=== PATIENT | male | born 1935 | race Caucasian/White ===

== ENCOUNTER → 2016-12-31 | Outpatient (CLI) | payer OTHER, MEDICARE ==
[~2016-12-31] MED LIST: CHERATUSSIN; CHERATUSSIN PO; CHOLTAB3 PO; CODEINE PO; GLCPUNK PO; GUAIFENESIN PO; TEMAZAPAM PO; [UNRECOGNIZED DRUG - OTHER] PO; [UNRECOGNIZED DRUG - OTHER] PO; [UNRECOGNIZED DRUG - OTHER] PO; aleve PO; elavil PO; enablex PO; hctz PO; ibuprofen PO; levothyroxine sodium PO; proair inhaler INH; simvastin PO
--- NOTE | 2016-12-31 10:53 | DIAGNOSTIC IMAGING REPORT ---
MRI LUMBAR SPINE W/O CONTRAST CLINICAL HISTORY: M25.552,M54.16 LOW BACK PAIN WITH LEFT LEG RADICULOPATHY. DIFFICULTY IN AMBULATION. TECHNIQUE: Sagittal and axial T1, T2 and STIR images were obtained. COMPARISON STUDY: Conventional radiographic study dated 08/17/2016 OBSERVATIONS: There is a 5.5 cm T2 bright mass arising from the lower pole the right kidney, most consistent with a cyst. There are multiple focal fatty rests/hemangiomas. There are no areas of marrow replacement viewed as suspicious for metastatic disease. L1-2: There is a mild circumferential disc bulge present. There is slight flattening of the anterior thecal sac. There is no significant foraminal narrowing L2-3: There is a mild circumferential disc bulge. There is mild triangular spinal canal narrowing. There is no significant foraminal stenosis L3-4: There is a circumferential disc bulge present. There is mild to moderate spinal stenosis. There is mild to moderate left-sided foraminal narrowing. There is facet joint arthropathy. L4-5: There is a circumferential disc bulge present. There is facet joint arthropathy. There is minimal spinal canal narrowing. There is mild to moderate bilateral foraminal narrowing. L5-S1: There is a left paracentral disc osteophyte complex. This appears to abut the left S1 nerve root. There is mild spinal canal narrowing. There is moderate to severe right-sided foraminal narrowing and moderate left-sided foraminal narrowing. The conus medullaris and cauda equina appear normal. IMPRESSION: 1. Multilevel spondylitic changes 2. Multilevel spinal canal narrowing which is mild to moderate the L3-4 level. 3. Small left paracentral disc osteophyte complex the L5-S1 level. This appears to abut the left S1 nerve root 4. Multilevel foraminal narrowing, most severe at the L5-S1 level. Electronically signed by: Roque Gamboa M.D. 12/31/2016 10:52 AM Dictated Date/Time: 12/31/2016 10:46 AM
== END | disposition home or self-care (01) ==
LOC: C.MRI 09:47
PROVIDERS: ATTEND Family Medicine
DX: M25.552 Pain in left hip (principal); M54.16 Radiculopathy, lumbar region

== ENCOUNTER → 2017-06-17 | Outpatient (CLI) | payer OTHER, MEDICARE | END | disposition home or self-care (01) | LOC: C.RDSM 13:05 | PROVIDERS: ATTEND Physical Medicine & Rehabilitation Sports Medicine | DX: M25.552 Pain in left hip (principal) ==

== ENCOUNTER → 2017-11-04 | Outpatient (CLI) | payer OTHER, MEDICARE | END | disposition home or self-care (01) | LOC: C.RDSM 10:45 | PROVIDERS: ATTEND Physical Medicine & Rehabilitation Sports Medicine | DX: R52 Pain, unspecified (principal) ==

== ENCOUNTER 2020-06-22 11:33 | Inpatient (IN) ==
[2020-06-22] MEDS ORDERED: traMADol HCL 50 MG TABLET PO STA (12:43)
[2020-06-22] MEDS ORDERED: ACETAMINOPHEN 325 MG TAB PO STA (12:43)
[2020-06-22] MEDS ORDERED: LIDOCAINE 5% 1 PATCH TD STA (12:43)
[2020-06-22 12:59] LABS: Basophils # (auto) 0.05 K/uL (0-0.2); Basophils % (auto) 0.6 %; Eosinophils # (auto) 0.49 K/uL (0-0.5); Eosinophils % (auto) 5.5 %; Hematocrit (blood only) 45.1 % (42-52); Hemoglobin 14.8 g/dL (14.0-18.0); Immature Granulocytes # (auto) 0.03 K/uL (0.00-0.02); Immature Granulocytes % (auto) 0.3 %; Mean Corpuscular Hemoglobin 30.8 pg (25-34); Mean Corpuscular Hgb Conc 32.8 g/dL (32-36); Mean Corpuscular Volume 93.8 fL (80-100); Mean Platelet Volume 10.8 fL (7.4-10.4); Monocytes # (auto) 0.67 K/uL (0.11-0.59); Monocytes % (auto) 7.5 %; Neutrophils # (auto) 5.19 K/uL (1.4-6.5); Neutrophils % (auto) 58.1 %; Platelet Count 181 K/uL (130-400); RDW Coefficient of Variation 13.8 % (11.5-14.5); RDW Standard Deviation 47.3 fL (36.4-46.3); Red Blood Count 4.81 M/uL (4.7-6.1); White Blood Count 8.93 K/uL (4.8-10.8)
--- NOTE | 2020-06-22 13:12 | CT Scan Report ---
CT head/brain wo con CLINICAL HISTORY: 85 years-old Male with s/p fall. Acute head injury status post fall TECHNIQUE: Multiple axial CT images of the head were obtained without contrast. A dose lowering tech nique was utilized adhering to the principles of ALARA. CT DOSE: 685.05 mGycm COMPARISON: Head CT 10/17/2019. FINDINGS: No acute intracranial hemorrhage, midline shift, intracranial mass, hydrocephalus, territorial ischem ia or abnormal extra-axial collection. Age-related involutional changes with ex vacuo ventriculomegal y. Patchy white matter hypodensities suggestive of chronic microvascular ischemic disease. Cerebral v ascular calcifications. The calvarium is intact. Mastoid air cells are clear. Moderate polypoid mucosal thickening of the le ft maxillary sinus. Soft tissues and orbits are unremarkable. Prior bilateral lens replacement. IMPRESSION: No acute intracranial abnormality or calvarial fracture. ACT 112: Negative or not required by law. The above report was generated using voice recognition software. It may contain grammatical, syntax o r spelling errors. Electronically signed by: Simon Calhoun M.D. 06/22/2020 1:10 PM
[2020-06-22 13:16] LABS: Albumin Level 3.3 gm/dl (3.4-5.0); BUN Creatinine Ratio 17.3 (10-20); Calcium 8.8 mg/dl (8.5-10.1); Creatinine Clr Calc Pharmacy 41.8 ml/min; Potassium 4.1 mmol/L (3.5-5.1)
--- NOTE | 2020-06-22 13:23 | Emergency Department Note ---
Impression & Plan Fracture, ribs, Fall, Hypoxia ED Provider Note NAME: EBENEZER OSUNA AGE: 85 SEX: M : 1935 ARRIVES VIA: Ambulance INFORMANT: Patient, ED PROVIDER(S): Josemanuel Rosa MD Chief Complaint: Falls HPI: Patient does present with concern for balance issues and falls. Patient does present from [facility]. The patient's had 3 falls today but states that this is been ongoing for multiple weeks. Patient does complain of some mild left-sided rib pain. The patient does not take any blood thinning medicati ons with the exception of a baby aspirin. The patient denies any headache or neck pain. The patient is unsure as to whether or not he struck his head. The patient denies fevers, chills, chest pains, shortness of breath, nausea, vomiting. The patient denies any bilateral upper or lower extremity pain. ROS: See HPI for pertinent positives and negatives. A total of 10 systems were reviewed and otherwise negative. Past medical history: See below Surgical history: See below Social history: See below Physical Exam: GENERAL: Wearing a mask. NAD, non-toxic. EYE EXAM: Normal conjunctiva. PERRL, no anisocoria and EOM's grossly intact w/o pain. Head: Normocephalic atraumatic. NECK: Supple, no nuchal rigidity, no adenopathy, non-tender. No signs of meningismus. No midline C-spine TTP LUNGS: Clear to auscultation. Normal chest wall mechanics. Chest: Left lower anterior costal margin pain without crepitus, flail chest, or overlying skin changes. HEART: NSR, no MRG. ABDOMEN: Abdomen soft, non-tender, normo-active bowel sounds, no masses, no rebound or guarding. BACK: No CVA TTP. SKIN: No rashes and no bruising. UPPER EXTREMITIES: Upper extremities are grossly normal. No obvious deformity or TTP. LOWER EXTREMITIES: Grossly normal, no edema. No obvious deformity or TTP. NEURO EXAM: A&O x3, cranial nerves II-XII grossly intact, normal speech, moves all 4 extremities on command w/o issue. Differential diagnoses: Fracture, dislocation, contusion, intra-abdominal, pneumothorax, intrathoracic, intracranial, neurologic, compartment syndrome, rhabdomyolysis, as well as other pathologies. Course: Patient was seen and evaluated the bedside. Full history physical exam was performed. EKG: Indication: Frequent falls Normal sinus rhythm, rate 83, normal intervals, normal axis, T wave inversion in 3, no ST changes. Imaging Studies: Radiology results as stated below per my review in the radiologist's interpretation: XR ribs LT min 2V w CXR1V CLINICAL HISTORY: Left rib pain following fall. COMPARISON: Chest radiograph and left rib series October 15, 2019. FINDINGS: Left renal calculi measure up to 1 cm. There is no pneumothorax or pleural effusion. Lung volumes are diminished. Interstitial thickening is noted. There is left basilar opacity. Cardiomegaly is unchanged. Mediastinal contours are stable. Note is made of an acute nondisplaced fracture of the anterolateral left seventh rib. There are acute mildly displaced fractures of the left eighth and ninth ribs. IMPRESSION: 1. Acute left seventh through ninth rib fractures. No pneumothorax. 2. Low lung volumes. Pulmonary vascular congestion. 3. Left basilar opacity which favors atelectasis. ACT 112: Negative or not required by law. Electronically signed by: Gabe Oshea M.D. 06/22/2020 2:56 PM Dictated: 06/22/20 1452 Transcribed: 06/22/201451 CT head/brain wo con CLINICAL HISTORY: 85 years-old Male with s/p fall. Acute head injury status post fall TECHNIQUE: Multiple axial CT images of the head were obtained without contrast. A dose lowering technique was utilized adhering to the principles of ALARA. CT DOSE: 685.05 mGycm COMPARISON: Head CT 10/17/2019. FINDINGS: No acute intracranial hemorrhage, midline shift, intracranial mass, hydrocephalus, territorial ischemia or abnormal extra-axial collection. Age- related involutional changes with ex vacuo ventriculomegaly. Patchy white matter hypodensities suggestive of chronic microvascular ischemic disease. Cerebral vas cular calcifications. The calvarium is intact. Mastoid air cells are clear. Moderate polypoid mucosal thickening of the left maxillary sinus. Soft tissues and orbits are unremarkable. Prior bilateral lens replacement. IMPRESSION: No acute intracranial abnormality or calvarial fracture. ACT 112: Negative or not required by law. The above report was generated using voice recognition software. It may contain grammatical, syntax or spelling errors. Electronically signed by: Simon Calhoun M.D. 06/22/2020 1:10 PM Dictated: 06/22/20 1308 Transcribed: 06/22/20 1308 Cardiac monitoring: An order was placed for continuous cardiac monitoring. The monitor shows a rate of 80 with sinus rhythm. MDM: Patient does present with concern for frequent falls. Letter was obtained along with a CT of the head and rib series. Patient does have rib fractures. CT of the head is negative. The patient's EKG is unremarkable. Patient does have a normal white count H&H platelet count. The kidney function is some chronic CKD with elevated glucose. Urinalysis is negative. Patient did have a Covid test noted to be admitted as he is from a intermediate. The patient was recommended for admission under observation due to concern for pain control associated frequent falls rib fractures and intermittent hypoxia with pain medication as he was in the mid to high 80s. Patient was admitted to the medicine service under Dr. Singletary. Past Med/Surg History Medical History (Updated 06/22/20 @ 19:08 by Josemanuel Rosa MD) Alzheimer disease Depression HTN (hypertension) Hx of kidney disease Hyperlipidemia Hypothyroidism Migraines Skin problem Type 2 diabetes mellitus Surgical History Previous back surgery S/P appendectomy Family History Other Cancer Diabetes Gallbladder disease Hypertension Kidney disease Social History Smoking Status: Unknown if ever smoked Preferred Language: Portuguese marital status: Current Living Situation: Personal Care Facility current occupational status: retired Feels Safe at Home: Yes Allergies Allergies Allergy/AdvReac Type Severity Reaction Status Date / Time adhesive tape Allergy Unknown Unknown Verified 06/22/20 14:57 cephalexin [From Keflex] Allergy Unknown Unknown Verified 06/22/20 14:57 rofecoxib Allergy Unknown SWOLLEN Verified 06/22/20 14:57 FEET Home Meds Home Medications Medication Instructions Recorded Confirmed aspirin [Aspirin Low Dose] 81 mg PO QAM 05/08/18 06/22/20 glimepiride 3 mg PO BIDM 05/08/18 06/22/20 losartan 50 mg PO QAM 05/08/18 06/22/20 naproxen 500 mg PO BIDM 05/08/18 06/22/20 oxybutynin chloride 10 mg PO QAM 05/08/18 06/22/20 sertraline 150 mg PO QAM 05/08/18 06/22/20 simvastatin 40 mg PO HS 05/08/18 06/22/20 acetaminophen 500 mg PO Q6H PRN MDD 3 GM APAP/07/28/18 06/22/20 HOURS buspirone 2.5 mg PO BIDM 03/31/19 06/22/20 lorazepam 1 mg PO Q6H PRN 03/31/19 06/22/20 peg 400-propylene glycol (PF) 1 drp OPB BID 07/01/19 06/22/20 [Systane (PF)] levothyroxine 25 mcg PO DAILY@0700 06/22/20 06/22/20 magnesium hydroxide [Milk of 30 ml PO DAILY PRN 06/22/20 06/22/20 Magnesia] olanzapine 5 mg PO HS 06/22/20 06/22/20 Results & Data (ED) Vital Signs Vital Signs - 24 hr 06/22/20 11:47 06/22/20 12:00 06/22/20 12:30 Temperature 36.9 C Temperature Source Oral Pulse Rate 83 81 80 Pulse Rate from SpO2 Sensor 82 80 Respiratory Rate 20 14 14 Respiratory Effort / Characteristics Non-Labored Spontaneous Respiratory Depth Normal Respiratory Pattern Regular Blood Pressure 132/84 154/88 H 139/82 Blood Pressure Mean 100 117 102 Pulse Oximetry 91 92 92 Oxygen Delivery Method Room Air Oxygen Flow Rate Sepsis Recent Fever Within 48 Hours No Sepsis New/Unexplained Change in Mental Status N/A Sepsis Action Taken by Nursing No Action Required 06/22/20 12:44 06/22/20 13:15 06/22/20 13:30 Temperature Temperature Source Pulse Rate 82 80 Pulse Rate from SpO2 Sensor 82 80 Respiratory Rate 17 16 Respiratory Effort / Characteristics Respiratory Depth Respiratory Pattern Blood Pressure 166/84 H 134/78 Blood Pressure Mean 110 91 Pulse Oximetry 92 95 93 Oxygen Delivery Method Room Air Oxygen Flow Rate Sepsis Recent Fever Within 48 Hours Sepsis New/Unexplained Change in Mental Status Sepsis Action Taken by Nursing 06/22/20 14:00 06/22/20 14:46 06/22/20 15:00 Temperature Temperature Source Pulse Rate 82 78 81 Pulse Rate from SpO2 Sensor 81 78 80 Respiratory Rate 16 12 14 Respiratory Effort / Characteristics Respiratory Depth Respiratory Pattern Blood Pressure 118/80 124/72 136/68 Blood Pressure Mean 101 97 77 Pulse Oximetry 94 93 90 Oxygen Delivery Method Room Air Oxygen Flow Rate Sepsis Recent Fever Within 48 Hours Sepsis New/Unexplained Change in Mental Status Sepsis Action Taken by Nursing 06/22/20 15:30 06/22/20 15:31 06/22/20 15:32 Temperature Temperature Source Pulse Rate 83 Pulse Rate from SpO2 Sensor 82 Respiratory Rate 17 Respiratory Effort / Characteristics Respiratory Depth Respiratory Pattern Blood Pressure 92/60 L Blood Pressure Mean 78 Pulse Oximetry 93 88 L 93 Oxygen Delivery Method Nasal Cannula Room Air Nasal Cannula Oxygen Flow Rate 2 2 Sepsis Recent Fever Within 48 Hours Sepsis New/Unexplained Change in Mental Status Sepsis Action Taken by Nursing 06/22/20 16:00 06/22/20 16:30 06/22/20 17:00 Temperature Temperature Source Pulse Rate 79 76 78 Pulse Rate from SpO2 Sensor 78 72 78 Respiratory Rate 14 21 12 Respiratory Effort / Characteristics Respiratory Depth Respiratory Pattern Blood Pressure 105/60 95/65 L 110/70 Blood Pressure Mean 65 81 83 Pulse Oximetry 94 95 95 Oxygen Delivery Method Nasal Cannula Nasal Cannula Nasal Cannula Oxygen Flow Rate 2 2 2 Sepsis Recent Fever Within 48 Hours Sepsis New/Unexplained Change in Mental Status Sepsis Action Taken by Nursing 06/22/20 17:30 06/22/20 18:00 Temperature Temperature Source Pulse Rate 72 72 Pulse Rate from SpO2 Sensor 73 72 Respiratory Rate 17 25 H Respiratory Effort / Characteristics Respiratory Depth Respiratory Pattern Blood Pressure 96/60 L 96/53 L Blood Pressure Mean 70 73 Pulse Oximetry 94 93 Oxygen Delivery Method Nasal Cannula Nasal Cannula Oxygen Flow Rate 2 2 Sepsis Recent Fever Within 48 Hours Sepsis New/Unexplained Change in Mental Status Sepsis Action Taken by [facility] Medications Current Medication List: was personally reviewed by me Laboratory Data Attestation: I reviewed the patient's lab results. Result diagrams: 06/22/20 11:55 06/22/20 11:55 Lab Results 06/22/20 06/22/20 06/22/20 Range/Units 11:55 11:55 14:15 WBC 8.93 (4.8-10.8) K/uL RBC 4.81 (4.7-6.1) M/uL Hgb 14.8 (14.0-18.0) g/dL Hct 45.1 (42-52) % MCV 93.8 (80-100) fL MCH 30.8 (25-34) pg MCHC 32.8 (32-36) g/dL RDW Std Deviation 47.3 H (36.4-46.3) fL RDW Coeff of Johnnie 13.8 (11.5-14.5) % Plt Count 181 (130-400) K/uL MPV 10.8 H (7.4-10.4) fL Immature Gran % (Auto) 0.3 % Neut % (Auto) 58.1 % Lymph % (Auto) 28.0 % [place] % (Auto) 7.5 % Eos % (Auto) 5.5 % Baso % (Auto) 0.6 % Neut # (Auto) 5.19 (1.4-6.5) K/uL Lymph # (Auto) 2.50 (1.2-3.4) K/uL [place] # (Auto) 0.67 H (0.11-0.59) K/uL Eos # (Auto) 0.49 (0-0.5) K/uL Baso # (Auto) 0.05 (0-0.2) K/uL Immature Gran # (Auto) 0.03 H (0.00-0.02) K/uL Sodium 138 (136-145) mmol/L Potassium 4.1 (3.5-5.1) mmol/L Chloride 106 (98-107) mmol/L Carbon Dioxide 26 (21-32) mmol/L Anion Gap 6.0 (3-11) BUN 25 H (7-18) mg/dl Creatinine 1.43 H (0.6-1.4) mg/dl Est Cr Clr Drug Dosing 41.8 ml/min Est GFR ( Amer) 51.0 Est GFR (Non-Af Amer) 44.0 BUN/Creatinine Ratio 17.3 (10-20) Glucose 278 H (70-99) mg/dl Calcium 8.8 (8.5-10.1) mg/dl Total Bilirubin 0.6 (0.2-1) mg/dl AST 23 (15-37) U/L ALT 23 (12-78) U/L Alkaline Phosphatase 87 (45-117) U/L Total Protein 7.5 (6.4-8.2) gm/dl Albumin 3.3 L (3.4-5.0) gm/dl Globulin 4.2 H (2.5-4.0) gm/dl Albumin/Globulin Ratio 0.8 L (0.9-2) TSH 3.890 (0.300-4.500) uIu/ml Urine Color Yellow Urine Appearance Clear (Clear) Urine pH 5.5 (4.5-7.5) Ur Specific G[place] 1.018 (1.000-1.030) Urine Protein Negative (Negative) Urine Glucose (UA) 1+ H (Negative) Urine Ketones Negative (Negative) Urine Blood Negative (Negative) Urine Nitrite Negative (Negative) Urine Bilirubin Negative (Negative) Urine Urobilinogen Negative (Negative) Ur Leukocyte Esterase Negative (Negative) Administered Medications Discontinued Medications Acetaminophen (Acetaminophen 325 Mg Tab) 650 mg PO NOW STA Stop: 06/22/20 12:44 Last Admin: 06/22/20 13:10 Dose: 650 mg Documented by: [id number] Lidocaine (Lidocaine 5% 1 Patch) 1 patch TD NOW STA Stop: 06/22/20 12:44 Last Admin: 06/22/20 13:12 Dose: 1 patch Documented by: [id number] Morphine Sulfate (Morphine Sulfate 4 Mg/Ml 1 Ml Carp\Vial) 4 mg IV NOW STA Stop: 06/22/20 14:19 Last Admin: 06/22/20 14:44 Dose: 4 mg Documented by: [id number] Tramadol HCl (Tramadol Hcl 50 Mg Tablet) 25 mg PO NOW STA Stop: 06/22/20 12:44 Last Admin: 06/22/20 13:10 Dose: 25 mg Documented by: [id number] Discharge Plan Visit Data Chief Complaint: Fall ED Provider: Josemanuel Rosa Discharge Problem: Fracture, ribs, Fall, Hypoxia Forms Stand Alone Forms: [facility] Prescriptions Prescriptions: No Action acetaminophen 500 mg Tablet 500 mg PO Q6H MDD 3 GM APAP/24 HOURS PRN (Reason: Fever Or Pain) RF: 0 buspirone 5 mg tablet 2.5 mg PO BIDM RF: 0 lorazepam 1 mg tablet 1 mg PO Q6H PRN (Reason: Anxiety) RF: 0 losartan 50 mg Tablet 50 mg PO QAM RF: 0 oxybutynin chloride 10 mg Tablet Extended Release 24hr 10 mg PO QAM RF: 0 sertraline 100 mg Tablet 150 mg PO QAM RF: 0 aspirin [Aspirin Low Dose] 81 mg Tablet,Delayed Release (Dr/Ec) 81 mg PO QAM RF: 0 simvastatin 40 mg Tablet 40 mg PO HS RF: 0 glimepiride 2 mg Tablet 3 mg PO BIDM RF: 0 naproxen 500 mg Tablet 500 mg PO BIDM RF: 0 Systane (PF) 0.4-0.3 % Dropperette 1 drp OPB BID RF: 0 olanzapine 5 mg Tablet 5 mg PO HS RF: 0 levothyroxine 25 mcg Tablet 25 mcg PO DAILY@0700 RF: 0 magnesium hydroxide [Milk of Magnesia] 400 mg/5 mL Suspension 30 ml PO DAILY PRN (Reason: Constipation) RF: 0 Discharge Problem: Fracture, ribs Qualifiers: Encounter type: initial encounter Rib fracture type: multiple ribs Fracture type: closed Laterality: left Qualified Code(s): S22.42XA - Multiple fractures of ribs, left side, initial encounter for closed fracture Fall Qualifiers: Encounter type: initial encounter Qualified Code(s): W19.XXXA - Unspecified fal l, initial encounter
[2020-06-22 13:27] LABS: Albumin Globulin Ratio 0.8 (0.9-2); Bilirubin,Total 0.6 mg/dl (0.2-1); Globulin 4.2 gm/dl (2.5-4.0); Thyroid Stimulating Hormone 3.89 uIu/ml (0.300-4.500); Total Protein 7.5 gm/dl (6.4-8.2)
[2020-06-22] MEDS ORDERED: MoRPHine SULFATE 4 MG/ML 1 ML CARP\\VIAL IV STA (14:18)
[2020-06-22 14:31] LABS: Appearance Urine Clear (Clear); Bilirubin Urine Negative (Negative); Blood Urine Negative (Negative); Color Urine Yellow; Glucose Urine UA 1+ (Negative); Ketones Urine Negative (Negative); Leukocyte Esterase Urine Negative (Negative); Nitrite Urine Negative (Negative); Protein Urine Negative (Negative); Specific Gravity Urine 1.018 (1.000-1.030); Urobilinogen Urine Negative (Negative); pH Urine 5.5 (4.5-7.5)
--- NOTE | 2020-06-22 14:57 | XRay Report ---
XR ribs LT min 2V w CXR1V CLINICAL HISTORY: Left rib pain following fall. COMPARISON: Chest radiograph and left rib series October 15, 2019. FINDINGS: Left renal calculi measure up to 1 cm. There is no pneumothorax or pleural effusion. Lung volumes are diminished. Interstitial thickening is noted. There is left basilar opacity. Cardiomegaly is unchanged. Mediastinal contours are stable. Note is made of an acute nondisplaced fracture of the anterolateral left seventh rib. There are acute mildly displaced fractures of the left eighth and ni nth ribs. IMPRESSION: 1. Acute left seventh through ninth rib fractures. No pneumothorax. 2. Low lung volumes. Pulmonary vascular congestion. 3. Left basilar opacity which favors atelectasis. ACT 112: Negative or not required by law. Electronically signed by: Gabe Oshea M.D. 06/22/2020 2:56 PM
[2020-06-22] MEDS ORDERED: MoRPHine SULFATE 4 MG/ML 1 ML CARP\\VIAL IV PRN (15:24)
--- NOTE | 2020-06-22 17:42 | History & Physical Report ---
Date of Service June 22, 2020 Assessment & Plan (1) Falls: Multiple falls today, and it sounds like increasing frequency. Per patient's report, no loss of consciousness. No prodromal signs/symptoms. They sound mechanical, but of note, BP is as low as 95/53 in the ED. - Monitor on tele - Monitor BP - PT/OT -> Likely placement (2) Broken ribs: X-ray on 06/22 reveals left seventh through ninth rib fractures. - Lidocaine patch - Tylenol PRN - Morphine as last resort (3) HTN (hypertension): BP actually low-normal in the ED, though patient denies any present symptoms. - Given his falls (despite denying lightheadedness or dizziness prior to his falls), will hold losartan for now in case it is contributing. (4) Type 2 diabetes mellitus: Last A1c was 9.7% in 2019. - Sliding scale insulin - Check A1c (5) Hx of kidney disease: Baseline Cr ~1.15 - 1.45, eGFR 45 - 60, CKD Stage III. - Presently Cr is 1.45. - Monitor (6) Alzheimer disease: On admission, patient knew name, place ("[facility]"), and month/year. He could not name the president or what holiday is coming up (een) despite hints for both. Appears to be at baseline. - Continue olanzapine & lorazepam PRN (7) Hypothyroidism: TSH was 3.89 this admission. No signs/symptoms of hypo-/hyperthyroidism. - Continue home Synthroid 25 mcg (8) Depression: No depressive affect today. - Continue buspirone & sertraline (9) DVT prophylaxis: SCDs - Low DVT risk per admission calculator History of Present Illness Primary Care Provider: [employer] 85yo M w/ hx of DM and HTN who presents after several falls at his residency at [facility]. He reports that he remembers the falls and denies striking his head. He reports he's just "falling backwards all the time." He denies any prodrome symptoms and denies any dizziness, lightheadedness, presyncopal sensations, chest pain, or shortness of breath before he falls. Per report, he fell three times today and was sent in to the hospital for this reason. At present, he reports some pain in the left chest, but otherwise has no major complaints. Denies shortness of breath, nausea, vomiting, diarrhea or constipation, or fevers/chills/sweats. Allergies Allergy/AdvReac Type Severity Reaction Status Date / Time adhesive tape Allergy Unknown Unknown Verified 06/22/20 14:57 cephalexin [From Keflex] Allergy Unknown Unknown Verified 06/22/20 14:57 rofecoxib Allergy Unknown SWOLLEN Verified 06/22/20 14:57 FEET Home Medications Home Medications Medication Instructions Recorded Confirmed Type aspirin [Aspirin Low Dose] 81 mg PO QAM 05/08/18 06/22/20 History glimepiride 3 mg PO BIDM 05/08/18 06/22/20 History losartan 50 mg PO QAM 05/08/18 06/22/20 History naproxen 500 mg PO BIDM 05/08/18 06/22/20 History oxybutynin chloride 10 mg PO QAM 05/08/18 06/22/20 History sertraline 150 mg PO QAM 05/08/18 06/22/20 History simvastatin 40 mg PO HS 05/08/18 06/22/20 History acetaminophen 500 mg PO Q6H PRN MDD 3 GM APAP/07/28/18 06/22/20 History HOURS buspirone 2.5 mg PO BIDM 03/31/19 06/22/20 History lorazepam 1 mg PO Q6H PRN 03/31/19 06/22/20 History peg 400-propylene glycol (PF) 1 drp OPB BID 07/01/19 06/22/20 History [Systane (PF)] levothyroxine 25 mcg PO DAILY@0700 06/22/20 06/22/20 History magnesium hydroxide [Milk of 30 ml PO DAILY PRN 06/22/20 06/22/20 History Magnesia] olanzapine 5 mg PO HS 06/22/20 06/22/20 History Past Med/Surg History Medical History (Updated 06/22/20 @ 18:17 by Kermit Singletary MD) Alzheimer disease Depression HTN (hypertension) Hx of kidney disease Hyperlipidemia Hypothyroidism Migraines Skin problem Type 2 diabetes mellitus Surgical History Previous back surgery S/P appendectomy Family History Other Cancer Diabetes Gallbladder disease Hypertension Kidney disease Social History Smoking Status: Unknown if ever smoked Preferred Language: Korean marital status: Current Living Situation: Personal Care Facility current occupational status: retired Feels Safe at Home: Yes Review of Systems Review of Systems: All systems reviewed & are unremarkable except as noted in HPI & below Physical Exam Constitutional: WD/WN, vitals as above Eyes: EOM intact bilaterally; no conjunctival abnormality ENMT: external ear and nose normal, oropharynx normal Neck: trachea midline, no thyromegaly normal visual inspection Respiratory: normal respiratory effort, lungs clear to auscultation no respiratory distress Cardiovascular: RRR, no murmur, no edema Chest (Breasts): Chest: normal inspection of chest Additional Comments: But tender to palpations Gastrointestinal (Abdomen): Inspection/Auscultation: abdomen normal to inspection; abdomen not distended Musculoskeletal: no cyanosis or clubbing, extremities motor strength 5/5 Skin: no rashes, warm and dry Neurologic: moves all extremities and awake Psychiatric: Orientation: alert, oriented to person, oriented to place, oriented to time and cooperative Results & Data Results & Data ([facility]) Vital Signs (Past 12 Hours) Vital Signs Temp Pulse Resp BP Pulse Ox 06/22/20 16:30 76 21 95/65 L 95 06/22/20 16:00 79 14 105/60 94 06/22/20 15:32 93 06/22/20 15:31 88 L 06/22/20 15:30 83 17 92/60 L 93 06/22/20 15:00 81 14 136/68 90 06/22/20 14:46 78 12 124/72 93 06/22/20 14:00 82 16 118/80 94 06/22/20 13:30 80 16 134/78 93 06/22/20 13:15 82 17 166/84 H 95 06/22/20 12:44 92 06/22/20 12:30 80 14 139/82 92 06/22/20 12:00 81 14 154/88 H 92 06/22/20 11:47 36.9 C 83 20 132/84 91 PG Care Time/CCT Total # of Minutes Spent Total Time Spent with Patient: Total time spent is greater than 50% in coordination of care (as documented) at patient's floor/unit and/or counseling patient: Coding Level of Care Code 00283 Initial Inpt Care Lvl 3 Diagnoses Falls W19.XXXA Broken ribs S22.39XA HTN (hypertension) I10 Type 2 diabetes mellitus E11.9 Hx of kidney disease Z87.448 Alzheimer disease G30.9; F02.80 Hypothyroidism E03.9 Depression F32.9 DVT prophylaxis Z29.9
[2020-06-22] MEDS ORDERED: DEXTROSE 50% 50 ML SYRINGE IV PRN (20:15)
[2020-06-22] MEDS ORDERED: GLUCOSE 40% GEL 15 GM TUBE PO PRN (20:15)
[2020-06-22] MEDS ORDERED: GLUCOSE 10 TABS/TUBE PO PRN (20:15)
[2020-06-22] MEDS ORDERED: CARBOHYDRATES FOR HYPOGLYCEMIA PO PRN (20:15)
[2020-06-22] MEDS ORDERED: ONDANSETRON INJ 2 MG/ML 2 ML VIAL IV PRN (20:15)
[2020-06-22] MEDS ORDERED: GLUCAGON FOR INJ 1 MG VIAL SQ PRN (20:15)
[2020-06-22] MEDS ORDERED: LORazepam 1 MG TAB PO PRN (20:24)
[2020-06-22] MEDS: INSULIN ASPART 100 UNITS/ML 3 ML PEN SC SCH (21:31)
[2020-06-22] MEDS: SIMVASTATIN 40 MG TAB PO SCH (21:32)
[2020-06-22] MEDS: OLANZapine 5 MG TABLET PO SCH (21:33)
[2020-06-22] MEDS: MoRPHine SULFATE 2 MG/ML CARP IV PRN (21:39)
[2020-06-22] MEDS: ARTIFICIAL TEARS OP SCH (21:41)
[2020-06-22] MEDS ORDERED: PNEUMOCOCCAL Polysaccharide Vaccine 25mcg/0.5mL vial/Syr IM ONE (23:45)
--- NOTE | 2020-06-23 06:24 | Electrocardiogram Report ---
Test Reason : Blood Pressure : / mmHG Vent. Rate : 083 BPM Atrial Rate : 083 BPM P-R Int : 160 ms QRS Dur : 088 ms QT Int : 382 ms P-R-T Axes : 053 -21 010 degrees QTc Int : 448 ms Normal sinus rhythm Low voltage QRS Inferior infarct , age undetermined Abnormal ECG When compared with ECG of 01-JUL-2019 21:19, Inferior infarct is now Present Confirmed by Dayo Chong ([id number]) on 06/23/2020 6:24:37 AM Referred By: REFERRED SELF Confirmed By:Dayo Chong
[2020-06-23] MEDS: LEVOTHYROXINE SODIUM 25 MCG TABLET PO SCH (06:42)
[2020-06-23 07:01] LABS: Hematocrit (blood only) 42.9 % (42-52); Mean Corpuscular Hemoglobin 30.7 pg (25-34); Mean Corpuscular Hgb Conc 32.6 g/dL (32-36); Mean Corpuscular Volume 94.1 fL (80-100); Mean Platelet Volume 10.1 fL (7.4-10.4); Platelet Count 152 K/uL (130-400); RDW Standard Deviation 47.9 fL (36.4-46.3); Red Blood Count 4.56 M/uL (4.7-6.1); White Blood Count 8.61 K/uL (4.8-10.8)
[2020-06-23 07:30] LABS: BUN Creatinine Ratio 19.3 (10-20); Calcium 8.5 mg/dl (8.5-10.1); Creatinine Clr Calc Pharmacy 37.4 ml/min; Est GFR (African American) 46.7; Est GFR (Non-African American) 40.3; Potassium 4.3 mmol/L (3.5-5.1)
[2020-06-23 08:28] LABS: Estimated Average Glucose 174 mg/dl; Hemoglobin A1C 7.7 % (4.5-5.6)
[2020-06-23] MEDS: MoRPHine SULFATE 2 MG/ML CARP IV PRN ×4 (08:43→22:45)
[2020-06-23] MEDS: OXYBUTYNIN CHLORIDE XL 5 MG TABCR PO SCH (08:44)
[2020-06-23] MEDS: SERTRALINE HCL 50 MG TABLET PO SCH (08:44)
[2020-06-23] MEDS: ASPIRIN 81 MG ECTAB PO SCH (08:44)
[2020-06-23] MEDS: busPIRone 5 MG TAB PO SCH ×2 (08:45→17:13)
[2020-06-23] MEDS: ARTIFICIAL TEARS OP SCH ×2 (08:46→22:38)
[2020-06-23] MEDS: INSULIN ASPART 100 UNITS/ML 3 ML PEN SC SCH ×4 (08:49→22:39)
[2020-06-23] MEDS ORDERED: MoRPHine SULFATE 2 MG/ML CARP IV STA (14:10)
[2020-06-23] MEDS: ACETAMINOPHEN 325 MG TAB PO PRN (17:13)
--- NOTE | 2020-06-23 21:39 | Hospitalist Progress Note ---
Date of Service June 23, 2020 Assessment & Plan (1) Falls: Multiple falls today, and it sounds like increasing frequency. Per patient's report, no loss of consciousness. No prodromal signs/symptoms. They sound mechanical, but of note, BP is as low as 95/53 in the ED. - Monitor on tele - Monitor BP - PT/OT -> awaiting placement (2) Broken ribs: X-ray on 06/22 reveals left seventh through ninth rib fractures. - Lidocaine patch - Tylenol PRN - Morphine as last resort -Pain is still not controlled yet. will continue to treat. (3) HTN (hypertension): BP actually low-normal in the ED, though patient denies any present symptoms. - Given his falls (despite denying lightheadedness or dizziness prior to his falls), will hold losartan for now in case it is contributing. (4) Type 2 diabetes mellitus: Last A1c was 9.7% in 2019. - Sliding scale insulin - Check A1c (5) Hx of kidney disease: Baseline Cr ~1.15 - 1.45, eGFR 45 - 60, CKD Stage III. - Presently Cr is 1.59 - Monitor (6) Alzheimer disease: On admission, patient knew name, place ("[facility]"), and month/year. He could not name the president or what holiday is coming up (een) despite hints for both. Appears to be at baseline. - Continue olanzapine & lorazepam PRN (7) Hypothyroidism: TSH was 3.89 this admission. No signs/symptoms of hypo-/hyperthyroidism. - Continue home Synthroid 25 mcg (8) Depression: No depressive affect today. - Continue buspirone & sertraline (9) DVT prophylaxis: SCDs - Low DVT risk per admission calculator Admission and Anticipated Discharge Date Admission Date: June 22, 2020 Subjective Patient reports no new symptoms today. Review of Systems Review of Systems: All systems reviewed & are unremarkable except as noted in HPI & below Physical Exam Physical Exam: Constitutional: WD/WN, vitals as above Eyes: EOM intact bilaterally; no conjunctival abnormality ENMT: external ear and nose normal, oropharynx normal Neck: trachea midline, no thyromegaly normal visual inspection Respiratory: normal respiratory effort, lungs clear to auscultation no r espiratory distress Cardiovascular: RRR, no murmur, no edema Chest (Breasts): Chest: normal inspection of chest Additional Comments: But tender to palpations Gastrointestinal (Abdomen): Inspection/Auscultation: abdomen normal to inspection; abdomen not distended Musculoskeletal: no cyanosis or clubbing, extremities motor strength 5/5 Skin: no rashes, warm and dry Neurologic: moves all extremities and awake Psychiatric: Orientation: alert, oriented to person, oriented to place, oriented to time and cooperative Results & Data Results & Data ([facility]) Vital Signs (Past 12 Hours) Vital Signs Temp Pulse Pulse Resp BP Pulse Ox 06/23/20 18:52 37.2 C 87 18 118/65 90 06/23/20 16:00 83 06/23/20 15:29 37.1 C 80 18 118/72 92 PG Care Time/CCT Total # of Minutes Spent Total Time Spent with Patient: Total time spent is greater than 50% in coordination of care (as documented) at patient's floor/unit and/or counseling patient: Coding Level of Care Code 62754 Subseq Hosp Care Lvl 2 Diagnoses Falls W19.XXXA Broken ribs S22.39XA HTN (hypertension) I10 Type 2 diabetes mellitus E11.9 Hx of kidney disease Z87.448 Alzheimer disease G30.9; F02.80 Hypothyroidism E03.9 Depression F32.9 DVT prophylaxis Z29.9 Time Spent (min) 25
[2020-06-23] MEDS: SIMVASTATIN 40 MG TAB PO SCH (22:42)
[2020-06-23] MEDS: OLANZapine 5 MG TABLET PO SCH (22:42)
[2020-06-24] MEDS: LEVOTHYROXINE SODIUM 25 MCG TABLET PO SCH (06:13)
[2020-06-24] MEDS: MoRPHine SULFATE 2 MG/ML CARP IV PRN ×4 (06:16→20:58)
[2020-06-24] MEDS: ACETAMINOPHEN 325 MG TAB PO PRN (08:57)
[2020-06-24] MEDS: OXYBUTYNIN CHLORIDE XL 5 MG TABCR PO SCH (08:58)
[2020-06-24] MEDS: busPIRone 5 MG TAB PO SCH ×2 (08:58→16:56)
[2020-06-24] MEDS: SERTRALINE HCL 50 MG TABLET PO SCH (08:58)
[2020-06-24] MEDS: ARTIFICIAL TEARS OP SCH ×2 (08:59→20:58)
[2020-06-24] MEDS: ASPIRIN 81 MG ECTAB PO SCH (08:59)
[2020-06-24] MEDS: INSULIN ASPART 100 UNITS/ML 3 ML PEN SC SCH ×4 (09:00→21:34)
[2020-06-24] MEDS: LIDOCAINE 5% 1 PATCH TD SCH (09:55)
[2020-06-24] MEDS ORDERED: SODIUM CHLORIDE 0.9% 500 ML IV SCH (16:45)
[2020-06-24] MEDS: ACETAMINOPHEN 325 MG TAB PO SCH ×2 (16:56→22:48)
[2020-06-24 17:26] LABS: BUN Creatinine Ratio 18.3 (10-20); Calcium 8.9 mg/dl (8.5-10.1); Creatinine Clr Calc Pharmacy 35.5 ml/min; Est GFR (African American) 43.2; Est GFR (Non-African American) 37.3; Potassium 4.5 mmol/L (3.5-5.1)
[2020-06-24] MEDS: SIMVASTATIN 40 MG TAB PO SCH (20:53)
[2020-06-24] MEDS: CELECOXIB 100 MG CAP PO SCH (20:53)
[2020-06-24] MEDS: PANTOprazole 40 MG TAB PO SCH (20:53)
[2020-06-24] MEDS: OLANZapine 5 MG TABLET PO SCH (20:54)
--- NOTE | 2020-06-24 22:58 | Hospitalist Progress Note ---
Date of Service June 24, 2020 Assessment & Plan (1) Falls: Multiple falls today, and it sounds like increasing frequency. Per patient's report, no loss of consciousness. No prodromal signs/symptoms. They sound mechanical, but of note, BP is as low as 95/53 in the ED. - Monitor on tele - Monitor BP - PT/OT -> awaiting placement -Patient had a fall during the day: no focal findings or lacerations. -will keep patient until pain is better controlled. (2) Broken ribs: X-ray on 06/22 reveals left seventh through ninth rib fractures. - Lidocaine patch - Tylenol PRN - Morphine as last resort -Pain is still not controlled yet. will continue to treat: ordere celebrex and tylenol around the clock instead of PRN. will try to limit morphine dose. (3) HTN (hypertension): BP actually low-normal in the ED, though patient denies any present symptoms. - Given his falls (despite denying lightheadedness or dizziness prior to his falls), will hold losartan for now in case it is contributing. (4) Type 2 diabetes mellitus: Last A1c was 9.7% in 2019. - Sliding scale insulin (5) Hx of kidney disease: Baseline Cr ~1.15 - 1.45, eGFR 45 - 60, CKD Stage III. - Presently Cr is 1.59 - Monitor (6) Alzheimer disease: On admission, patient knew name, place ("[facility]"), and month/year. He could not name the president or what holiday is coming up (Halloween) despite hints for both. Appears to be at baseline. - Continue olanzapine & lorazepam PRN (7) Hypothyroidism: TSH was 3.89 this admission. No signs/symptoms of hypo-/hyperthyroidism. - Continue home Synthroid 25 mcg (8) Depression: No depressive affect today. - Continue buspirone & sertraline (9) DVT prophylaxis: SCDs - Low DVT risk per admission calculator Admission and Anticipated Discharge Date Admission Date: June 22, 2020 Subjective 85 yo male reports having pain in his chest. He states it is still strong. He had a fall earlier in the day. Updated daughter. Review of Systems Review of Systems: All systems reviewed & are unremarkable except as noted in HPI & below Physical Exam Physical Exam: Constitutional: WD/WN, vitals as above Eyes: EOM intact bilaterally; no conjunctival abnormality ENMT: external ear and nose normal, oropharynx normal Neck: trachea midline, no thyromegaly normal visual inspection Respiratory: normal respiratory effort, lungs clear to auscultation no respiratory distress Cardiovascular: RRR, no murmur, no edema Chest (Breasts): Chest: normal inspection of chest Additional Comments: But tender to palpations Gastrointestinal (Abdomen): Inspection/Auscultation: abdomen normal to inspection; abdomen not distended Musculoskeletal: no cyanosis or clubbing, extremities motor strength 5/5 Skin: no rashes, warm and dry Neurologic: moves all extremities and awake, no focal findings Psychiatric: Orientation: alert, oriented to person, oriented to place, oriented to time and cooperative Results & Data Results & Data ([facility]) Vital Signs (Past 12 Hours) Vital Signs Temp Pulse Pulse Resp BP BP Pulse Ox 06/24/20 20:27 37.6 C H 83 18 127/76 95 06/24/20 16:45 36.8 C 95 H 16 127/73 94 06/24/20 15:00 88 06/24/20 11:33 36.9 C 87 16 129/77 92 06/24/20 10:59 37 C 98 H 22 201/84 H 92 PG Care Time/CCT Total # of Minutes Spent Total Time Spent with Patient: Total time spent is greater than 50% in coordination of care (as documented) at patient's floor/unit and/or counseling patient: Coding Level of Care Code 82628 Subseq Hosp Care Lvl 3 Diagnoses Falls W19.XXXA Broken ribs S22.39XA HTN (hypertension) I10 Type 2 diabetes mellitus E11.9 Hx of kidney disease Z87.448 Alzheimer disease G30.9; F02.80 Hypothyroidism E03.9 Depression F32.9 DVT prophylaxis Z29.9 Time Spent (min) 35
[2020-06-25] MEDS: MoRPHine SULFATE 2 MG/ML CARP IV PRN (01:07)
[2020-06-25] MEDS: ACETAMINOPHEN 325 MG TAB PO SCH ×4 (05:03→23:03)
[2020-06-25] MEDS: LEVOTHYROXINE SODIUM 25 MCG TABLET PO SCH (05:04)
[2020-06-25] MEDS: OXYBUTYNIN CHLORIDE XL 5 MG TABCR PO SCH (09:04)
[2020-06-25] MEDS: SERTRALINE HCL 50 MG TABLET PO SCH (09:04)
[2020-06-25] MEDS: busPIRone 5 MG TAB PO SCH ×2 (09:04→17:20)
[2020-06-25] MEDS: ASPIRIN 81 MG ECTAB PO SCH (09:04)
[2020-06-25] MEDS: CELECOXIB 100 MG CAP PO SCH ×2 (09:04→20:53)
[2020-06-25] MEDS: PANTOprazole 40 MG TAB PO SCH ×2 (09:04→20:53)
[2020-06-25] MEDS: LIDOCAINE 5% 1 PATCH TD SCH (09:05)
[2020-06-25] MEDS: ARTIFICIAL TEARS OP SCH ×2 (09:05→20:54)
[2020-06-25] MEDS: INSULIN ASPART 100 UNITS/ML 3 ML PEN SC SCH ×4 (09:08→21:50)
--- NOTE | 2020-06-25 14:24 | Hospitalist Progress Note ---
Date of Service June 25, 2020 Assessment & Plan (1) Falls: Multiple falls today, and it sounds like increasing frequency. Per patient's report, no loss of consciousness. No prodromal signs/symptoms. They sound mechanical, but of note, BP is as low as 95/53 in the ED. - Monitor on tele - Monitor BP - PT/OT -> awaiting placement -Patient had a fall during the day: no focal findings or lacerations. -will keep patient until pain is better controlled. It is better controlled with NSAID and tylenol. (2) Broken ribs: X-ray on 06/22 reveals left seventh through ninth rib fractures. - Lidocaine patch - Tylenol PRN - Morphine as last resort -Pain is still not controlled yet. will continue to treat: ordere celebrex and tylenol around the clock instead of PRN. will try to limit morphine dose. (3) HTN (hypertension): BP actually low-normal in the ED, though patient denies any present symptoms. - Given his falls (despite denying lightheadedness or dizziness prior to his falls), will hold losartan for now in case it is contributing. (4) Type 2 diabetes mellitus: Last A1c was 9.7% in 2019. - Sliding scale insulin (5) Hx of kidney disease: Baseline Cr ~1.15 - 1.45, eGFR 45 - 60, CKD Stage III. - - Monitor (6) Alzheimer disease: On admission, patient knew name, place ("[facility]"), and month/year. He could not name the president or what holiday is coming up (Halloween) despite hints for both. Appears to be at baseline. - Continue olanzapine & lorazepam PRN (7) Hypothyroidism: TSH was 3.89 this admission. No signs/symptoms of hypo-/hyperthyroidism. - Continue home Synthroid 25 mcg (8) Depression: No depressive affect today. - Continue buspirone & sertraline (9) DVT prophylaxis: SCDs - Low DVT risk per admission calculator Admission and Anticipated Discharge Date Admission Date: June 22, 2020 Subjective Pain is better controlled today. He was lethargic in the morning as per nursing however he woke up in the afternoon. He received morphine overnight. will hold dose. Review of Systems Review of Systems: All systems reviewed & are unremarkable except as noted in HPI & below Physical Exam Physical Exam: Constitutional: WD/WN, vitals as above Eyes: EOM intact bilaterally; no conjunctival abnormality ENMT: external ear and nose normal, oropharynx normal Neck: trachea midline, no thyromegaly normal visual inspection Respiratory: normal respiratory effort, lungs clear to auscultation no respiratory distress Cardiovascular: RRR, no murmur, no edema Chest (Breasts): Chest: normal inspection of chest Additional Comments: But tender to palpations Gastrointestinal (Abdomen): Inspection/Auscultation: abdomen normal to inspecti on; abdomen not distended Musculoskeletal: no cyanosis or clubbing, extremities motor strength 5/5 Skin: no rashes, warm and dry Neurologic: moves all extremities and awake, no focal findings Psychiatric: Orientation: alert, oriented to person, oriented to place, oriented to time and cooperative Results & Data Results & Data ([facility]) Vital Signs (Past 12 Hours) Vital Signs Temp Pulse Pulse Resp BP BP Pulse Ox 06/25/20 12:50 63 144/83 H 94 06/25/20 11:56 36.4 C L 75 18 167/80 H 93 06/25/20 08:10 36.4 C L 73 20 124/61 91 06/25/20 07:01 72 06/25/20 05:04 36.5 C 79 16 136/73 93 PG Care Time/CCT Total # of Minutes Spent Total Time Spent with Patient: Total time spent is greater than 50% in coordination of care (as documented) at patient's floor/unit and/or counseling patient: Coding Level of Care Code 22359 Subseq Hosp Care Lvl 3 Diagnoses Falls W19.XXXA Broken ribs S22.39XA HTN (hypertension) I10 Type 2 diabetes mellitus E11.9 Hx of kidney disease Z87.448 Alzheimer disease G30.9; F02.80 Hypothyroidism E03.9 Depression F32.9 DVT prophylaxis Z29.9 Time Spent (min) 35
[2020-06-25] MEDS: SIMVASTATIN 40 MG TAB PO SCH (20:52)
[2020-06-25] MEDS: OLANZapine 5 MG TABLET PO SCH (20:52)
[2020-06-26] MEDS: ACETAMINOPHEN 325 MG TAB PO SCH ×4 (05:10→22:54)
[2020-06-26] MEDS: LEVOTHYROXINE SODIUM 25 MCG TABLET PO SCH (05:11)
[2020-06-26] MEDS: ASPIRIN 81 MG ECTAB PO SCH (07:51)
[2020-06-26] MEDS: SERTRALINE HCL 50 MG TABLET PO SCH (07:51)
[2020-06-26] MEDS: OXYBUTYNIN CHLORIDE XL 5 MG TABCR PO SCH (07:51)
[2020-06-26] MEDS: busPIRone 5 MG TAB PO SCH ×2 (07:52→17:03)
[2020-06-26] MEDS: CELECOXIB 100 MG CAP PO SCH ×2 (07:52→20:18)
[2020-06-26] MEDS: ARTIFICIAL TEARS OP SCH ×2 (07:52→20:19)
[2020-06-26] MEDS: PANTOprazole 40 MG TAB PO SCH ×2 (07:53→20:16)
[2020-06-26] MEDS: LIDOCAINE 5% 1 PATCH TD SCH (07:53)
[2020-06-26] MEDS: INSULIN ASPART 100 UNITS/ML 3 ML PEN SC SCH ×4 (07:58→20:37)
[2020-06-26 10:48] LABS: Hematocrit (blood only) 42.3 % (42-52); Mean Corpuscular Hemoglobin 30.9 pg (25-34); Mean Corpuscular Hgb Conc 33.1 g/dL (32-36); Mean Corpuscular Volume 93.4 fL (80-100); Mean Platelet Volume 10.1 fL (7.4-10.4); Platelet Count 159 K/uL (130-400); RDW Coefficient of Variation 13.7 % (11.5-14.5); Red Blood Count 4.53 M/uL (4.7-6.1); White Blood Count 9.49 K/uL (4.8-10.8)
[2020-06-26 11:12] LABS: BUN Creatinine Ratio 25.1 (10-20); Calcium 8.7 mg/dl (8.5-10.1); Creatinine Clr Calc Pharmacy 42.6 ml/min; Est GFR (African American) 52.8; Est GFR (Non-African American) 45.6; Potassium 4.7 mmol/L (3.5-5.1)
[2020-06-26] MEDS: SIMVASTATIN 40 MG TAB PO SCH (20:17)
[2020-06-26] MEDS: OLANZapine 5 MG TABLET PO SCH (20:20)
--- NOTE | 2020-06-26 22:33 | Hospitalist Progress Note ---
Date of Service June 26, 2020 Assessment & Plan (1) Falls: Multiple falls today, and it sounds like increasing frequency. Per patient's report, no loss of consciousness. No prodromal signs/symptoms. They sound mechanical, but of note, BP is as low as 95/53 in the ED. - Monitor on tele - Monitor BP - PT/OT -> awaiting placement -Patient had a fall during the day: no focal findings or lacerations. -will keep patient until pain is better controlled. Plan is to discharge Saturday to dementia unit. It is better controlled with NSAID and tylenol. (2) Broken ribs: X-ray on 06/22 reveals left seventh through ninth rib fractures. - Lidocaine patch - Tylenol PRN - Patient gets confused with morphine. - will continue to treat: ordered celebrex and tylenol around the clock instead of PRN. will try to limit morphine dose. (3) HTN (hypertension): BP actually low-normal in the ED, though patient denies any present symptoms. - Given his falls (despite denying lightheadedness or dizziness prior to his falls), will hold losartan for now in case it is contributing. (4) Type 2 diabetes mellitus: Last A1c was 9.7% in 2019. - Sliding scale insulin (5) Hx of kidney disease: Baseline Cr ~1.15 - 1.45, eGFR 45 - 60, CKD Stage III. - - Monitor (6) Alzheimer disease: On admission, patient knew name, place ("[facility]"), and month/year. He could not name the president or what holiday is coming up (een) despite hints for both. Appears to be at baseline. - Continue olanzapine & lorazepam PRN (7) Hypothyroidism: TSH was 3.89 this admission. No signs/symptoms of hypo-/hyperthyroidism. - Continue home Synthroid 25 mcg (8) Depression: No depressive affect today. - Continue buspirone & sertraline (9) DVT prophylaxis: SCDs - Low DVT risk per admission calculator Admission and Anticipated Discharge Date Admission Date: June 22, 2020 Subjective 85 yo male reports feeling better. His pain appears to be better controlled with his current medicine, However, he reports at times, he has severe pain. Review of Systems Review of Systems: All systems reviewed & are unremarkable except as noted in HPI & below Physical Exam Physical Exam: Constitutional: WD/WN, vitals as above Eyes: EOM intact bilaterally; no conjunctival abnormality ENMT: external ear and nose normal, oropharynx normal Neck: trachea midline, no thyromegaly normal visual inspection Respiratory: normal respiratory effort, lungs clear to auscultation no respiratory distress Cardiovascular: RRR, no murmur, no edema Chest (Breasts): Chest: normal inspection of chest Additional Comments: But tender to palpations Gastrointestinal (Abdomen): Inspection/Auscultation: abdomen normal to inspection; abdomen not distended Musculoskeletal: no cyanosis or clubbing, extremities motor strength 5/5 Skin: no rashes, warm and dry Neurologic: moves all extremities and awake, no focal findings Psychiatric: Orientation: alert, oriented to person, oriented to place, oriented to time and cooperative Results & Data Results & Data ([facility]) Vital Signs (Past 12 Hours) Vital Signs Temp Pulse Pulse Resp BP BP Pulse Ox 06/26/20 19:25 36.7 C 85 20 132/74 91 06/26/20 15:26 36.5 C 74 18 117/70 91 06/26/20 14:51 73 06/26/20 13:00 92 06/26/20 12:02 36.3 C L 73 18 111/81 90 PG Care Time/CCT Total # of Minutes Spent Total Time Spent with Patient: Total time spent is greater than 50% in coordination of care (as documented) at patient's floor/unit and/or counseling patient: Coding Level of Care Code 10116 Subseq Hosp Care Lvl 2 Diagnoses Falls W19.XXXA Broken ribs S22.39XA HTN (hypertension) I10 Type 2 diabetes mellitus E11.9 Hx of kidney disease Z87.448 Alzheimer disease G30.9; F02.80 Hypothyroidism E03.9 Depression F32.9 DVT prophylaxis Z29.9 Time Spent (min) 25
[2020-06-27] MEDS: ACETAMINOPHEN 325 MG TAB PO SCH ×4 (05:45→23:11)
[2020-06-27] MEDS: LEVOTHYROXINE SODIUM 25 MCG TABLET PO SCH (06:14)
[2020-06-27] MEDS: MoRPHine SULFATE 2 MG/ML CARP IV PRN (06:32)
[2020-06-27] MEDS: LIDOCAINE 5% 1 PATCH TD SCH (08:08)
[2020-06-27] MEDS: ARTIFICIAL TEARS OP SCH ×2 (08:09→23:03)
[2020-06-27] MEDS: CELECOXIB 100 MG CAP PO SCH ×2 (08:09→21:43)
[2020-06-27] MEDS: OXYBUTYNIN CHLORIDE XL 5 MG TABCR PO SCH (08:09)
[2020-06-27] MEDS: ASPIRIN 81 MG ECTAB PO SCH (08:09)
[2020-06-27] MEDS: SERTRALINE HCL 50 MG TABLET PO SCH (08:09)
[2020-06-27] MEDS: INSULIN ASPART 100 UNITS/ML 3 ML PEN SC SCH ×4 (08:10→20:43)
[2020-06-27] MEDS: PANTOprazole 40 MG TAB PO SCH ×2 (08:10→21:43)
[2020-06-27] MEDS: busPIRone 5 MG TAB PO SCH ×2 (08:11→17:16)
--- NOTE | 2020-06-27 09:58 | XRay Report ---
TWO VIEW CHEST CLINICAL HISTORY: Fever. Hypoxia. FINDINGS: AP and lateral chest radiographs are compared to study dated 06/22/2020. The AP views are d egraded by patient rotation. The heart is enlarged noting atherosclerotic calcification of the thorac ic ureter. There is prominence of the pulmonary vasculature. Chronic interstitial thickening is simil ar to previous. No large pleural effusion is identified. There are low lung volumes with bibasilar ai rspace opacities. There is no pneumothorax. The skeletal structures are osteopenic. Left-sided rib fr actures are again noted. IMPRESSION: 1. There are bibasilar airspace opacities comment typical appearance for atelectasis. Correlate clini mouna for evidence of a superimposed infectious/inflammatory pneumonitis. 2. Left-sided rib fractures are again noted. 3. Cardiac enlargement with prominence of the pulmonary vasculature. Correlate clinically for evidenc e of mild congestive failure. ACT 112: Negative or not required by law. Electronically signed by: Terry Forrest M.D. 06/27/2020 9:56 AM
[2020-06-27] MEDS: SENNA 8.6 MG TAB PO SCH (17:21)
[2020-06-27] MEDS: ADVANCED PROBIOTIC 1250 MG CAPSULE PO SCH (17:21)
[2020-06-27] MEDS: POLYETHYLENE (MIRALAX) 17 GM PACK PO SCH (17:21)
[2020-06-27] MEDS: AMPICILLIN/SULBACTAM SOD 3,000 MG in 0.9 % SODIUM CHLORIDE 100 ML IV SCH (18:22)
--- NOTE | 2020-06-27 20:25 | Hospitalist Progress Note ---
Date of Service June 27, 2020 Assessment & Plan (1) Acute respiratory failure with hypoxia: 2nd to suspected b/l lower lobe pneumonia in setting of rib fractures on left. aspiration? community-acquired? start unasyn. of note - COVID-19 testing today negative. pulmonary toilet as tolerated. (2) Pneumonia of both lower lobes: suspected. had low-grade fever overnight. cxr today with bilateral basilar infiltrates. will assume he has pneumonia. start unasyn. any worsening add gram neg coverage. (3) Fracture, ribs: left - 7, 8, 9 lidoderm patches scheduled tylenol pulmonary toilet (4) Fall: history of same in the past fall risk likely due to dementia (5) Hypothyroidism: TSH wnl cont synthroid (6) Depression: cont home meds (7) Alzheimer disease: suspect likely advanced (8) HTN (hypertension): controlled despite holding ARB (9) Type 2 diabetes mellitus: hold oral agents novolog correction a1c 7.7% (10) Chronic kidney disease, stage 3a: baseline CrCl 30s/40s bmp in am for stability (11) DVT prophylaxis: heparin 5000 TID left message for daughter on voicemail this evening Admission and Anticipated Discharge Date Admission Date: June 22, 2020 Subjective tele stable overnight. during my bedside rounds patient was sleeping but easily awoke to name being called. upon awakening patient was tachypneic with mild increased work of breathing. he did not realize he was in the hospital, that he had recently fallen, and that he had broken ribs. he had no specific complaints but was very poor historian due to co nfusion/memory loss. nursing flowsheets show that he is eating about 50-75% of meals. Review of Systems Review of Systems: Unobtainable due to cognitive status Physical Exam Constitutional: + ill appearing and + altered mental status ENMT: external ear and nose normal, oropharynx normal Respiratory: + retractions (Mild subcostal ) and + tachypneic Auscultation: + crackles (Both bases) Cardiovascular: Rate/Rhythm: regular rate and regular rhythm Heart Sounds: normal S1 and normal S2 Vessels: posterior tibial pulses present; no JVD Extremities: no edema Gastrointestinal (Abdomen): normal bowel sounds, soft, nontender, no hepatosplenomegaly Psychiatric: Orientation: alert and oriented to person; + not oriented to place and + not oriented to time Results & Data Results & Data ([facility]) Vital Signs (Past 12 Hours) Vital Signs Temp Pulse Pulse Resp BP BP Pulse Ox 06/27/20 18:59 36.5 C 91 H 18 112/71 93 06/27/20 16:59 92 H 06/27/20 15:54 37.2 C 94 H 18 135/84 91 06/27/20 11:51 36.6 C 89 16 116/73 90 Laboratory Results Laboratory Results - last 24 hr 06/26/20 06/27/20 06/27/20 20:27 07:45 11:38 POC Glucose 120 H 147 H 208 H COVID-19 Eval Order COVID-19 PCR 06/27/20 06/27/20 06/27/20 16:40 19:58 Unknown POC Glucose 171 H 165 H COVID-19 Eval Order Covid19 Done at [facility] COVID-19 PCR 06/27/20 Unknown POC Glucose COVID-19 Eval Order COVID-19 PCR NEGATIVE PG Care Time/CCT Total # of Minutes Spent Total Time Spent with Patient: Total time spent is greater than 50% in coordination of care (as documented) at patient's floor/unit and/or counseling patient: Coding Level of Care Code 86394 Subseq Hosp Care Lvl 2 Diagnoses Acute respiratory failure with hypoxia J96.01 Pneumonia of both lower lobes J18.9 Fracture, ribs S22.42XA Encounter type: initial encounter Fracture type: closed Laterality: left Rib fracture type: multiple ribs Fall W19.XXXA Encounter type: initial encounter Hypothyroidism E03.9 Depression F32.9 Alzheimer disease G30.9; F02.80 HTN (hypertension) I10 Type 2 diabetes mellitus E11.9 Chronic kidney disease, stage 3a N18.31 DVT prophylaxis Z29.9 (1) Fracture, ribs Encounter type: initial encounter Fracture type: closed Laterality: left Rib fracture type: multiple ribs Qualified Code(s): S22.42XA - Multiple fra ctures of ribs, left side, initial encounter for closed fracture (2) Fall Encounter type: initial encounter Qualified Code(s): W19.XXXA - Unspecified fall, initial encounter
[2020-06-27] MEDS: SIMVASTATIN 40 MG TAB PO SCH (21:43)
[2020-06-27] MEDS: OLANZapine 5 MG TABLET PO SCH (21:43)
[2020-06-27] MEDS: HEPARIN SOD 5,000 UNIT/0.5 ML VIAL SQ SCH (23:07)
[2020-06-28] MEDS: AMPICILLIN/SULBACTAM SOD 3,000 MG in 0.9 % SODIUM CHLORIDE 100 ML IV SCH ×5 (00:15→23:44)
[2020-06-28] MEDS: MoRPHine SULFATE 2 MG/ML CARP IV PRN (05:46)
[2020-06-28] MEDS: ACETAMINOPHEN 325 MG TAB PO SCH ×4 (06:06→23:44)
[2020-06-28] MEDS: HEPARIN SOD 5,000 UNIT/0.5 ML VIAL SQ SCH ×3 (06:09→21:28)
[2020-06-28] MEDS: LEVOTHYROXINE SODIUM 25 MCG TABLET PO SCH (07:11)
[2020-06-28] MEDS: busPIRone 5 MG TAB PO SCH ×2 (07:56→17:31)
[2020-06-28] MEDS: SERTRALINE HCL 50 MG TABLET PO SCH (07:56)
[2020-06-28] MEDS: ADVANCED PROBIOTIC 1250 MG CAPSULE PO SCH (07:57)
[2020-06-28] MEDS: POLYETHYLENE (MIRALAX) 17 GM PACK PO SCH (07:57)
[2020-06-28] MEDS: OXYBUTYNIN CHLORIDE XL 5 MG TABCR PO SCH (07:57)
[2020-06-28] MEDS: LIDOCAINE 5% 1 PATCH TD SCH (07:57)
[2020-06-28] MEDS: SENNA 8.6 MG TAB PO SCH (07:58)
[2020-06-28] MEDS: ARTIFICIAL TEARS OP SCH ×2 (07:58→21:27)
[2020-06-28] MEDS: ASPIRIN 81 MG ECTAB PO SCH (07:58)
[2020-06-28] MEDS: CELECOXIB 100 MG CAP PO SCH ×2 (07:58→21:29)
[2020-06-28] MEDS: PANTOprazole 40 MG TAB PO SCH (07:59)
[2020-06-28] MEDS: INSULIN ASPART 100 UNITS/ML 3 ML PEN SC SCH ×4 (08:07→21:26)
[2020-06-28 09:56] LABS: BUN Creatinine Ratio 25.3 (10-20); Calcium 9.1 mg/dl (8.5-10.1); Creatinine Clr Calc Pharmacy 45.7 ml/min; Est GFR (African American) 57.8; Est GFR (Non-African American) 49.9; Potassium 4.2 mmol/L (3.5-5.1)
--- NOTE | 2020-06-28 13:20 | Hospitalist Progress Note ---
Date of Service June 28, 2020 Assessment & Plan (1) Acute respiratory failure with hypoxia: improved/resolved. off [place] O2. 2nd to suspected b/l lower lobe pneumonia in setting of rib fractures on left. (2) Pneumonia of both lower lobes: suspected. improving. aspiration vs community-acquired. cont unasyn. (3) Fracture, ribs: left - 7, 8, 9 lidoderm patches scheduled tylenol pulmonary toilet (4) Fall: history of same in the past fall risk likely due to dementia (5) Hypothyroidism: TSH wnl cont synthroid (6) Depression: cont home meds (7) Alzheimer disease: advanced daughter reports has been in advanced state for several years (8) HTN (hypertension): controlled despite holding ARB (9) Type 2 diabetes mellitus: cont to hold oral agents controlled BSGs novolog correction a1c 7.7% (10) Chronic kidney disease, stage 3a: baseline CrCl 30s/40s bmp remains stable (11) Acute kidney injury: resolved Cr back to baseline likely prerenal hold ARB (12) DVT prophylaxis: heparin 5000 TID updated daughter by phone today questions answered d/c next 48 hours? could finish abx course with PO antibiotics Admission and Anticipated Discharge Date Admission Date: June 22, 2020 Subjective patient comfortable / stable during my bedside rounds. could not provide any significant meaningful history. he could not tell me what he had eaten for breakfast (ate 100% of breakfast per flowsheets). only complaint was that of left rib pain. had large bowel movement today per nursing flowsheets. Review of Systems Review of Systems: Unobtainable due to cognitive status Physical Exam Constitutional: + ill appearing (but does look better today ) and + altered mental status ENMT: external ear and nose normal, oropharynx normal Respiratory: Auscultation: + diminished lung sounds (both bases ) and + crackles (Both bases) Cardiovascular: Rate/Rhythm: regular rate and regular rhythm Heart Sounds: normal S1 and normal S2 Vessels: posterior tibial pulses present; no JVD Extremities: no edema Gastrointestinal (Abdomen): normal bowel sounds, soft, nontender, no hepatosplenomegaly Inspection/Auscultation: + abdomen distended (minimally distended ) Psychiatric: Orientation: alert and oriented to person; + not oriented to place and + not oriented to time Results & Data Results & Data ([facility]) Vital Signs (Past 12 Hours) Vital Signs Temp Pulse Pulse Resp BP BP Pulse Ox 06/28/20 12:01 36.8 C 81 18 116/73 93 06/28/20 07:53 36.8 C 83 22 123/73 92 06/28/20 07:26 77 06/28/20 04:00 36.9 C 84 18 116/67 94 BMP wnl with stable Cr PG Care Time/CCT Total # of Minutes Spent Total Time Spent with Patient: Total time spent is greater than 50% in coordination of care (as documented) at patient's floor/unit and/or counseling patient: Coding Level of Care Code 38420 Subseq Hosp Care Lvl 2 Diagnoses Acute respiratory failure with hypoxia J96.01 Pneumonia of both lower lobes J18.9 Fracture, ribs S22.42XA Encounter type: initial encounter Fracture type: closed Laterality: left Rib fracture type: multiple ribs Fall W19.XXXA Encounter type: initial encounter Hypothyroidism E03.9 Depression F32.9 Alzheimer disease G30.9; F02.80 HTN (hypertension) I10 Type 2 diabetes mellitus E11.9 Chronic kidney disease, stage 3a N18.31 Acute kidney injury N17.9 DVT prophylaxis Z29.9 (1) Fracture, ribs Encounter type: initial encounter Fracture type: closed Laterality: left Rib fracture type: multiple ribs Qualified Code(s): S22.42XA - Multiple fractures of ribs, left side, initial encounter for closed fracture (2) Fall Encounter type: initial encounter Qualified Code(s): W19.XXXA - Unspecified fall, initial encounter
[2020-06-28] MEDS: oxyCODONE HCL IR 5 MG TAB (IMMEDIATE RELEASE) PO PRN (18:51)
[2020-06-28] MEDS: SIMVASTATIN 40 MG TAB PO SCH (21:29)
[2020-06-28] MEDS: OLANZapine 5 MG TABLET PO SCH (21:38)
[2020-06-29] MEDS: AMPICILLIN/SULBACTAM SOD 3,000 MG in 0.9 % SODIUM CHLORIDE 100 ML IV SCH ×3 (05:42→17:47)
[2020-06-29] MEDS: oxyCODONE HCL IR 5 MG TAB (IMMEDIATE RELEASE) PO PRN (05:43)
[2020-06-29] MEDS: ACETAMINOPHEN 325 MG TAB PO SCH ×4 (05:43→22:06)
[2020-06-29] MEDS: HEPARIN SOD 5,000 UNIT/0.5 ML VIAL SQ SCH ×3 (05:44→22:06)
[2020-06-29] MEDS: LEVOTHYROXINE SODIUM 25 MCG TABLET PO SCH (05:50)
[2020-06-29] MEDS: SERTRALINE HCL 50 MG TABLET PO SCH (08:04)
[2020-06-29] MEDS: ADVANCED PROBIOTIC 1250 MG CAPSULE PO SCH (08:04)
[2020-06-29] MEDS: ASPIRIN 81 MG ECTAB PO SCH (08:04)
[2020-06-29] MEDS: CELECOXIB 100 MG CAP PO SCH ×2 (08:04→19:47)
[2020-06-29] MEDS: OXYBUTYNIN CHLORIDE XL 5 MG TABCR PO SCH (08:04)
[2020-06-29] MEDS: LIDOCAINE 5% 1 PATCH TD SCH (08:04)
[2020-06-29] MEDS: SENNA 8.6 MG TAB PO SCH (08:04)
[2020-06-29] MEDS: POLYETHYLENE (MIRALAX) 17 GM PACK PO SCH (08:05)
[2020-06-29] MEDS: busPIRone 5 MG TAB PO SCH ×2 (08:05→17:02)
[2020-06-29] MEDS: ARTIFICIAL TEARS OP SCH ×2 (08:05→19:46)
[2020-06-29] MEDS: INSULIN ASPART 100 UNITS/ML 3 ML PEN SC SCH ×4 (08:06→21:55)
[2020-06-29] MEDS: SIMVASTATIN 40 MG TAB PO SCH (19:47)
[2020-06-29] MEDS: OLANZapine 5 MG TABLET PO SCH (19:48)
--- NOTE | 2020-06-29 20:45 | Hospitalist Progress Note ---
Date of Service June 29, 2020 Assessment & Plan (1) Acute respiratory failure with hypoxia: resolved. NC O2 weaned off. 2nd to suspected b/l lower lobe pneumonia in setting of rib fractures on left. (2) Pneumonia of both lower lobes: resolving. aspiration vs community-acquired. stop unasyn. change to PO augmentin in am. (3) Fracture, ribs: left - 7, 8, 9 lidoderm patches scheduled tylenol pulmonary toilet (4) Fall: history of same in the past fall risk likely due to dementia (5) Hypothyroidism: TSH wnl cont synthroid (6) Depression: cont home meds (7) Alzheimer disease: advanced daughter reports has been in advanced state for several years (8) HTN (hypertension): controlled despite holding ARB likely will not need ARB at d/c (9) Type 2 diabetes mellitus: cont to hold oral agents controlled BSGs novolog correction a1c 7.7% (10) Chronic kidney disease, stage 3a: baseline CrCl 30s/40s bmp remains stable (11) Acute kidney injury: resolved Cr back to baseline (12) DVT prophylaxis: heparin 5000 TID updated daughter by yesterday extensively anticipate being able to d/c patient in am tomorrow Admission and Anticipated Discharge Date Admission Date: June 22, 2020 Anticipated date of discharge: 06/30/20 Subjective patient sitting at side of bed eating dinner. best he has looked all week. a couple of times he held his left chest (due to rib fractures) but otherwise looked well. he knew it was Saturday and that he was in the hospital. could not tell me the date or year . denies any complaints. Review of Systems Respiratory: no dyspnea Cardiovascular: as per Subjective / HPI and + chest pain Gastrointestinal: no abdominal pain Physical Exam Constitutional: + altered mental status; no acute distress and not ill appearing ENMT: external ear and nose normal, oropharynx normal Respiratory: Auscultation: + diminished lung sounds (both bases ) and + crackles (Both bases) Cardiovascular: Rate/Rhythm: regular rate and regular rhythm Heart Sounds: normal S1 and normal S2 Vessels: posterior tibial pulses present; no JVD Extremities: no edema Gastrointestinal (Abdomen): normal bowel sounds, soft, nontender, no hepatosplenomegaly Psychiatric: Orientation: alert, oriented to person and oriented to place; + not oriented to time Results & Data Results & Data ([facility]) Vital Signs (Past 12 Hours) Vital Signs Temp Pulse Resp BP Pulse Ox 06/29/20 16:25 36.7 C 75 18 124/70 95 Laboratory Results Laboratory Results - last 24 hr 06/29/20 06/29/20 06/29/20 07:29 11:20 17:13 POC Glucose 128 H 132 H 147 H 06/29/20 20:14 POC Glucose 110 H PG Care Time/CCT Total # of Minutes Spent Total Time Spent with Patient: Total time spent is greater than 50% in transmission and coordination engineer rdination of care (as documented) at patient's floor/unit and/or counseling patient: Coding Level of Care Code 56272 Subseq Hosp Care Lvl 2 Diagnoses Acute respiratory failure with hypoxia J96.01 Pneumonia of both lower lobes J18.9 Fracture, ribs S22.42XA Encounter type: initial encounter Fracture type: closed Laterality: left Rib fracture type: multiple ribs Fall W19.XXXA Encounter type: initial encounter Hypothyroidism E03.9 Depression F32.9 Alzheimer disease G30.9; F02.80 HTN (hypertension) I10 Type 2 diabetes mellitus E11.9 Chronic kidney disease, stage 3a N18.31 Acute kidney injury N17.9 DVT prophylaxis Z29.9 (1) Fracture, ribs Encounter type: initial encounter Fracture type: closed Laterality: left Rib fracture type: multiple ribs Qualified Code(s): S22.42XA - Multiple fractures of ribs, left side, initial encounter for closed fracture (2) Fall Encounter type: initial encounter Qualified Code(s): W19.XXXA - Unspecified fall, initial encounter
[2020-06-30] MEDS: HEPARIN SOD 5,000 UNIT/0.5 ML VIAL SQ SCH ×3 (05:58→21:11)
[2020-06-30] MEDS: LEVOTHYROXINE SODIUM 25 MCG TABLET PO SCH (05:59)
[2020-06-30] MEDS: ACETAMINOPHEN 325 MG TAB PO SCH ×4 (05:59→22:12)
[2020-06-30] MEDS: oxyCODONE HCL IR 5 MG TAB (IMMEDIATE RELEASE) PO PRN ×2 (07:32→21:03)
[2020-06-30] MEDS: LIDOCAINE 5% 1 PATCH TD SCH (07:34)
[2020-06-30 07:35] LABS: Hematocrit (blood only) 41.9 % (42-52); Hemoglobin 13.8 g/dL (14.0-18.0); Mean Corpuscular Hemoglobin 30.7 pg (25-34); Mean Corpuscular Hgb Conc 32.9 g/dL (32-36); Mean Corpuscular Volume 93.3 fL (80-100); Platelet Count 181 K/uL (130-400); RDW Coefficient of Variation 13.7 % (11.5-14.5); RDW Standard Deviation 46.6 fL (36.4-46.3); Red Blood Count 4.49 M/uL (4.7-6.1); White Blood Count 7.85 K/uL (4.8-10.8)
[2020-06-30] MEDS: busPIRone 5 MG TAB PO SCH ×2 (07:37→17:50)
[2020-06-30] MEDS: CELECOXIB 100 MG CAP PO SCH ×2 (07:38→20:56)
[2020-06-30] MEDS: OXYBUTYNIN CHLORIDE XL 5 MG TABCR PO SCH (07:38)
[2020-06-30] MEDS: ASPIRIN 81 MG ECTAB PO SCH (07:38)
[2020-06-30] MEDS: SERTRALINE HCL 50 MG TABLET PO SCH (07:39)
[2020-06-30] MEDS: SENNA 8.6 MG TAB PO SCH (07:41)
[2020-06-30] MEDS: POLYETHYLENE (MIRALAX) 17 GM PACK PO SCH ×2 (07:42→20:55)
[2020-06-30] MEDS: ARTIFICIAL TEARS OP SCH ×2 (07:43→21:09)
[2020-06-30 08:07] LABS: BUN Creatinine Ratio 23.9 (10-20); Calcium 9.1 mg/dl (8.5-10.1); Creatinine Clr Calc Pharmacy 42.5 ml/min; Est GFR (African American) 53.3; Potassium 4.3 mmol/L (3.5-5.1)
[2020-06-30] MEDS: AMOXICILLIN/CLAVULANATE 875 MG TAB PO SCH ×2 (08:36→17:47)
[2020-06-30] MEDS: INSULIN ASPART 100 UNITS/ML 3 ML PEN SC SCH ×4 (08:37→21:13)
[2020-06-30] MEDS: ADVANCED PROBIOTIC 1250 MG CAPSULE PO SCH (08:56)
[2020-06-30] MEDS ORDERED: oxyCODONE HCL IR 5 MG TAB (IMMEDIATE RELEASE) PO STA (10:50)
--- NOTE | 2020-06-30 12:09 | XRay Report ---
XR chest 2V PA/lateral HISTORY: recent pneumonia; L rib fractures COMPARISON: Chest 06/27/2020. FINDINGS: Bandlike area of consolidation within the base of the left lower lobe. Otherwise, the lungs are clear. The heart is normal in size. No pleural effusions. No pneumothorax. Left lower rib fractu res or not well visualized on this study. IMPRESSION: 1. Bandlike area of consolidation within the base of the left lower lobe persists. This could represe nt atelectasis or residual pneumonia. 2. The patient's known left-sided rib fractures are not well visualized. 3. No pneumothorax. ACT 112: Negative or not required by law. Electronically signed by: Elmo Redmond M.D. 06/30/2020 12:07 PM
--- NOTE | 2020-06-30 12:22 | XRay Report ---
KUB CLINICAL HISTORY: Abdominal distention. COMPARISON STUDY: CT of the abdomen and pelvis August 16, 2020. FINDINGS: Bilateral renal calculi are noted. No ureteral calculi are identified. The bowel gas patter n is normal. There is a moderate amount stool within the colon and rectum. 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 IMPRESSION: 1. No evidence for a bowel obstruction. 2. Moderate amount of stool within the colon and rectum. 3. Bilateral nephrolithiasis. ACT 112: Negative or not required by law. Electronically signed by: Gabe Oshea M.D. 06/30/2020 12:20 PM
[2020-06-30] MEDS ORDERED: bisacodyL 10 MG SUPP PR STA (12:34)
[2020-06-30] MEDS: CYANOCOBALAMIN 1000 MCG/ML VIAL IM SCH (12:42)
--- NOTE | 2020-06-30 19:50 | Hospitalist Progress Note ---
Date of Service June 30, 2020 Assessment & Plan (1) Acute respiratory failure with hypoxia: resolved. 2nd to suspected b/l lower lobe pneumonia in setting of rib fractures on left. (2) Pneumonia of both lower lobes: resolving. aspiration vs community-acquired. cont PO augmentin. total course of abx - IV/PO - 7 days; day #4 today. (3) Fracture, ribs: left - 7, 8, 9 lidoderm patches scheduled tylenol pulmonary toilet increase oxycodone to 5mg each dose (4) Fall: history of same in the past fall risk likely due to dementia b12 def can contribute to fall risk/ambulatory dysfunction (5) Hypothyroidism: TSH wnl cont synthroid (6) Depression: cont home meds (7) Alzheimer disease: advanced daughter reports has been in advanced state for several years (8) HTN (hypertension): BPs rising; resume ARB (9) Type 2 diabetes mellitus: cont to hold oral agents controlled BSGs novolog correction a1c 7.7% (10) Chronic kidney disease, stage 3a: baseline CrCl 30s/40s bmps remain stable (11) Acute kidney injury: resolved Cr back to baseline ok to resume ARB (12) B12 deficiency: level is 250 this is considered deficient especially for a senior start injections 1000mcg daily while hospitalized, then PO supplementation at d/c would keep it on indefinitely (13) DVT prophylaxis: heparin 5000 TID updated daughter by phone today anticipate being able to d/c patient in am tomorrow if pain relatively controlled give additional bowel agents for constipation Admission and Anticipated Discharge Date Admission Date: June 22, 2020 Subjective pt c/o left sided rib pain. several times during rounds he clutched his left lower chest and winced in pain. moving in bed causes the pain. denies dyspnea. occasional cough. no issues per staff. Review of Systems Cardiovascular: as per Subjective / HPI and + chest pain Gastrointestinal: no abdominal pain, no nausea and no vomiting Physical Exam Constitutional: + acute distress (2nd pain ) and + altered mental status (baseline - 2nd dementia ); not ill appearing ENMT: external ear and nose normal, oropharynx normal Respiratory: no respiratory distress Auscultation: + crackles (left base ); no wheezes Cardiovascular: Rate/Rhythm: regular rate and regular rhythm Heart Sounds: normal S1 and normal S2 Vessels: posterior tibial pulses present; no JVD Extremities: no edema Chest (Breasts): Additional Comments: tender to palpation left lower chest Gastrointestinal (Abdomen): normal bowel sounds, soft, nontender, no hepatosplenomegaly Inspection/Auscultation: + abdomen distended (mild) Psychiatric: Orientation: alert, oriented to person and oriented to place; + not oriented to time Results & Data Results & Data ([facility]) Vital Signs (Past 12 Hours) Vital Signs Temp Pulse Pulse Resp BP BP Pulse Ox 06/30/20 15:53 36.5 C 79 18 148/75 H 95 06/30/20 07:59 36.3 C L 70 18 138/76 94 Laboratory Results Laboratory Results - last 24 hr 06/29/20 06/30/20 06/30/20 20:14 07:15 07:15 WBC 7.85 RBC 4.49 L Hgb 13.8 L Hct 41.9 L MCV 93.3 MCH 30.7 MCHC 32.9 RDW Std Deviation 46.6 H RDW Coeff of Johnnie 13.7 Plt Count 181 MPV 10.0 Sodium 143 Potassium 4.3 Chloride 111 H Carbon Dioxide 26 Anion Gap 6.0 BUN 33 H Creatinine 1.38 Est Cr Clr Drug Dosing 42.5 Est GFR ( Amer) 53.3 Est GFR (Non-Af Amer) 46.0 BUN/Creatinine Ratio 23.9 H Glucose 113 H POC Glucose 110 H Calcium 9.1 Vitamin B12 06/30/20 06/30/20 06/30/20 07:15 08:09 12:13 WBC RBC Hgb Hct MCV MCH MCHC RDW Std Deviation RDW Coeff of Johnnie Plt Count MPV Sodium Potassium Chloride Carbon Dioxide Anion Gap BUN Creatinine Est Cr Clr Drug Dosing Est GFR ( Amer) Est GFR (Non-Af Amer) BUN/Creatinine Ratio Glucose POC Glucose 114 H 142 H Calcium Vitamin B12 250 06/30/20 17:13 WBC RBC Hgb Hct MCV MCH MCHC RDW Std Deviation RDW Coeff of Johnnie Plt Count MPV Sodium Potassium Chloride Carbon Dioxide Anion Gap BUN Creatinine Est Cr Clr Drug Dosing Est GFR ( Amer) Est GFR (Non-Af Amer) BUN/Creatinine Ratio Glucose POC Glucose 122 H Calcium Vitamin B12 PG Care Time/CCT Total # of Minutes Spent Total Time Spent with Patient: Total time spent is greater than 50% in coordination of care (as documented) at patient's floor/unit and/or counseling patient: Coding Level of Care Code 09973 Subseq Hosp Care Lvl 2 Diagnoses Acute respiratory failure with hypoxia J96.01 Pneumonia of both lower lobes J18.9 Fracture, ribs S22.42XA Encounter type: initial encounter Fracture type: closed Laterality: left Rib fracture type: multiple ribs Fall W19.XXXA Encounter type: initial encounter Hypothyroidism E03.9 Depression F32.9 Alzheimer disease G30.9; F02.80 HTN (hypertension) I10 Type 2 diabetes mellitus E11.9 Chronic kidney disease, stage 3a N18.31 Acute kidney injury N17.9 B12 deficiency E53.8 DVT prophylaxis Z29.9 (1) Fracture, ribs Encounter type: initial encounter Fracture type: closed Laterality: left Rib fracture type: multiple ribs Qualified Code(s): S22.42XA - Multiple fractures of ribs, left side, initial encounter for closed fracture (2) Fall Encounter type: initial encounter Qualified Code(s): W19.XXXA - Unspecified fall, initial encounter
[2020-06-30] MEDS: OLANZapine 5 MG TABLET PO SCH (20:56)
[2020-06-30] MEDS: SIMVASTATIN 40 MG TAB PO SCH (21:11)
[2020-07-01] MEDS: ACETAMINOPHEN 325 MG TAB PO SCH ×2 (06:00→12:38)
[2020-07-01] MEDS: LEVOTHYROXINE SODIUM 25 MCG TABLET PO SCH (06:07)
[2020-07-01] MEDS: HEPARIN SOD 5,000 UNIT/0.5 ML VIAL SQ SCH (06:11)
[2020-07-01] MEDS: LIDOCAINE 5% 1 PATCH TD SCH (09:00)
[2020-07-01] MEDS: SERTRALINE HCL 50 MG TABLET PO SCH (09:00)
[2020-07-01] MEDS: CELECOXIB 100 MG CAP PO SCH (09:00)
[2020-07-01] MEDS: ASPIRIN 81 MG ECTAB PO SCH (09:00)
[2020-07-01] MEDS: OXYBUTYNIN CHLORIDE XL 5 MG TABCR PO SCH (09:01)
[2020-07-01] MEDS: ARTIFICIAL TEARS OP SCH (09:01)
[2020-07-01] MEDS: ADVANCED PROBIOTIC 1250 MG CAPSULE PO SCH (09:01)
[2020-07-01] MEDS: busPIRone 5 MG TAB PO SCH (09:01)
[2020-07-01] MEDS: SENNA 8.6 MG TAB PO SCH (09:02)
[2020-07-01] MEDS: AMOXICILLIN/CLAVULANATE 875 MG TAB PO SCH (09:02)
[2020-07-01] MEDS: INSULIN ASPART 100 UNITS/ML 3 ML PEN SC SCH ×2 (09:03→12:39)
[2020-07-01] MEDS: POLYETHYLENE (MIRALAX) 17 GM PACK PO SCH (09:03)
[2020-07-01] MEDS: CYANOCOBALAMIN 1000 MCG/ML VIAL IM SCH (09:03)
[2020-07-01] MEDS ORDERED: LOSARTAN POTASSIUM 25 MG TAB PO SCH (10:30)
--- NOTE | 2020-07-01 11:59 | Discharge Summary ---
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 He reports that he remembers the falls and denies striking his h ead. He reports he's just "falling backwards all the time." He denies any prodrome symptoms and denies any dizziness, lightheadedness, presyncopal sensations, chest pain, or shortness of breath before he falls. Per report, he fell three times today and was sent in to the hospital for this reason. At present, he reports some pain in the left chest, but otherwise has no major complaints. Denies shortness of breath, nausea, vomiting, diarrhea or constipation, or fevers/chills/sweats. Principal Diagnosis falls with resulting rib fractures x 3 on left along with b/l lower lobe pneumonia Discharge Exam Constitutional + altered mental status (baseline - 2nd dementia ); no acute distress and not ill appearing ENMT external ear and nose normal, oropharynx normal Respiratory no respiratory distress Auscultation: + crackles (left base ); no wheezes Cardiovascular Rate/Rhythm: regular rate and regular rhythm Heart Sounds: normal S1 and normal S2 Vessels: posterior tibial pulses present; no JVD Extremities: no edema Chest (Breasts) Additional Comments: tenderness of left chest with palpation Gastrointestinal (Abdomen) normal bowel sounds, soft, nontender, no hepatosplenomegaly Inspection/Auscultation: + abdomen distended (mild) Psychiatric Orientation: alert, oriented to person and oriented to place; + not oriented to time Discharge Data Allergies Allergy/AdvReac Type Severity Reaction Status Date / Time adhesive tape Allergy Unknown Unknown Verified 06/22/20 14:57 cephalexin [From Keflex] Allergy Unknown Unknown Verified 06/22/20 14:57 rofecoxib Allergy Unknown SWOLLEN Verified 06/22/20 14:57 FEET Ordered Studies 06/22/20 12:43 CT head/brain wo con- no ICH, no stroke. Ribs with chest x-ray IMPRESSION: 1. Acute left seventh through ninth rib fractures. No pneumothorax. 2. Low lung volumes. Pulmonary vascular congestion. 3. Left basilar opacity which favors atelectasis. Hospital Course (1) Acute respiratory failure with hypoxia: resolved. O2 weaned off before discharge. 2nd to suspected b/l lower lobe pneumonia in setting of rib fractures on left along with splinting. (2) Pneumonia of both lower lobes: resolving. aspiration vs community-acquired. received IV unasyn, changing to oral augmentin at discharge. total course of antibiotics - IV/PO - 7 days. (3) Fracture, ribs: left - 7, 8, 9 2nd to falls lidoderm patches scheduled tylenol x 10 days post-discharge celebrex 100mg BID x 7 days post-discharge oxycodone 5mg q8h prn pain (4) Fall: fall risk likely due to dementia B12 deficiency can contribute to fall risk/ambulatory dysfunction as well; replace low vitamin B12 (5) Hypothyroidism: TSH wnl cont synthroid (6) Depression: cont home meds (7) Alzheimer disease: advanced daughter reports has been in advanced state for several years (8) HTN (hypertension): continue ARB at discharge (9) Type 2 diabetes mellitus: HbA1c 7.7% continue glimepiride but reduce dose to 2mg qam follow BSGs as outpatient (10) Chronic kidney disease, stage 3a: baseline CrCl 30s/40s (11) Acute kidney injury: Peak Cr 1.64. Improved to 1.3 at discharge. (12) B12 deficiency: level was 250 this is considered deficient especially for a senior gave injections 1000mcg daily while hospitalized at discharge recommend 1000mcg PO daily would keep it on indefinitely Total Time Total Time Spent Total Time Spent (In Minutes): 35 Total Time Includes: Examination of the Patient, Discharge Planning and Medication Reconciliation Discharge Plan Discharge Items Patient Disposition: Personal [facility] Reason For Visit: FALL Discharge Diagnosis: 1. Fall with resulting left-sided rib fractures x 3 2. Vitamin B12 deficiency 3. Advanced dementia 4. b/l lower lobe pneumonia, L>R - improved Activity: As commented below Activity Comment: gradually increase activity; avoid activities that aggravate rib fractures Lifting: Gradually increase as tolerated Non-emergency contact: Primary Care Provider Call non-emergency contact if: you have any medication questions, your symptoms worsen, your pain is not controlled, your pain is worsening and you have a fever Follow-up/Referrals: [facility] [Primary Care Provider] - Diet: Carb Consistent or DM2 Diet Texture: Easy to Chew Addtl Attending Provider Instructions: Mr Real was treated for the above conditions listed in "discharge diagnoses." COVID-19 testing was negative on 06/27/2020. Recommendations: 1. heating pad to left chest wall as needed/as desired for pain 2. repeat chest x-ray in 1 week to ensure stable rib fractures, no pleural effusion, etc. - results to medical imaging specialist 3. THREE more days of augmentin antibiotic then discontinue 4. blood sugar checks before meals & at bedtime 5. CBC, BMP in 1 week - results to medical imaging specialist Pending Studies at Discharge: No Stand-Alone Forms: My [employer], Smoking Cessation Skilled Items Patient informed of condition?: Yes DNR: No Discharge Level of Care: Other Communicable Disease: No Discharge Prognosis: Stable Lines: None Urinary Catheter: No Medications and DC Order Prescriptions: New celecoxib [Celebrex] 100 mg Capsule 100 mg PO BID 7 Days Qty: 14 RF: 0 oxycodone 5 mg Tablet 5 mg PO Q8H PRN (Reason: pain) Qty: 20 RF: 0 polyethylene glycol 3350 [Miralax] 17 gram Powder In Packet 17 g PO BID Qty: 60 RF: 1 sennosides [Senokot] 8.6 mg Tablet 17.2 mg PO QAM Qty: 60 RF: 1 lidocaine 5 % Adhesive Patch,Medicated 3 patch transdermal QAM Qty: 30 RF: 1 acetaminophen 500 mg tablet 1,000 mg PO TID 10 Days Qty: 60 RF: 0 lorazepam 1 mg tablet 1 mg PO Q8H PRN (Reason: Anxiety) Qty: 10 RF: 0 cyanocobalamin (vitamin B-12) 1,000 mcg tablet 1,000 mcg PO DAILY Qty: 90 RF: 3 Continued buspirone 5 mg tablet 2.5 mg PO BIDM RF: 0 oxybutynin chloride 10 mg Tablet Extended Release 24hr 10 mg PO QAM RF: 0 sertraline 100 mg Tablet 150 mg PO QAM RF: 0 simvastatin 40 mg Tablet 40 mg PO HS RF: 0 Systane (PF) 0.4-0.3 % Dropperette 1 drp OPB BID RF: 0 olanzapine 5 mg Tablet 5 mg PO HS RF: 0 levothyroxine 25 mcg Tablet 25 mcg PO DAILY@0700 RF: 0 magnesium hydroxide [Milk of Magnesia] 400 mg/5 mL Suspension 30 ml PO DAILY PRN (Reason: Constipation) RF: 0 Changed losartan 50 mg Tablet 25 mg PO QAM Qty: 30 RF: 0 glimepiride 2 mg Tablet 2 mg PO QAM Qty: 30 RF: 2 Discontinued acetaminophen 500 mg Tablet 500 mg PO Q6H MDD 3 GM APAP/24 HOURS PRN (Reason: Fever Or Pain) RF: 0 aspirin [Aspirin Low Dose] 81 mg Tablet,Delayed Release (Dr/Ec) 81 mg PO QAM RF: 0 naproxen 500 mg Tablet 500 mg PO BIDM RF: 0 Discharge Orders: Discharge Order (Routine); Ordered 07/01/20 Ordered By: Clinton Sommers Admission Data Admit Date/Time: 06/22/20 17:46 Attending Provider: Clinton Sommers Admit Provider: Kermit Singletary Primary Care Provider: [facility] ARAY[facility] Other Providers: Clinton Young ; Kermit Singletary Other Interventions: Discharge Summary Assessment (RN) Last Done: 07/01/20 12:49 Coding Level of Care Code D/C Day Management >30 mins Diagnoses Acute respiratory failure with hypoxia J96.01 Pneumonia of both lower lobes J18.9 Fracture, ribs S22.42XA Encounter type: initial encounter Fracture type: closed Laterality: left Rib fracture type: multiple ribs Fall W19.XXXA Encounter type: initial encounter Hypothyroidism E03.9 Depression F32.9 Alzheimer disease G30.9; F02.80 HTN (hypertension) I10 Type 2 diabetes mellitus E11.9 Chronic kidney disease, stage 3a N18.31 Acute kidney injury N17.9 B12 deficiency E53.8
[2020-07-01] MEDS: oxyCODONE HCL IR 5 MG TAB (IMMEDIATE RELEASE) PO PRN (12:38)
== END 2020-07-01 16:02 | disposition home or self-care (01) | DRG 183 ==
LOC: ED 11:33 → SUATTDRO 17:46 → 2N 17:46 → 3W 06-28 13:17

== ENCOUNTER 2021-07-02 13:26 | Inpatient (IN) ==
[2021-07-02] MEDS ORDERED: SODIUM CHLORIDE 0.9% 1000ML 500 ML IV ONE (13:41)
--- NOTE | 2021-07-02 13:45 | Emergency Department Note ---
Impression & Plan Generalized weakness, Closed head injury, Contusion of right elbow ED Provider Note Name: EBENEZER OSUNA Age: 86 Sex: M Arrives Via: Ambulance Informant: Patient, Daughter, [facility] staff ED Provider: Mg Moses MD Chief Complaint: weakness Impression: As Per Impressions above Medical Decision Makin yr old male with extensive PMH from local senior living arrives for evaluation of generalized weakness and malaise. He is apparently usually quite active and vocal. He had a head injury yesterday during a fall and since then noted to not be acting himself. Unable to get up to bathroom, tired, and falling asleep quickly. Exam shows dehydrated tired elderly male with small contusion posterior scalp and elbow. Vitals OK and given IV fluids with some improvement in mental status though still quite weak. Unable to even get up to bathroom and lost bowel control on himself. Too weak to hold bottle for UA and thus only small amount urine initial obtained. UA dip negative however. BSG mildly elevated though this has happened previously with patient. No clear evidence infection. CT head/cervical without ich nor fracture. I discussed case with Nurse at [facility] who feels he is too weak at this point to be discharged back to their care given this is acute change for patient. Reviewed with hospitalist who will evaluate further. Prior Medical Record and Triage/Nursing Notes reviewed by Me Additional history obtained from chart, daughter, senior living staff Differentials:Infection, dehydration, metabolic abnormality, hypo/hyperglycemia, electrolyte disturbance, anemia, hypoxia, cardiac sources, intracerebral event, toxicologic, neurologic, as well as other pathologies. Vital Signs: reviewed and remarkable for no significant abnormalities Interventions: saline lock, nss bolus 500ml x 2 iv Labs:Reviewed and remarkable for no significant abnormalities Imaging:See Below EKG:Per My Interpretation: Indication weakness: NSR 95 bpm, qtc 472 with PVC. No Ischemia. Compared to EKG 05/23/21, no significant changes. Cardiac/Tele Monitoring: Cardiac Monitoring: An Order was placed for continuous cardiac monitoring. The monitor shows a rate of 80 with a normal sinus rhythm. Consults:Hospitalist Dr Sommers Plan: Disposition:Hospitalization. Condition: Fair History of Present Illness:86 yr old male arrives for evaluation of weakness. Increasing weakness over the last few days. Apparently tripped and fell yest erday striking the back of his head. Too weak to get around today which is worse than usual. Did recently have covid vaccination. No fevers, vomiting, abdominal pain, chest pain, leg swelling, rashes nor other symptoms. Weakness has been ongoing since he hit his head, though it is unclear if he was weaker than usual prior to hitting head. No mediations prior to arrival. Exertion makes worse, laying in bed stable. EMS noted elevated blood sugar in 300s for patient. Patient lives in senior living and staff note he is not acting himself and is much more sedate than usual. ROS: See above HPI for pertinent positives & negatives. A total of 10 systems reviewed and were otherwise negative. Past Medical History:See Below Past Surgical History:See Below Family History:See Below Social History:See Below Home Medications:See Below Allergies:See Below Vitals:Blood Pressure: 135/85, Pulse 73, RR 16, T 36.5C, O2 99% on RA Physical Exam: GENERAL: Patient is tired/elderly appearing and in no acute distress. Dehydrated appearing EYES: No scleral icterus, unremarkable pupils. ENT: Mucous membranes dry, no nasal congestion. NECK: No masses appreciated, nomeningismus, trachea is midline. RESPIRATORY: No dyspnea. Clear to auscultation and equal bilaterally. No wheeze, no rhonchi. CARDIOVASCULAR: Regular rate and rhythm.No murmurs, rubs, gallops appreciated. GASTROINTESTINAL: Abdomen soft, non-tender, no peritonitis.Bowel sounds positive.No masses appreciated. BACK: No midline tenderness, no CVA tenderness EXTREMITIES: Normal motion all extremities, no cyanosis, no edema. NEUROLOGIC: Tired, mild dementia, too weak to sit up. No focal weakness appreciated SKIN: No rash, no jaundice, no diaphoresis. GCS: 15 ED Course: Times/Reassessments: does appear a bit more awake/interactive after fluids. Still too weak to sit up and even defecated on himself which is per daughter not his usual Mg Moses MD Past Med/Surg History Medical History Depression Fall Fracture, ribs HTN (hypertension) Hyperlipidemia Migraines Skin problem Type 2 diabetes mellitus Surgical History Previous back surgery S/P appendectomy Family History Other Cancer Diabetes Gallbladder disease Hypertension Kidney disease Social History Smoking Status: Never smoker Second Hand Exposure: No; Hx Alcohol Use: No Hx Substance Use: No Preferred Language: Ukrainian Communication Ability: Effective Optomechanical Technician Required: No Beliefs That Will Affect Care: None marital status: Current Living Situation: Personal Care Facility Current Living Situation Comment: [facility] 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 Feels Safe at Home: Yes Assistive Devices: Walker Allergies Allergies Allergy/AdvReac Type Severity Reaction Status Date / Time adhesive tape Allergy Unknown Unknown Verified 07/02/21 16:05 cephalexin [From Keflex] Allergy Unknown Unknown Verified 07/02/21 16:05 rofecoxib Allergy Unknown SWOLLEN Verified 07/02/21 16:05 FEET Home Meds Home Medications Medication Instructions Recorded Confirmed sertraline 100 mg tablet 100 mg PO QAM 05/08/18 07/02/21 simvastatin 40 mg tablet 40 mg PO QPM 05/08/18 07/02/21 buspirone 5 mg tablet 2.5 mg PO BIDM 03/31/19 07/02/21 peg 400-propylene glycol (PF) 0.4 1 drp OPB BID 07/01/19 07/02/21 %-0.3 % eye drops in a dropperette (Systane (PF)) olanzapine 5 mg tablet 5 mg PO HS 06/22/20 07/02/21 oxybutynin chloride 5 mg tablet 10 mg PO QAM 07/31/20 07/02/21 acetaminophen 500 mg tablet 1,000 mg PO TID PRN MDD 3g 08/18/20 07/02/21 (Tylenol Extra Strength) cyanocobalamin (vitamin B-12) 1,000 mcg PO QAM 08/18/20 07/02/21 1,000 mcg tablet glimepiride 2 mg tablet 2 mg PO BID 08/18/20 07/02/21 losartan 25 mg tablet 25 mg PO QAM 08/18/20 07/02/21 polyethylene glycol 3350 17 gram 17 g PO BID PRN 03/05/21 07/02/21 oral powder packet (Miralax) levothyroxine 50 mcg tablet 50 mcg PO DAILYBB 07/02/21 07/02/21 Results & Data (ED) Vital Signs Vital Signs - 24 hr 07/02/21 13:30 07/02/21 14:17 07/02/21 14:20 Temperature 36.5 C Temperature Source Oral Pulse Rate 82 98 H 91 H Pulse Rate [Finger] Pulse Rate from SpO2 Sensor Pulse Rhythm Regular Pulse Rhythm [Finger] Pulse Strength Normal Respiratory Rate 18 20 18 Respiratory Effort / Characteristics Non-Labored Spontaneous Respiratory Depth Normal Respiratory Pattern Regular Blood Pressure 163/91 H Blood Pressure [Right Arm] Blood Pressure Mean 115 Blood Pressure Mean [Right Arm] Blood Pressure Position Sitting Pulse Oximetry 97 Oxygen Delivery Method Room Air Sepsis Recent Fever Within 48 Hours No Sepsis New/Unexplained Change in Mental Status No Sepsis Action Taken by Nursing No Action Required 07/02/21 14:30 07/02/21 14:40 07/02/21 15:14 Temperature Temperature Source Pulse Rate 86 87 Pulse Rate [Finger] 73 Pulse Rate from SpO2 Sensor Pulse Rhythm Pulse Rhythm [Finger] Regular Pulse Strength Respiratory Rate 16 18 16 Respiratory Effort / Characteristics Non-Labored Respiratory Depth Normal Respiratory Pattern Blood Pressure Blood Pressure [Right Arm] 135/85 Blood Pressure Mean Blood Pressure Mean [Right Arm] 101 Blood Pressure Position Pulse Oximetry 99 Oxygen Delivery Method Room Air Sepsis Recent Fever Within 48 Hours Sepsis New/Unexplained Change in Mental Status Sepsis Action Taken by Nursing 07/02/21 15:39 07/02/21 15:40 07/02/21 15:50 Temperature Temperature Source Pulse Rate Pulse Rate [Finger] Pulse Rate from SpO2 Sensor 85 83 83 Pulse Rhythm Pulse Rhythm [Finger] Pulse Strength Respiratory Rate Respiratory Effort / Characteristics Respiratory Depth Respiratory Pattern Blood Pressure 135/85 Blood Pressure [Right Arm] Blood Pressure Mean 101 Blood Pressure Mean [Right Arm] Blood Pressure Position Pulse Oximetry 92 94 92 Oxygen Delivery Method Sepsis Recent Fever Within 48 Hours Sepsis New/Unexplained Change in Mental Status Sepsis Action Taken by Nursing 07/02/21 16:00 07/02/21 16:10 07/02/21 16:20 Temperature Temperature Source Pulse Rate Pulse Rate [Finger] Pulse Rate from SpO2 Sensor 89 76 79 Pulse Rhythm Pulse Rhythm [Finger] Pulse Strength Respiratory Rate Respiratory Effort / Characteristics Respiratory Depth Respiratory Pattern Blood Pressure Blood Pressure [Right Arm] Blood Pressure Mean Blood Pressure Mean [Right Arm] Blood Pressure Position Pulse Oximetry 92 94 92 Oxygen Delivery Method Sepsis Recent Fever Within 48 Hours Sepsis New/Unexplained Change in Mental Status Sepsis Action Taken by Nursing 07/02/21 16:30 07/02/21 16:40 07/02/21 16:50 Temperature Temperature Source Pulse Rate Pulse Rate [Finger] Pulse Rate from SpO2 Sensor 81 71 72 Pulse Rhythm Pulse Rhythm [Finger] Pulse Strength Respiratory Rate Respiratory Effort / Characteristics Respiratory Depth Respiratory Pattern Blood Pressure Blood Pressure [Right Arm] Blood Pressure Mean Blood Pressure Mean [Right Arm] Blood Pressure Position Pulse Oximetry 92 92 92 Oxygen Delivery Method Sepsis Recent Fever Within 48 Hours Sepsis New/Unexplained Change in Mental Status Sepsis Action Taken by Nursing 07/02/21 17:00 07/02/21 17:10 07/02/21 17:20 Temperature Temperature Source Pulse Rate Pulse Rate [Finger] 74 Pulse Rate from SpO2 Sensor 88 82 81 Pulse Rhythm Pulse Rhythm [Finger] Regular Pulse Strength Respiratory Rate 16 Respiratory Effort / Characteristics Non-Labored Respiratory Depth Normal Respiratory Pattern Blood Pressure Blood Pressure [Right Arm] 132/82 Blood Pressure Mean Blood Pressure Mean [Right Arm] 98 Blood Pressure Position Pulse Oximetry 87 L 91 92 Oxygen Delivery Method Room Air Sepsis Recent Fever Within 48 Hours Sepsis New/Unexplained Change in Mental Status Sepsis Action Taken by Nursing 07/02/21 17:31 07/02/21 17:40 07/02/21 17:50 Temperature Temperature Source Pulse Rate Pulse Rate [Finger] Pulse Rate from SpO2 Sensor 73 83 84 Pulse Rhythm Pulse Rhythm [Finger] Pulse Strength Respiratory Rate Respiratory Effort / Characteristics Respiratory Depth Respiratory Pattern Blood Pressure Blood Pressure [Right Arm] Blood Pressure Mean Blood Pressure Mean [Right Arm] Blood Pressure Position Pulse Oximetry 92 95 94 Oxygen Delivery Method Sepsis Recent Fever Within 48 Hours Sepsis New/Unexplained Change in Mental Status Sepsis Action Taken by Nursing 07/02/21 18:00 Temperature Temperature Source Pulse Rate Pulse Rate [Finger] 76 Pulse Rate from SpO2 Sensor Pulse Rhythm Pulse Rhythm [Finger] Regular Pulse Strength Respiratory Rate 16 Respiratory Effort / Characteristics Non-Labored Respiratory Depth Normal Respiratory Pattern Blood Pressure 137/74 Blood Pressure [Right Arm] 131/82 Blood Pressure Mean 95 Blood Pressure Mean [Right Arm] 98 Blood Pressure Position Pulse Oximetry 94 Oxygen Delivery Method Room Air Sepsis Recent Fever Within 48 Hours Sepsis New/Unexplained Change in Mental Status Sepsis Action Taken by Nursing Laboratory Data Result diagrams: 07/02/21 14:04 07/03/21 06:55 Lab Results 07/02/21 07/02/21 07/02/21 Range/Units 14:04 14:04 14:04 WBC 8.04 (4.8-10.8) K/uL RBC 4.58 L (4.7-6.1) M/uL Hgb 14.1 (14.0-18.0) g/dL Hct 42.7 (42-52) % MCV 93.2 (80-100) fL MCH 30.8 (25-34) pg MCHC 33.0 (32-36) g/dL RDW Std Deviation 47.8 H (36.4-46.3) fL RDW Coeff of Johnnie 14.1 (11.5-14.5) % Plt Count 205 (130-400) K/uL MPV 10.2 (7.4-10.4) fL Immature Gran % (Auto) 0.4 % Neut % (Auto) 52.0 % Lymph % (Auto) 35.2 % [place] % (Auto) 7.2 % Eos % (Auto) 4.6 % Baso % (Auto) 0.6 % Neut # (Auto) 4.18 (1.4-6.5) K/uL Lymph # (Auto) 2.83 (1.2-3.4) K/uL [place] # (Auto) 0.58 (0.11-0.59) K/uL Eos # (Auto) 0.37 (0-0.5) K/uL Baso # (Auto) 0.05 (0-0.2) K/uL Immature Gran # (Auto) 0.03 H (0.00-0.02) K/uL Sodium 140 (136-145) mmol/L Potassium 4.0 (3.5-5.1) mmol/L Chloride 107 (98-107) mmol/L Carbon Dioxide 21 (21-32) mmol/L Anion Gap 12.0 H (3-11) BUN 17 (7-18) mg/dl Creatinine 1.34 (0.6-1.4) mg/dl Est Cr Clr Drug Dosing 46.0 ml/min Est GFR ( Amer) 54.8 ml/min Est GFR (Non-Af Amer) 47.3 ml/min BUN/Creatinine Ratio 12.5 (10-20) Glucose 277 H (70-99) mg/dl Calcium 9.0 (8.5-10.1) mg/dl Magnesium 2.1 (1.8-2.4) mg/dl Total Bilirubin 0.6 (0.2-1) mg/dl Direct Bilirubin < 0.1 (0-0.2) mg/dl AST 25 (15-37) U/L ALT 27 (12-78) U/L Alkaline Phosphatase 79 (45-117) U/L Total Creatine Kinase 191 (39-308) U/L Troponin I < 0.015 (0-0.045) ng/ml Total Protein 7.3 (6.4-8.2) gm/dl Albumin 2.8 L (3.4-5.0) gm/dl Procalcitonin (0-0.5) ng/ml Urine Color Urine Appearance Urine pH Ur Specific [place] Urine Protein Urine Glucose (UA) Urine Ketones Urine Blood Urine Nitrite Urine Bilirubin Urine Urobilinogen Ur Leukocyte Esterase Urine WBC (Auto) Urine RBC (Auto) U Hyaline Cast (Auto) U Epithel Cells (Auto) Urine Bacteria (Auto) Ur Renal Epithelial Cell Urine Crystals Calcium Oxalate Crystal Uric Acid Crystals Triple Phos Crystals Other Crystals Amorphous Sediment Granular Casts Waxy Casts RBC Casts WBC Casts Other Casts Urine Mucus Urine Other Urine Trichomonas Urine Yeast Urine Sperm Ur Oval Fat Bodies COVID-19 Eval Order Covid[facility] [address] [facility] SARS-CoV-2 (PCR) (Negative) 07/02/21 07/02/21 07/02/21 Range/Units 14:04 14:37 15:42 WBC (4.8-10.8) K/uL RBC (4.7-6.1) M/uL Hgb (14.0-18.0) g/dL Hct (42-52) % MCV (80-100) fL MCH (25-34) pg MCHC (32-36) g/dL RDW Std Deviation (36.4-46.3) fL RDW Coeff of Johnnie (11.5-14.5) % Plt Count (130-400) K/uL MPV (7.4-10.4) fL Immature Gran % (Auto) % Neut % (Auto) % Lymph % (Auto) % [place] % (Auto) % Eos % (Auto) % Baso % (Auto) % Neut # (Auto) (1.4-6.5) K/uL Lymph # (Auto) (1.2-3.4) K/uL [place] # (Auto) (0.11-0.59) K/uL Eos # (Auto) (0-0.5) K/uL Baso # (Auto) (0-0.2) K/uL Immature Gran # (Auto) (0.00-0.02) K/uL Sodium (136-145) mmol/L Potassium (3.5-5.1) mmol/L Chloride (98-107) mmol/L Carbon Dioxide (21-32) mmol/L Anion Gap (3-11) BUN (7-18) mg/dl Creatinine (0.6-1.4) mg/dl Est Cr Clr Drug Dosing ml/min Est GFR ( Amer) ml/min Est GFR (Non-Af Amer) ml/min BUN/Creatinine Ratio (10-20) Glucose (70-99) mg/dl Calcium (8.5-10.1) mg/dl Magnesium (1.8-2.4) mg/dl Total Bilirubin (0.2-1) mg/dl Direct Bilirubin (0-0.2) mg/dl AST (15-37) U/L ALT (12-78) U/L Alkaline Phosphatase (45-117) U/L Total Creatine Kinase (39-308) U/L Troponin I (0-0.045) ng/ml Total Protein (6.4-8.2) gm/dl Albumin (3.4-5.0) gm/dl Procalcitonin < 0.05 (0-0.5) ng/ml Urine Color Cancelled Urine Appearance Cancelled Urine pH Cancelled Ur Specific [place] Cancelled Urine Protein Cancelled Urine Glucose (UA) Cancelled Urine Ketones Cancelled Urine Blood Cancelled Urine Nitrite Cancelled Urine Bilirubin Cancelled Urine Urobilinogen Cancelled Ur Leukocyte Esterase Cancelled Urine WBC (Auto) Cancelled Urine RBC (Auto) Cancelled U Hyaline Cast (Auto) Cancelled U Epithel Cells (Auto) Cancelled Urine Bacteria (Auto) Cancelled Ur Renal Epithelial Cell Cancelled Urine Crystals Cancelled Calcium Oxalate Crystal Cancelled Uric Acid Crystals Cancelled Triple Phos Crystals Cancelled Other Crystals Cancelled Amorphous Sediment Cancelled Granular Casts Cancelled Waxy Casts Cancelled RBC Casts Cancelled WBC Casts Cancelled Other Casts Cancelled Urine Mucus Cancelled Urine Other Cancelled Urine Trichomonas Cancelled Urine Yeast Cancelled Urine Sperm Cancelled Ur Oval Fat Bodies Cancelled COVID-19 Eval Order SARS-CoV-2 (PCR) NEGATIVE (Negative) Administered Medications Acetaminophen (Acetaminophen 500 Mg Tab) 500 mg PO TID REPLACED BY [facility] Stop: 08/01/21 21:46 Last Admin: 07/03/21 08:04 Dose: 500 mg Documented by: [id number] Admin: 07/03/21 00:51 Dose: 500 mg Documented by: [id number] Artificial Tears (Artificial Tears) 1 drops OP BID REPLACED BY [facility] Stop: 08/01/21 21:46 Last Admin: 07/03/21 00:51 Dose: 1 drops Documented by: [id number] Buspirone HCl (Buspirone 5 Mg Tab) 2.5 mg PO BIDM REPLACED BY [facility] Stop: 08/02/21 07:59 Last Admin: 07/03/21 08:03 Dose: 2.5 mg Documented by: [id number] Cyanocobalamin (Cyanocobalamin 500 Mcg Tablet (Vitamin B-12)) 1,000 mcg PO QAM REPLACED BY [facility] Stop: 08/02/21 08:59 Last Admin: 07/03/21 08:03 Dose: 1,000 mcg Documented by: [id number] Heparin Sodium (Porcine) (Heparin Sod 5,000 Unit/0.5 Ml Vial) 5,000 units SQ Q8 REPLACED BY [facility] Stop: 08/02/21 07:59 Last Admin: 07/03/21 08:06 Dose: 5,000 units Documented by: [id number] Sodium Chloride (Nss 1000ml) 1,000 mls @ 75 mls/hr IV .[id number] REPLACED BY [facility] Stop: 07/03/21 11:06 Last Admin: 07/02/21 22:30 Dose: 75 mls/hr Documented by: [id number] Insulin Aspart (Insulin Aspart 100 Units/Ml 3 Ml Pen) 0 units SC ACHS REPLACED BY [facility] Stop: 08/01/21 21:46 Last Admin: 07/03/21 08:07 Dose: 3 units Documented by: [id number] Cosigned by: [id number] Admin: 07/03/21 00:58 Dose: 1 units Documented by: [id number] Cosigned by: [id number] Levothyroxine Sodium (Levothyroxine Sodium 50 Mcg Tablet) 50 mcg PO DAILYBB REPLACED BY [facility] Stop: 08/02/21 06:29 Last Admin: 07/03/21 06:05 Dose: 50 mcg Documented by: [id number] Losartan Potassium (Losartan Potassium 25 Mg Tab) 25 mg PO QAM REPLACED BY [facility] Stop: 08/02/21 08:59 Last Admin: 07/03/21 08:05 Dose: 25 mg Documented by: [id number] Olanzapine (Olanzapine 5 Mg Tablet) 5 mg PO HS REPLACED BY [facility] Stop: 08/01/21 21:46 Last Admin: 07/03/21 00:50 Dose: 5 mg Documented by: [id number] Sertraline HCl (Sertraline Hcl 100 Mg Tablet) 100 mg PO QAM REPLACED BY [facility] Stop: 08/02/21 08:59 Last Admin: 07/03/21 08:04 Dose: 100 mg Documented by: [id number] Simvastatin (Simvastatin 40 Mg Tab) 40 mg PO QPM JULIETA Stop: 08/01/21 21:46 Last Admin: 07/03/21 00:51 Dose: 40 mg Documented by: [id number] Discontinued Medications Sodium Chloride (Nss 1000ml) 500 mls @ 999 mls/hr IV .Q31M ONE Stop: 07/02/21 14:11 Last Infusion: 07/02/21 14:33 Dose: 0 mls/hr Documented by: [id number] Admin: 07/02/21 14:02 Dose: 999 mls/hr Documented by: [id number] Influenza Virus Vaccine (Influenza Vaccine High Dose Pf 65+ 0.7 Ml Syr) 0.7 ml IM .ONCE ONE Stop: 07/03/21 08:01 Last Admin: 07/03/21 08:05 Dose: Not Given Documented by: [id number] Ioversol (Optiray 320 100ml) 91 ml IV ONCE ONE Stop: 07/02/21 19:03 Last Admin: 07/02/21 19:05 Dose: 91 ml Documented by: [id number] Imaging Data Radiologist's Impression: Cervical Spine CT 07/02/21 13:41 CT OF THE CERVICAL SPINE WITHOUT CONTRAST CLINICAL HISTORY: posterior head injury/fall COMPARISON STUDY: Cervical spine CT August 18, 2020. TECHNIQUE: Helical axial images of the cervical spine were obtained without IV contrast. Sagittal and coronal reconstructions were viewed. Automated exposure control was utilized for the study. A dose lowering technique was utilized adhe ring to the principles of ALARA. FINDINGS: Vertebral body heights are maintained. No acute cervical spine fracture or subluxation is present. There is no prevertebral edema. Facet joints are intact. Marked disc space narrowing with endplate irregularity at C5-C6 is unchanged and CT of August 18, 2020. There is severe multilevel facet arthrosis. Mild anterolisthesis of C6 on C7 is unchanged. IMPRESSION: No acute cervical spine fracture or subluxation. No change in appearance of the cervical spine. ACT 112: Negative or not required by law. Electronically signed by: Gabe Oshea M.D. 07/02/2021 2:59 PM Chest X-Ray 07/02/21 13:41 XR chest 1V portable CLINICAL HISTORY: fall, injury COMPARISON STUDY: Chest radiograph May 23, 2021. FINDINGS: Lung volumes are diminished. This is unchanged. Bibasilar opacities favor atelectasis. Cardiomediastinal silhouette is stable. No pneumothorax or pleural effusion is noted. There is pulmonary vascular congestion. IMPRESSION: 1. No pneumothorax. 2. Stable cardiomegaly. Pulmonary vascular congestion. 3. Linear left basilar opacity suggestive of atelectasis. ACT 112: Negative or not required by law. Electronically signed by: Gabe Oshea M.D. 07/02/2021 2:[address] 07/02/21 13:41 CT OF THE HEAD WITHOUT CONTRAST CLINICAL HISTORY: posterior head injury COMPARISON STUDY: Head CT May 23, 2021. TECHNIQUE: Helical axial images of the head were obtained without IV contrast. Automated exposure control was utilized for the study. A dose lowering technique was utilized adhering to the principles of ALARA. FINDINGS: No acute intracranial hemorrhage, midline shift or mass effect is present. Ventricular dilatation is unchanged and likely due to central atrophy. White matter hypodensity suggests small vessel disease. There are no findings to suggest acute dural sinus thrombosis or acute territorial infarct. Small right posterior scalp contusion is present. There is no calvarial fracture. Small air- fluid level within left maxillary sinus is noted. IMPRESSION: 1. No acute intracranial findings. No change in appearance of the brain. 2. Small right posterior scalp contusion. No calvarial fracture. ACT 112: Negative or not required by law. Electronically signed by: Gabe Oshea M.D. 07/02/2021 2:57 PM Pelvis X-Ray 07/02/21 13:41 XR pelvis 1-2V routine CLINICAL HISTORY: fall COMPARISON: Pelvis and left hip radiographs May 23, 2021. FINDINGS: Sacroiliac joints and symphysis pubis are intact. No acute fracture within the pelvis or hips is identified. Complete loss of the left hip joint space is again noted. There is subchondral cystic change. There may be femoral head collapse. This was present on prior exam. IMPRESSION: 1. No acute fracture within the pelvis or hips. 2. Severe left hip osteoarthritis with possible left femoral subchondral collapse which was present on prior exam. ACT 112: Negative or not required by law. Electronically signed by: Gabe Oshea M.D. 07/02/2021 2:39 PM Elbow X-Ray 07/02/21 14:19 XR elbow RT min 3V routine CLINICAL HISTORY: fall, right elbow injury COMPARISON: None FINDINGS: Soft tissue swelling overlying the olecranon on lateral projection. No acute fracture is noted within the right elbow. No evidence for joint effusion. Irregularity of the condyles is chronic. IMPRESSION: 1. No acute fracture or joint effusion of the right elbow. 2. Soft tissue swelling reflecting contusion overlying the olecranon. ACT 112: Negative or not required by law. Electronically signed by: Gabe Oshea M.D. 07/02/2021 2:36 PM Discharge Plan Visit Data Chief Complaint: Fall ED Provider: Mg Moses Discharge Problem: Generalized weakness, Closed head injury, Contusion of right elbow Patient Disposition: Admitted As Inpatient Discharge Instructions Interventions: ED Discharge Assessment Last Done: 07/02/21 21:17 Discharge Problem: Closed head injury Qualifiers: Encounter type: initial encounter Qualified Code(s): S09.90XA - Unspecified injury of head, initial encounter Contusion of right elbow Qualifiers: Encounter type: initial encounter Qualified Code(s): S50.01XA - Contusion of right elbow, initial encounter
[2021-07-02 14:22] LABS: Basophils # (auto) 0.05 K/uL (0-0.2); Basophils % (auto) 0.6 %; Eosinophils # (auto) 0.37 K/uL (0-0.5); Eosinophils % (auto) 4.6 %; Hematocrit (blood only) 42.7 % (42-52); Hemoglobin 14.1 g/dL (14.0-18.0); Immature Granulocytes # (auto) 0.03 K/uL (0.00-0.02); Immature Granulocytes % (auto) 0.4 %; Lymphocytes # (auto) 2.83 K/uL (1.2-3.4); Lymphocytes % (auto) 35.2 %; Mean Corpuscular Hemoglobin 30.8 pg (25-34); Mean Corpuscular Volume 93.2 fL (80-100); Mean Platelet Volume 10.2 fL (7.4-10.4); Monocytes # (auto) 0.58 K/uL (0.11-0.59); Monocytes % (auto) 7.2 %; Neutrophils # (auto) 4.18 K/uL (1.4-6.5); Platelet Count 205 K/uL (130-400); RDW Coefficient of Variation 14.1 % (11.5-14.5); RDW Standard Deviation 47.8 fL (36.4-46.3); Red Blood Count 4.58 M/uL (4.7-6.1); White Blood Count 8.04 K/uL (4.8-10.8)
--- NOTE | 2021-07-02 14:37 | XRay Report ---
XR elbow RT min 3V routine CLINICAL HISTORY: fall, right elbow injury COMPARISON: None FINDINGS: Soft tissue swelling overlying the olecranon on lateral projection. No acute fracture is n oted within the right elbow. No evidence for joint effusion. Irregularity of the condyles is chronic. IMPRESSION: 1. No acute fracture or joint effusion of the right elbow. 2. Soft tissue swelling reflecting contusion overlying the olecranon. ACT 112: Negative or not required by law. Electronically signed by: Gabe Oshea M.D. 07/02/2021 2:36 PM
[2021-07-02 14:38] LABS: Alanine Aminotransferase 27 U/L (12-78); Albumin Level 2.8 gm/dl (3.4-5.0); Aspartate Aminotransferase 25 U/L (15-37); BUN Creatinine Ratio 12.5 (10-20); Bilirubin Direct < 0.1 mg/dl (0-0.2); Blood Urea Nitrogen 17 mg/dl (7-18); Carbon Dioxide 21 mmol/L (21-32); Chloride 107 mmol/L (98-107); Est GFR (African American) 54.8 ml/min; Est GFR (Non-African American) 47.3 ml/min; Glucose 277 mg/dl (70-99); Magnesium 2.1 mg/dl (1.8-2.4); Sodium 140 mmol/L (136-145)
--- NOTE | 2021-07-02 14:39 | XRay Report ---
XR chest 1V portable CLINICAL HISTORY: fall, injury COMPARISON STUDY: Chest radiograph May 23, 2021. FINDINGS: Lung volumes are diminished. This is unchanged. Bibasilar opacities favor atelectasis. Card iomediastinal silhouette is stable. No pneumothorax or pleural effusion is noted. There is pulmonary vascular congestion. IMPRESSION: 1. No pneumothorax. 2. Stable cardiomegaly. Pulmonary vascular congestion. 3. Linear left basilar opacity suggestive of atelectasis. ACT 112: Negative or not required by law. Electronically signed by: Gabe Oshea M.D. 07/02/2021 2:37 PM
--- NOTE | 2021-07-02 14:41 | XRay Report ---
XR pelvis 1-2V routine CLINICAL HISTORY: fall COMPARISON: Pelvis and left hip radiographs May 23, 2021. FINDINGS: Sacroiliac joints and symphysis pubis are intact. No acute fracture within the pelvis or h ips is identified. Complete loss of the left hip joint space is again noted. There is subchondral cys tic change. There may be femoral head collapse. This was present on prior exam. IMPRESSION: 1. No acute fracture within the pelvis or hips. 2. Severe left hip osteoarthritis with possible left femoral subchondral collapse which was present o n prior exam. ACT 112: Negative or not required by law. Electronically signed by: Gabe Oshea M.D. 07/02/2021 2:39 PM
[2021-07-02 14:42] LABS: Alkaline Phosphatase 79 U/L (45-117); Bilirubin,Total 0.6 mg/dl (0.2-1); Total Protein 7.3 gm/dl (6.4-8.2); Troponin I < 0.015 ng/ml (0-0.045)
--- NOTE | 2021-07-02 14:58 | CT Scan Report ---
CT OF THE HEAD WITHOUT CONTRAST CLINICAL HISTORY: posterior head injury COMPARISON STUDY: Head CT May 23, 2021. TECHNIQUE: Helical axial images of the head were obtained without IV contrast. Automated exposure con trol was utilized for the study. A dose lowering technique was utilized adhering to the principles o f ALARA. FINDINGS: No acute intracranial hemorrhage, midline shift or mass effect is present. Ventricular dila tation is unchanged and likely due to central atrophy. White matter hypodensity suggests small vessel disease. There are no findings to suggest acute dural sinus thrombosis or acute territorial infarct. Small right posterior scalp contusion is present. There is no calvarial fracture. Small air-fluid le bryce within left maxillary sinus is noted. IMPRESSION: 1. No acute intracranial findings. No change in appearance of the brain. 2. Small right posterior scalp contusion. No calvarial fracture. ACT 112: Negative or not required by law. Electronically signed by: Gabe Oshea M.D. 07/02/2021 2:57 PM
--- NOTE | 2021-07-02 15:00 | CT Scan Report ---
CT OF THE CERVICAL SPINE WITHOUT CONTRAST CLINICAL HISTORY: posterior head injury/fall COMPARISON STUDY: Cervical spine CT August 18, 2020. TECHNIQUE: Helical axial images of the cervical spine were obtained without IV contrast. Sagittal a nd coronal reconstructions were viewed. Automated exposure control was utilized for the study. A do se lowering technique was utilized adhering to the principles of ALARA. FINDINGS: Vertebral body heights are maintained. No acute cervical spine fracture or subluxation is p resent. There is no prevertebral edema. Facet joints are intact. Marked disc space narrowing with en dplate irregularity at C5-C6 is unchanged and CT of August 18, 2020. There is severe multilevel fac et arthrosis. Mild anterolisthesis of C6 on C7 is unchanged. IMPRESSION: No acute cervical spine fracture or subluxation. No change in appearance of the cervical spine. ACT 112: Negative or not required by law. Electronically signed by: Gabe Oshea M.D. 07/02/2021 2:59 PM
--- NOTE | 2021-07-02 17:00 | History & Physical Report ---
Date of Service July 02, 2021 Assessment & Plan (1) Fall: Plan: Occurred over 24 hours ago at the [facility]. CT head and cervical spine CT w/o fractures. No ICH on CT head. No obvious acute stroke. Fortunately all imaging does not show acute fractures although there is evidence of left hip subchondral collapse seen today as well as in April. CT a/p confirms the left hip findings. H/o b12 def - will repeat level in am. No obvious infectious etiology at this time but u/a and urine cx pending (and HAYDEE with ? of prostatitis). Given his left hip pain and left hip findings on x-rays / CT pelvis will have [facility] Ortho eval the left hip subchondral collapse. Keep nonweightbearing LLE until ortho sees. Could L hip issues be contributing to gait issues/fall risk? (2) Generalized weakness: Plan: Check u/a and urine cx - r/o UTI. HAYDEE w/ question of prostatitis - check PSA in am. Oxybutinin can increase fall risk in seniors - hold for now. See #1 re: left hip findings. (3) Closed head injury: Plan: Fortunately no fracture or ICH. Small contusion on occiput. (4) Type 2 diabetes mellitus: Plan: Hold glimepiride. Novolog SSI. T2DM diet. (5) Hyperlipidemia: Plan: CPK wnl. LFTs wnl. Cont statin. (6) HTN (hypertension): Plan: BPs controlled. Cont losartan. (7) Depression: Plan: Cont sertraline. Also on olanzapine. recheck b12 in am. (8) Abdominal distension: Plan: no acute pathology on CT. no fecal impaction on HAYDEE. no vomiting by history. follow. (9) DVT prophylaxis: Plan: heparin TID (10) Hypothyroidism: Plan: TSH 03/2021 wnl Cont synthroid (11) Alzheimer disease: Plan: mod-severe based on history (12) BPH (benign prostatic hyperplasia): Plan: not on meds for such prostate quite enlarged on exam today, with ? prostatitis (boggy, tender) PSA level am send u/a and urine cx (13) Chronic kidney disease, stage 3a: Plan: BMP in am gentle hydration overnight History of Present Illness Chief Complaint: fall on 07/01, weakness Primary Care Provider: [facility] 86yo male with T2DM and Alzheimer's dementia - resident of [facility] - presents after having had a fall yesterday. Struck the back of his bed - has small contusion there. Was brought into the [facility] ER today because of worsening weakness and altered mental status. During the visit he was alone and could offer very little in the way of history or ROS. He did say he had pain in his right hip and on the back of the head. He appeared very bloated and I asked him if he felt distended. He replied yes. A minute later, however, he told me he was hungry. Nurses report he had a very large brown liquid stool earlier in his ER course. Allergies Allergy/AdvReac Type Severity Reaction Status Date / Time adhesive tape Allergy Unknown Unknown Verified 07/02/21 16:05 cephalexin [From Keflex] Allergy Unknown Unknown Verified 07/02/21 16:05 rofecoxib Allergy Unknown SWOLLEN Verified 07/02/21 16:05 FEET Home Medications Medication Instructions Recorded Confirmed Type sertraline 100 mg tablet 100 mg PO QAM 05/08/18 07/02/21 History simvastatin 40 mg tablet 40 mg PO QPM 05/08/18 07/02/21 History buspirone 5 mg tablet 2.5 mg PO BIDM 03/31/19 07/02/21 History peg 400-propylene glycol (PF) 0.4 1 drp OPB BID 07/01/19 07/02/21 History %-0.3 % eye drops in a dropperette (Systane (PF)) olanzapine 5 mg tablet 5 mg PO HS 06/22/20 07/02/21 History oxybutynin chloride 5 mg tablet 10 mg PO QAM 07/31/20 07/02/21 History acetaminophen 500 mg tablet 1,000 mg PO TID PRN MDD 3g 08/18/20 07/02/21 History (Tylenol Extra Strength) cyanocobalamin (vitamin B-12) 1,000 mcg PO QAM 08/18/20 07/02/21 History 1,000 mcg tablet glimepiride 2 mg tablet 2 mg PO BID 08/18/20 07/02/21 History losartan 25 mg tablet 25 mg PO QAM 08/18/20 07/02/21 History polyethylene glycol 3350 17 gram 17 g PO BID PRN 03/05/21 07/02/21 History oral powder packet (Miralax) levothyroxine 50 mcg tablet 50 mcg PO DAILYBB 07/02/21 07/02/21 History Past Med/Surg History Medical History (Updated 07/02/21 @ 23:09 by Clinton Sommers) Depression Fall Fracture, ribs HTN (hypertension) Hyperlipidemia Migraines Skin problem Type 2 diabetes mellitus Surgical History Previous back surgery S/P appendectomy Family History Other Cancer Diabetes Gallbladder disease Hypertension Kidney disease Social History (Updated 07/02/21 @ 23:00 by Clinton Sommers) Smoking Status: Never smoker Second Hand Exposure: No; Hx Alcohol Use: No Hx Substance Use: No Preferred Language: Bengali Communication Ability: Effective Trailer Chief Required: No Beliefs That Will Affect Care: None marital status: Current Living Situation: Personal Care Facility Current Living Situation Comment: [facility] 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 Feels Safe at Home: Yes Assistive Devices: Walker Review of Systems Review of Systems: Unobtainable due to cognitive status Physical Exam Physical Exam: Gen - NAD, confused (could not name the place, year, month) Eyes - irregular pupil on left ENMT - TMs clear b/l, nose clear, MM mildly dry Neck - no JVD, no lymph nodes Pulm - CTA b/l, no increased work of breathing CV - RRR, s1 s2, no murmur GI - distended, BS+, NT, no HSM HAYDEE - no fecal impaction; prostate enlarged, boggy, tender Musculo - restricted passive ROM b/l hips, worse on left; tender over trochanteric bursal region on right; tender b/l groin with flexion of hips Skin - abrasion left anterior thigh; contusion posterior occiput of head Neuro - strength 5/5 x 4 exts; DTRs 2+ b/l; no facial droop; speech clearn Psych - a/o x 1 only Lymph - no cervical lymph nodes b/l Results & Data Results & Data ([facility]) Vital Signs (Past 12 Hours) Vital Signs Temp Pulse Pulse Resp BP BP Pulse Ox 07/02/21 15:14 73 16 135/85 99 07/02/21 13:30 36.5 C 82 18 163/91 H 97 Laboratory Results Laboratory Results - last 24 hr 07/02/21 07/02/21 07/02/21 14:04 14:04 14:04 WBC 8.04 RBC 4.58 L Hgb 14.1 Hct 42.7 MCV 93.2 MCH 30.8 MCHC 33.0 RDW Std Deviation 47.8 H RDW Coeff of Johnnie 14.1 Plt Count 205 MPV 10.2 Immature Gran % (Auto) 0.4 Neut % (Auto) 52.0 Lymph % (Auto) 35.2 [place] % (Auto) 7.2 Eos % (Auto) 4.6 Baso % (Auto) 0.6 Neut # (Auto) 4.18 Lymph # (Auto) 2.83 [place] # (Auto) 0.58 Eos # (Auto) 0.37 Baso # (Auto) 0.05 Immature Gran # (Auto) 0.03 H Sodium 140 Potassium 4.0 Chloride 107 Carbon Dioxide 21 Anion Gap 12.0 H BUN 17 Creatinine 1.34 Est Cr Clr Drug Dosing 46.0 Est GFR ( Amer) 54.8 Est GFR (Non-Af Amer) 47.3 BUN/Creatinine Ratio 12.5 Glucose 277 H Calcium 9.0 Magnesium 2.1 Total Bilirubin 0.6 Direct Bilirubin < 0.1 AST 25 ALT 27 Alkaline Phosphatase 79 Total Creatine Kinase Pending Troponin I < 0.015 Total Protein 7.3 Albumin 2.8 L Procalcitonin Urine Color Urine Appearance Urine pH Ur Specific [place] Urine Protein Urine Glucose (UA) Urine Ketones Urine Blood Urine Nitrite Urine Bilirubin Urine Urobilinogen Ur Leukocyte Esterase Urine WBC (Auto) Urine RBC (Auto) U Hyaline Cast (Auto) U Epithel Cells (Auto) Urine Bacteria (Auto) Ur Renal Epithelial Cell Urine Crystals Calcium Oxalate Crystal Uric Acid Crystals Triple Phos Crystals Other Crystals Amorphous Sediment Granular Casts Waxy Casts RBC Casts WBC Casts Other Casts Urine Mucus Urine Other Urine Trichomonas Urine Yeast Urine Sperm Ur Oval Fat Bodies COVID-19 Eval Order Covid19 at [facility] SARS-CoV-2 (PCR) 07/02/21 07/02/21 07/02/21 14:04 14:37 15:42 WBC RBC Hgb Hct MCV MCH MCHC RDW Std Deviation RDW Coeff of Johnnie Plt Count MPV Immature Gran % (Auto) Neut % (Auto) Lymph % (Auto) [place] % (Auto) Eos % (Auto) Baso % (Auto) Neut # (Auto) Lymph # (Auto) [place] # (Auto) Eos # (Auto) Baso # (Auto) Immature Gran # (Auto) Sodium Potassium Chloride Carbon Dioxide Anion Gap BUN Creatinine Est Cr Clr Drug Dosing Est GFR ( Amer) Est GFR (Non-Af Amer) BUN/Creatinine Ratio Glucose Calcium Magnesium Total Bilirubin Direct Bilirubin AST ALT Alkaline Phosphatase Total Creatine Kinase Troponin I Total Protein Albumin Procalcitonin < 0.05 Urine Color Cancelled Urine Appearance Cancelled Urine pH Cancelled Ur Specific [place] Cancelled Urine Protein Cancelled Urine Glucose (UA) Cancelled Urine Ketones Cancelled Urine Blood Cancelled Urine Nitrite Cancelled Urine Bilirubin Cancelled Urine Urobilinogen Cancelled Ur Leukocyte Esterase Cancelled Urine WBC (Auto) Cancelled Urine RBC (Auto) Cancelled U Hyaline Cast (Auto) Cancelled U Epithel Cells (Auto) Cancelled Urine Bacteria (Auto) Cancelled Ur Renal Epithelial Cell Cancelled Urine Crystals Cancelled Calcium Oxalate Crystal Cancelled Uric Acid Crystals Cancelled Triple Phos Crystals Cancelled Other Crystals Cancelled Amorphous Sediment Cancelled Granular Casts Cancelled Waxy Casts Cancelled RBC Casts Cancelled WBC Casts Cancelled Other Casts Cancelled Urine Mucus Cancelled Urine Other Cancelled Urine Trichomonas Cancelled Urine Yeast Cancelled Urine Sperm Cancelled Ur Oval Fat Bodies Cancelled COVID-19 Eval Order SARS-CoV-2 (PCR) NEGATIVE Diagnostic Findings Cervical Spine CT 07/02/21 13:41 CT OF THE CERVICAL SPINE WITHOUT CONTRAST CLINICAL HISTORY: posterior head injury/fall COMPARISON STUDY: Cervical spine CT August 18, 2020. TECHNIQUE: Helical axial images of the cervical spine were obtained without IV contrast. Sagittal and coronal reconstructions were viewed. Automated exposure control was utilized for the study. A dose lowering technique was utilized adhering to the principles of ALARA. FINDINGS: Vertebral body heights are maintained. No acute cervical spine fracture or subluxation is present. There is no prevertebral edema. Facet joints are intact. Marked disc space narrowing with endplate irregularity at C5-C6 is unchanged and CT of August 18, 2020. There is severe multilevel facet arthrosis. Mild anterolisthesis of C6 on C7 is unchanged. IMPRESSION: No acute cervical spine fracture or subluxation. No change in appearance of the cervical spine. ACT 112: Negative or not required by law. Electronically signed by: Gabe Oshea M.D. 07/02/2021 2:59 PM Chest X-Ray 07/02/21 13:41 XR chest 1V portable CLINICAL HISTORY: fall, injury COMPARISON STUDY: Chest radiograph May 23, 2021. FINDINGS: Lung volumes are diminished. This is unchanged. Bibasilar opacities favor atelectasis. Cardiomediastinal silhouette is stable. No pneumothorax or pleural effusion is noted. There is pulmonary vascular congestion. IMPRESSION: 1. No pneumothorax. 2. Stable cardiomegaly. Pulmonary vascular congestion. 3. Linear left basilar opacity suggestive of atelectasis. ACT 112: Negative or not required by law. Electronically signed by: Gabe Oshea M.D. 07/02/2021 2:[address] 07/02/21 13:41 CT OF THE HEAD WITHOUT CONTRAST CLINICAL HISTORY: posterior head injury COMPARISON STUDY: Head CT May 23, 2021. TECHNIQUE: Helical axial images of the head were obtained without IV contrast. Automated exposure control was utilized for the study. A dose lowering technique was utilized adhering to the principles of ALARA. FINDINGS: No acute intracranial hemorrhage, midline shift or mass effect is present. Ventricular dilatation is unchanged and likely due to central atrophy. White matter hypodensity suggests small vessel disease. There are no findings to suggest acute dural sinus thrombosis or acute territorial infarct. Small right posterior scalp contusion is present. There is no calvarial fracture. Small air- fluid level within left maxillary sinus is noted. IMPRESSION: 1. No acute intracranial findings. No change in appearance of the brain. 2. Small right posterior scalp contusion. No calvarial fracture. ACT 112: Negative or not required by law. Electronically signed by: Gabe Oshea M.D. 07/02/2021 2:57 PM Pelvis X-Ray 07/02/21 13:41 XR pelvis 1-2V routine CLINICAL HISTORY: fall COMPARISON: Pelvis and left hip radiographs May 23, 2021. FINDINGS: Sacroiliac joints and symphysis pubis are intact. No acute fracture within the pelvis or hips is identified. Complete loss of the left hip joint space is again noted. There is subchondral cystic change. There may be femoral head collapse. This was present on prior exam. IMPRESSION: 1. No acute fracture within the pelvis or hips. 2. Severe left hip osteoarthritis with possible left femoral subchondral collapse which was present on prior exam. ACT 112: Negative or not required by law. Electronically signed by: Gabe Oshea M.D. 07/02/2021 2:39 PM Elbow X-Ray 07/02/21 14:19 XR elbow RT min 3V routine CLINICAL HISTORY: fall, right elbow injury COMPARISON: None FINDINGS: Soft tissue swelling overlying the olecranon on lateral projection. No acute fracture is noted within the right elbow. No evidence for joint effusion. Irregularity of the condyles is chronic. IMPRESSION: 1. No acute fracture or joint effusion of the right elbow. 2. Soft tissue swelling reflecting contusion overlying the olecranon. ACT 112: Negative or not required by law. Electronically signed by: Gabe Oshea M.D. 07/02/2021 2:36 PM Code Status & VTE Plan Code Status full for now; will need to see if patient has advanced directives from [facility] and discuss wishes with next of kin/POA PG Care Time/CCT Total # of Minutes Spent Total Time Spent with Patient: Total time spent is greater than 50% in coordination of care (as documented) at patient's floor/unit and/or counseling patient: Coding Level of Care Code 98966 Initial Inpt Care Lvl 3 Diagnoses Fall W19.XXXA Generalized weakness R53.1 Closed head injury S09.90XA Encounter type: initial encounter Type 2 diabetes mellitus E11.9 Hyperlipidemia E78.5 HTN (hypertension) I10 Depression F32.9 Abdominal distension R14.0 DVT prophylaxis Z29.9 Hypothyroidism E03.9 Alzheimer disease G30.9; F02.80 BPH (benign prostatic hyperplasia) N40.0 Chronic kidney disease, stage 3a N18.31 (1) Closed head injury Encounter type: initial encounter Qualified Code(s): S09.90XA - Unspecified injury of head, initial encounter
[2021-07-02 18:20] LABS: Creatine Kinase 191 U/L (39-308)
[2021-07-02] MEDS ORDERED: OPTIRAY 320 100ml IV ONE (19:02)
--- NOTE | 2021-07-02 19:18 | CT Scan Report ---
CT OF THE ABDOMEN AND PELVIS WITH CONTRAST CLINICAL HISTORY: severe abdominal pain and bloating. Falls. Bilateral hip pain. COMPARISON STUDY: CT of the abdomen and pelvis August 18, 2020. CT of the pelvis March 05, 2021. Pe lvis radiograph performed earlier today. TECHNIQUE: Following IV administration of 91 mL of Optiray, axial images of the abdomen and pelvis we re obtained from the lung bases to the proximal femurs. Images were reviewed in the axial, sagittal, and coronal planes. IV contrast was administered without complication. Automated exposure control wa s utilized for the study. A dose lowering technique was utilized adhering to the principles of ALARA . CT DOSE: 1301.96 mGy.cm FINDINGS: No hemoperitoneum or pneumoperitoneum is present. There is no evidence for traumatic injury to the liver. A 1.5 cm hepatic cyst is noted. This exam is mildly compromised by motion artifact. Th e spleen, adrenal glands and pancreas are unremarkable. There is no biliary or pancreatic ductal dila tation. Multiple bilateral renal calculi measure up to 9 mm. There are no ureteral calculi. There is no hydronephrosis. The prostate is enlarged. 5.9 cm cyst arising from the lower pole of the right kid mulu is noted. Several subcentimeter renal lesions are too small to characterize. There is moderate bi lateral renal cortical thinning. The caliber and wall thickness of small and large bowel are normal. There is extensive colonic diverticulosis without evidence for acute diverticulitis. There is no lymp hadenopathy. There is no ascites. Severe bilateral hip osteoarthritis is noted, greater on the left. There is mild subchondral collapse of the left femoral head. Multiple old left rib fractures are note d. No acute fracture within the pelvis or hips is identified. IMPRESSION: 1. No acute process within the abdomen or pelvis. 2. No acute fracture within the pelvis or hips. Severe bilateral hip osteoarthritis, greater on the l eft. 3. Extensive colonic diverticulosis without evidence for acute diverticulitis. 4. Bilateral nephrolithiasis. No ureteral calculi. No hydronephrosis. ACT 112: Negative or not required by law. Electronically signed by: Gabe Oshea M.D. 07/02/2021 7:17 PM
[2021-07-02] MEDS ORDERED: SODIUM CHLORIDE 0.9% 1000ML 1,000 ML IV SCH (21:47)
[2021-07-02] MEDS ORDERED: ONDANSETRON INJ 2 MG/ML 2 ML VIAL IV PRN (21:47)
[2021-07-02 23:51] LABS: Appearance Urine Clear (Clear); Bilirubin Urine Negative (Negative); Blood Urine Negative (Negative); Color Urine Yellow; Glucose Urine UA Negative (Negative); Ketones Urine Negative (Negative); Leukocyte Esterase Urine Negative (Negative); Nitrite Urine Negative (Negative); Protein Urine Negative (Negative); Specific Gravity Urine > 1.045 (1.000-1.030); Urobilinogen Urine Negative (Negative)
[2021-07-03] MEDS: OLANZapine 5 MG TABLET PO SCH ×2 (00:50→20:54)
[2021-07-03] MEDS: ACETAMINOPHEN 500 MG TAB PO SCH ×4 (00:51→20:53)
[2021-07-03] MEDS: SIMVASTATIN 40 MG TAB PO SCH ×2 (00:51→20:55)
[2021-07-03] MEDS: ARTIFICIAL TEARS OP SCH ×3 (00:51→20:53)
[2021-07-03] MEDS: INSULIN ASPART 100 UNITS/ML 3 ML PEN SC SCH ×5 (00:58→20:54)
[2021-07-03] MEDS: LEVOTHYROXINE SODIUM 50 MCG TABLET PO SCH (06:05)
[2021-07-03] MEDS ORDERED: INFLUENZA VACCINE HIGH DOSE PF 65+ 0.7 ML SYR IM ONE (08:00)
[2021-07-03] MEDS: CYANOCOBALAMIN 500 MCG TABLET (VITAMIN B-12) PO SCH (08:03)
[2021-07-03] MEDS: busPIRone 5 MG TAB PO SCH ×2 (08:03→17:33)
[2021-07-03] MEDS: SERTRALINE HCL 100 MG TABLET PO SCH (08:04)
[2021-07-03] MEDS: LOSARTAN POTASSIUM 25 MG TAB PO SCH (08:05)
[2021-07-03] MEDS: HEPARIN SOD 5,000 UNIT/0.5 ML VIAL SQ SCH ×3 (08:06→21:00)
[2021-07-03 08:21] LABS: BUN Creatinine Ratio 17.1 (10-20); Calcium 8.2 mg/dl (8.5-10.1); Est GFR (African American) 75.3 ml/min; Potassium 3.9 mmol/L (3.5-5.1)
[2021-07-03 08:27] LABS: Prostate Specific Antigen 4.6 ng/ml (0-4)
--- NOTE | 2021-07-03 10:22 | Orthopedic Consultation ---
Date of Consultation July 03, 2021 Assessment & Plan (1) Osteoarthritis of left hip: Subchondral collapse of the patient's proximal femur is not a new finding. It was seen on previous radiographs. Pain control with p.o. medication ordered per medicine service Nonweightbearing on left lower extremity DVT prophylaxis per medicine discretion We will discuss patient findings with Dr. Pichardo History of Present Illness Reason for Consultation: Left hip osteoarthritis Requesting Physician: Dr. Yo Pichardo Attending Physician: Marshall Correa DO History of Present Illness This 86-year-old male seen this morning in consultation for severe left hip osteoarthritis with subchondral collapse. Patient is very somnolent during his examination. He has severe Alzheimer's dementia. I was not able to obtain a good review of systems on this patient, however he did say that he has had left hip pain for over a year. Allergies Allergy/AdvReac Type Severity Reaction Status Date / Time adhesive tape Allergy Unknown Unknown Verified 07/02/21 16:05 cephalexin [From Keflex] Allergy Unknown Unknown Verified 07/02/21 16:05 rofecoxib Allergy Unknown SWOLLEN Verified 07/02/21 16:05 FEET Home Medications Medication Instructions Recorded Confirmed Type sertraline 100 mg tablet 100 mg PO QAM 05/08/18 07/02/21 History simvastatin 40 mg tablet 40 mg PO QPM 05/08/18 07/02/21 History buspirone 5 mg tablet 2.5 mg PO BIDM 03/31/19 07/02/21 History peg 400-propylene glycol (PF) 0.4 1 drp OPB BID 07/01/19 07/02/21 History %-0.3 % eye drops in a dropperette (Systane (PF)) olanzapine 5 mg tablet 5 mg PO HS 06/22/20 07/02/21 History oxybutynin chloride 5 mg tablet 10 mg PO QAM 07/31/20 07/02/21 History acetaminophen 500 mg tablet 1,000 mg PO TID PRN MDD 3g 08/18/20 07/02/21 History (Tylenol Extra Strength) cyanocobalamin (vitamin B-12) 1,000 mcg PO QAM 08/18/20 07/02/21 History 1,000 mcg tablet glimepiride 2 mg tablet 2 mg PO BID 08/18/20 07/02/21 History losartan 25 mg tablet 25 mg PO QAM 08/18/20 07/02/21 History polyethylene glycol 3350 17 gram 17 g PO BID PRN 03/05/21 07/02/21 History oral powder packet (Miralax) levothyroxine 50 mcg tablet 50 mcg PO DAILYBB 07/02/21 07/02/21 History Patient History Medical History Depression Fall Fracture, ribs HTN (hypertension) Hyperlipidemia Migraines Skin problem Type 2 diabetes mellitus Surgical History Previous back surgery S/P appendectomy Family History Other Cancer Diabetes Gallbladder disease Hypertension Kidney disease Social History Smoking Status: Never smoker Second Hand Exposure: No; Hx Alcohol Use: No Hx Substance Use: No Preferred Language: [place] Communication Ability: Effective Wheelchair Van Driver Required: No Beliefs That Will Affect Care: None marital status: Current Living Situation: Personal Care Facility Current Living Situation Comment: [facility] 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 Patient experiences referred pain to the groin with a passive straight leg raise test. He is unable to perform this test actively. He does have active dorsi and plantarflexion of his foot without issue. Flexion of his hip to 80 degrees causes referred pain to the groin. Internal rotation is limited to 5 degrees external rotation to 20 degrees with exacerbation of pain. Patient is neurovascularly intact in the left lower extremity. I was unable to perform a FITO test due to his limited range of motion. Results & Data ([facility]) Vital Signs (Past 12 Hours) Vital Signs Temp Pulse Pulse Resp BP Pulse Ox 07/03/21 08:17 36.5 C 53 L 16 133/77 92 07/03/21 07:13 75 07/03/21 02:44 36.9 C 71 17 126/72 93 07/02/21 23:11 84 Diagnostic Findings Laboratory Results WBC 8.04 K/uL (4.8-10.8) 07/02/21 14:04 RBC 4.58 M/uL (4.7-6.1) L 07/02/21 14:04 Hgb 14.1 g/dL (14.0-18.0) 07/02/21 14:04 Hct 42.7 % (42-52) 07/02/21 14:04 MCV 93.2 fL (80-100) 07/02/21 14:04 MCH 30.8 pg (25-34) 07/02/21 14:04 MCHC 33.0 g/dL (32-36) 07/02/21 14:04 RDW Std Deviation 47.8 fL (36.4-46.3) H 07/02/21 14:04 RDW Coeff of Johnnie 14.1 % (11.5-14.5) 07/02/21 14:04 Plt Count 205 K/uL (130-400) 07/02/21 14:04 MPV 10.2 fL (7.4-10.4) 07/02/21 14:04 Immature Gran % (Auto) 0.4 % 07/02/21 14:04 Neut % (Auto) 52.0 % 07/02/21 14:04 Lymph % (Auto) 35.2 % 07/02/21 14:04 [place] % (Auto) 7.2 % 07/02/21 14:04 Eos % (Auto) 4.6 % 07/02/21 14:04 Baso % (Auto) 0.6 % 07/02/21 14:04 Neut # (Auto) 4.18 K/uL (1.4-6.5) 07/02/21 14:04 Lymph # (Auto) 2.83 K/uL (1.2-3.4) 07/02/21 14:04 [place] # (Auto) 0.58 K/uL (0.11-0.59) 07/02/21 14:04 Eos # (Auto) 0.37 K/uL (0-0.5) 07/02/21 14:04 Baso # (Auto) 0.05 K/uL (0-0.2) 07/02/21 14:04 Immature Gran # (Auto) 0.03 K/uL (0.00-0.02) H 07/02/21 14:04 Sodium 142 mmol/L (136-145) 07/03/21 06:55 Potassium 3.9 mmol/L (3.5-5.1) 07/03/21 06:55 Chloride 110 mmol/L (98-107) H 07/03/21 06:55 Carbon Dioxide 24 mmol/L (21-32) 07/03/21 06:55 Anion Gap 8.0 (3-11) 07/03/21 06:55 BUN 18 mg/dl (7-18) 07/03/21 06:55 Creatinine 1.03 mg/dl (0.6-1.4) 07/03/21 06:55 Est Cr Clr Drug Dosing 61.0 ml/min 07/03/21 06:55 Est GFR ( Amer) 75.3 ml/min 07/03/21 06:55 Est GFR (Non-Af Amer) 65.0 ml/min 07/03/21 06:55 BUN/Creatinine Ratio 17.1 (10-20) 07/03/21 06:55 Glucose 171 mg/dl (70-99) H 07/03/21 06:55 POC Glucose 167 mg/dl (70-99) H 07/03/21 07:33 Calcium 8.2 mg/dl (8.5-10.1) L 07/03/21 06:55 Magnesium 2.1 mg/dl (1.8-2.4) 07/02/21 14:04 Total Bilirubin 0.6 mg/dl (0.2-1) 07/02/21 14:04 Direct Bilirubin < 0.1 mg/dl (0-0.2) 07/02/21 14:04 AST 25 U/L (15-37) 07/02/21 14:04 ALT 27 U/L (12-78) 07/02/21 14:04 Alkaline Phosphatase 79 U/L (45-117) 07/02/21 14:04 Total Creatine Kinase 191 U/L (39-308) 07/02/21 14:04 Troponin I < 0.015 ng/ml (0-0.045) 07/02/21 14:04 Total Protein 7.3 gm/dl (6.4-8.2) 07/02/21 14:04 Albumin 2.8 gm/dl (3.4-5.0) L 07/02/21 14:04 Prostate Specific Ag 4.600 ng/ml (0-4) H 07/03/21 06:55 Vitamin B12 1202 pg/ml (193-986) H 07/03/21 06:55 Procalcitonin < 0.05 ng/ml (0-0.5) 07/02/21 14:37 Urine Color Yellow 07/02/21 Unknown Urine Appearance Clear (Clear) 07/02/21 Unknown Urine pH 6.0 (4.5-7.5) 07/02/21 Unknown Ur Specific [place] > 1.045 (1.000-1.030) H 07/02/21 Unknown Urine Protein Negative (Negative) 07/02/21 Unknown Urine Glucose (UA) Negative (Negative) 07/02/21 Unknown Urine Ketones Negative (Negative) 07/02/21 Unknown Urine Blood Negative (Negative) 07/02/21 Unknown Urine Nitrite Negative (Negative) 07/02/21 Unknown Urine Bilirubin Negative (Negative) 07/02/21 Unknown Urine Urobilinogen Negative (Negative) 07/02/21 Unknown Ur Leukocyte Esterase Negative (Negative) 07/02/21 Unknown Urine WBC (Auto) Cancelled 07/02/21 15:42 Urine RBC (Auto) Cancelled 07/02/21 15:42 U Hyaline Cast (Auto) Cancelled 07/02/21 15:42 U Epithel Cells (Auto) Cancelled 07/02/21 15:42 Urine Bacteria (Auto) Cancelled 07/02/21 15:42 Ur Renal Epithelial Cell Cancelled 07/02/21 15:42 Urine Crystals Cancelled 07/02/21 15:42 Calcium Oxalate Crystal Cancelled 07/02/21 15:42 Uric Acid Crystals Cancelled 07/02/21 15:42 Triple Phos Crystals Cancelled 07/02/21 15:42 Other Crystals Cancelled 07/02/21 15:42 Amorphous Sediment Cancelled 07/02/21 15:42 Granular Casts Cancelled 07/02/21 15:42 Waxy Casts Cancelled 07/02/21 15:42 RBC Casts Cancelled 07/02/21 15:42 WBC Casts Cancelled 07/02/21 15:42 Other Casts Cancelled 07/02/21 15:42 Urine Mucus Cancelled 07/02/21 15:42 Urine Other Cancelled 07/02/21 15:42 Urine Trichomonas Cancelled 07/02/21 15:42 Urine Yeast Cancelled 07/02/21 15:42 Urine Sperm Cancelled 07/02/21 15:42 Ur Oval Fat Bodies Cancelled 07/02/21 15:42 COVID-19 Eval Order Covid19 at [facility] 07/02/21 14:04 SARS-CoV-2 (PCR) NEGATIVE (Negative) 07/02/21 14:[address] 07/02/21 13:41 CT OF THE CERVICAL SPINE WITHOUT CONTRAST CLINICAL HISTORY: posterior head injury/fall COMPARISON STUDY: Cervical spine CT August 18, 2020. TECHNIQUE: Helical axial images of the cervical spine were obtained without IV contrast. Sagittal and coronal reconstructions were viewed. Automated exposure control was utilized for the study. A dose lowering technique was utilized adhering to the principles of ALARA. FINDINGS: Vertebral body heights are maintained. No acute cervical spine fracture or subluxation is present. There is no prevertebral edema. Facet joints are intact. Marked disc space narrowing with endplate irregularity at C5-C6 is unchanged and CT of August 18, 2020. There is severe multilevel facet arthrosis. Mild anterolisthesis of C6 on C7 is unchanged. IMPRESSION: No acute cervical spine fracture or subluxation. No change in appearance of the cervical spine. ACT 112: Negative or not required by law. Electronically signed by: Gabe Oshea M.D. 07/02/2021 2:59 PM Chest X-Ray 07/02/21 13:41 XR chest 1V portable CLINICAL HISTORY: fall, injury COMPARISON STUDY: Chest radiograph May 23, 2021. FINDINGS: Lung volumes are diminished. This is unchanged. Bibasilar opacities favor atelectasis. Cardiomediastinal silhouette is stable. No pneumothorax or pleural effusion is noted. There is pulmonary vascular congestion. IMPRESSION: 1. No pneumothorax. 2. Stable cardiomegaly. Pulmonary vascular congestion. 3. Linear left basilar opacity suggestive of atelectasis. ACT 112: Negative or not required by law. Electronically signed by: Gabe Oshea M.D. 07/02/2021 2:[address] 07/02/21 13:41 CT OF THE HEAD WITHOUT CONTRAST CLINICAL HISTORY: posterior head injury COMPARISON STUDY: Head CT May 23, 2021. TECHNIQUE: Helical axial images of the head were obtained without IV contrast. Automated exposure control was utilized for the study. A dose lowering technique was utilized adhering to the principles of ALARA. FINDINGS: No acute intracranial hemorrhage, midline shift or mass effect is present. Ventricular dilatation is unchanged and likely due to central atrophy. White matter hypodensity suggests small vessel disease. There are no findings to suggest acute dural sinus thrombosis or acute territorial infarct. Small right posterior scalp contusion is present. There is no calvarial fracture. Small air- fluid level within left maxillary sinus is noted. IMPRESSION: 1. No acute intracranial findings. No change in appearance of the brain. 2. Small right posterior scalp contusion. No calvarial fracture. ACT 112: Negative or not required by law. Electronically signed by: Gabe Oseha M.D. 07/02/2021 2:57 PM Pelvis X-Ray 07/02/21 13:41 XR pelvis 1-2V routine CLINICAL HISTORY: fall COMPARISON: Pelvis and left hip radiographs May 23, 2021. FINDINGS: Sacroiliac joints and symphysis pubis are intact. No acute fracture within the pelvis or hips is identified. Complete loss of the left hip joint space is again noted. There is subchondral cystic change. There may be femoral head collapse. This was present on prior exam. IMPRESSION: 1. No acute fracture within the pelvis or hips. 2. Severe left hip osteoarthritis with possible left femoral subchondral collapse which was present on prior exam. ACT 112: Negative or not required by law. Electronically signed by: Gabe Oshea M.D. 07/02/2021 2:39 PM Elbow X-Ray 07/02/21 14:19 XR elbow RT min 3V routine CLINICAL HISTORY: fall, right elbow injury COMPARISON: None FINDINGS: Soft tissue swelling overlying the olecranon on lateral projection. No acute fracture is noted within the right elbow. No evidence for joint effusion. Irregularity of the condyles is chronic. IMPRESSION: 1. No acute fracture or joint effusion of the right elbow. 2. Soft tissue swelling reflecting contusion overlying the olecranon. ACT 112: Negative or not required by law. Electronically signed by: Gabe Oshea M.D. 07/02/2021 2:36 PM Abdomen/Pelvis CT 07/02/21 17:53 CT OF THE ABDOMEN AND PELVIS WITH CONTRAST CLINICAL HISTORY: severe abdominal pain and bloating. Falls. Bilateral hip pain. COMPARISON STUDY: CT of the abdomen and pelvis August 18, 2020. CT of the pelvis March 05, 2021. Pelvis radiograph performed earlier today. TECHNIQUE: Following IV administration of 91 mL of Optiray, axial images of the abdomen and pelvis were obtained from the lung bases to the proximal femurs. Images were reviewed in the axial, sagittal, and coronal planes. IV contrast was administered without complication. Automated exposure control was utilized for the study. A dose lowering technique was utilized adhering to the principles of ALARA. CT DOSE: 1301.96 mGy.cm FINDINGS: No hemoperitoneum or pneumoperitoneum is present. There is no evidence for traumatic injury to the liver. A 1.5 cm hepatic cyst is noted. This exam is mildly compromised by motion artifact. The spleen, adrenal glands and pancreas are unremarkable. There is no biliary or pancreatic ductal dilatation. Multiple bilateral renal calculi measure up to 9 mm. There are no ureteral calculi. There is no hydronephrosis. The prostate is enlarged. 5.9 cm cyst arising from the lower pole of the right kidney is noted. Several subcentimeter renal lesions are too small to characterize. There is moderate bilateral renal cortical thinning. The caliber and wall thickness of small and large bowel are normal. There is extensive colonic diverticulosis without evidence for acute diverticulitis. There is no lymphadenopathy. There is no ascites. Severe bilateral hip osteoarthritis is noted, greater on the left. There is mild subchondral collapse of the left femoral head. Multiple old left rib fractures are noted. No acute fracture within the pelvis or hips is identified. IMPRESSION: 1. No acute process within the abdomen or pelvis. 2. No acute fracture within the pelvis or hips. Severe bilateral hip osteoarthritis, greater on the left. 3. Extensive colonic diverticulosis without evidence for acute diverticulitis. 4. Bilateral nephrolithiasis. No ureteral calculi. No hydronephrosis. ACT 112: Negative or not required by law. Electronically signed by: Gabe Oshea M.D. 07/02/2021 7:17 PM
--- NOTE | 2021-07-03 11:31 | Consultation Report ---
DATE OF SERVICE: 07/03/2021 Mr. Real is seen in conjunction with Arya Irene PA-C. For further details, refer to his dictat ion. He and I saw and evaluated the patient together and I am in agreement with the plan. HISTORY OF PRESENT ILLNESS: Mr. Real is an 86-year-old gentleman with a past history of left hip arthritis, Alzheimer disease and multiple other medical problems including type 2 diabetes. He resid es at a personal skilled nursing. He had a fall over the weekend and was admitted to the hospital. He is aware that he had a fall. He is somnolent, but arousable. He responds to most questions appro priately, although sometimes incompletely. He complains of pain in his right hip, although I believe that it is the left hip that we were consulted for. He knows that he fell. He does follow commands . PHYSICAL EXAMINATION: He is able to lift both arms up to head height and touch my hand. He is able to bend both knees. The right knee and hip have better mobility, flexing close to 90 degrees versus the left knee and hip, which he can bend to about 60 degrees. There is more pain on rotation of the left hip versus the right hip. There is a linear abrasion on the left hip with a small bruise. Ther e is tenderness to palpation of both legs essentially from the knee up to the hip area. His neurovas cular function is grossly intact. The feet are warm and he wiggles his toes. CT scan and x-rays of the hip are reviewed. X-rays of the elbow are reviewed. Elbow x-rays are nega tive. The hip CT and x-rays show arthritis in both hips pretty significant on the left with bony ero esha into the subchondral area secondary to severe osteoarthritis with some subchondral collapse and erosion. There is no acute fracture noted. IMPRESSION: 1. Status post fall. 2. Left hip arthritis. 3. Bilateral lower extremity pain. PLAN: We will get x-rays of both hips, femurs and knees for a thorough evaluation to ensure that he has adequate evaluation. There is no bruising or swelling of the thigh or knee and no significant kn ee effusions or crepitation noted. He did not really comply with a strength exam. Given his age and overall health as well as his function, he would not be a good candidate for surgic al intervention electively, that is for something like a total hip. Would recommend that he have fal l prevention precautions. He can transfer with assistance bed to chair and perhaps should have a whe elchair as his main form of mobility given the falls and the arthritis. He is likely going to need a higher level of care. I will follow up. Job ID: [id number]
--- NOTE | 2021-07-03 12:02 | Electrocardiogram Report ---
Test Reason : Blood Pressure : / mmHG Vent. Rate : 095 BPM Atrial Rate : 095 BPM P-R Int : 166 ms QRS Dur : 088 ms QT Int : 376 ms P-R-T Axes : 057 -28 020 degrees QTc Int : 472 ms Sinus rhythm with frequent Premature ventricular complexes Low voltage QRS Inferior infarct , age undetermined Abnormal ECG When compared with ECG of 23-MAY-2021 03:19, Inferior infarct is now Present Confirmed by Mikey Webber ([id number]) on 07/03/2021 12:02:40 PM Referred By: Confirmed By:Mikey Webber
--- NOTE | 2021-07-03 14:13 | XRay Report ---
XR knee LT 3V CLINICAL HISTORY: Left knee pain. COMPARISON: Left knee radiographs October 17, 2018. FINDINGS: Alignment of the left knee is anatomic. No acute fracture. No joint effusion. Moderate vas cular calcification is incidentally noted. There is mild left knee osteoarthritis. IMPRESSION: 1. No acute fracture or joint effusion of the left knee. 2. Mild left knee osteoarthritis. ACT 112: Negative or not required by law. Electronically signed by: Gabe Oshea M.D. 07/03/2021 2:12 PM
--- NOTE | 2021-07-03 14:14 | XRay Report ---
XR femur RT 2V routine CLINICAL HISTORY: pain TECHNIQUE: 2 radiographic views of the right femur were obtained. Comparison: None available at the time of this dictation. FINDINGS: There is no evidence for fracture, subluxation or dislocation. There is normal anatomic alignment of the bones. The visualized portion of the hip and knee joints are unremarkable. There is normal bone m ineralization. Vascular calcifications are noted. IMPRESSION: No evidence of acute bony injury. ACT 112: Negative or not required by law. Electronically signed by: Marshall Prado M.D. 07/03/2021 2:13 PM
--- NOTE | 2021-07-03 14:16 | XRay Report ---
XR femur LT 2V routine CLINICAL HISTORY: Left hip pain. COMPARISON: Left hip radiograph May 23, 2021. Pelvis radiograph July 02, 2021. CT of the abd omen and pelvis July 02, 2021. FINDINGS: Contrast within the bladder is from recent contrast-enhanced CT. No acute fracture within the left femur is noted. Note is made of complete loss of the left hip joint space with extensive ost eophytosis. There is subchondral lucency within the lateral aspect of the left femoral head suggestiv e of collapse. There is no left knee joint effusion. Subchondral cystic change within the left acetab ulum is present. IMPRESSION: 1. No acute fracture within the left femur. 2. Severe left hip osteoarthritis. Complete loss of left hip joint space with subchondral cystic gordon ge and evidence of collapse of the lateral aspect of the left femoral head. ACT 112: Negative or not required by law. Electronically signed by: Gabe Oshea M.D. 07/03/2021 2:14 PM
--- NOTE | 2021-07-03 14:47 | XRay Report ---
SINGLE VIEW PELVIS CLINICAL HISTORY: Pelvic pain. FINDINGS: An AP supine pelvic radiograph is compared to pelvic x-ray and CT dated 07/02/2021. The skel etal structures are osteopenic. There is no radiographic evidence of acute fracture involving the hip s or bony pelvis. Advanced arthritic change is seen in the left hip with near-complete loss the joint space and bony irregularity and sclerosis of the left femoral head. There is mild cortical collapse along the superior margin of the left femoral head. Moderate arthritic change is seen in the right hi p. Degenerative sclerosis is noted in the sacroiliac joints. Advanced lumbosacral spondylosis is part ially visualized. Enthesophytes arise from the anterior superior iliac spines. Excreted IV contrast i s noted in the bladder. The overlying soft tissues are normal as imaged. IMPRESSION: 1. No acute bony abnormality is identified. No change from yesterday's pelvic CT. 2. Arthritic change of the hips, left greater than right. Electronically signed by: Terry Forrest M.D. 07/03/2021 2:46 PM
--- NOTE | 2021-07-03 14:57 | XRay Report ---
XR knee RT 3V CLINICAL HISTORY: Right knee pain.. COMPARISON STUDY: No previous studies for comparison. TECHNIQUE: 3 right knee views FINDINGS: Bones: There is no evidence for an acute fracture or dislocation. There is no lytic or blastic lesion . Joints: There is mild to moderate narrowing lateral joint compartment with minimal subchondral sclero sis and marginal osteophyte formation of the lateral tibial plateau. The remaining joint spaces are m aintained. There is no evidence for an intra-articular effusion. The bones are in anatomic alignment. Soft tissues: There is no focal soft tissue abnormality. There is no radiopaque foreign body. IMPRESSION: No acute osseous pathology. Osteoarthritis of the lateral joint compartment. ACT 112: Negative or not required by law. Electronically signed by: Ezequiel Morocho M.D. 07/03/2021 2:56 PM
--- NOTE | 2021-07-03 16:50 | Hospitalist Progress Note ---
Date of Service July 03, 2021 Assessment & Plan (1) Fall: Plan: Occurred over 24 hours ago at the [facility]. CT head and cervical spine CT w/o fractures. No ICH on CT head. No obvious acute stroke. Imaging negative for acute fracture; although there is evidence of left hip subchondral collapse seen today as well as in April. CT a/p confirms the left hip findings. No obvious infectious etiology at this time L hip issues could contributing to gait issues/fall risk? Seen by orthopedics who recommend nonweightbearing to left lower extremity and report patient poor surgical candidate. Unfortunately, may need wheelchair for assistance at this point moving forward Patient comes from a personal care facility. Uncertain if he may require a higher level of care at this point. Consult PT/OT. Case management on board. (2) Generalized weakness: Plan: No obvious infectious process UA not grossly infected. Urine culture showing NGTD Covid negative CXRatelectasis without acute cardiopulmonary process No leukocytosis Procalcitonin negative B12 normal at 1202 Patient on Synthroid. Last TSH was in March. Will update this Overall it appears as if patient's ambulation status has just overall declined. I suspect this may be secondary to subchondral collapse of the left hip (3) Closed head injury: Plan: Fortunately no fracture or ICH. Small contusion on occiput. (4) Type 2 diabetes mellitus: Plan: Hold glimepiride. Novolog SSI. T2DM diet. (5) Hyperlipidemia: Plan: CPK wnl. LFTs wnl. Cont statin. (6) HTN (hypertension): Plan: BPs controlled. Cont losartan. (7) Depression: Plan: Cont sertraline. Also on olanzapine. these meds can contribute to sedation and increase risk of falls. Hold on stopping this. (8) DVT prophylaxis: Plan: heparin (9) Hypothyroidism: Plan: TSH 03/2021 wnl Cont synthroid update TSH as above (10) Alzheimer disease: Plan: mod-severe based on history likely progressive which can affect his ability to ambulate. I believe this will also affect his ability to be compliant with any weightbearing restrictions which may warrant need for SNF over (11) BPH (benign prostatic hyperplasia): Plan: not on meds for such Monitor (12) Chronic kidney disease, stage 3a: Plan: Creatinine 1.3 upon presentation. After very gentle IV hydration, down to 1.03 Renally adjust meds when appropriate Plan: Both daughters updated Admission and Anticipated Discharge Date Admission Date: July 02, 2021 Subjective Patient seen on daily rounds today. Vocalizes no significant complaints or concerns although he is a questionable historian. Seen by orthopedics for subchondral collapse noted in the left hip. They are recommending nonweightbearing. He is demented and comes from personal care facility. I am being told that he is mostly wheelchair-bound but is impulsive given his dementia. May require fci facility at this point Review of Systems Review of Systems: All systems reviewed and are unremarkable except as noted in HPI and below Denies fevers, chills, headache, nasal congestion, sore throat, cough, chest pain, shortness of breath, palpitations, orthopnea, PND, abdominal pain, nausea, vomiting, diarrhea, constipation, dysuria, hematuria, frequency, back pain, joint pain or swelling, easy bruising or bleeding, skin lesions or rashes. Physical Exam Physical Exam: General: Resting comfortably in his hospital bed. Somnolent but arousable. HEENT: Head is AT/NC buccal mucosa is moist and pink Neck: No JVD. Negative hepatojugular reflex Cardiac: RRR but distant heart sounds Lungs: CTA without W/R/R Abdomen: Normoactive X4. Soft and nontender in all quadrants. Extremities: No peripheral clubbing cyanosis or edema not exquisitely tender to palpation to the left hip Neuro: Somnolent but arousable. Oriented to self and somewhat to situation. N ot oriented to time or place. Cranial nerves II through XII are grossly intact no focal neuro deficits Skin: No obvious skin lesions or rashes Psych: Appropriate affect pleasant and cooperative Results & Data Results & Data ([facility]) Vital Signs (Past 12 Hours) Vital Signs Temp Pulse Pulse Resp BP Pulse Ox 07/03/21 15:54 36.7 C 69 16 128/82 94 07/03/21 15:04 76 07/03/21 11:27 35.8 C L 64 16 135/72 93 07/03/21 08:17 36.5 C 53 L 16 133/77 92 07/03/21 07:13 75 Laboratory Results No lab data today. Most recent lab data is from 07/02: 07/02/21 14:04 07/03/21 06:55 PG Care Time/CCT Total # of Minutes Spent Total Time Spent with Patient: Total time spent is greater than 50% in coordination of care (as documented) at patient's floor/unit and/or counseling patient: Coding Level of Care Code 43877 Subseq Hosp Care Lvl 3 Diagnoses Fall W19.XXXA Generalized weakness R53.1 Closed head injury S09.90XA Encounter type: initial encounter Type 2 diabetes mellitus E11.9 Hyperlipidemia E78.5 HTN (hypertension) I10 Depression F32.9 DVT prophylaxis Z29.9 Hypothyroidism E03.9 Alzheimer disease G30.9; F02.80 BPH (benign prostatic hyperplasia) N40.0 Chronic kidney disease, stage 3a N18.31 (1) Closed head injury Encounter type: initial encounter Qualified Code(s): S09.90XA - Unspecified injury of head, initial encounter
[2021-07-03] MEDS ORDERED: DICLOFENAC SOD 1% GEL 100 GM TUBE EXT PRN (17:07)
[2021-07-04] MEDS: HEPARIN SOD 5,000 UNIT/0.5 ML VIAL SQ SCH ×2 (05:33→13:14)
[2021-07-04] MEDS: LEVOTHYROXINE SODIUM 50 MCG TABLET PO SCH (05:34)
--- NOTE | 2021-07-04 08:33 | Progress Notes ---
DATE OF SERVICE: 07/04/2021 X-rays of both knees femurs and hips were reviewed yesterday. There is severe degenerative arthritis of the left hip with subchondral collapse. There is no evidence of fracture. The reports are noted . The patient may weightbear as tolerated on both lower extremities with an assistive device. I think he is at a higher risk for falls, and I would recommend that he have assistance for standing and lam sfers and that his main form of mobility may likely be more safe with a wheelchair. Given the overal l situation with his age, health and mental status, an elective total hip arthroplasty would not be r ecommended. He may follow up with us as an outpatient on a p.r.n. basis. Job ID: [id number]
[2021-07-04] MEDS: INSULIN ASPART 100 UNITS/ML 3 ML PEN SC SCH ×2 (10:12→13:14)
[2021-07-04] MEDS: ACETAMINOPHEN 500 MG TAB PO SCH ×2 (10:15→13:14)
[2021-07-04] MEDS: SERTRALINE HCL 100 MG TABLET PO SCH (10:17)
[2021-07-04] MEDS: LOSARTAN POTASSIUM 25 MG TAB PO SCH (10:17)
[2021-07-04] MEDS: CYANOCOBALAMIN 500 MCG TABLET (VITAMIN B-12) PO SCH (10:18)
[2021-07-04] MEDS: busPIRone 5 MG TAB PO SCH (10:18)
[2021-07-04] MEDS: ARTIFICIAL TEARS OP SCH (10:19)
--- NOTE | 2021-07-04 16:04 | Discharge Summary ---
Date of Service July 04, 2021 Admission HPI Per Admitting Provider 86yo male with T2DM and Alzheimer's dementia - resident of [facility] - presents after having had a fall yesterday. Struck the back of his bed - has small contusion there. Was brought into the [facility] ER today because of worsening weakness and altered mental status. During the visit he was alone and could offer very little in the way of history or ROS. He did say he had pain in his right hip and on the back of the head. He appeared very bloated and I asked him if he felt distended. He replied yes. A minute later, however, he told me he was hungry. Nurses report he had a very large brown liquid stool earlier in his ER course. Principal Diagnosis 1. 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 Debility 3. Frequent falls (likely secondary to #1) Discharge Exam General: Resting comfortably in his hospital bed. Somnolent but arousable. HEENT: Head is AT/NC buccal mucosa is moist and pink Neck: No JVD. Negative hepatojugular reflex Cardiac: RRR but distant heart sounds Lungs: CTA without W/R/R Abdomen: Normoactive X4. Soft and nontender in all quadrants. Extremities: No peripheral clubbing cyanosis or edema not exquisitely tender to palpation to the left hip Neuro: Sitting upright in his chair. Oriented to place and time. Cnerves II through XII are grossly intact no focal neuro deficits Skin: No obvious skin lesions or rashes Psych: Appropriate affect pleasant and cooperative Discharge Data Allergies Allergy/AdvReac Type Severity Reaction Status Date / Time adhesive tape Allergy Unknown Unknown Verified 07/02/21 16:05 cephalexin [From Keflex] Allergy Unknown Unknown Verified 07/02/21 16:05 rofecoxib Allergy Unknown SWOLLEN Verified 07/02/21 16:05 FEET Consultations 07/02/21 16:18 ED Decision to Admit Stat 07/02/21 23:17 Consult Orthopedic Surgery Routine Assessment & Plan (1) Osteoarthritis of left hip: Subchondral collapse of the patient's proximal femur is not a new finding. It was seen on previous radiographs. Pain control with p.o. medication ordered per medicine service Nonweightbearing on left lower extremity DVT prophylaxis per medicine discretion We will discuss patient findings with Dr. Pichardo IMPRESSION: 1. Status post fall. 2. Left hip arthritis. 3. Bilateral lower extremity pain. PLAN: We will get x-rays of both hips, femurs and knees for a thorough evaluation to ensure that he has adequate evaluation. There is no bruising or swelling of the thigh or knee and no significant knee effusions or crepitation noted. He did not really comply with a strength exam. Given his age and overall health as well as his function, he would not be a good candidate for surgical intervention electively, that is for something like a total hip. Would recommend that he have fall prevention precautions. He can transfer with assistance bed to chair and perhaps should have a wheelchair as his main form of mobility given the falls and the arthritis. He is likely going to need a higher level of care. I will follow up. DATE OF SERVICE: 07/04/2021 X-rays of both knees femurs and hips were reviewed yesterday. There is severe degenerative arthritis of the left hip with subchondral collapse. There is no evidence of fracture. The reports are noted. The patient may weightbear as tolerated on both lower extremities with an assistive device. I think he is at a higher risk for falls, and I would recommend that he have assistance for standing and transfers and that his main form of mobility may likely be more safe with a wheelchair. Given the overall situation with his age, health and mental status, an elective total hip arthroplasty would not be recommended. He may follow up with us as an o utpatient on a p.r.n. basis. Ordered Studies 07/02/21 13:41 CT cervical spine wo con Stat IMPRESSION: No acute cervical spine fracture or subluxation. No change in appearance of the cervical spin CT head/brain wo con Stat IMPRESSION: 1. No acute intracranial findings. No change in appearance of the brain. 2. Small right posterior scalp contusion. No calvarial fracture. 07/02/21 17:53 CT abd pelvis IV con only Urgent IMPRESSION: 1. No acute process within the abdomen or pelvis. 2. No acute fracture within the pelvis or hips. Severe bilateral hip osteoarthritis, greater on the left. 3. Extensive colonic diverticulosis without evidence for acute diverticulitis. 4. Bilateral nephrolithiasis. No ureteral calculi. No hydronephrosis. Hospital Course (1) Fall: Occurred over 24 hours [employer] [facility] at the [facility]. CT head and cervical spine CT w/o fractures. No ICH on CT head. No obvious acute stroke. Imaging negative for acute fracture; although there is evidence of left hip subchondral collapse seen today as well as in April. CT a/p confirms the left hip findings. No obvious infectious etiology at this time L hip issues could contributing to gait issues/fall risk? Seen by orthopedics who initially recommended nonweightbearing to left lower extremity. Further imaging done and and report patient deemed to be a very poor surgical candidate. Unfortunately, may need wheelchair for assistance at this point moving forward. Seen in FU by ortho who reports that patient can WBAT but use wheelchair for help as patient impulsive and demented and likely to sustain more falls. Patient comes from a personal care facility. They are agreeable to take him back. Case mgmt on board and will arrange home PT/OT continue voltaren gel for pain control (avoiding narcotic medication as this will increase risk of falls further) (2) Generalized weakness: No obvious infectious process UA not grossly infected. Urine culture showing NGTD Covid negative CXRatelectasis without acute cardiopulmonary process No leukocytosis Procalcitonin negative B12 normal at 1202 Patient on Synthroid. Last TSH was in March. Will update this Overall it appears as if patient's ambulation status has just overall declined. I suspect this may be secondary to subchondral collapse of the left hip (3) Closed head injury: Fortunately no fracture or ICH. Small contusion on occiput. (4) Type 2 diabetes mellitus: Hold glimepiride while in house Novolog SSI. T2DM diet. (5) Hyperlipidemia: CPK wnl. LFTs wnl. Cont statin. (6) HTN (hypertension): BPs controlled. Cont losartan. (7) Depression: Cont sertraline. Also on olanzapine. these meds can contribute to sedation and increase risk of falls. Hold on stopping this given increased risk of behavioral issues (8) DVT prophylaxis: heparin (9) Hypothyroidism: TSH 03/2021 wnl Cont synthroid update TSH as above (10) Alzheimer disease: mod-severe based on history likely progressive which can affect his ability to ambulate. can continue to utilize wheelchair given risk for repeat falls as he is demented and impulsive. (11) BPH (benign prostatic hyperplasia): not on meds for such Monitor (12) Chronic kidney disease, stage 3a: Creatinine 1.3 upon presentation. After very gentle IV hydration, down to 1.03 Renally adjust meds when appropriate Both daughters updated Total Time Total Time Spent Total Time Spent (In Minutes): 60 min including time spent with patient, D/W daughter (spoke with Marlys but tried calling both Marlys and Elina multiple times before finally getting in touch with Marlys), and D/W case mgmt. Discharge Plan Discharge Items Patient Disposition: [facility] Reason For Visit: FALL, ABDOMINAL BLOATING, ALTERED MS Discharge Diagnosis: 1. Severe OA of the Left hip resulting in Subchondral collapse Activity: As commented below Activity Comment: WBAT. increase risk of frequent falls Non-emergency contact: Primary Care Provider and Specialist Call non-emergency contact if: you have any medication questions Follow-up/Referrals: Mervat Garcia [Primary Care Provider] - Diet: Carb Consistent or DM2 Addtl Attending Provider Instructions: -Patient was hospitalized following a fall -Work-up showed no acute pathology/no acute fracture but did identify severe arthritis of the left hip resulting in subchondral collapse (which is unchanged when compared to prior film done in April) -I suspect given this and his dementia with impulsivity, this is likely the cause of his recurrent falls and ambulatory dysfunction -Was seen by orthopedic surgeon and deemed a very poor surgical candidate given his chronic comorbidities and age -Recommendations are for WBAT status to the left lower extremity but utilize wheelchair as patient inpulsive and a fall risk -Should use wheelchair for main mode of transportation Patient will need frequent cueing regarding this -Can utilize Voltaren gel topically to the left hip as needed for pain. Would avoid oral narcotics as these can be sedating and increase risk of falling. Pain currently controlled on Voltaren gel -Follow-up with orthopedics: 7 to 10 days -Follow-up with house physician within 24 to 48 hours -Return to ED for any new or worsening symptoms Pending Studies at Discharge: No Stand-Alone Forms: My [facility] Skilled Items Patient informed of condition?: Yes DNR: No Discharge Level of Care: Other Communicable Disease: No Discharge Prognosis: Stable Lines: None Urinary Catheter: No Medications and DC Order Prescriptions: New diclofenac sodium [Voltaren Arthritis Pain] 1 % Gel 4 g EXT Q12H PRN (Reason: left hip pain) Qty: 100 RF: 0 Continued buspirone 5 mg tablet 2.5 mg PO BIDM RF: 0 sertraline 100 mg Tablet 100 mg PO QAM RF: 0 simvastatin 40 mg Tablet 40 mg PO QPM RF: 0 Systane (PF) 0.4-0.3 % Dropperette 1 drp OPB BID RF: 0 olanzapine 5 mg Tablet 5 mg PO HS RF: 0 oxybutynin chloride 5 mg tablet 10 mg PO QAM RF: 0 acetaminophen [Tylenol Extra Strength] 500 mg Tablet 1,000 mg PO TID MDD 3g PRN (Reason: Pain) RF: 0 losartan 25 mg tablet 25 mg PO QAM RF: 0 cyanocobalamin (vitamin B-12) 1,000 mcg tablet 1,000 mcg PO QAM RF: 0 glimepiride 2 mg tablet 2 mg PO BID RF: 0 polyethylene glycol 3350 [Miralax] 17 gram powder in packet 17 g PO BID PRN (Reason: Constipation) RF: 0 levothyroxine 50 mcg tablet 50 mcg PO DAILYBB RF: 0 Discharge Orders: Discharge Order (Routine); Ordered 07/04/21 Ordered By: Marce Phan Admission Data Admit Date/Time: 07/02/21 18:02 Attending Provider: Marshall Correa Admit Provider: Clinton Sommers Primary Care Provider: Mervat Garcia Other Providers: Clinton Sommers ; Yo Pichardo Other Interventions: Discharge Summary Assessment (RN) Last Done: 07/04/21 14:26 Supervising Physician Co-Signing Physician Notes Patient seen and examined on the day of discharge. I agree with the discharge summary by Marce ARIAS. I have reviewed the chart including labs, imaging and plans for discharge. patient will return to personal care with therapy, will be in wheelchair due to severe left hip osteoarthritis, evaluated by ortho, not a surgical candidate give age, comorbidities, recommend NWB to left leg he is medically stable for discharge - Weakness, fall, left hip osteoarthritis: return to [facility], NWB on left leg, therapy, wheelchair for mobility issues Coding Level of Care Code D/C DAY MANAGEMENT >30 MINS Diagnoses Fall W19.XXXA Generalized weakness R53.1 Closed head injury S09.90XA Encounter type: initial encounter Type 2 diabetes mellitus E11.9 Hyperlipidemia E78.5 HTN (hypertension) I10 Depression F32.9 DVT prophylaxis Z29.9 Hypothyroidism E03.9 Alzheimer disease G30.9; F02.80 BPH (benign prostatic hyperplasia) N40.0 Chronic kidney disease, stage 3a N18.31
== END 2021-07-04 14:58 | disposition home or self-care (01) | DRG 554 ==
LOC: ED 13:26 → 2W 18:02 → SUATTDRO 18:02 → 2W 21:17
DX: F02.80 Dementia in other diseases classified elsewhere, unspecified severity, without behavioral disturbance, psychotic disturbance, mood disturbance, and anxiety; E03.9 Hypothyroidism, unspecified; Z83.3 Family history of diabetes mellitus; S50.01XA Contusion of right elbow, initial encounter; S00.83XA Contusion of other part of head, initial encounter; Z88.1 Allergy status to other antibiotic agents; E78.5 Hyperlipidemia, unspecified; M16.12 Unilateral primary osteoarthritis, left hip; R29.6 Repeated falls; N41.9 Inflammatory disease of prostate, unspecified; N18.31 Chronic kidney disease, stage 3a; Y92.89 Other specified places as the place of occurrence of the external cause; G30.9 Alzheimer's disease, unspecified; N40.0 Benign prostatic hyperplasia without lower urinary tract symptoms; W19.XXXA Unspecified fall, initial encounter; E86.0 Dehydration

== ENCOUNTER 2022-04-15 12:52 | Inpatient (IN) ==
--- NOTE | 2022-04-15 13:37 | Emergency Department Note ---
Impression & Plan Hip pain, Alzheimer disease, Cellulitis ED Provider Note Provider: Paul Mon MD DATE OF SERVICE: 04/15/2022 CHIEF COMPLAINT: Right hip pain HISTORY OF PRESENT ILLNESS: Patient is a 87-year-old gentleman history of type 2 diabetes, HTN, CKD, and Alzheimer's dementia coming from his residential home today. Patient evidently complaining today of some right hip pain. To me however he complains of pain in both hips. Found by staff on his toilet. They states he noted a bit of redness on the lateral posterior aspect of the right hip. Reports that he was not quite as responsive as normal. In discussion with the patient it difficult to get good baseline. He is not the best historian. He is a little bit sleepy. Describes some pain around the right hip however also complains of pain in the left hip. No trauma history is reported. No fever reported. Afebrile upon arrival here. Patient denies chest pain or shortness of breath or abdominal pain to me. REVIEW OF SYSTEMS: A total of 10 review of systems was obtained and negative except as stated above in the HPI. PAST MEDICAL HISTORY: As noted above MEDICATIONS: reviewed listing from [facility] SOCIAL HISTORY: Resides at [facility] PHYSICAL EXAM: GENERAL: alert and oriented to month. Not the best historian regarding current events. Fatigued. Head: normocephalic and atraumatic EYES: No injection, discharge or icterus. PERRL NECK: Trachea midline. Supple. ENT: Mucous membranes pink and moist. LUNGS: Airway patent. No retractions. Breath sounds clear with good air entry bilaterally. HEART: Regular rate and rhythm. No chest wall tenderness ABDOMEN: Soft and non-tender, without guarding or rebound. SKIN: Acyanotic, warm, dry EXTREMITIES: Pain with palpation of the right lateral hip with posterior to this a small area of erythema. Rash of the left calf and the right upper arm noted as well. Slightly vesicular skin negative without. This movement of the right or left hip as well as the right shoulder. NEUROLOGICAL: No focal deficits. No aphasia. No facial droop or slurred speech. Very fatigued but awakes for questions. EK bpm normal sinus rhythm. No PVC or PAC. No acute ST segment elevation or depression. qtc 454. Some artifact noted on the anterior leads. CONTINUOUS CARDIAC MONITORING: was ordered and showed a heart rate of 70s-80s bpm in normal sinus rhythm Patient's laboratory studies and imaging reviewed. Differential includes MSK, Infection, dehydration, metabolic abnormality, hypo/hyperglycemia, electrolyte disturbance, anemia, hypoxia, cardiac sources, intracerebral event, toxicologic, neurologic, as well as other pathologies. IMPRESSION/MEDICAL DECISION MAKING: No new reported fall. Reviewed medical record. Difficulty with history given his dementia. Patient evidently had a fall several weeks ago and seen here at this time. Does have a bit of rash in the legs and right arm. No bullae. Does not seem that confluent for a cellulitis. Given the limitations of the history a broad work-up was entertained and CT imaging of the abdomen pelvis, head, and x-rays of the pelvis were obtained. Blood work here is not significantly abnormal. Imaging questions arthritis which I believe is more of a chronic issue for him. Again he does have some patchy erythema and slight swelling to the bilateral hips. CT of the abdomen pelvis without acute intra-abdominal pathology but does note some findings concerning for left hip cellulitis. Some tenderness here again initially but a little bit better later in the encounter. Difficult to get a good baseline mental status on him given his underlying dementia. Does have some allergies but tolerated Unasyn in the past and given a dose of this here. Given his comorbidities with the Alzheimer's, diabetes, and concerned that this could worsen without close observation feel that monitoring overnight would be prudent. Hospitalist contacted. DIAGNOSIS: hip pain, cellulitis, dementia, confusion DISPOSITION: Hospitalist will evaluate Patient was agreeable with this plan. Past Med/Surg History Medical History Depression Fall Fracture, ribs HTN (hypertension) Hyperlipidemia Migraines Skin problem Type 2 diabetes mellitus Surgical History Previous back surgery S/P appendectomy Family History Other Cancer Diabetes Gallbladder disease Hypertension Kidney disease Social History Smoking Status: Never smoker Second Hand Exposure: No; Hx Alcohol Use: No Hx Substance Use: No Preferred Language: Yemeni Communication Ability: Effective [place] Tower [employer]er Required: No Beliefs That Will Affect Care: None marital status: Current Living Situation: Personal Care Facility Current Living Situation Comment: [facility] 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 Feels Safe at Home: Yes Assistive Devices: Walker Allergies Allergies Allergy/AdvReac Type Severity Reaction Status Date / Time adhesive tape Allergy Unknown Unknown Verified 07/02/21 16:05 cephalexin [From Keflex] Allergy Unknown Unknown Verified 07/02/21 16:05 rofecoxib Allergy Unknown SWOLLEN Verified 07/02/21 16:05 FEET Home Meds Home Medications Medication Instructions Recorded Confirmed sertraline 100 mg tablet 100 mg PO QPM 05/08/18 04/15/22 simvastatin 40 mg tablet 40 mg PO QPM 05/08/18 04/15/22 buspirone 5 mg tablet 2.5 mg PO BIDM 03/31/19 04/15/22 peg 400-propylene glycol (PF) 0.4 1 drp OPB BID 07/01/19 04/15/22 %-0.3 % eye drops in a dropperette (Systane (PF)) olanzapine 5 mg tablet 5 mg PO HS 06/22/20 04/15/22 oxybutynin chloride 5 mg tablet 10 mg PO QAM 07/31/20 04/15/22 acetaminophen 500 mg tablet 1,000 mg PO TID PRN Pain 08/18/20 07/02/21 (Tylenol Extra Strength) cyanocobalamin (vitamin B-12) 1,000 mcg PO QAM 08/18/20 04/15/22 1,000 mcg tablet losartan 25 mg tablet 25 mg PO QAM 08/18/20 04/15/22 polyethylene glycol 3350 17 gram 17 g PO BID PRN Constipation 03/05/21 07/02/21 oral powder packet (Miralax) levothyroxine 50 mcg tablet 50 mcg PO DAILYBB 07/02/21 04/15/22 acetaminophen 500 mg tablet 1,000 mg PO Q8H PRN Pain 04/15/22 04/15/22 docusate sodium 100 mg capsule 100 mg PO BID 04/15/22 04/15/22 glipizide 5 mg tablet 5 mg PO QPM 04/15/22 04/15/22 glipizide 5 mg tablet 7.2 mg PO QAM 04/15/22 04/15/22 Previous Rx's Medication Instructions Recorded diclofenac sodium 1 % topical gel 4 g EXT Q12H PRN left hip pain 07/04/21 (Voltaren Arthritis Pain) #100 grams Results & Data (ED) Vital Signs Vital Signs - 24 hr 04/15/22 12:52 04/15/22 14:42 04/15/22 13:19 Temperature 37.0 C Temperature Source Oral Pulse Rate 76 76 Pulse Rate [Right Finger] 76 Pulse Rhythm Regular Regular Pulse Rhythm [Right Finger] Pulse Strength Normal Pulse Strength [Right Finger] Respiratory Rate 18 16 16 Respiratory Effort / Characteristics Non-Labored Spontaneous Non-Labored Spontaneous Respiratory Depth Normal Normal Respiratory Pattern Regular Regular Blood Pressure 129/81 Blood Pressure [Left Arm] 127/74 Blood Pressure Mean 97 Blood Pressure Mean [Left Arm] 91 Blood Pressure Position Lying Blood Pressure Position [Left Arm] Lying Pulse Oximetry 95 95 95 Oxygen Delivery Method Room Air Room Air Room Air Sepsis Recent Fever Within 48 Hours No Sepsis New/Unexplained Change in Mental Status Yes Sepsis Action Taken by Nursing No Action Required 04/15/22 16:00 Temperature Temperature Source Pulse Rate Pulse Rate [Right Finger] 71 Pulse Rhythm Pulse Rhythm [Right Finger] Regular Pulse Strength Pulse Strength [Right Finger] Normal Respiratory Rate 16 Respiratory Effort / Characteristics Non-Labored Spontaneous Respiratory Depth Normal Respiratory Pattern Regular Blood Pressure Blood Pressure [Left Arm] 133/81 Blood Pressure Mean Blood Pressure Mean [Left Arm] 98 Blood Pressure Position Blood Pressure Position [Left Arm] Lying Pulse Oximetry 93 Oxygen Delivery Method Room Air Sepsis Recent Fever Within 48 Hours Sepsis New/Unexplained Change in Mental Status Sepsis Action Taken by Nursing Laboratory Data Result diagrams: 04/15/22 14:37 04/15/22 14:37 Lab Results 04/15/22 04/15/22 04/15/22 Range/Units 14:37 14:37 14:37 WBC 8.62 (4.8-10.8) K/ul RBC 4.84 (4.63-6.08) M/uL Hgb 14.7 (14.0-18.0) g/dl Hct 44.4 (40.1-51.0) % MCV 91.7 (80.0-100.0) fL MCH 30.4 (25.0-34.0) pg MCHC 33.1 (32.0-36.0) g/dL RDW Std Deviation 45.5 (36.4-46.3) fL RDW Coeff of Johnnie 13.5 (11.5-14.5) % Plt Count 205 (130-400) K/uL MPV 10.1 (9.4-12.4) fL Immature Gran % (Auto) 0.5 % Neut % (Auto) 55.1 % Lymph % (Auto) 32.8 % [place] % (Auto) 7.2 % Eos % (Auto) 3.7 % Baso % (Auto) 0.7 % Neut # (Auto) 4.75 (1.4-6.5) K/uL Lymph # (Auto) 2.83 (1.2-3.4) K/uL [place] # (Auto) 0.62 (0.24-0.82) K/uL Eos # (Auto) 0.32 (0-0.50) K/uL Baso # (Auto) 0.06 (0-0.2) K/uL Immature Gran # (Auto) 0.04 H (0.00-0.02) K/uL Sodium 137 (136-145) mmol/L Potassium 4.6 (3.5-5.1) mmol/L Chloride 102 (98-107) mmol/L Carbon Dioxide 28 (21-32) mmol/L Anion Gap 7 (3-11) BUN 21 (6-23) mg/dl Creatinine 1.30 (0.6-1.4) mg/dl Est Cr Clr Drug Dosing 46.1 ml/min Est GFR ( Amer) 56.5 ml/min Est GFR (Non-Af Amer) 48.7 ml/min BUN/Creatinine Ratio 16.2 (10-20) Glucose 227 H (70-99(Fasting)) mg/dl Lactate 1.6 (0.4-2.0) mmol/L Calcium 9.5 (8.5-10.1) mg/dl Total Bilirubin 0.6 (0.2-1.0) mg/dl AST 23 (13-39) U/L ALT 19 (7-52) U/L Alkaline Phosphatase 81 (34-104) U/L Total Creatine Kinase 448 H (30-223) U/L Troponin I High Sens 14.1 (0-20) pg/ml C-Reactive Protein 1.04 H (0-0.5) mg/dl Total Protein 7.2 (6.0-8.3) gm/dl Albumin 3.8 (3.4-5.0) gm/dl Globulin 3.4 (2.5-4.0) gm/dl Albumin/Globulin Ratio 1.1 (0.9-2) Procalcitonin (0-0.5) ng/ml TSH (0.300-4.500) uIu/ml Free T4 (0.61-1.60) ng/dl SARS-CoV-2, RNA, NAAT (NEGATIVE) 04/15/22 04/15/22 04/15/22 Range/Units 14:37 14:37 15:42 WBC (4.8-10.8) K/ul RBC (4.63-6.08) M/uL Hgb (14.0-18.0) g/dl Hct (40.1-51.0) % MCV (80.0-100.0) fL MCH (25.0-34.0) pg MCHC (32.0-36.0) g/dL RDW Std Deviation (36.4-46.3) fL RDW Coeff of Johnnie (11.5-14.5) % Plt Count (130-400) K/uL MPV (9.4-12.4) fL Immature Gran % (Auto) % Neut % (Auto) % Lymph % (Auto) % [place] % (Auto) % Eos % (Auto) % Baso % (Auto) % Neut # (Auto) (1.4-6.5) K/uL Lymph # (Auto) (1.2-3.4) K/uL [place] # (Auto) (0.24-0.82) K/uL Eos # (Auto) (0-0.50) K/uL Baso # (Auto) (0-0.2) K/uL Immature Gran # (Auto) (0.00-0.02) K/uL Sodium (136-145) mmol/L Potassium (3.5-5.1) mmol/L Chloride (98-107) mmol/L Carbon Dioxide (21-32) mmol/L Anion Gap (3-11) BUN (6-23) mg/dl Creatinine (0.6-1.4) mg/dl Est Cr Clr Drug Dosing ml/min Est GFR ( Amer) ml/min Est GFR (Non-Af Amer) ml/min BUN/Creatinine Ratio (10-20) Glucose (70-99(Fasting)) mg/dl Lactate (0.4-2.0) mmol/L Calcium (8.5-10.1) mg/dl Total Bilirubin (0.2-1.0) mg/dl AST (13-39) U/L ALT (7-52) U/L Alkaline Phosphatase (34-104) U/L Total Creatine Kinase (30-223) U/L Troponin I High Sens (0-20) pg/ml C-Reactive Protein (0-0.5) mg/dl Total Protein (6.0-8.3) gm/dl Albumin (3.4-5.0) gm/dl Globulin (2.5-4.0) gm/dl Albumin/Globulin Ratio (0.9-2) Procalcitonin < 0.05 (0-0.5) ng/ml TSH 7.356 H (0.300-4.500) uIu/ml Free T4 0.71 (0.61-1.60) ng/dl SARS-CoV-2, RNA, NAAT NEGATIVE (NEGATIVE) Administered Medications Discontinued Medications Ampicillin Sodium/Sulbactam Sodium 3,000 mg/ Sodium Chloride 108 mls @ 200 mls/hr IV NOW STA; Protocol Stop: 04/15/22 16:11 Last Admin: 04/15/22 15:59 Dose: 200 mls/hr Documented By: [facility] Imaging Data Radiologist's Impression: Abdomen/Pelvis CT 04/15/22 13:[address] WITHOUT CONTRAST CT DOSE: 2193.38 mGy.cm HISTORY: pelvis/low back pain TECHNIQUE: Multiaxial CT images of the abdomen and pelvis were performed without contrast. A dose lowering technique was utilized adhering to the principles of ALARA. COMPARISON STUDY: Abdomen and pelvis CT 07/02/2021. FINDINGS: Mild motion artifact. A few bibasilar linear densities consistent with subsegmental atelectasis. No pneumoperitoneum. No pneumatosis. Severe left and moderate right hip osteoarthritis again noted. No acute fractures within the visualized osseous structures. Degenerative changes within the lumbar spine. There is an old right L3 transverse process fracture. Old, healed left-sided rib fractures. There are coronary artery and mitral annulus calcifications. Tiny fat-containing umbilical hernia. Small fat-containing left inguinal hernia. Mild skin thickening and mild subcutaneous fat stranding within the left lateral hip. This may represent a mild cellulitis. No loculated fluid collections to suggest an abscess. No bony destruction to suggest an osteomyelitis. No significant left hip effusion. Extensive colonic diverticulosis. No evidence for acute diverticulitis. There are suboptimal evaluation for bowel pathology due to the lack of intravenous and oral contrast. However, there is no definite bowel wall thickening or obstruction. The appendix is not identified and may be surgically absent. The bladder is unremarkable. No pelvic free fluid. The prostate gland remains enlarged. No retroperitoneal lymphadenopathy. Calcified plaque within the normal caliber abdominal aorta. Stable hepatic and renal hypodense lesions likely representing cysts. There is bilateral nephrolithiasis. Dominant stone within the left kidney measures 1 cm. No ureteral stones. No hydronephrosis. The gallbladder, spleen, adrenal glands, and pancreas are within normal limits. IMPRESSION: 1. No bowel wall thickening or obstruction. 2. Colonic diverticulosis. No evidence for acute diverticulitis. 3. Bilateral nephrolithiasis. No ureteral stones. No hydronephrosis. 4. Severe left and moderate right hip osteoarthritis is again noted. No acute fractures identified. 5. Mild skin thickening and subcutaneous fat stranding within the left lateral hip likely representing a cellulitis. No underlying abscess or bony destruction to suggest an osteomyelitis. ACT 112: Negative or not required by law. Electronically signed by: Elmo Redmond M.D. 04/15/2022 2:[address] 04/15/22 13:[address] DOSE: HISTORY: Altered mental status. TECHNIQUE: Multiaxial CT images of the head were performed without the use of intravenous contrast. Automated exposure control was utilized for this study. A dose lowering technique was utilized adhering to the principles of ALARA. Comparison: Head CT 07/02/2021. Findings: Near complete opacification of the left maxillary sinus which has progressed in the interval. The mastoid air cells are clear. The calvarium and skull base are intact. There is no mass, hematoma, midline shift, acute infarct. White matter hypodensity is nonspecific but suggestive of microvascular ischemic change. The ventricles and sulci demonstrate mild age-related involutional changes. Impression: 1. No acute infarct or intracranial hemorrhage. 2. Near-complete opacification of the left maxillary sinus which has progressed in the interval ACT 112: Negative or not required by law. Electronically signed by: Elmo Redmond M.D. 04/15/2022 2:49 PM Hip/Pelvis X-Ray 04/15/22 13:18 XR hip LT 2V w pelvis CLINICAL HISTORY: Left hip pain. COMPARISON STUDY: Left hip 03/24/2022. FINDINGS: No acute fracture or dislocation within the pelvis or hips. There is moderate right and severe left hip osteoarthritis, unchanged. Mild subchondral collapse within the left femoral head is again noted is likely chronic. IMPRESSION: 1. No acute fracture or dislocation within the pelvis or hips. 2. Severe left hip osteoarthritis, unchanged. ACT 112: Negative or not required by law. Electronically signed by: Elmo Redmond M.D. 04/15/2022 2:58 PM Chest X-Ray 04/15/22 13:19 XR chest 1V portable HISTORY: weakness COMPARISON: Chest 07/02/2021. FINDINGS: No pneumothorax. No pleural effusions. The heart is normal in size. Calcifications within the aortic knob. There are low lung volumes with bibasilar linear densities consistent with subsegmental atelectasis. No evidence for pulmonary edema. No new focal lung consolidations to suggest pneumonia. IMPRESSION: No significant change compared to the prior study. No acute process. ACT 112: Negative or not required by law. Electronically signed by: Elmo Redmond M.D. 04/15/2022 3:03 PM Discharge Plan Visit Data Chief Complaint: Hip Pain ED Provider: Paul Mon Discharge Problem: Hip pain, Alzheimer disease, Cellulitis Patient Disposition: Being Evaluated by Hospitalist Forms Stand Alone Forms: My [facility] Prescriptions Prescriptions: No Action buspirone 5 mg tablet 2.5 mg PO BIDM sertraline 100 mg Tablet 100 mg PO QPM simvastatin 40 mg Tablet 40 mg PO QPM Systane (PF) 0.4-0.3 % Dropperette 1 drp OPB BID olanzapine 5 mg Tablet 5 mg PO HS oxybutynin chloride 5 mg tablet 10 mg PO QAM acetaminophen [Tylenol Extra Strength] 500 mg Tablet 1,000 mg PO TID MDD 3g PRN (Reason: Pain) losartan 25 mg tablet 25 mg PO QAM cyanocobalamin (vitamin B-12) 1,000 mcg tablet 1,000 mcg PO QAM polyethylene glycol 3350 [Miralax] 17 gram powder in packet 17 g PO BID PRN (Reason: Constipation) levothyroxine 50 mcg tablet 50 mcg PO DAILYBB diclofenac sodium [Voltaren Arthritis Pain] 1 % Gel 4 g EXT Q12H PRN (Reason: left hip pain) Qty: 100 0RF Rx Instructions: apply to left hip docusate sodium 100 mg Capsule 100 mg PO BID glipizide 5 mg tablet 7.2 mg PO QAM Rx Instructions: ONE AND ONE HALF TABLET DOSE DAILY glipizide 5 mg tablet 5 mg PO QPM acetaminophen 500 mg Tablet 1,000 mg PO Q8H MDD 3G PRN (Reason: Pain) Referrals Referrals: Mervat Garcia [Primary Care Provider] -
--- NOTE | 2022-04-15 14:47 | CT Scan Report ---
ABDOMEN AND PELVIS CT WITHOUT CONTRAST CT DOSE: 2193.38 mGy.cm HISTORY: pelvis/low back pain TECHNIQUE: Multiaxial CT images of the abdomen and pelvis were performed without contrast. A dose lo wering technique was utilized adhering to the principles of ALARA. COMPARISON STUDY: Abdomen and pelvis CT 07/02/2021. FINDINGS: Mild motion artifact. A few bibasilar linear densities consistent with subsegmental atelect asis. No pneumoperitoneum. No pneumatosis. Severe left and moderate right hip osteoarthritis again no henrik. No acute fractures within the visualized osseous structures. Degenerative changes within the lum bar spine. There is an old right L3 transverse process fracture. Old, healed left-sided rib fractures . There are coronary artery and mitral annulus calcifications. Tiny fat-containing umbilical hernia. Small fat-containing left inguinal hernia. Mild skin thickening and mild subcutaneous fat stranding w ithin the left lateral hip. This may represent a mild cellulitis. No loculated fluid collections to s uggest an abscess. No bony destruction to suggest an osteomyelitis. No significant left hip effusion. Extensive colonic diverticulosis. No evidence for acute diverticulitis. There are suboptimal evaluat ion for bowel pathology due to the lack of intravenous and oral contrast. However, there is no defini te bowel wall thickening or obstruction. The appendix is not identified and may be surgically absent. The bladder is unremarkable. No pelvic free fluid. The prostate gland remains enlarged. No retroperi toneal lymphadenopathy. Calcified plaque within the normal caliber abdominal aorta. Stable hepatic an d renal hypodense lesions likely representing cysts. There is bilateral nephrolithiasis. Dominant sto ne within the left kidney measures 1 cm. No ureteral stones. No hydronephrosis. The gallbladder, sple en, adrenal glands, and pancreas are within normal limits. IMPRESSION: 1. No bowel wall thickening or obstruction. 2. Colonic diverticulosis. No evidence for acute diverticulitis. 3. Bilateral nephrolithiasis. No ureteral stones. No hydronephrosis. 4. Severe left and moderate right hip osteoarthritis is again noted. No acute fractures identified. 5. Mild skin thickening and subcutaneous fat stranding within the left lateral hip likely representin g a cellulitis. No underlying abscess or bony destruction to suggest an osteomyelitis. ACT 112: Negative or not required by law. Electronically signed by: Elmo Redmond M.D. 04/15/2022 2:45 PM
[2022-04-15 14:49] LABS: Basophils # (auto) 0.06 K/uL (0-0.2); Basophils % (auto) 0.7 %; Eosinophils # (auto) 0.32 K/uL (0-0.50); Eosinophils % (auto) 3.7 %; Hematocrit (blood only) 44.4 % (40.1-51.0); Hemoglobin 14.7 g/dl (14.0-18.0); Immature Granulocytes # (auto) 0.04 K/uL (0.00-0.02); Immature Granulocytes % (auto) 0.5 %; Lymphocytes # (auto) 2.83 K/uL (1.2-3.4); Lymphocytes % (auto) 32.8 %; Mean Corpuscular Hemoglobin 30.4 pg (25.0-34.0); Mean Corpuscular Hgb Conc 33.1 g/dL (32.0-36.0); Mean Corpuscular Volume 91.7 fL (80.0-100.0); Mean Platelet Volume 10.1 fL (9.4-12.4); Monocytes # (auto) 0.62 K/uL (0.24-0.82); Monocytes % (auto) 7.2 %; Neutrophils # (auto) 4.75 K/uL (1.4-6.5); Neutrophils % (auto) 55.1 %; Platelet Count 205 K/uL (130-400); RDW Coefficient of Variation 13.5 % (11.5-14.5); RDW Standard Deviation 45.5 fL (36.4-46.3); Red Blood Count 4.84 M/uL (4.63-6.08); White Blood Count 8.62 K/ul (4.8-10.8)
--- NOTE | 2022-04-15 14:51 | CT Scan Report ---
HEAD CT NONCONTRAST CT DOSE: HISTORY: Altered mental status. TECHNIQUE: Multiaxial CT images of the head were performed without the use of intravenous contrast. A utomated exposure control was utilized for this study. A dose lowering technique was utilized adheri ng to the principles of ALARA. Comparison: Head CT 07/02/2021. Findings: Near complete opacification of the left maxillary sinus which has progressed in the interva l. The mastoid air cells are clear. The calvarium and skull base are intact. There is no mass, hemato ma, midline shift, acute infarct. White matter hypodensity is nonspecific but suggestive of microvasc ular ischemic change. The ventricles and sulci demonstrate mild age-related involutional changes. Impression: 1. No acute infarct or intracranial hemorrhage. 2. Near-complete opacification of the left maxillary sinus which has progressed in the interval ACT 112: Negative or not required by law. Electronically signed by: Elmo Redmond M.D. 04/15/2022 2:49 PM
--- NOTE | 2022-04-15 15:00 | XRay Report ---
XR hip LT 2V w pelvis CLINICAL HISTORY: Left hip pain. COMPARISON STUDY: Left hip 03/24/2022. FINDINGS: No acute fracture or dislocation within the pelvis or hips. There is moderate right and sev ere left hip osteoarthritis, unchanged. Mild subchondral collapse within the left femoral head is aga in noted is likely chronic. IMPRESSION: 1. No acute fracture or dislocation within the pelvis or hips. 2. Severe left hip osteoarthritis, unchanged. ACT 112: Negative or not required by law. Electronically signed by: Elmo Redmond M.D. 04/15/2022 2:58 PM
--- NOTE | 2022-04-15 15:05 | XRay Report ---
XR chest 1V portable HISTORY: weakness COMPARISON: Chest 07/02/2021. FINDINGS: No pneumothorax. No pleural effusions. The heart is normal in size. Calcifications within t he aortic knob. There are low lung volumes with bibasilar linear densities consistent with subsegment al atelectasis. No evidence for pulmonary edema. No new focal lung consolidations to suggest pneumoni a. IMPRESSION: No significant change compared to the prior study. No acute process. ACT 112: Negative or not required by law. Electronically signed by: Elmo Redmond M.D. 04/15/2022 3:03 PM
[2022-04-15 15:15] LABS: Albumin Globulin Ratio 1.1 (0.9-2); Albumin Level 3.8 gm/dl (3.4-5.0); BUN Creatinine Ratio 16.2 (10-20); Bilirubin,Total 0.6 mg/dl (0.2-1.0); C Reactive Protein 1.04 mg/dl (0-0.5); Calcium 9.5 mg/dl (8.5-10.1); Creatinine Clr Calc Pharmacy 46.1 ml/min; Est GFR (African American) 56.5 ml/min; Est GFR (Non-African American) 48.7 ml/min; Globulin 3.4 gm/dl (2.5-4.0); Potassium 4.6 mmol/L (3.5-5.1); Total Protein 7.2 gm/dl (6.0-8.3)
[2022-04-15 15:17] LABS: Troponin I High Sensitivity 14.1 pg/ml (0-20)
[2022-04-15 15:25] LABS: Thyroid Stimulating Hormone 7.356 uIu/ml (0.300-4.500)
[2022-04-15] MEDS ORDERED: AMPICILLIN/SULBACTAM SOD 3,000 MG in 0.9 % SODIUM CHLORIDE 100 ML IV STA (15:39)
--- NOTE | 2022-04-15 15:48 | History & Physical Report ---
Date of Service April 15, 2022 History of Present Illness Primary Care Provider: [facility] Mervat Paiz is an 79yo M from [facility] with a PMHx of dementia Found on toilet, didn't seem like himself Hips hurting more than baseline, although has bilat OA at baseline Poor historian 2/2 dementia Follows some commands Afebrile, no known trauma Excoriations/edema of bilat hips and calves On room air Im Cellulitis of L Hip: Allergies Allergy/AdvReac Type Severity Reaction Status Date / Time adhesive tape Allergy Unknown Unknown Verified 07/02/21 16:05 cephalexin [From Keflex] Allergy Unknown Unknown Verified 07/02/21 16:05 rofecoxib Allergy Unknown SWOLLEN Verified 07/02/21 16:05 FEET Home Medications Medication Instructions Recorded Confirmed Type sertraline 100 mg tablet 100 mg PO QAM 05/08/18 07/02/21 History simvastatin 40 mg tablet 40 mg PO QPM 05/08/18 07/02/21 History buspirone 5 mg tablet 2.5 mg PO BIDM 03/31/19 04/15/22 History peg 400-propylene glycol (PF) 0.4 1 drp OPB BID 07/01/19 07/02/21 History %-0.3 % eye drops in a dropperette (Systane (PF)) olanzapine 5 mg tablet 5 mg PO HS 06/22/20 07/02/21 History oxybutynin chloride 5 mg tablet 10 mg PO QAM 07/31/20 07/02/21 History acetaminophen 500 mg tablet 1,000 mg PO TID PRN Pain 08/18/20 07/02/21 History (Tylenol Extra Strength) cyanocobalamin (vitamin B-12) 1,000 mcg PO QAM 08/18/20 07/02/21 History 1,000 mcg tablet losartan 25 mg tablet 25 mg PO QAM 08/18/20 07/02/21 History polyethylene glycol 3350 17 gram 17 g PO BID PRN Constipation 03/05/21 07/02/21 History oral powder packet (Miralax) levothyroxine 50 mcg tablet 50 mcg PO DAILYBB 07/02/21 07/02/21 History diclofenac sodium 1 % topical gel 4 g EXT Q12H PRN left hip pain 07/04/21 Rx (Voltaren Arthritis Pain) #100 grams buspirone 5 mg tablet mg PO BID 03/24/22 History docusate sodium 100 mg capsule 100 mg PO BID 04/15/22 04/15/22 History glipizide 5 mg tablet 5 mg PO QPM 04/15/22 04/15/22 History glipizide 5 mg tablet 7.2 mg PO QAM 04/15/22 04/15/22 History Past Med/Surg History Medical History Depression Fall Fracture, ribs HTN (hypertension) Hyperlipidemia Migraines Skin problem Type 2 diabetes mellitus Surgical History Previous back surgery S/P appendectomy Family History Other Cancer Diabetes Gallbladder disease Hypertension Kidney disease Social History Smoking Status: Never smoker Second Hand Exposure: No; Hx Alcohol Use: No Hx Substance Use: No Preferred Language: Haitian Communication Ability: Effective High Frequency Mill Operator Required: No Beliefs That Will Affect Care: None marital status: Current Living Situation: Personal Care Facility Current Living Situation Comment: [facility] 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) Vital Signs (Past 12 Hours) Vital Signs Temp Pulse Pulse Resp BP BP Pulse Ox 04/15/22 13:19 76 16 95 04/15/22 14:42 76 16 127/74 95 04/15/22 12:52 37.0 C 76 18 129/81 95 O2 Del Method 04/15/22 13:19 Room Air 04/15/22 14:42 Room Air 04/15/22 12:52 Room Air PG Care Time/CCT Total # of Minutes Spent Total Time Spent with Patient: Total time spent is greater than 50% in coordination of care (as documented) at patient's floor/unit and/or counseling patient: Coding
[2022-04-15 15:59] LABS: T4 Free Thyroxine 0.71 ng/dl (0.61-1.60)
--- NOTE | 2022-04-15 15:59 | History & Physical Report ---
Date of Service April 15, 2022 Assessment & Plan (1) Cellulitis of hip, left: Plan: - Noted on CT A/P, without evidence of abscess, osteomyelitis, or fracture. - No evidence of sepsis, patient hemodynamically stable. WBC, lactate, procalcitonin all within normal limits. - Treat empirically with Unasyn as he has Keflex listed as an allergy without reaction, unable to obtain from patient. We will try Rocephin, giving 10% of dose and monitoring for allergic reaction, will proceed with the remainder of dose if patient does ntot develop a reaction. - Place on maintenance IVF x1 L given mildly elevated CK and dry mucuous membranes, CK not elevated enough to suspect rhabdo. (2) Osteoarthritis: Plan: - Severe bilateral hip osteoarthritis. - PT/OT to eval. - Continue Tylenol, topical Voltaren gel for pain relief. (3) Type 2 diabetes mellitus: Plan: - Take glipizide at home, will hold this. - Weight-based insulin with Lantus 9 mg twice daily + SSI. Accuchekcs ACHS/q6h if NPO. - A1c in AM. - Diabetic diet ordered. (4) Chronic kidney disease, stage 3a: Plan: - Cr 1.30, at patient's baseline. - Renally dose medications as able, avoid nephrotoxins. (5) HTN (hypertension): Plan: - Continue losartan 25 mg in the morning. (6) Hyperlipidemia: Plan: - Continue simvastatin 40 mg at night. (7) Hypothyroidism: Plan: - Continue levothyroxine 50 mcg daily. - TSH 7.356, free T4 0.71. (8) Depression: Plan: - Continue Zoloft 100 mg daily, BuSpar 2.5 mg daily twice daily. Plan - Observation on med/surg. - SCDs for VTE ppx. - Full Code. History of Present Illness Chief Complaint: b/l hip pain , L > R Primary Care Provider: [facility] Mervat Chencho Real is an 87-year-old male with a past medical history significant for Alzheimer's dementia, hypertension, hyperlipidemia, DM2, CKD, hypothyroidism, osteoarthritis, and depression who presents today from [facility] after being found on the commode this morning complaining of hip pain. Due to patient's underlying dementia, he is a poor historian and therefore history is obtained from ED provider and EMS report. When he was found this morning, he was complaining of hip pain and per staff, seemed to be less responsive than normal, however hard to determine his baseline given his severe dementia. For my evaluation, patient is only complaining of bilateral hip pain, no report of fever/chills, chest pain, shortness of breath, palpitation, abdominal pain, nausea, vomiting, diarrhea, or constipation. Denies blood in stool. Denies falls to his knowledge. Presentation to the ED, his vital signs within normal limits, he is hemodynamically stable. Labs largely unremarkable, his CK mildly elevated at 448, glucose is 227, CRP 1.04, TSH 7.356, with a free T4 pending. No leukocytosis, PCT <0.05, lactate 1.6. Creatinine 1.30, his renal function is baseline. No electrolyte abnormalities. No transaminitis. UA is pending. Imaging largely unremarkable, CT A/P shows mild skin thickening and subcutaneous fat stranding within the left lateral hip likely representing cellulitis, without any underlying abscess or bony destruction suggestive of osteomyelitis. Severe left and moderate right hip OA is noted on both CT of the abdomen/pelvis, as well as hip and pelvis x-ray. No evidence of fracture. Head CT without evidence for infarct or hemorrhage. No new complete opacification of left axill mike sinus. CXR unremarkable acute disease process. Allergies Allergy/AdvReac Type Severity Reaction Status Date / Time adhesive tape Allergy Unknown Unknown Verified 04/15/22 16:12 cephalexin [From Keflex] Allergy Unknown Unknown Verified 04/15/22 16:12 rofecoxib Allergy Unknown SWOLLEN Verified 04/15/22 16:12 FEET Home Medications Medication Instructions Recorded Confirmed Type sertraline 100 mg tablet 100 mg PO QPM 05/08/18 04/15/22 History simvastatin 40 mg tablet 40 mg PO QPM 05/08/18 04/15/22 History buspirone 5 mg tablet 2.5 mg PO BIDM 03/31/19 04/15/22 History peg 400-propylene glycol (PF) 0.4 1 drp OPB BID 07/01/19 04/15/22 History %-0.3 % eye drops in a dropperette (Systane (PF)) olanzapine 5 mg tablet 5 mg PO HS 06/22/20 04/15/22 History oxybutynin chloride 5 mg tablet 10 mg PO QAM 07/31/20 04/15/22 History cyanocobalamin (vitamin B-12) 1,000 mcg PO QAM 08/18/20 04/15/22 History 1,000 mcg tablet losartan 25 mg tablet 25 mg PO QAM 08/18/20 04/15/22 History levothyroxine 50 mcg tablet 50 mcg PO DAILYBB 07/02/21 04/15/22 History diclofenac sodium 1 % topical gel 4 g EXT Q12H PRN left hip pain 07/04/21 04/15/22 Rx (Voltaren Arthritis Pain) #100 grams acetaminophen 500 mg tablet 1,000 mg PO Q8H PRN Pain 04/15/22 04/15/22 History docusate sodium 100 mg capsule 100 mg PO BID 04/15/22 04/15/22 History glipizide 5 mg tablet 5 mg PO QPM 04/15/22 04/15/22 History glipizide 5 mg tablet 7.2 mg PO QAM 04/15/22 04/15/22 History Past Med/Surg History Medical History Depression Fall Fracture, ribs HTN (hypertension) Hyperlipidemia Migraines Skin problem Type 2 diabetes mellitus Surgical History Previous back surgery S/P appendectomy Family History Other Cancer Diabetes Gallbladder disease Hypertension Kidney disease Social History Smoking Status: Never smoker Second Hand Exposure: No; Hx Alcohol Use: No Hx Substance Use: No Preferred Language: Anguillan Communication Ability: Effective Drug Abuse Program Coordinator Required: No Beliefs That Will Affect Care: None marital status: Current Living Situation: Personal Care Facility Current Living Situation Comment: [facility] 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 Feels Safe at Home: Yes Assistive Devices: Walker Review of Systems Review of Systems: Unobtainable due to cognitive status Physical Exam Physical Exam: General: awake, alert, no apparent distress Head: Normocephalic, atraumatic ENT: PERRL, EOMI, no pharyngeal exudate, mucous membranes appear dry Chest: Clear to auscultation, on room air, no adventitious breath sounds Cardiac: Regular rate and rhythm, no murmur, no JVD, normal peripheral pulses, good capillary refill Abdominal: NABS x 4 quadrants, soft, nontender to palpation, no rebound, guarding or tenderness Extremities: erythema, excoriations, and tenderness of L hip; ROM intact but with some pain; otherwise normal inspection, no peripheral edema or erythema, calfs nontender to palpation Psych: Normal mood and affect Neuro: AAO x 3, strength intact bilaterally and rated 5/5, no motor deficits, speech is clear, no peripheral sensory deficits Skin: no rash or erythema Results & Data Results & Data ([facility]) Vital Signs (Past 12 Hours) Vital Signs Temp Pulse Pulse Resp BP BP Pulse Ox 04/15/22 13:19 76 16 95 04/15/22 14:42 76 16 127/74 95 04/15/22 12:52 37.0 C 76 18 129/81 95 O2 Del Method 04/15/22 13:19 Room Air 04/15/22 14:42 Room Air 04/15/22 12:52 Room Air Laboratory Results Abnormal lab results 04/15/22 04/15/22 04/15/22 Range/Units 14:37 14:37 14:37 Immature Gran # (Auto) 0.04 H (0.00-0.02) K/uL Glucose 227 H (70-99(Fasting)) mg/dl Total Creatine Kinase 448 H (30-223) U/L C-Reactive Protein 1.04 H (0-0.5) mg/dl TSH 7.356 H (0.300-4.500) uIu/ml Diagnostic Findings Abdomen/Pelvis CT 04/15/22 13:[address] WITHOUT CONTRAST CT DOSE: 2193.38 mGy.cm HISTORY: pelvis/low back pain TECHNIQUE: Multiaxial CT images of the abdomen and pelvis were performed without contrast. A dose lowering technique was utilized adhering to the principles of ALARA. COMPARISON STUDY: Abdomen and pelvis CT 07/02/2021. FINDINGS: Mild motion artifact. A few bibasilar linear densities consistent with subsegmental atelectasis. No pneumoperitoneum. No pneumatosis. Severe left and moderate right hip osteoarthritis again noted. No acute fractures within the visualized osseous structures. Degenerative changes within the lumbar spine. There is an old right L3 transverse process fracture. Old, healed left-sided rib fractures. There are coronary artery and mitral annulus calcifications. Tiny fat-containing umbilical hernia. Small fat-containing left inguinal hernia. Mild skin thickening and mild subcutaneous fat stranding within the left lateral hip. This may represent a mild cellulitis. No loculated fluid collections to suggest an abscess. No bony destruction to suggest an osteomyelitis. No significant left hip effusion. Extensive colonic diverticulosis. No evidence for acute diverticulitis. There are suboptimal evaluation for bowel pathology due to the lack of intravenous and oral contrast. However, there is no definite bowel wall thickening or obstruction. The appendix is not identified and may be surgically absent. The bladder is unremarkable. No pelvic free fluid. The prostate gland remains enlarged. No retroperitoneal lymphadenopathy. Calcified plaque within the normal caliber abdominal aorta. Stable hepatic and renal hypodense lesions likely representing cysts. There is bilateral nephrolithiasis. Dominant stone within the left kidney measures 1 cm. No ureteral stones. No hydronephrosis. The gallbladder, spleen, adrenal glands, and pancreas are within normal limits. IMPRESSION: 1. No bowel wall thickening or obstruction. 2. Colonic diverticulosis. No evidence for acute diverticulitis. 3. Bilateral nephrolithiasis. No ureteral stones. No hydronephrosis. 4. Severe left and moderate right hip osteoarthritis is again noted. No acute fractures identified. 5. Mild skin thickening and subcutaneous fat stranding within the left lateral hip likely representing a cellulitis. No underlying abscess or bony destruction to suggest an osteomyelitis. ACT 112: Negative or not required by law. Electronically signed by: Elmo Redmond M.D. 04/15/2022 2:[address] 04/15/22 13:[address] DOSE: HISTORY: Altered mental status. TECHNIQUE: Multiaxial CT images of the head were performed without the use of intravenous contrast. Automated exposure control was utilized for this study. A dose lowering technique was utilized adhering to the principles of ALARA. Comparison: Head CT 07/02/2021. Findings: Near complete opacification of the left maxillary sinus which has progressed in the interval. The mastoid air cells are clear. The calvarium and skull base are intact. There is no mass, hematoma, midline shift, acute infarct. White matter hypodensity is nonspecific but suggestive of microvascular ischemic change. The ventricles and sulci demonstrate mild age-related involutional changes. Impression: 1. No acute infarct or intracranial hemorrhage. 2. Near-complete opacification of the left maxillary sinus which has progressed in the interval ACT 112: Negative or not required by law. Electronically signed by: Elmo Redmond M.D. 04/15/2022 2:49 PM Hip/Pelvis X-Ray 04/15/22 13:18 XR hip LT 2V w pelvis CLINICAL HISTORY: Left hip pain. COMPARISON STUDY: Left hip 03/24/2022. FINDINGS: No acute fracture or dislocation within the pelvis or hips. There is moderate right and severe left hip osteoarthritis, unchanged. Mild subchondral collapse within the left femoral head is again noted is likely chronic. IMPRESSION: 1. No acute fracture or dislocation within the pelvis or hips. 2. Severe left hip osteoarthritis, unchanged. ACT 112: Negative or not required by law. Electronically signed by: Elmo Redmond M.D. 04/15/2022 2:58 PM Chest X-Ray 04/15/22 13:19 XR chest 1V portable HISTORY: weakness COMPARISON: Chest 07/02/2021. FINDINGS: No pneumothorax. No pleural effusions. The heart is normal in size. Calcifications within the aortic knob. There are low lung volumes with bibasilar linear densities consistent with subsegmental atelectasis. No evidence for pulmonary edema. No new focal lung consolidations to suggest pneumonia. IMPRESSION: No significant change compared to the prior study. No acute process. ACT 112: Negative or not required by law. Electronically signed by: Elmo Redmond M.D. 04/15/2022 3:03 PM ECG Additional Comments: Normal sinus rhythm Low voltage QRS Inferior infarct (cited on or before 02-JUL-2021) Cannot rule out Anterior infarct , age undetermined Abnormal ECG When compared with ECG of 24-MAR-2022 07:18, Minimal criteria for Anterior infarct are now Present. Code Status & VTE Plan Code Status Full Code Supervising Physician Co-Signing Physician Notes Patient seen and examined, chart reviewed, case discussed with Umu Branett PA-C and I agree with the assessment and plan as above except as otherwise noted Labs and images reviewed Chencho is an 87-year-old male with a past medical history of hyperlipidemia, diabetes, bilateral OA, severe dementia, hypertension who presents from [place] found on his commode complaining of worsened left hip pain compared to baseline and who seemed more fatigued/less responsive than normal although was following commands. On evaluation patient is afebrile, is not tachycardic, and is normotensive. There is no leukocytosis. CT of hip is consistent with left hip cellulitis without evidence of osteomyelitis or fracture. History is limited from patient, he reports his left hip has hurt him more in the past few weeks but is not sure if he has had fevers/chills/sweats, is generally poor historian, and is not oriented to year. Is not oriented to place. On exam lungs are clear, heart rate is regular. Left hip is with diffuse scratch bernabe and excoriations, erythema of the lateral hip tender to palpation is present. No streaking superiorly or down into the leg. 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 Cellulitis: Acute left hip cellulitis, nonpurulent. Patient is not septic and is nontoxic. Is allergic to Keflex, unknown allergy, but tolerating Unasyn in ER without rash/reaction. Scratch bernabe/excoriations preceded antibiotic treatment. Review of records from [place] shows Keflex allergy, but does not list what the reaction is and unable to clarify this further. Actually tolerating Unasyn at this time, which is more closely related any third-generati on cephalosporin. Will narrow to Rocephin, and give a tolerance test dose of 10%, observe, and then give remaining dose if doing well with no signs of allergy/hives. Other medical issues as above PG Care Time/CCT Total # of Minutes Spent Total Time Spent with Patient: Total time spent is greater than 50% in coordination of care (as documented) at patient's floor/unit and/or counseling patient: Coding Level of Care Code 04171 Initial Inpt Care Lvl 2 Diagnoses Cellulitis of hip, left L03.116 Osteoarthritis M19.90 Type 2 diabetes mellitus E11.9 Chronic kidney disease, stage 3a N18.31 HTN (hypertension) I10 Hyperlipidemia E78.5 Hypothyroidism E03.9 Depression F32.9
[2022-04-15] MEDS ORDERED: LACTATED RINGER'S 1,000 ML IV SCH (16:15)
[2022-04-15] MEDS ORDERED: cefTRIAXone SODIUM 1,000 MG/50 ML BAG IV STA (16:31)
[2022-04-15] MEDS ORDERED: DEXTROSE 50% 50 ML SYRINGE IV PRN (18:16)
[2022-04-15] MEDS ORDERED: POLYETHYLENE (MIRALAX) 17 GM PACK PO PRN (18:16)
[2022-04-15] MEDS ORDERED: CARBOHYDRATES FOR HYPOGLYCEMIA PO PRN (18:16)
[2022-04-15] MEDS ORDERED: GLUCOSE 10 TAB/TUBE PO PRN (18:16)
[2022-04-15] MEDS ORDERED: ACETAMINOPHEN 500 MG TAB PO PRN (18:16)
[2022-04-15] MEDS ORDERED: GLUCAGON FOR INJ 1 MG VIAL SQ PRN (18:16)
[2022-04-15] MEDS ORDERED: GLUCOSE 40% GEL 15 GM TUBE PO PRN (18:16)
[2022-04-15] MEDS ORDERED: ONDANSETRON INJ 2 MG/ML 2 ML VIAL IV PRN (18:16)
[2022-04-15] MEDS ORDERED: DICLOFENAC SOD 1% GEL 100 GM TUBE EXT PRN (18:16)
--- NOTE | 2022-04-15 21:45 | Electrocardiogram Report ---
Test Reason : Blood Pressure : / mmHG Vent. Rate : 085 BPM Atrial Rate : 085 BPM P-R Int : 166 ms QRS Dur : 072 ms QT Int : 382 ms P-R-T Axes : 046 -20 016 degrees QTc Int : 454 ms Poor data quality, interpretation may be adversely affected Normal sinus rhythm Low voltage QRS Inferior infarct (cited on or before 02-JUL-2021) Cannot rule out Anterior infarct , age undetermined Abnormal ECG When compared with ECG of 24-MAR-2022 07:18, Minimal criteria for Anterior infarct are now Present Confirmed by Dayo Chong ([id number]) on 04/15/2022 9:44:36 PM [facility] Confirmed By:Dayo Chong
[2022-04-15] MEDS: INSULIN ASPART PER UNIT SC SCH ×2 (22:07→22:28)
[2022-04-15] MEDS: OLANZapine 5 MG TABLET PO SCH (22:18)
[2022-04-15] MEDS: DOCUSATE SODIUM 100 MG CAP PO SCH (22:18)
[2022-04-15] MEDS: busPIRone 5 MG TAB PO SCH (22:18)
[2022-04-15] MEDS: SIMVASTATIN 40 MG TAB PO SCH (22:19)
[2022-04-15] MEDS: LANTUS PER UNIT CHARGE SQ SCH (22:30)
[2022-04-16] MEDS: ARTIFICIAL TEARS OPB SCH ×3 (02:46→20:39)
[2022-04-16] MEDS: LEVOTHYROXINE SODIUM 50 MCG TABLET PO SCH (06:01)
--- NOTE | 2022-04-16 08:17 | Hospitalist Progress Note ---
Date of Service April 16, 2022 Assessment & Plan (1) Cellulitis of hip, left: Plan: Found at [facility] in bathroom (history of dementia, Alzheimers), complaining of bilateral hip pain. Xray of hip with severe left hip osteoarthritis, no fracture or dislocation ?benefit from ortho outpatient once healed from cellulitis to consider steroid injection? Of note, last June, patient seen by orthopedics for subchondral collapse noted in the left hip. They recommended NWB at that time and patient mostly wheelchair bound CTAP with bilateral nephrolithiasis, no ureteral stones or obstruction. Severe left and moderate right hip OA. No acute fractures. Does note :Mild skin thickening and subcutaneous fat stranding within the left lateral hip likely representing a cellulitis. No underlying abscess or bony destruction to suggest an osteomyelitis. No evidence for sepsis on admission. WBC, procal, lactic wnl ESR/CRP checked -- ESR not significantly elevated to suggest PMR or need for CT hip to r/o infection Given dose of Unasyn in ER (allergy to keflex listed), placed on ceftriaxone daily (got 10% dose without reaction noted) and this was continued (day 2) --Did have some focal erythema to L elbow/back, ?from unasyn more closely related given last night vs from rocephin. Will monitor for now, but continue current course for now. Pepcid IVP daily added. Will add benadryl if needed prn in meantime but cautious use in elderly patient to avoid confusion (CT head negative on admit) Was 88% on RA on admission around 16:48 (unasyn given 15:59) Titrate to maintain sats, 94% on 1L currently. Incentive spirometer ordered and encouraged in patient with poor inspiratory effort. Risk for developing pneumonia Did get 1L IVF for mildly elevated CK/dry mm but not elevated enough to suspect rhabdo Did get his statin last evening, will place on hold temporarily and check CK w/ am labs Checked Lyme -- NEGATIVE PT/OT consulted -- from [facility]. CM to follow (2) Osteoarthritis: Plan: Severe bilateral hip osteoarthritis. Pain control, PT/OT evals Topical voltaren Outpt ortho once healed from current cellulitis recommended to see if any benefit from injection? (3) Type 2 diabetes mellitus: Plan: Prior A1c 7.7 in May 2020, on glipizide at home Repeat A1c elevated to 9.7 on am labs While inpatient, placed on lantus 9u BID, SSI DM educator consulted Will also check anemia labs to ensure accurate value BSgs acceptable, continue to monitor/adjustments to SSI as needed (4) Chronic kidney disease, stage 3a: Plan: Cr 1.3 on admission, at baseline Renal dose meds/avoid renal toxic as able Got 1L IVF overnight, Cr 1.17 on repeat Monitor BMP in AM (5) HTN (hypertension): Plan: BP stable, continued on losartan 25mg daily (6) Hyperlipidemia: Plan: Continue simvastatin 40 mg at night --> placed on hold for tonight given IVF for elevated CK and check labs in am (7) Hypothyroidism: Plan: Continue levothyroxine 50 mcg daily. - TSH 7.356, free T4 0.71. -- could consider increasing but rec repeat TFT in 6 weeks with PCP as likely reactive from current cellulitis/infection as above (8) Depression: Plan: Continue Zoloft 100 mg daily, BuSpar 2.5 mg daily twice daily. Plan SCDs for DVT prophylaxis, ambulation encouraged if continued inpatient stay past tomorrow, consider adding chemoproph Admission and Anticipated Discharge Date Admission Date: April 15, 2022 Supervising Physician Co-Signing Physician Notes Attending Attestation - Chart reviewed in detail, care plan d/w HUGO Brunner. I agree w/ the wisdom components of her documentation. Clinton Sommers MD Subjective Eval this morning, resting in bed Some redness to his left forearm, getting rocephin but will need to monitor/switch if worsens (did get Unasyn last evening, more closely related to keflex, ?reaction to that delayed vs from the Rocephin). After rocephin a slight increase in redness to his left forearm and back. Patient states not painful persay, however is itchy. Discussed with RN please to administer dose of pepcid IV and will switch abx for tomorrow. Patient denies any fever/chills, chest pain or shortness of breath but is on supplemental oxygen at 2 liters nasal cannula presently. From [facility], has not been evaluated by therapy yet. Erythema to LEFT hip improving reported. Review of Systems Review of Systems: All systems reviewed & are unremarkable except as noted in HPI & below Physical Exam Physical Exam: General: WD/WN male sitting up in chair eating breakfast, no acute distress HEENT: head normocephalic, atraumatic, trachea midline without deviation, mm appear slightly dry Resp: poor inspiratory effort, diminished in the bases with associated crackles, no wheezing, on 2L NC CV: RRR, no m/r/g, no calf tenderness, trace dependent edema GI: +BS, soft, nontender : no Alvarez MSK/Neuro: moves all extremities, strength intact bilaterally, no facial droop/slurred speech cellulitis to LEFT hip with prior excoriations, erythema, tender to palpation, ROM intact Psych: alert to person, place, not time/events, fatigued appearing Skin: erythema to left hip, possible drug reaction/redness to left forearm/elbow as well as back, nontender to palpation (reports itchy) Results & Data Results & Data ([facility] [place]) Vital Signs (Past 12 Hours) Vital Signs Temp Pulse Resp BP Pulse Ox O2 Del Method O2 Flow Rate 04/16/22 08:01 36.5 C 74 16 112/66 91 Nasal Cannula 04/16/22 02:20 36.8 C 70 16 145/80 H 93 Nasal Cannula 2 04/16/22 02:20 Nasal Cannula 2 04/15/22 23:05 78 16 114/68 94 Laboratory Results 04/16/22 04/16/22 04/16/22 Range/Units 12:47 12:15 10:29 WBC (4.8-10.8) K/ul RBC (4.63-6.08) M/uL Hgb (14.0-18.0) g/dl Hct (40.1-51.0) % MCV (80.0-100.0) fL MCH (25.0-34.0) pg MCHC (32.0-36.0) g/dL RDW Std Deviation (36.4-46.3) fL RDW Coeff of Johnnie (11.5-14.5) % Plt Count (130-400) K/uL MPV (9.4-12.4) fL Immature Gran % (Auto) % Neut % (Auto) % Lymph % (Auto) % [place] % (Auto) % Eos % (Auto) % Baso % (Auto) % Neut # (Auto) (1.4-6.5) K/uL Lymph # (Auto) (1.2-3.4) K/uL [place] # (Auto) (0.24-0.82) K/uL Eos # (Auto) (0-0.50) K/uL Baso # (Auto) (0-0.2) K/uL Immature Gran # (Auto) (0.00-0.02) K/uL ESR (0-20) mm/hr Sodium (136-145) mmol/L Potassium Chloride (98-107) mmol/L Carbon Dioxide (21-32) mmol/L Anion Gap (3-11) BUN (6-23) mg/dl Creatinine (0.6-1.4) mg/dl Est Cr Clr Drug Dosing ml/min Est GFR ( Amer) ml/min Est GFR (Non-Af Amer) ml/min BUN/Creatinine Ratio (10-20) Glucose (70-99(Fasting)) mg/dl POC Glucose 148 H (70-99) mg/dl Estimat Average Glucose mg/dl Hemoglobin A1c (4.5-5.6) % Calcium (8.5-10.1) mg/dl C-Reactive Protein (0-0.5) mg/dl Procalcitonin (0-0.5) ng/ml Free T4 (0.61-1.60) ng/dl Urine Color Yellow Urine Appearance Clear (Clear) Urine pH 6.5 (4.5-7.5) Ur Specific [place] 1.021 (1.000-1.030) Urine Protein Negative (Negative) Urine Glucose (UA) Negative (Negative) Urine Ketones Negative (Negative) Urine Blood Trace H (Negative) Urine Nitrite Negative (Negative) Urine Bilirubin Negative (Negative) Urine Urobilinogen Negative (Negative) Ur Leukocyte Esterase Negative (Negative) Urine WBC (Auto) 1-5 (0-5) /hpf Urine RBC (Auto) 5-10 H (0-4) /hpf U Hyaline Cast (Auto) 1-5 (0-5) /lpf U Epithel Cells (Auto) >30 H (0-5) /lpf Urine Bacteria (Auto) Negative (Negative) Ur Renal Epithelial Cell 5-10 H (0-5) /lpf Nasal Screen MRSA (PCR) (Negative) Lyme Disease IgG Ab Negative (Negative) Lyme Disease IgM Ab Negative (Negative) SARS-CoV-2, RNA, NAAT (NEGATIVE) 04/16/22 04/16/22 04/16/22 Range/Units 10:04 08:21 07:41 WBC (4.8-10.8) K/ul RBC (4.63-6.08) M/uL Hgb (14.0-18.0) g/dl Hct (40.1-51.0) % MCV (80.0-100.0) fL MCH (25.0-34.0) pg MCHC (32.0-36.0) g/dL RDW Std Deviation (36.4-46.3) fL RDW Coeff of Johnnie (11.5-14.5) % Plt Count (130-400) K/uL MPV (9.4-12.4) fL Immature Gran % (Auto) % Neut % (Auto) % Lymph % (Auto) % [place] % (Auto) % Eos % (Auto) % Baso % (Auto) % Neut # (Auto) (1.4-6.5) K/uL Lymph # (Auto) (1.2-3.4) K/uL [place] # (Auto) (0.24-0.82) K/uL Eos # (Auto) (0-0.50) K/uL Baso # (Auto) (0-0.2) K/uL Immature Gran # (Auto) (0.00-0.02) K/uL ESR 25 H (0-20) mm/hr Sodium (136-145) mmol/L Potassium 4.4 Chloride (98-107) mmol/L Carbon Dioxide (21-32) mmol/L Anion Gap (3-11) BUN (6-23) mg/dl Creatinine (0.6-1.4) mg/dl Est Cr Clr Drug Dosing ml/min Est GFR ( Amer) ml/min Est GFR (Non-Af Amer) ml/min BUN/Creatinine Ratio (10-20) Glucose (70-99(Fasting)) mg/dl POC Glucose 190 H (70-99) mg/dl Estimat Average Glucose mg/dl Hemoglobin A1c (4.5-5.6) % Calcium (8.5-10.1) mg/dl C-Reactive Protein (0-0.5) mg/dl Procalcitonin (0-0.5) ng/ml Free T4 (0.61-1.60) ng/dl Urine Color Urine Appearance (Clear) Urine pH (4.5-7.5) Ur Specific [place] (1.000-1.030) Urine Protein (Negative) Urine Glucose (UA) (Negative) Urine Ketones (Negative) Urine Blood (Negative) Urine Nitrite (Negative) Urine Bilirubin (Negative) Urine Urobilinogen (Negative) Ur Leukocyte Esterase (Negative) Urine WBC (Auto) (0-5) /hpf Urine RBC (Auto) (0-4) /hpf U Hyaline Cast (Auto) (0-5) /lpf U Epithel Cells (Auto) (0-5) /lpf Urine Bacteria (Auto) (Negative) Ur Renal Epithelial Cell (0-5) /lpf Nasal Screen MRSA (PCR) (Negative) Lyme Disease IgG Ab (Negative) Lyme Disease IgM Ab (Negative) SARS-CoV-2, RNA, NAAT (NEGATIVE) 04/16/22 04/16/22 04/16/22 Range/Units 07:41 07:41 07:41 WBC 8.36 (4.8-10.8) K/ul RBC 4.15 L (4.63-6.08) M/uL Hgb 12.6 L (14.0-18.0) g/dl Hct 38.0 L (40.1-51.0) % MCV 91.6 (80.0-100.0) fL MCH 30.4 (25.0-34.0) pg MCHC 33.2 (32.0-36.0) g/dL RDW Std Deviation 45.5 (36.4-46.3) fL RDW Coeff of Johnnie 13.3 (11.5-14.5) % Plt Count 183 (130-400) K/uL MPV 10.0 (9.4-12.4) fL Immature Gran % (Auto) 0.4 % Neut % (Auto) 50.0 % Lymph % (Auto) 34.6 % [place] % (Auto) 9.0 % Eos % (Auto) 5.4 % Baso % (Auto) 0.6 % Neut # (Auto) 4.19 (1.4-6.5) K/uL Lymph # (Auto) 2.89 (1.2-3.4) K/uL [place] # (Auto) 0.75 (0.24-0.82) K/uL Eos # (Auto) 0.45 (0-0.50) K/uL Baso # (Auto) 0.05 (0-0.2) K/uL Immature Gran # (Auto) 0.03 H (0.00-0.02) K/uL ESR (0-20) mm/hr Sodium 137 (136-145) mmol/L Potassium TNP Chloride 105 (98-107) mmol/L Carbon Dioxide 27 (21-32) mmol/L Anion Gap 5 (3-11) BUN 20 (6-23) mg/dl Creatinine 1.17 (0.6-1.4) mg/dl Est Cr Clr Drug Dosing 52.2 ml/min Est GFR ( Amer) 64.1 ml/min Est GFR (Non-Af Amer) 55.3 ml/min BUN/Creatinine Ratio 17.1 (10-20) Glucose 166 H (70-99(Fasting)) mg/dl POC Glucose (70-99) mg/dl Estimat Average Glucose 232 mg/dl Hemoglobin A1c 9.7 H (4.5-5.6) % Calcium 8.5 (8.5-10.1) mg/dl C-Reactive Protein 0.87 H (0-0.5) mg/dl Procalcitonin (0-0.5) ng/ml Free T4 (0.61-1.60) ng/dl Urine Color Urine Appearance (Clear) Urine pH (4.5-7.5) Ur Specific [place] (1.000-1.030) Urine Protein (Negative) Urine Glucose (UA) (Negative) Urine Ketones (Negative) Urine Blood (Negative) Urine Nitrite (Negative) Urine Bilirubin (Negative) Urine Urobilinogen (Negative) Ur Leukocyte Esterase (Negative) Urine WBC (Auto) (0-5) /hpf Urine RBC (Auto) (0-4) /hpf U Hyaline Cast (Auto) (0-5) /lpf U Epithel Cells (Auto) (0-5) /lpf Urine Bacteria (Auto) (Negative) Ur Renal Epithelial Cell (0-5) /lpf Nasal Screen MRSA (PCR) (Negative) Lyme Disease IgG Ab (Negative) Lyme Disease IgM Ab (Negative) SARS-CoV-2, RNA, NAAT (NEGATIVE) 04/16/22 04/15/22 04/15/22 Range/Units 02:50 20:45 18:45 WBC (4.8-10.8) K/ul RBC (4.63-6.08) M/uL Hgb (14.0-18.0) g/dl Hct (40.1-51.0) % MCV (80.0-100.0) fL MCH (25.0-34.0) pg MCHC (32.0-36.0) g/dL RDW Std Deviation (36.4-46.3) fL RDW Coeff of Johnnie (11.5-14.5) % Plt Count (130-400) K/uL MPV (9.4-12.4) fL Immature Gran % (Auto) % Neut % (Auto) % Lymph % (Auto) % [place] % (Auto) % Eos % (Auto) % Baso % (Auto) % Neut # (Auto) (1.4-6.5) K/uL Lymph # (Auto) (1.2-3.4) K/uL [place] # (Auto) (0.24-0.82) K/uL Eos # (Auto) (0-0.50) K/uL Baso # (Auto) (0-0.2) K/uL Immature Gran # (Auto) (0.00-0.02) K/uL ESR (0-20) mm/hr Sodium (136-145) mmol/L Potassium Chloride (98-107) mmol/L Carbon Dioxide (21-32) mmol/L Anion Gap (3-11) BUN (6-23) mg/dl Creatinine (0.6-1.4) mg/dl Est Cr Clr Drug Dosing ml/min Est GFR ( Amer) ml/min Est GFR (Non-Af Amer) ml/min BUN/Creatinine Ratio (10-20) Glucose (70-99(Fasting)) mg/dl POC Glucose 190 H 160 H (70-99) mg/dl Estimat Average Glucose mg/dl Hemoglobin A1c (4.5-5.6) % Calcium (8.5-10.1) mg/dl C-Reactive Protein (0-0.5) mg/dl Procalcitonin (0-0.5) ng/ml Free T4 (0.61-1.60) ng/dl Urine Color Urine Appearance (Clear) Urine pH (4.5-7.5) Ur Specific [place] (1.000-1.030) Urine Protein (Negative) Urine Glucose (UA) (Negative) Urine Ketones (Negative) Urine Blood (Negative) Urine Nitrite (Negative) Urine Bilirubin (Negative) Urine Urobilinogen (Negative) Ur Leukocyte Esterase (Negative) Urine WBC (Auto) (0-5) /hpf Urine RBC (Auto) (0-4) /hpf U Hyaline Cast (Auto) (0-5) /lpf U Epithel Cells (Auto) (0-5) /lpf Urine Bacteria (Auto) (Negative) Ur Renal Epithelial Cell (0-5) /lpf Nasal Screen MRSA (PCR) Negative (Negative) Lyme Disease IgG Ab (Negative) Lyme Disease IgM Ab (Negative) SARS-CoV-2, RNA, NAAT (NEGATIVE) 04/15/22 04/15/22 04/15/22 Range/Units 15:42 14:37 14:37 WBC (4.8-10.8) K/ul RBC (4.63-6.08) M/uL Hgb (14.0-18.0) g/dl Hct (40.1-51.0) % MCV (80.0-100.0) fL MCH (25.0-34.0) pg MCHC (32.0-36.0) g/dL RDW Std Deviation (36.4-46.3) fL RDW Coeff of Johnnie (11.5-14.5) % Plt Count (130-400) K/uL MPV (9.4-12.4) fL Immature Gran % (Auto) % Neut % (Auto) % Lymph % (Auto) % [place] % (Auto) % Eos % (Auto) % Baso % (Auto) % Neut # (Auto) (1.4-6.5) K/uL Lymph # (Auto) (1.2-3.4) K/uL [place] # (Auto) (0.24-0.82) K/uL Eos # (Auto) (0-0.50) K/uL Baso # (Auto) (0-0.2) K/uL Immature Gran # (Auto) (0.00-0.02) K/uL ESR (0-20) mm/hr Sodium (136-145) mmol/L Potassium Chloride (98-107) mmol/L Carbon Dioxide (21-32) mmol/L Anion Gap (3-11) BUN (6-23) mg/dl Creatinine (0.6-1.4) mg/dl Est Cr Clr Drug Dosing ml/min Est GFR ( Amer) ml/min Est GFR (Non-Af Amer) ml/min BUN/Creatinine Ratio (10-20) Glucose (70-99(Fasting)) mg/dl POC Glucose (70-99) mg/dl Estimat Average Glucose mg/dl Hemoglobin A1c (4.5-5.6) % Calcium (8.5-10.1) mg/dl C-Reactive Protein (0-0.5) mg/dl Procalcitonin < 0.05 (0-0.5) ng/ml Free T4 0.71 (0.61-1.60) ng/dl Urine Color Urine Appearance (Clear) Urine pH (4.5-7.5) Ur Specific [place] (1.000-1.030) Urine Protein (Negative) Urine Glucose (UA) (Negative) Urine Ketones (Negative) Urine Blood (Negative) Urine Nitrite (Negative) Urine Bilirubin (Negative) Urine Urobilinogen (Negative) Ur Leukocyte Esterase (Negative) Urine WBC (Auto) (0-5) /hpf Urine RBC (Auto) (0-4) /hpf U Hyaline Cast (Auto) (0-5) /lpf U Epithel Cells (Auto) (0-5) /lpf Urine Bacteria (Auto) (Negative) Ur Renal Epithelial Cell (0-5) /lpf Nasal Screen MRSA (PCR) (Negative) Lyme Disease IgG Ab (Negative) Lyme Disease IgM Ab (Negative) SARS-CoV-2, RNA, NAAT NEGATIVE (NEGATIVE) Diagnostic Findings Chest X-Ray 04/16/22 11:16 SINGLE VIEW CHEST CLINICAL HISTORY: Hypoxia. FINDINGS: An AP, portable, upright chest radiograph is compared to study dated 04/15/2022. The heart is mildly enlarged noting atherosclerotic calcification of the thoracic aorta. The pulmonary vasculature is noncongested. Chronic residual thickening is similar to previous. There are low lung volumes with bibasilar atelectasis and elevation of the left hemidiaphragm. The lungs and pleural spaces are otherwise clear. No pneumothorax is seen. The skeletal structures are osteopenic. The bony thorax is grossly intact. IMPRESSION: Low lung volumes with no active disease in the chest. ACT 112: Negative or not required by law. Electronically signed by: Terry Forrest M.D. 04/16/2022 1:54 PM PG Care Time/CCT Total # of Minutes Spent Total Time Spent with Patient: Total time spent is greater than 50% in coordination of care (as documented) at patient's floor/unit and/or counseling patient: Coding Level of Care Code 96073 Subseq Hosp Care Lvl 3 Diagnoses Cellulitis of hip, left L03.116 Osteoarthritis M19.90 Type 2 diabetes mellitus E11.9 Chronic kidney disease, stage 3a N18.31 HTN (hypertension) I10 Hyperlipidemia E78.5 Hypothyroidism E03.9 Depression F32.9
[2022-04-16 08:33] LABS: Basophils # (auto) 0.05 K/uL (0-0.2); Basophils % (auto) 0.6 %; Eosinophils # (auto) 0.45 K/uL (0-0.50); Eosinophils % (auto) 5.4 %; Hemoglobin 12.6 g/dl (14.0-18.0); Immature Granulocytes # (auto) 0.03 K/uL (0.00-0.02); Immature Granulocytes % (auto) 0.4 %; Lymphocytes # (auto) 2.89 K/uL (1.2-3.4); Lymphocytes % (auto) 34.6 %; Mean Corpuscular Hemoglobin 30.4 pg (25.0-34.0); Mean Corpuscular Hgb Conc 33.2 g/dL (32.0-36.0); Mean Corpuscular Volume 91.6 fL (80.0-100.0); Monocytes # (auto) 0.75 K/uL (0.24-0.82); Neutrophils # (auto) 4.19 K/uL (1.4-6.5); Platelet Count 183 K/uL (130-400); RDW Coefficient of Variation 13.3 % (11.5-14.5); RDW Standard Deviation 45.5 fL (36.4-46.3); Red Blood Count 4.15 M/uL (4.63-6.08); White Blood Count 8.36 K/ul (4.8-10.8)
[2022-04-16 09:06] LABS: Anion Gap 5 (3-11); BUN Creatinine Ratio 17.1 (10-20); Blood Urea Nitrogen 20 mg/dl (6-23); C Reactive Protein 0.87 mg/dl (0-0.5); Calcium 8.5 mg/dl (8.5-10.1); Carbon Dioxide 27 mmol/L (21-32); Chloride 105 mmol/L (98-107); Creatinine Clr Calc Pharmacy 52.2 ml/min; Est GFR (African American) 64.1 ml/min; Est GFR (Non-African American) 55.3 ml/min; Glucose 166 mg/dl (70-99(Fasting)); Sodium 137 mmol/L (136-145)
[2022-04-16] MEDS: LANTUS PER UNIT CHARGE SQ SCH ×2 (09:16→20:40)
[2022-04-16] MEDS: INSULIN ASPART PER UNIT SC SCH ×4 (09:16→20:40)
[2022-04-16 09:19] LABS: Estimated Average Glucose 232 mg/dl; Hemoglobin A1C 9.7 % (4.5-5.6)
[2022-04-16] MEDS: cefTRIAXone SODIUM 2,000 MG in DEXTROSE 5% 50 ML IV SCH (09:24)
[2022-04-16] MEDS: OXYBUTYNIN CHLORIDE 5 MG TAB PO SCH (09:29)
[2022-04-16] MEDS: SERTRALINE HCL 100 MG TABLET PO SCH (09:29)
[2022-04-16] MEDS: LOSARTAN POTASSIUM 25 MG TAB PO SCH (09:29)
[2022-04-16] MEDS: CYANOCOBALAMIN (B-12) 500 MCG TABLET PO SCH (09:30)
[2022-04-16] MEDS: DOCUSATE SODIUM 100 MG CAP PO SCH ×2 (09:41→20:39)
[2022-04-16] MEDS: busPIRone 5 MG TAB PO SCH ×2 (10:32→20:38)
[2022-04-16 10:51] LABS: Appearance Urine Clear (Clear); Bacteria Urine Automated Negative (Negative); Bilirubin Urine Negative (Negative); Blood Urine Trace (Negative); Color Urine Yellow; Epithelial Cell Urine Auto >30 /lpf (0-5); Glucose Urine UA Negative (Negative); Ketones Urine Negative (Negative); Leukocyte Esterase Urine Negative (Negative); Nitrite Urine Negative (Negative); Protein Urine Negative (Negative); Specific Gravity Urine 1.021 (1.000-1.030); Urobilinogen Urine Negative (Negative); pH Urine 6.5 (4.5-7.5)
[2022-04-16] MEDS: FAMOTIDINE 20 MG in SYRINGE 3 ML IV SCH (11:54)
--- NOTE | 2022-04-16 13:55 | XRay Report ---
SINGLE VIEW CHEST CLINICAL HISTORY: Hypoxia. FINDINGS: An AP, portable, upright chest radiograph is compared to study dated 04/15/2022. The heart i s mildly enlarged noting atherosclerotic calcification of the thoracic aorta. The pulmonary vasculatu re is noncongested. Chronic residual thickening is similar to previous. There are low lung volumes wi th bibasilar atelectasis and elevation of the left hemidiaphragm. The lungs and pleural spaces are ot herwise clear. No pneumothorax is seen. The skeletal structures are osteopenic. The bony thorax is gr ossly intact. IMPRESSION: Low lung volumes with no active disease in the chest. ACT 112: Negative or not required by law. Electronically signed by: Terry Forrest M.D. 04/16/2022 1:54 PM
[2022-04-16 14:26] LABS: Lyme Ab IgM w/WB Rflx Negative (Negative)
[2022-04-16 14:29] LABS: Lyme Ab IgG w/WB Rflx Negative (Negative)
[2022-04-16] MEDS ORDERED: diphenhydrAMINE 50 MG/ML VIAL IV PRN (15:41)
[2022-04-16] MEDS: OLANZapine 5 MG TABLET PO SCH (20:38)
[2022-04-17] MEDS: LEVOTHYROXINE SODIUM 50 MCG TABLET PO SCH (05:45)
[2022-04-17] MEDS: OXYBUTYNIN CHLORIDE 5 MG TAB PO SCH (07:52)
[2022-04-17] MEDS: LOSARTAN POTASSIUM 25 MG TAB PO SCH (07:52)
[2022-04-17] MEDS: SERTRALINE HCL 100 MG TABLET PO SCH (07:52)
[2022-04-17] MEDS: busPIRone 5 MG TAB PO SCH ×2 (07:53→21:15)
[2022-04-17] MEDS: CYANOCOBALAMIN (B-12) 500 MCG TABLET PO SCH (07:53)
[2022-04-17] MEDS: ARTIFICIAL TEARS OPB SCH ×2 (07:54→21:16)
[2022-04-17] MEDS: cefTRIAXone SODIUM 2,000 MG in DEXTROSE 5% 50 ML IV SCH (08:01)
[2022-04-17] MEDS: FAMOTIDINE 20 MG in SYRINGE 3 ML IV SCH (08:01)
[2022-04-17 08:18] LABS: Basophils # (auto) 0.07 K/uL (0-0.2); Basophils % (auto) 0.9 %; Eosinophils # (auto) 0.35 K/uL (0-0.50); Eosinophils % (auto) 4.3 %; Hematocrit (blood only) 40.9 % (40.1-51.0); Hemoglobin 13.4 g/dl (14.0-18.0); Immature Granulocytes # (auto) 0.05 K/uL (0.00-0.02); Immature Granulocytes % (auto) 0.6 %; Lymphocytes # (auto) 2.41 K/uL (1.2-3.4); Lymphocytes % (auto) 29.7 %; Mean Corpuscular Hemoglobin 30.2 pg (25.0-34.0); Mean Corpuscular Hgb Conc 32.8 g/dL (32.0-36.0); Mean Corpuscular Volume 92.1 fL (80.0-100.0); Mean Platelet Volume 9.8 fL (9.4-12.4); Monocytes # (auto) 0.71 K/uL (0.24-0.82); Monocytes % (auto) 8.8 %; Neutrophils # (auto) 4.52 K/uL (1.4-6.5); Neutrophils % (auto) 55.7 %; Platelet Count 188 K/uL (130-400); RDW Coefficient of Variation 13.3 % (11.5-14.5); RDW Standard Deviation 45.4 fL (36.4-46.3); Red Blood Count 4.44 M/uL (4.63-6.08); White Blood Count 8.11 K/ul (4.8-10.8)
--- NOTE | 2022-04-17 08:25 | Hospitalist Progress Note ---
Date of Service April 17, 2022 Assessment & Plan (1) Cellulitis of hip, left: Plan: Found at [facility] in bathroom (history of dementia, Alzheimers), complaining of bilateral hip pain. Xray of hip with severe left hip osteoarthritis, no fracture or dislocation Of note, last June, patient seen by orthopedics for subchondral collapse noted in the left hip. They recommended NWB at that time and patient mostly wheelchair bound CTAP with bilateral nephrolithiasis, no ureteral stones or obstruction. Severe left and moderate right hip OA. No acute fractures. Does note :Mild skin thickening and subcutaneous fat stranding within the left lateral hip likely representing a cellulitis. No underlying abscess or bony destruction to suggest an osteomyelitis. No evidence for sepsis on admission. WBC, procal, lactic wnl. AFEBRILE ESR/CRP checked -- ESR not significantly elevated to suggest PMR or need for CT hip to r/o infection Given Unasyn x1 in ER (allergy to keflex listed) Placed on ceftriaxone daily (got 10% dose without reaction noted) and this was continued (day 3) Did have some focal erythema to L elbow back (not worsened, back almost resolved), ?from Unasyn given in ER. Given dose of pepcid and continued IV daily. Benadryl available if needed but appears improved Titrate O2 to maintain saturations, currently 92% on 2L (?degree of underlying sleep apnea/OCTAVIO, will check overnight pulse ox) No wheezing on examination but poor inspiratory effort CXR with low lung volumes (Prior admit for rib fx, b/l pneumonia) Encouraged incentive spirometer Did get 1L IVF for mildly elevated CK but not signicant enough to suspect rhabdo Statin held last evening as was continued on admit, repeat CK wnl give 20mg po lasix x 1 for LE edema, no wheezing on exam, CXR without overt congestion (does report double meals at [facility], likely cause for elevated A1c compared to last year along w/ med change) Lyme negative --Did have some focal erythema to L elbow/back, ?from unasyn more closely related given last night vs from rocephin. Will monitor for now, but continue current course for now. Pepcid IVP daily added. Will add benadryl if needed prn in meantime but cautious use in elderly patient to avoid confusion (CT head negative on admit) Was 88% on RA on admission around 16:48 (unasyn given 15:59) Titrate to maintain sats, currently on 2L Poor inspiratory effort. Incentive spirometer ordered, encouraged with patient today. Risk for developing pneumonia (had b/l pneumonia last year) Did get 1L IVF for mildly elevated CK 448 on admit/dry mm Did get his statin last evening, will place on hold temporarily and check CK w/ am labs -- CK 181 wnl. Can resume statin for this evening ?viral ?if rhabdo causing weakness more the complaint on admission given poor historian causing pain to his left hip (chronic issue, collapse of subchondral space 2020) Checked Lyme -- NEGATIVE Pain control -- none reported today/need for medication and continue tylenol (got dose this morning) , voltaren topical (will schedule as not requested) PT/OT consulted -- from [facility] To return to [facility] if staff able to provide assistance vs higher level of care required. CM to follow (2) Osteoarthritis: Plan: Severe bilateral hip osteoarthritis, chronic. Eval'd last year Outpatient f/u PCP. Ortho stated last year not candidate for surgery and primarily wheelchair bound at that time Pain control, PT/OT evals Topical voltaren (3) Hypothyroidism: Plan: Continue levothyroxine 50 mcg daily. - TSH 7.356, free T4 0.71 -- could consider increasing but rec repeat TFT in 6 weeks with PCP as likely reactive from current cellulitis/infection as above (4) HTN (hypertension): Plan: BP stable, lower end of normal this morning but asymptomatic CT head on admit negative Losartan held this morning due to lower BP, lasix 20mg PO this afternoon for slight volume overload/LE edema (5) Hyperlipidemia: Plan: Continue simvastatin 40 mg at night --> placed on hold for tonight given IVF for elevated CK and check labs in am (6) Type 2 diabetes mellitus: Plan: Prior A1c 7.7 in May 2020, on glipizide at home Repeat A1c elevated to 9.7 on am labs (checked anemia labs to ensure accurate, wnl) Of note, patient had glimepiride discontinued in Sep, placed on glipizide DM educator consulted -- per discussion at [facility], requests double food portions Also with medication switch likely causing worsening While inpatient, lantus 9u BID, SSI BSGs acceptable Consider increased glipizide vs januvia vs once daily insulin at discharge with outpt f/u. Will discuss with supervising provider (7) Chronic kidney disease, stage 3a: Plan: Cr 1.3 on admission, at baseline Got 1L IVF overnight on admission, repeat Cr stable Renal dose meds/avoid renal toxic as able Monitor (8) Depression: Plan: Continue Zoloft 100 mg daily, BuSpar 2.5 mg daily twice daily. Plan SCDs for DVT prophylaxis, ambulation encouraged (bed bound at baseline), added Lovenox SQ while inpatient No evidence for DVT presently (has symmetric LE dependent edema, calves nontender), however could consider dopplers given fairly chronic immobilized state at baseline lasix x 1 for LE edema /continued hypoxia but suspect more related to poor inspiratory effort and increased risk for pneumonia Admission and Anticipated Discharge Date Admission Date: April 16, 2022 Supervising Physician Co-Signing Physician Notes PA Supervision Note: I did not personally see or examine the patient today, but I verified all wisdom points of HUGO Brunner's assessment and plan with the following exceptions/additions: None Subjective Patient evaluated this morning. Feeling better. Denies pain to his hip today. Erythema to his right elbow not worsened and planning to continue current course. Patient knows he is in the hospital but thought the year was 1987, history of underlying dementia and per prior reports is essentially bed bound at [facility]. Patient denies any fever/chills, chest pain or shortness of breath, but still requiring supplemental oxygen to maintain saturations. Poor inspiratory effort and encouraged RN to use incentive spirometer with patient to prevent pneumonia. Denies any cough/sputum production. Prior admits for pneumonia with bilateral rib fractures. Vitamin D level checked and significantly low at 9.4, PTH not significantly elevated and calcium normal at 9.0 with normal albumin. Review of Systems Review of Systems: All systems reviewed & are unremarkable except as noted in HPI & below Physical Exam Physical Exam: General: WD/WN male, chronically ill appearing, sitting up in chair eating breakfast, no acute distress, improvement in energy level reported HEENT: head normocephalic, atraumatic, trachea midline without deviation, mm appear slightly dry but improved from the day prior Resp: poor inspiratory effort, diminished in the bases with associated crackles, no wheezing, on 2L NC CV: RRR, no m/r/g, no calf tenderness, trace dependent edema GI: +BS, soft, nontender : no Alvarez MSK/Neuro: moves all extremities, strength intact bilaterally, no facial droop/slurred speech cellulitis to LEFT hip with prior excoriations, erythema much improved, almost resolved, nontender to palpation, ROM intact without increased pain reported Psych: alert to person, place (knows [facility]), not time/events (thought it was 1980s), fatigued appearing Skin: erythema to left hip almost resolved, erythema to L elbow without extension, nontender and denies itchiness, no wheels Results & Data Results & Data ([facility]) Vital Signs (Past 12 Hours) Vital Signs Temp Pulse Resp BP Pulse Ox O2 Del Method O2 Flow Rate 04/17/22 07:49 36.6 C 76 16 96/47 L 90 04/16/22 21:21 36.8 C 74 18 135/73 91 Nasal Cannula 2.0 Laboratory Results 04/17/22 04/17/22 04/17/22 Range/Units 11:48 08:09 07:28 WBC (4.8-10.8) K/ul RBC (4.63-6.08) M/uL Hgb (14.0-18.0) g/dl Hct (40.1-51.0) % MCV (80.0-100.0) fL MCH (25.0-34.0) pg MCHC (32.0-36.0) g/dL RDW Std Deviation (36.4-46.3) fL RDW Coeff of Johnnie (11.5-14.5) % Plt Count (130-400) K/uL MPV (9.4-12.4) fL Immature Gran % (Auto) % Neut % (Auto) % Lymph % (Auto) % [place] % (Auto) % Eos % (Auto) % Baso % (Auto) % Neut # (Auto) (1.4-6.5) K/uL Lymph # (Auto) (1.2-3.4) K/uL [place] # (Auto) (0.24-0.82) K/uL Eos # (Auto) (0-0.50) K/uL Baso # (Auto) (0-0.2) K/uL Immature Gran # (Auto) (0.00-0.02) K/uL Sodium (136-145) mmol/L Potassium (3.5-5.1) mmol/L Chloride (98-107) mmol/L Carbon Dioxide (21-32) mmol/L Anion Gap (3-11) BUN (6-23) mg/dl Creatinine (0.6-1.4) mg/dl Est Cr Clr Drug Dosing ml/min Est GFR ( Amer) ml/min Est GFR (Non-Af Amer) ml/min BUN/Creatinine Ratio (10-20) Glucose (70-99(Fasting)) mg/dl POC Glucose 170 H 126 H (70-99) mg/dl Calcium (8.5-10.1) mg/dl Phosphorus 3.7 (2.5-4.9) mg/dl Magnesium (1.7-2.4) mg/dl Iron (35-175) mcg/dl TIBC (250-450) mcg/dl Unsaturated IBC (155-355) mcg/dl Transferrin % Sat (20-50) % Ferritin (8-388) ng/ml Total Bilirubin (0.2-1.0) mg/dl AST (13-39) U/L ALT (7-52) U/L Alkaline Phosphatase (34-104) U/L Total Creatine Kinase (30-223) U/L Total Protein (6.0-8.3) gm/dl Albumin (3.4-5.0) gm/dl Globulin (2.5-4.0) gm/dl Albumin/Globulin Ratio (0.9-2) Vitamin B12 (180-914) pg/ml 25-OH Vitamin D Total (30-100) ng/ml Folate (>5.38) ng/ml PTH Intact (12.0-88.0) pg/ml Lyme Disease IgG Ab (Negative) Lyme Disease IgM Ab (Negative) 04/17/22 04/17/22 04/17/22 Range/Units 07:28 07:28 07:28 WBC (4.8-10.8) K/ul RBC (4.63-6.08) M/uL Hgb (14.0-18.0) g/dl Hct (40.1-51.0) % MCV (80.0-100.0) fL MCH (25.0-34.0) pg MCHC (32.0-36.0) g/dL RDW Std Deviation (36.4-46.3) fL RDW Coeff of Johnnie (11.5-14.5) % Plt Count (130-400) K/uL MPV (9.4-12.4) fL Immature Gran % (Auto) % Neut % (Auto) % Lymph % (Auto) % [place] % (Auto) % Eos % (Auto) % Baso % (Auto) % Neut # (Auto) (1.4-6.5) K/uL Lymph # (Auto) (1.2-3.4) K/uL [place] # (Auto) (0.24-0.82) K/uL Eos # (Auto) (0-0.50) K/uL Baso # (Auto) (0-0.2) K/uL Immature Gran # (Auto) (0.00-0.02) K/uL Sodium (136-145) mmol/L Potassium (3.5-5.1) mmol/L Chloride (98-107) mmol/L Carbon Dioxide (21-32) mmol/L Anion Gap (3-11) BUN (6-23) mg/dl Creatinine (0.6-1.4) mg/dl Est Cr Clr Drug Dosing ml/min Est GFR ( Amer) ml/min Est GFR (Non-Af Amer) ml/min BUN/Creatinine Ratio (10-20) Glucose (70-99(Fasting)) mg/dl POC Glucose (70-99) mg/dl Calcium (8.5-10.1) mg/dl Phosphorus (2.5-4.9) mg/dl Magnesium (1.7-2.4) mg/dl Iron Cancelled (35-175) mcg/dl TIBC Cancelled (250-450) mcg/dl Unsaturated IBC Cancelled (155-355) mcg/dl Transferrin % Sat Cancelled (20-50) % Ferritin (8-388) ng/ml Total Bilirubin (0.2-1.0) mg/dl AST (13-39) U/L ALT (7-52) U/L Alkaline Phosphatase (34-104) U/L Total Creatine Kinase (30-223) U/L Total Protein (6.0-8.3) gm/dl Albumin (3.4-5.0) gm/dl Globulin (2.5-4.0) gm/dl Albumin/Globulin Ratio (0.9-2) Vitamin B12 > 1500 H (180-914) pg/ml 25-OH Vitamin D Total 9.4 L (30-100) ng/ml Folate > 22.30 (>5.38) ng/ml PTH Intact 51.3 (12.0-88.0) pg/ml Lyme Disease IgG Ab (Negative) Lyme Disease IgM Ab (Negative) 04/17/22 04/17/22 04/16/22 Range/Units 07:28 07:28 20:33 WBC 8.11 (4.8-10.8) K/ul RBC 4.44 L (4.63-6.08) M/uL Hgb 13.4 L (14.0-18.0) g/dl Hct 40.9 (40.1-51.0) % MCV 92.1 (80.0-100.0) fL MCH 30.2 (25.0-34.0) pg MCHC 32.8 (32.0-36.0) g/dL RDW Std Deviation 45.4 (36.4-46.3) fL RDW Coeff of Johnnie 13.3 (11.5-14.5) % Plt Count 188 (130-400) K/uL MPV 9.8 (9.4-12.4) fL Immature Gran % (Auto) 0.6 % Neut % (Auto) 55.7 % Lymph % (Auto) 29.7 % [place] % (Auto) 8.8 % Eos % (Auto) 4.3 % Baso % (Auto) 0.9 % Neut # (Auto) 4.52 (1.4-6.5) K/uL Lymph # (Auto) 2.41 (1.2-3.4) K/uL [place] # (Auto) 0.71 (0.24-0.82) K/uL Eos # (Auto) 0.35 (0-0.50) K/uL Baso # (Auto) 0.07 (0-0.2) K/uL Immature Gran # (Auto) 0.05 H (0.00-0.02) K/uL Sodium 138 (136-145) mmol/L Potassium 4.4 (3.5-5.1) mmol/L Chloride 103 (98-107) mmol/L Carbon Dioxide 29 (21-32) mmol/L Anion Gap 6 (3-11) BUN 18 (6-23) mg/dl Creatinine 1.20 (0.6-1.4) mg/dl Est Cr Clr Drug Dosing 49.2 ml/min Est GFR ( Amer) 62.2 ml/min Est GFR (Non-Af Amer) 53.7 ml/min BUN/Creatinine Ratio 15.0 (10-20) Glucose 135 H (70-99(Fasting)) mg/dl POC Glucose 170 H (70-99) mg/dl Calcium 9.0 (8.5-10.1) mg/dl Phosphorus (2.5-4.9) mg/dl Magnesium 1.9 (1.7-2.4) mg/dl Iron 69 (35-175) mcg/dl TIBC 281 (250-450) mcg/dl Unsaturated IBC 212 (155-355) mcg/dl Transferrin % Sat 25 (20-50) % Ferritin 143.9 (8-388) ng/ml Total Bilirubin 0.7 (0.2-1.0) mg/dl AST 22 (13-39) U/L ALT 17 (7-52) U/L Alkaline Phosphatase 75 (34-104) U/L Total Creatine Kinase 181 (30-223) U/L Total Protein 6.6 (6.0-8.3) gm/dl Albumin 3.5 (3.4-5.0) gm/dl Globulin 3.1 (2.5-4.0) gm/dl Albumin/Globulin Ratio 1.1 (0.9-2) Vitamin B12 (180-914) pg/ml 25-OH Vitamin D Total (30-100) ng/ml Folate (>5.38) ng/ml PTH Intact (12.0-88.0) pg/ml Lyme Disease IgG Ab (Negative) Lyme Disease IgM Ab (Negative) 04/16/22 04/16/22 Range/Units 17:22 12:47 WBC (4.8-10.8) K/ul RBC (4.63-6.08) M/uL Hgb (14.0-18.0) g/dl Hct (40.1-51.0) % MCV (80.0-100.0) fL MCH (25.0-34.0) pg MCHC (32.0-36.0) g/dL RDW Std Deviation (36.4-46.3) fL RDW Coeff of Johnnie (11.5-14.5) % Plt Count (130-400) K/uL MPV (9.4-12.4) fL Immature Gran % (Auto) % Neut % (Auto) % Lymph % (Auto) % [place] % (Auto) % Eos % (Auto) % Baso % (Auto) % Neut # (Auto) (1.4-6.5) K/uL Lymph # (Auto) (1.2-3.4) K/uL [place] # (Auto) (0.24-0.82) K/uL Eos # (Auto) (0-0.50) K/uL Baso # (Auto) (0-0.2) K/uL Immature Gran # (Auto) (0.00-0.02) K/uL Sodium (136-145) mmol/L Potassium (3.5-5.1) mmol/L Chloride (98-107) mmol/L Carbon Dioxide (21-32) mmol/L Anion Gap (3-11) BUN (6-23) mg/dl Creatinine (0.6-1.4) mg/dl Est Cr Clr Drug Dosing ml/min Est GFR ( Amer) ml/min Est GFR (Non-Af Amer) ml/min BUN/Creatinine Ratio (10-20) Glucose (70-99(Fasting)) mg/dl POC Glucose 168 H (70-99) mg/dl Calcium (8.5-10.1) mg/dl Phosphorus (2.5-4.9) mg/dl Magnesium (1.7-2.4) mg/dl Iron (35-175) mcg/dl TIBC (250-450) mcg/dl Unsaturated IBC (155-355) mcg/dl Transferrin % Sat (20-50) % Ferritin (8-388) ng/ml Total Bilirubin (0.2-1.0) mg/dl AST (13-39) U/L ALT (7-52) U/L Alkaline Phosphatase (34-104) U/L Total Creatine Kinase (30-223) U/L Total Protein (6.0-8.3) gm/dl Albumin (3.4-5.0) gm/dl Globulin (2.5-4.0) gm/dl Albumin/Globulin Ratio (0.9-2) Vitamin B12 (180-914) pg/ml 25-OH Vitamin D Total (30-100) ng/ml Folate (>5.38) ng/ml PTH Intact (12.0-88.0) pg/ml Lyme Disease IgG Ab Negative (Negative) Lyme Disease IgM Ab Negative (Negative) PG Care Time/CCT Total # of Minutes Spent Total Time Spent with Patient: Total time spent is greater than 50% in coordination of care (as documented) at patient's floor/unit and/or counseling patient: Coding Level of Care Code 12216 Subseq Hosp Care Lvl 3 Diagnoses Cellulitis of hip, left L03.116 Osteoarthritis M19.90 Hypothyroidism E03.9 HTN (hypertension) I10 Hyperlipidemia E78.5 Type 2 diabetes mellitus E11.9 Chronic kidney disease, stage 3a N18.31 Depression F32.9
[2022-04-17 08:47] LABS: Albumin Globulin Ratio 1.1 (0.9-2); Albumin Level 3.5 gm/dl (3.4-5.0); Bilirubin,Total 0.7 mg/dl (0.2-1.0); Creatinine Clr Calc Pharmacy 49.2 ml/min; Est GFR (African American) 62.2 ml/min; Est GFR (Non-African American) 53.7 ml/min; Globulin 3.1 gm/dl (2.5-4.0); Magnesium 1.9 mg/dl (1.7-2.4); Potassium 4.4 mmol/L (3.5-5.1); Total Protein 6.6 gm/dl (6.0-8.3)
[2022-04-17] MEDS: DOCUSATE SODIUM 100 MG CAP PO SCH ×2 (08:53→21:15)
[2022-04-17] MEDS: INSULIN ASPART PER UNIT SC SCH ×4 (08:53→21:22)
[2022-04-17] MEDS: LANTUS PER UNIT CHARGE SQ SCH ×2 (08:54→21:22)
[2022-04-17 09:00] LABS: Ferritin 143.9 ng/ml (8-388)
[2022-04-17 09:07] LABS: Folate (Folic Acid) > 22.30 ng/ml (>5.38)
[2022-04-17 09:08] LABS: Vitamin B12 > 1500 pg/ml (180-914)
[2022-04-17 09:11] LABS: Vitamin D, 25 Hydrox 9.4 ng/ml (30-100)
[2022-04-17] MEDS ORDERED: ERGOCALCIFEROL 50,000 UNITS 1250 MCG CAP PO SCH (09:45)
--- NOTE | 2022-04-17 13:47 | XRay Report ---
SINGLE VIEW CHEST CLINICAL HISTORY: Hypoxia. FINDINGS: An AP, portable, upright chest radiograph is compared to study dated 04/16/2022. The examina tion is degraded by portable technique and patient rotation. The heart is mildly enlarged noting ath erosclerotic calcification of the thoracic aorta. The pulmonary vasculature is noncongested. Chronic interstitial thickening is similar to previous. There are low lung volumes with bibasilar atelectasis . The lungs and pleural spaces are otherwise clear. No pneumothorax is seen. The skeletal structures are osteopenic. The bony thorax is grossly intact. IMPRESSION: Low lung volumes with no active disease in the chest. ACT 112: Negative or not required by law. Electronically signed by: Terry Forrest M.D. 04/17/2022 1:46 PM
[2022-04-17] MEDS ORDERED: FUROSEMIDE 20 MG TAB PO ONE (14:11)
[2022-04-17] MEDS: DICLOFENAC SOD 1% GEL 100 GM TUBE EXT SCH (16:03)
[2022-04-17] MEDS: ENOXAPARIN INJ 40 MG/0.4 ML SYR SQ SCH (16:29)
[2022-04-17] MEDS: OLANZapine 5 MG TABLET PO SCH (21:15)
[2022-04-18] MEDS: DICLOFENAC SOD 1% GEL 100 GM TUBE EXT SCH ×2 (03:24→16:31)
[2022-04-18] MEDS: LEVOTHYROXINE SODIUM 50 MCG TABLET PO SCH (06:12)
[2022-04-18] MEDS: CYANOCOBALAMIN (B-12) 500 MCG TABLET PO SCH (07:51)
[2022-04-18] MEDS: OXYBUTYNIN CHLORIDE 5 MG TAB PO SCH (07:51)
[2022-04-18] MEDS: busPIRone 5 MG TAB PO SCH ×2 (07:51→20:33)
[2022-04-18] MEDS: LOSARTAN POTASSIUM 25 MG TAB PO SCH (07:51)
[2022-04-18] MEDS: SERTRALINE HCL 100 MG TABLET PO SCH (07:51)
[2022-04-18] MEDS: cefTRIAXone SODIUM 2,000 MG in DEXTROSE 5% 50 ML IV SCH (07:52)
[2022-04-18] MEDS: FAMOTIDINE 20 MG in SYRINGE 3 ML IV SCH (07:52)
[2022-04-18] MEDS: ARTIFICIAL TEARS OPB SCH ×2 (07:52→21:24)
--- NOTE | 2022-04-18 08:00 | Hospitalist Progress Note ---
Date of Service April 18, 2022 Assessment & Plan (1) Cellulitis of hip, left: Plan: Found at [facility] in bathroom (history of dementia, Alzheimers), complaining of bilateral hip pain. Xray of hip with severe left hip osteoarthritis, no fracture or dislocation Of note, last June, patient seen by orthopedics for subchondral collapse noted in the left hip. They recommended NWB at that time and patient mostly wheelchair bound CTAP with bilateral nephrolithiasis, no ureteral stones or obstruction. Severe left and moderate right hip OA. No acute fractures. Does note :Mild skin thickening and subcutaneous fat stranding within the left lateral hip likely representing a cellulitis. No underlying abscess or bony destruction to suggest an osteomyelitis. No evidence for sepsis on admission. WBC, procal, lactic wnl. AFEBRILE ESR/CRP checked -- ESR not significantly elevated to suggest PMR or need for CT hip to r/o infection Given Unasyn x1 in ER (allergy to keflex listed) Placed on ceftriaxone daily (got 10% dose without reaction noted) and this was continued (day 4) Did have some focal erythema to L elbow back (not worsened, improved, back resolved), ?from Unasyn given in ER. Given dose of pepcid and continued IV daily. Benadryl available if needed but appears improved CXR with low lung volumes Encouraged incentive spirometer -- continued reminding w/ dementia but improvement in effort during encounter Currently titrated to 92% on RA Overnight pulse ox with drops --?underlying OCTAVIO. Would set up 2L HS ?2step prior to d/c. Given mobility issues uncertain how that test would be. *Did have elevated CK 448 on admit (given statin), 1L IVF Statin held, repeat CK wnl TSH elevated but Ft4 wnl -- given hypothyroidism/ck on admit will increase to 75mcg Lyme negative Pain control PT/OT consulted -- ?return to [facility] if able to accept. CM to follow (2) Osteoarthritis: Plan: Severe bilateral hip osteoarthritis, chronic. Eval'd last year by orthopedics, felt not candidate for surgery and primarily wheelchair bound at baseline Pain control/PT/OT (3) Hypothyroidism: Plan: Continue levothyroxine 50 mcg daily. - TSH 7.356, free T4 0.71 increased to 75mcg daily, given reports confusion (CT neg on admit)/LE edema (reported baseline), constipation repeat TFT outpt 4-6 weeks (4) Type 2 diabetes mellitus: Plan: Prior A1c 7.7 in May 2020, on glipizide at home Repeat A1c elevated to 9.7 on am labs (checked anemia labs to ensure accurate, wnl) Of note, patient had glimepiride discontinued in Sep, placed on glipizide DM educator consulted -- per discussion at [facility], requests double food portions Also with medication switch likely causing worsening While inpatient, lantus 9u BID, SSI Tightened ISS, will increase Lantus to 11u BID for elevated BSGs this afternoon to 300s (reported to be licking the syrup off the plates) Consider increased glipizide vs januvia vs once daily insulin at discharge with outpt f/u. Will discuss with supervising provider (5) HTN (hypertension): Plan: BP stable, lower end of normal this morning but asymptomatic CT head on admit negative Losartan held AM 04/17 due to lower BPs, given lasix 20mg in afternoon for slight volume overload/LE edema, improved BP 134/76 and continues on usual medications (6) Hyperlipidemia: Plan: Continue simvastatin 40 mg at night --> placed on hold given elevated CK and given IVF Resume statin/check CK in AM (7) Chronic kidney disease, stage 3a: Plan: Cr 1.3 on admission, at baseline Got 1L IVF overnight on admission, repeat Cr stable (got 20mg lasix x 1 04/17) Renal dose meds/avoid renal toxic as able Monitor (8) Depression: Plan: Continue Zoloft 100 mg daily, BuSpar 2.5 mg daily twice daily. Plan SCDs for DVT prophylaxis, ambulation encouraged (bed bound at baseline), added Lovenox SQ while inpatient No evidence for DVT presently (has symmetric LE dependent edema, calves nontender), however could consider Dopplers given fairly chronic immobilized state at baseline titrated to room air, monitor overnight [facility] to accept patient back with therapy per CM notes "wheelchair bound" at baseline however RN able to walk to bathroom albeit unstead will need 2 step prior to d/c Admission and Anticipated Discharge Date Admission Date: April 16, 2022 Supervising Physician Co-Signing Physician Notes HUGO Supervision Note: I did not personally see or examine the patient today, but I verified all wisdom points of HUGO Brunner's assessment and plan with the following exceptions/additions: None Subjective Patient evaluated this morning. States hes feeling fine, no pain to his hip today but admitted he scratched it a couple days ago and "took some meat off'. Denies pain or itchiness today. Erythema to elbow improved, also not itchy. Denies shortness of breath but needing continued encouragement of incentive spirometer. Currently on room air SpO2 92% and with improvement in inspiratory effort on examination . Does appear to have a little bit of hospital delirium currently thinking a fuller was outside of the room and "gene" came to get it. No focal deficit/slurred speech or facial droop. Eating/drinking without issue. No abdominal pain. Last BM 04/16 No issues reported by nursing. Review of Systems Review of Systems: All systems reviewed & are unremarkable except as noted in HPI & below Physical Exam Physical Exam: General: WD/WN male, chronically ill appearing, sitting up in chair eating lunch, no acute distress, improvement in energy level reported, ?delirium -- seeing fuller outside the room reported HEENT: head normocephalic, atraumatic, trachea midline without deviation, mmm Resp: improvement in inspiratory effort, not tachypneic, no w/c, 92% on RA CV: RRR (rate 98bpm), no m/r/g, no calf tenderness, trace dependent edema GI: +BS, soft, nontender : no Alvarez MSK/Neuro: moves all extremities, strength diminished but intact bilaterally wheelchair bound reported at baseline, no facial droop/slurred speech erythema almost completely resolved to L hip, nontender, prior excoriations noted, no new lesions, no increased pain with ROM Psych: alert to person, place (knows in hospital but thought was in [place]), year in , Skin: erythema to left hip almost resolved, erythema to L elbow without extension, nontender and denies itchiness, no wheels Results & Data Results & Data ([facility]) Vital Signs (Past 12 Hours) Vital Signs Temp Pulse Pulse Resp BP Pulse Ox Pulse Ox 04/18/22 07:25 36.8 C 86 16 159/85 H 92 04/18/22 03:25 80 93 04/18/22 02:04 93 04/18/22 00:05 74 91 08/23/22 22:45 36.9 C 77 18 143/84 H 88 L 04/17/22 22:01 78 90 O2 Del Method O2 Del Method O2 Flow Rate O2 Flow Rate 04/18/22 07:25 Nasal Cannula 2 04/18/22 03:25 Nasal Cannula 2 04/18/22 02:04 Room Air 04/18/22 00:05 Room Air 04/17/22 22:45 Room Air 04/17/22 22:01 Room Air Laboratory Results 04/18/22 04/18/22 04/18/22 Range/Units 11:58 07:53 07:15 Sodium 137 (136-145) mmol/L Potassium 4.1 (3.5-5.1) mmol/L Chloride 101 (98-107) mmol/L Carbon Dioxide 30 (21-32) mmol/L Anion Gap 6 (3-11) BUN 20 (6-23) mg/dl Creatinine 1.29 (0.6-1.4) mg/dl Est Cr Clr Drug Dosing 45.6 ml/min Est GFR ( Amer) 57.0 ml/min Est GFR (Non-Af Amer) 49.2 ml/min BUN/Creatinine Ratio 15.5 (10-20) Glucose 165 H (70-99(Fasting)) mg/dl POC Glucose 319 H* 162 H (70-99) mg/dl Calcium 9.0 (8.5-10.1) mg/dl Magnesium 1.9 (1.7-2.4) mg/dl Total Bilirubin 0.6 (0.2-1.0) mg/dl AST 22 (13-39) U/L ALT 18 (7-52) U/L Alkaline Phosphatase 80 (34-104) U/L Total Protein 7.0 (6.0-8.3) gm/dl Albumin 3.6 (3.4-5.0) gm/dl Globulin 3.4 (2.5-4.0) gm/dl Albumin/Globulin Ratio 1.1 (0.9-2) 04/17/22 04/17/22 Range/Units 20:49 16:53 Sodium (136-145) mmol/L Potassium (3.5-5.1) mmol/L Chloride (98-107) mmol/L Carbon Dioxide (21-32) mmol/L Anion Gap (3-11) BUN (6-23) mg/dl Creatinine (0.6-1.4) mg/dl Est Cr Clr Drug Dosing ml/min Est GFR ( Amer) ml/min Est GFR (Non-Af Amer) ml/min BUN/Creatinine Ratio (10-20) Glucose (70-99(Fasting)) mg/dl POC Glucose 170 H 146 H (70-99) mg/dl Calcium (8.5-10.1) mg/dl Magnesium (1.7-2.4) mg/dl Total Bilirubin (0.2-1.0) mg/dl AST (13-39) U/L ALT (7-52) U/L Alkaline Phosphatase (34-104) U/L Total Protein (6.0-8.3) gm/dl Albumin (3.4-5.0) gm/dl Globulin (2.5-4.0) gm/dl Albumin/Globulin Ratio (0.9-2) PG Care Time/CCT Total # of Minutes Spent Total Time Spent with Patient: Total time spent is greater than 50% in coordination of care (as documented) at patient's floor/unit and/or counseling patient: Coding Level of Care Code 91605 Subseq Hosp Care Lvl 3 Diagnoses Cellulitis of hip, left L03.116 Osteoarthritis M19.90 Hypothyroidism E03.9 Type 2 diabetes mellitus E11.9 HTN (hypertension) I10 Hyperlipidemia E78.5 Chronic kidney disease, stage 3a N18.31 Depression F32.9
[2022-04-18 08:14] LABS: BUN Creatinine Ratio 15.5 (10-20); Creatinine Clr Calc Pharmacy 45.6 ml/min; Est GFR (Non-African American) 49.2 ml/min; Potassium 4.1 mmol/L (3.5-5.1)
[2022-04-18 08:41] LABS: Albumin Globulin Ratio 1.1 (0.9-2); Albumin Level 3.6 gm/dl (3.4-5.0); Bilirubin,Total 0.6 mg/dl (0.2-1.0); Globulin 3.4 gm/dl (2.5-4.0); Magnesium 1.9 mg/dl (1.7-2.4)
[2022-04-18] MEDS: INSULIN ASPART PER UNIT SC SCH ×4 (09:43→21:20)
[2022-04-18] MEDS: LANTUS PER UNIT CHARGE SQ SCH ×2 (09:43→21:22)
[2022-04-18] MEDS: DOCUSATE SODIUM 100 MG CAP PO SCH ×2 (09:43→20:34)
[2022-04-18] MEDS: ENOXAPARIN INJ 40 MG/0.4 ML SYR SQ SCH (16:31)
[2022-04-18] MEDS: OLANZapine 5 MG TABLET PO SCH (20:33)
[2022-04-18] MEDS: SIMVASTATIN 40 MG TAB PO SCH (22:29)
[2022-04-18] MEDS ORDERED: Nursing to Pharmacy Communication SCH (23:45)
[2022-04-19] MEDS: LEVOTHYROXINE SODIUM 75 MCG TABLET PO SCH (06:24)
[2022-04-19 07:51] LABS: Hematocrit (blood only) 37.5 % (40.1-51.0); Hemoglobin 12.5 g/dl (14.0-18.0); Mean Corpuscular Hemoglobin 30.1 pg (25.0-34.0); Mean Corpuscular Hgb Conc 33.3 g/dL (32.0-36.0); Mean Corpuscular Volume 90.4 fL (80.0-100.0); Mean Platelet Volume 10.1 fL (9.4-12.4); Platelet Count 185 K/uL (130-400); RDW Coefficient of Variation 13.4 % (11.5-14.5); RDW Standard Deviation 44.2 fL (36.4-46.3); Red Blood Count 4.15 M/uL (4.63-6.08); White Blood Count 8.25 K/ul (4.8-10.8)
--- NOTE | 2022-04-19 07:55 | Hospitalist Progress Note ---
Date of Service April 19, 2022 Assessment & Plan (1) Cellulitis of hip, left: Plan: Found at [facility] in bathroom (history of dementia, Alzheimer's), complaining of bilateral hip pain. Xray of hip with severe left hip osteoarthritis, no fracture or dislocation Of note, last June, patient seen by orthopedics for subchondral collapse noted in the left hip. They recommended NWB at that time and patient mostly wheelchair bound CTAP with bilateral nephrolithiasis, no ureteral stones or obstruction. Severe left and moderate right hip OA. No acute fractures. Does note :Mild skin thickening and subcutaneous fat stranding within the left lateral hip likely representing a cellulitis. No underlying abscess or bony destruction to suggest an osteomyelitis. No evidence for sepsis on admission. WBC, procal, lactic wnl. AFEBRILE ESR/CRP checked -- ESR not significantly elevated to suggest PMR or need for CT hip to r/o infection Given Unasyn x1 in ER (allergy to keflex listed) => placed on ceftriaxone daily, continued (day 5), can de-escalate to PO tomorrow as given IV today already Did have some focal erythema to L elbow back (not worsened, improved, back resolved), ?from Unasyn given in ER. Given dose of pepcid and continued IV daily. Benadryl available if needed but appears improved *Did have elevated CK 448 on admit (given statin), 1L IVF_. Statin held, repeat CK wnl TSH elevated but Ft4 wnl -- given hx hypothyroidism/ck on admit increased to 75mcg. Lyme negative Pain control -- none reported today Hypoxia On/off, deconditioning/atelectasis Had been requiring 1-2L to maintain saturations, no shortness of breath reported. No cough witnessed by myself or nursing. No loss of taste/smell. Covid negative on admission Titrated to room air but low normal oxygen saturations CXR with low lung volumes Encouraged incentive spirometer -- continued reminding w/ dementia but improvement in effort during encounter Overnight pulse ox with drops --?underlying OCTAVIO. Would set up 2L HS Ambulatory pulse ox prior to d/c --> did attempt today (of note, mostly wheelchair bound at baseline, chronic L him issues, deconditioning and dropped to 88, rebounded to 91 with RN this afternoon) Given from [facility] although COVID testing negative on admit, will repeat. Has been afebrile, no SOB reported and lung exam benign PT/OT consulted -- return to [facility] with therapy through [facility]. CM following. (2) Osteoarthritis: Plan: Severe bilateral hip osteoarthritis, chronic. Eval'd last year by orthopedics, felt not candidate for surgery and primarily wheelchair bound at baseline Pain control/PT/OT (3) Hypothyroidism: Plan: Continue levothyroxine 50 mcg daily. TSH 7.356, free T4 0.71 increased to 75mcg daily, given reported confusion on admit (baseline dementia, CT neg on admit)/LE edema), constipation repeat TFT outpt 4-6 weeks (4) Type 2 diabetes mellitus: Plan: Prior A1c 7.7 in May 2020, on glipizide at home Repeat A1c elevated to 9.7 on am labs (checked anemia labs to ensure accurate, wnl) Of note, patient had glimepiride discontinued in Sep, placed on glipizide DM educator consulted -- per discussion at [facility], requests double food portions Also with medication switch likely causing worsening While inpatient, initially ordered lantus 9u BID, SSI Tightened ISS, will increase Lantus to 11u BID for elevated BSGs this afternoon to 300s (reported to be licking the syrup off the plates) > further increased to 14u BID, tightened ISS reported extra meals at [facility]/good appetite and eating all meals Consider increased glipizide vs januvia vs once daily insulin at discharge with outpt f/u vs defer to outpatient provider in f/u (5) HTN (hypertension): Plan: BP stable CT head on admit negative Continue losartan (6) Hyperlipidemia: Plan: Continue simvastatin 40 mg at night --> placed on hold given elevated CK and given IVF Resume statin/check CK in AM --> wnl and continued (7) Chronic kidney disease, stage 3a: Plan: Cr 1.3 on admission, at baseline Got 1L IVF overnight on admission, repeat Cr stable (got 20mg lasix x 1 04/17) Renal dose meds/avoid renal toxic as able (8) Depression: Plan: Continue Zoloft 100 mg daily, BuSpar 2.5 mg daily twice daily. Plan SCDs for DVT prophylaxis, ambulation encouraged (mostly bed bound at baseline however has been able to be ambulated with RNing), added Lovenox SQ while inpatient [facility] to accept patient back with therapy per CM notes, hopefully tomorrow repeating covid swab given continued hypoxia with benign lung exam/CXR Admission and Anticipated Discharge Date Admission Date: April 16, 2022 Supervising Physician Co-Signing Physician Notes HUGO Supervision Note: I did not personally see or examine the patient today, but I verified all wisdom points of HUGO Brunner's assessment and plan with the following exceptions/additions: None Subjective patient evaluated this morning. sleeping in chair after breakfast RN reported slept well overnight, appears fatigued today. Took pills this morning without issues and feed himself independently. OOB with SpO2 92% however this afternoon 88-91% when getting up to go to the bathroom with nursing. Reapplied O2 for comfort. Lung exam benign. continued poor inspiratory effort when not prompted and taking apart incentive spirometer when left alone. Needing to work on sleep/wake scheduled but given from [facility] will repeat COVID swab. Erythema almost completely resolved however does have some excoriations to his right him now from scratching. Brief applied and patient not able to get to/itch this area. Review of Systems Review of Systems: All systems reviewed & are unremarkable except as noted in HPI & below Physical Exam Physical Exam: General: WD/WN male, chronically ill appearing, sleeping in chair upon arrival, but easily awoken to touch, NAD, fatigued appearing HEENT: head normocephalic, atraumatic, trachea midline without deviation, mmm Resp: improvement in inspiratory effort, not tachypneic, no w/c, 92% on RA CV: RRR (rate 82bpm), no m/r/g, no calf tenderness, trace dependent edema GI: +BS, soft, nontender : no Alvarez MSK/Neuro: moves all extremities, strength diminished but intact bilaterally wheelchair bound reported at baseline, no facial droop/slurred speech erythema almost completely resolved to L hip, nontender, prior excoriations noted, no new lesions, no increased pain with ROM Psych: alert to person, place (knows in hospital but thought was [place]), year in 1980s, baseline alzheimers, pleasant and cooperative Skin: erythema to left hip almost resolved, erythema to L elbow without extension and improved, nontender and denies itchiness, no wheels excoriations to right hip Results & Data Results & Data ([facility]) Vital Signs (Past 12 Hours) Vital Signs Temp Pulse Resp BP BP Pulse Ox O2 Del Method 04/19/22 06:59 37 C 84 20 111/66 90 Room Air 04/18/22 21:51 36.8 C 88 20 102/66 92 Nasal Cannula 04/18/22 21:37 Nasal Cannula O2 Flow Rate 04/19/22 06:59 04/18/22 21:51 3 04/18/22 21:37 2 Laboratory Results 04/19/22 04/19/22 04/19/22 Range/Units 11:58 07:58 07:11 WBC (4.8-10.8) K/ul RBC (4.63-6.08) M/uL Hgb (14.0-18.0) g/dl Hct (40.1-51.0) % MCV (80.0-100.0) fL MCH (25.0-34.0) pg MCHC (32.0-36.0) g/dL RDW Std Deviation (36.4-46.3) fL RDW Coeff of Johnnie (11.5-14.5) % Plt Count (130-400) K/uL MPV (9.4-12.4) fL Sodium 137 (136-145) mmol/L Potassium 3.8 (3.5-5.1) mmol/L Chloride 105 (98-107) mmol/L Carbon Dioxide 26 (21-32) mmol/L Anion Gap 6 (3-11) BUN 23 (6-23) mg/dl Creatinine 1.34 (0.6-1.4) mg/dl Est Cr Clr Drug Dosing 43.9 ml/min Est GFR ( Amer) 54.4 ml/min Est GFR (Non-Af Amer) 47.0 ml/min BUN/Creatinine Ratio 17.2 (10-20) Glucose 127 H (70-99(Fasting)) mg/dl POC Glucose 296 H 126 H (70-99) mg/dl Calcium 8.5 (8.5-10.1) mg/dl Total Creatine Kinase 123 (30-223) U/L 04/19/22 04/18/22 04/18/22 Range/Units 07:11 20:48 16:56 WBC 8.25 (4.8-10.8) K/ul RBC 4.15 L (4.63-6.08) M/uL Hgb 12.5 L (14.0-18.0) g/dl Hct 37.5 L (40.1-51.0) % MCV 90.4 (80.0-100.0) fL MCH 30.1 (25.0-34.0) pg MCHC 33.3 (32.0-36.0) g/dL RDW Std Deviation 44.2 (36.4-46.3) fL RDW Coeff of Johnnie 13.4 (11.5-14.5) % Plt Count 185 (130-400) K/uL MPV 10.1 (9.4-12.4) fL Sodium (136-145) mmol/L Potassium (3.5-5.1) mmol/L Chloride (98-107) mmol/L Carbon Dioxide (21-32) mmol/L Anion Gap (3-11) BUN (6-23) mg/dl Creatinine (0.6-1.4) mg/dl Est Cr Clr Drug Dosing ml/min Est GFR ( Amer) ml/min Est GFR (Non-Af Amer) ml/min BUN/Creatinine Ratio (10-20) Glucose (70-99(Fasting)) mg/dl POC Glucose 204 H 143 H (70-99) mg/dl Calcium (8.5-10.1) mg/dl Total Creatine Kinase (30-223) U/L PG Care Time/CCT Total # of Minutes Spent Total Time Spent with Patient: Total time spent is greater than 50% in coordination of care (as documented) at patient's floor/unit and/or counseling patient: Coding Level of Care Code 99789 Subseq Hosp Care Lvl 2 Diagnoses Cellulitis of hip, left L03.116 Osteoarthritis M19.90 Hypothyroidism E03.9 Type 2 diabetes mellitus E11.9 HTN (hypertension) I10 Hyperlipidemia E78.5 Chronic kidney disease, stage 3a N18.31 Depression F32.9
[2022-04-19] MEDS: cefTRIAXone SODIUM 2,000 MG in DEXTROSE 5% 50 ML IV SCH (08:04)
[2022-04-19] MEDS: CYANOCOBALAMIN (B-12) 500 MCG TABLET PO SCH (08:04)
[2022-04-19] MEDS: DOCUSATE SODIUM 100 MG CAP PO SCH ×2 (08:04→20:17)
[2022-04-19] MEDS: OXYBUTYNIN CHLORIDE 5 MG TAB PO SCH (08:04)
[2022-04-19] MEDS: busPIRone 5 MG TAB PO SCH ×2 (08:05→20:20)
[2022-04-19] MEDS: LOSARTAN POTASSIUM 25 MG TAB PO SCH (08:05)
[2022-04-19] MEDS: SERTRALINE HCL 100 MG TABLET PO SCH (08:05)
[2022-04-19] MEDS: FAMOTIDINE 20 MG in SYRINGE 3 ML IV SCH (08:07)
[2022-04-19] MEDS: ARTIFICIAL TEARS OPB SCH ×2 (08:07→21:32)
[2022-04-19] MEDS: DICLOFENAC SOD 1% GEL 100 GM TUBE EXT SCH ×2 (08:07→20:19)
[2022-04-19 08:25] LABS: BUN Creatinine Ratio 17.2 (10-20); Calcium 8.5 mg/dl (8.5-10.1); Creatinine Clr Calc Pharmacy 43.9 ml/min; Est GFR (African American) 54.4 ml/min; Potassium 3.8 mmol/L (3.5-5.1)
[2022-04-19] MEDS: LANTUS PER UNIT CHARGE SQ SCH ×2 (09:50→21:13)
[2022-04-19] MEDS: INSULIN ASPART PER UNIT SC SCH ×4 (09:51→21:13)
[2022-04-19] MEDS: ENOXAPARIN INJ 40 MG/0.4 ML SYR SQ SCH (17:52)
[2022-04-19] MEDS: OLANZapine 5 MG TABLET PO SCH (20:18)
[2022-04-19] MEDS: SIMVASTATIN 40 MG TAB PO SCH (20:18)
[2022-04-20] MEDS: LEVOTHYROXINE SODIUM 75 MCG TABLET PO SCH (06:06)
[2022-04-20 07:27] VITALS: PULSE 78; TEMP 98.2; O2SAT 93
[2022-04-20] MEDS: DOCUSATE SODIUM 100 MG CAP PO SCH (08:14)
[2022-04-20] MEDS: busPIRone 5 MG TAB PO SCH (08:16)
[2022-04-20] MEDS: OXYBUTYNIN CHLORIDE 5 MG TAB PO SCH (08:16)
[2022-04-20] MEDS: LOSARTAN POTASSIUM 25 MG TAB PO SCH (08:17)
[2022-04-20] MEDS: SERTRALINE HCL 100 MG TABLET PO SCH (08:17)
[2022-04-20] MEDS: DICLOFENAC SOD 1% GEL 100 GM TUBE EXT SCH (08:18)
[2022-04-20] MEDS: ARTIFICIAL TEARS OPB SCH (08:18)
[2022-04-20] MEDS: FAMOTIDINE 20 MG in SYRINGE 3 ML IV SCH (08:19)
[2022-04-20] MEDS: cefTRIAXone SODIUM 2,000 MG in DEXTROSE 5% 50 ML IV SCH (08:23)
[2022-04-20] MEDS: LANTUS PER UNIT CHARGE SQ SCH (08:25)
[2022-04-20] MEDS: CYANOCOBALAMIN (B-12) 500 MCG TABLET PO SCH (09:05)
[2022-04-20] MEDS: INSULIN ASPART PER UNIT SC SCH ×2 (09:07→13:11)
--- NOTE | 2022-04-20 11:48 | Discharge Summary ---
Date of Service April 20, 2022 Admission HPI Per Admitting Provider Chencho Real is an 87-year-old male with a past medical history significant for Alzheimer's dementia, hypertension, hyperlipidemia, DM2, CKD, hypothyroidism, osteoarthritis, and depression who presents today from [facility] after being found on the commode this morning complaining of hip pain. Due to patient's underlying dementia, he is a poor historian and therefore history is obtained from ED provider and EMS report. When he was found this morning, he was complaining of hip pain and per staff, seemed to be less responsive than normal, however hard to determine his baseline given his severe dementia. For my evaluation, patient is only complaining of bilateral hip pain, no report of fever/chills, chest pain, shortness of breath, palpitation, abdominal pain, nausea, vomiting, diarrhea, or constipation. Denies blood in stool. Denies falls to his knowledge. Presentation to the ED, his vital signs within normal limits, he is hemodynamically stable. Labs largely unremarkable, his CK mildly elevated at 448, glucose is 227, CRP 1.04, TSH 7.356, with a free T4 pending. No leukocytosis, PCT <0.05, lactate 1.6. Creatinine 1.30, his renal function is baseline. No electrolyte abnormalities. No transaminitis. UA is pending. Imaging largely unremarkable, CT A/P shows mild skin thickening and subcutaneous fat stranding within the left lateral hip likely representing cellulitis, without any underlying abscess or bony destruction suggestive of osteomyelitis. Severe left and moderate right hip OA is noted on both CT of the abdomen/pelvis, as well as hip and pelvis x-ray. No evidence of fracture. Head CT without evidence for infarct or hemorrhage. No new complete opacification of left axillary sinus. CXR unremarkable acute disease process. Principal Diagnosis Left hip pain and cellulitis Discharge Exam Vitals reviewed Gen: [AAOx1, NAD] HEENT: [anicteric sclerae, EOMI] CV: [RRR no mgr nl S1S2] Pulm: [CTAB no wcr] Abd: [+BS soft NT ND] Ext: [no edema] Skin: [left hip with faint erythema and some excoriations] Neuro: [moving all extremities] Discharge Data Allergies Allergy/AdvReac Type Severity Reaction Status Date / Time adhesive tape Allergy Unknown Unknown Verified 04/15/22 16:12 cephalexin [From Keflex] Allergy Unknown Unknown Verified 04/15/22 16:12 rofecoxib Allergy Unknown SWOLLEN Verified 04/15/22 16:12 FEET Consultations 04/15/22 15:53 ED Decision to Admit Stat Ordered Studies 04/15/22 13:18 CT abd pelvis wo con Stat CT head/brain wo con Stat Diabetes Follow up Diabetes Follow-up Needed for HgbA1c >9% Hospital Course (1) Cellulitis of hip, left: Found at [facility] in bathroom (history of dementia, Alzheimer's), complaining of bilateral hip pain. Xray of hip with severe left hip osteoarthritis, no fracture or dislocation Of note, last June, patient seen by orthopedics for subchondral collapse noted in the left hip. They recommended NWB at that time and patient mostly wheelchair bound CTAP with bilateral nephrolithiasis, no ureteral stones or obstruction. Severe left and moderate right hip OA. No acute fractures. Does note :Mild skin thickening and subcutaneous fat stranding within the left lateral hip likely representing a cellulitis. No underlying abscess or bony destruction to suggest an osteomyelitis. No evidence for sepsis on admission. WBC, procal, lactic wnl. AFEBRILE ESR/CRP checked -- ESR not significantly elevated to suggest PMR or need for CT hip to r/o infection Was placed on ceftriaxone daily x 6 days and had improvement--> transition to 4 more days of po cefdinir Also found to have acute maxillary sinusitis and ceftriaxone and cefdinir will also cover for this (2) Osteoarthritis: Severe bilateral hip osteoarthritis, chronic. Eval'd last year by orthopedics, felt not candidate for surgery and primarily wheelchair bound at baseline Pain control/PT/OT (3) Hypothyroidism: Continue levothyroxine 50 mcg daily. TSH 7.356, free T4 0.71 increased to 75mcg daily, given reported confusion on admit (baseline dementia, CT neg on admit)/LE edema), constipation repeat TFT outpt 4-6 weeks (4) Type 2 diabetes mellitus: Prior A1c 7.7 in May 2020, on glipizide at home Repeat A1c elevated to 9.7 on am labs (checked anemia labs to ensure accurate, wnl) Of note, patient had glimepiride discontinued in Sep, placed on glipizide DM educator consulted -- per discussion at [facility], requests double food portions Also with medication switch likely causing worsening While inpatient, was on Lantus and Novolog SUggest additional agent as an outpt-defer to PCP (5) HTN (hypertension): BP stable Continue losartan (6) Hyperlipidemia: Continue simvastatin 40 mg at night --> placed on hold given elevated CK and given IVF Resumed statin/check CK in AM --> wnl and continued (7) Chronic kidney disease, stage 3a: Cr 1.3 on admission, at baseline Renal dose meds/avoid renal toxic as able (8) Depression: Continue Zoloft 100 mg daily, BuSpar 2.5 mg daily twice daily. (9) Nocturnal hypoxia: On/off, deconditioning/atelectasis Had been requiring 1-2L to maintain saturations, no shortness of breath reported. No cough witnessed by myself or nursing. No loss of taste/smell. Covid negative x 2 Titrated to room air and passed a 2-step "walk" test, lowest POx 88% with exertion CXR with low lung volumes Encouraged incentive spirometer -- continued reminding w/ dementia but improvement in effort during encounter Overnight pulse ox with drops --suspect underlying OCTAVIO. Would set up 2L HS Plan SCDs for DVT prophylaxis, added Lovenox SQ while inpatient [facility] to accept patient back with home health Total Time Total Time Spent Total Time Spent (In Minutes): 35 min Discharge Plan Discharge Items Patient Disposition: Personal Skilled Nursing Reason For Visit: CELLULITIS Discharge Diagnosis: Cellulitis of left hip, acute sinusitis Condition on Discharge: Fair Activity: Resume your previous activity Non-emergency contact: Primary Care Provider Call non-emergency contact if: you have any medication questions, your symptoms worsen, your pain is not controlled, your pain is worsening and you have a fever Follow-up/Referrals: Mervat Garcia [Primary Care Provider] - (Follow up with PCP within 1 week) Diet: Carb Consistent or DM2 Addtl Attending Provider Instructions: Please finish out 4 more days of antibiotics with cefdinir twice a day for your cellulitis and your sinusitis. Your thyroid function was found to be low and your levothyroxine dose was increased to 75 mcg daily. Please have your thyroid function checked on labs in 4-6 weeks. Your Vitamin D level was very low and you were started on a Vitamin D supplement 54690 units once weekly x 8 weeks. Please follow up with your PCP for this. Your blood sugar/diabetes is uncontrolled. Please follow up with your PCP and consider adding on Januvia as a second agent to improve blood sugars. Pending Studies at Discharge: Yes (Final blood cultures-no growth to date) Stand-Alone Forms: My [employer], Smoking Cessation Skilled Items Patient informed of condition?: Yes DNR: No Discharge Level of Care: Other Communicable Disease: No Discharge Prognosis: Improving Lines: None Urinary Catheter: No Medications and DC Order Prescriptions: New levothyroxine [Synthroid] 75 mcg Tablet 75 mcg PO DAILYBB Qty: 30 0RF ergocalciferol (vitamin D2) 1,250 mcg (50,000 unit) Capsule 50,000 unit PO Q7D 56 Days Qty: 8 0RF cefdinir 300 mg capsule 300 mg PO BID Qty: 8 0RF Continued buspirone 5 mg tablet 2.5 mg PO BIDM sertraline 100 mg Tablet 100 mg PO QPM simvastatin 40 mg Tablet 40 mg PO QPM Systane (PF) 0.4-0.3 % Dropperette 1 drp OPB BID olanzapine 5 mg Tablet 5 mg PO HS oxybutynin chloride 5 mg tablet 10 mg PO QAM losartan 25 mg tablet 25 mg PO QAM cyanocobalamin (vitamin B-12) 1,000 mcg tablet 1,000 mcg PO QAM diclofenac sodium [Voltaren Arthritis Pain] 1 % Gel 4 g EXT Q12H PRN (Reason: left hip pain) Qty: 100 0RF Rx Instructions: apply to left hip docusate sodium 100 mg Capsule 100 mg PO BID glipizide 5 mg tablet 5 mg PO QPM acetaminophen 500 mg Tablet 1,000 mg PO Q8H MDD 3G PRN (Reason: Pain) Changed glipizide 5 mg tablet 7.5 mg PO QAM Qty: 45 0RF Rx Instructions: ONE AND ONE HALF TABLET DOSE DAILY Discontinued levothyroxine 50 mcg tablet 50 mcg PO DAILYBB Discharge Orders: Discharge Order (Routine); Ordered 04/20/22 Ordered By: Marita Ervin/Other Patient Handouts: Managing Type 2 Diabetes Admission Data Admit Date/Time: 04/16/22 16:41 Attending Provider: Marita Azevedo Admit Provider: Barnett,Umu E. Primary Care Provider: Mervat Garcia Other Providers: Yo Golden ; [facility] Coding Level of Care Code D/C DAY MANAGEMENT >30 MINS Diagnoses Cellulitis of hip, left L03.116 Osteoarthritis M19.90 Hypothyroidism E03.9 Type 2 diabetes mellitus E11.9 HTN (hypertension) I10 Hyperlipidemia E78.5 Chronic kidney disease, stage 3a N18.31 Depression F32.9 Nocturnal hypoxia G47.34
[2022-04-20 15:11] VITALS: BP 102/66
== END 2022-04-20 15:26 | disposition home health service (06) | DRG 603 ==
LOC: ED 12:52 → EDINP 12:52 → SUATTDRO 16:00 → 3W 19:00 → SUATTDRO 04-16 16:41
DX: F02.80 Dementia in other diseases classified elsewhere, unspecified severity, without behavioral disturbance, psychotic disturbance, mood disturbance, and anxiety; M16.0 Bilateral primary osteoarthritis of hip; L03.116 Cellulitis of left lower limb; I12.9 Hypertensive chronic kidney disease with stage 1 through stage 4 chronic kidney disease, or unspecified chronic kidney disease; J98.11 Atelectasis; E03.9 Hypothyroidism, unspecified; R09.02 Hypoxemia; E11.9 Type 2 diabetes mellitus without complications; Z99.3 Dependence on wheelchair; N18.31 Chronic kidney disease, stage 3a; G47.33 Obstructive sleep apnea (adult) (pediatric); Z88.8 Allergy status to other drugs, medicaments and biological substances; Z88.1 Allergy status to other antibiotic agents; G30.9 Alzheimer's disease, unspecified; N20.0 Calculus of kidney; J01.90 Acute sinusitis, unspecified; F32.A Depression, unspecified

== ENCOUNTER 2022-09-20 09:11 | Inpatient (IN) ==
--- NOTE | 2022-09-20 09:18 | Emergency Department Note ---
Impression & Plan Acute UTI, Alzheimer disease, Acute alteration in mental status, Elevated troponin ED Provider Note NAME: EBENEZER OSUNA AGE: 87 SEX: M ARRIVES VIA: Ambulance INFORMANT: Patient ED PROVIDER(S): George Marie MD CHIEF COMPLAINT: Unresponsive. Referred. PLAN: Disposition: Admit MEDICAL DECISION MAKING: The patient is a 87-year-old gentleman with a past medical history of dementia, bipolar disorder, migraines, hypertension, hyperlipidemia who presents to the emergency department from his prison facility at [facility] where the patient was noted to be unresponsive this morning where he would not speak. There was no report of any medications that were administered that would explain his symptoms. They do report that he has been more fatigued and less interactive over the past couple of days. The patient is bedbound at baseline but will normally be awake and have fluent speech. On arrival the patient is no acute distress, afebrile stable vital signs. He appears clinically dry. With significant agitation the patient will open his eyes to command in mumble his name when asked. However he does exhibit somnolence. He appears to move all extremities equally with generalized weakness. The patient did arrive to emergency department during a time of an unscheduled lab reporting outage. EKG without overt acute ischemia. CXR negative for acute cardiopulmonary process. WBC, H/H and platelets within normal limits. Chemistry without metabolic acidosis. Electrolytes and FTs without significant abnormality. Lactic acid 1.5, within normal limits. LFTs unremarkable. High-sensitivity troponin 270, nonspecific. Procalcitonin is undetectable. TSH within normal limits. UA is consistent with infection with 2+ bacteria, WBCs. CT head and CTA of the head and neck were performed and were negative for acute abnormalities. Upon evaluation the patient did improve following IV fluid hydration and he was spontaneously awake and will answer questions. We will proceed with admission for further management of altered mental status from baseline in setting of UTI. Case discussed with Dr. Marco DU admitting resident with Dr. Young [facility] hospitalist who evaluate the patient for admission Triage Nursing notes reviewed and agree them. Prior/outside medical records reviewed Vital Signs: reviewed Differential diagnosis: Infection, dehydration, metabolic abnormality, hypo/hyperglycemia, electrolyte disturbance, anemia, hypoxia, cardiac sources, intracerebral event, toxicologic, neurologic, as well as other pathologies. ER treatment provided: See below. Diagnostics interpreted by me: ECG: Sinus rhythm with PACs, 90 bpm, no ectopy, no overt ST elevation or depression, QTC 457, QRS 88. Cardiac Monitoring: An order for continuous cardiac monitoring was placed and demonstrated Sinus rhythm with PACs, 90 bpm, no ectopy. Laboratory studies: See below Imaging studies: See below Consultation(s): Dr. Marco DU admitting resident with Dr. Young [facility] hospitalist HPI: The patient is a 87-year-old gentleman with a past medical history of d ementia, bipolar disorder, migraines, hypertension, hyperlipidemia who presents to the emergency department from his prison facility at [facility] where the patient was noted to be unresponsive this morning where he would not speak. There was no report of any medications that were administered that would explain his symptoms. They do report that he has been more fatigued and less i nteractive over the past couple of days. The patient is bedbound at baseline but will normally be awake and have fluent speech. ROS: See above HPI for pertinent positives & negatives. A total of 10 systems reviewed and were otherwise negative. VITALS:See Below PHYSICAL EXAMINATION: GENERAL: Solmnolent, opens eyes to loud voice and mumbles name upon request. In no acute distress HENT: Normocephalic, atraumatic. Oropharynx unremarkable. Handling secretions without difficulty. EYES: Normal conjunctiva. Sclera non-icteric. NECK: Supple. No nuchal rigidity. FROM. No JVD. RESPIRATORY: Clear to auscultation. Normal respiratory effort. CARDIAC: Regular rate, normal rhythm. Extremities warm and well perfused. Pulses equal. ABDOMEN: Soft, non-distended. No tenderness to palpation. No rebound or guarding. No masses. RECTAL: Deferred. MUSCULOSKELETAL: Chest examination reveals no tenderness. The back is symmetrical on inspection without obvious abnormality. There is no CVA tenderness to palpation. No joint edema. LOWER EXTREMITIES: Calves are equal size bilaterally and non-tender. No edema. No discoloration. NEURO: Solmnolent, opens eyes to loud voice and mumbles name upon request. Initially withdrawing extremities to painful stimulus. Upon reevaluation and improvement in mental status moving all extremities equally with generalized weakness. SKIN: No rash or jaundice noted. 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 Required: No Beliefs That Will Affect Care: None marital status: / Current Living Situation: Assisted Current Living Situation Comment: [facility] 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 How many Children do You have: 2 Feels Safe at Home: Yes Assistive Devices: Walker and Wheelchair Allergies Allergies Allergy/AdvReac Type Severity Reaction Status Date / Time adhesive tape Allergy Unknown Unknown Verified 09/20/22 10:10 cephalexin [From Keflex] Allergy Unknown Unknown Verified 09/20/22 10:10 rofecoxib Allergy Unknown SWOLLEN Verified 09/20/22 10:10 FEET Home Meds Home Medications Medication Instructions Recorded Confirmed sertraline 100 mg tablet 100 mg PO QPM 05/08/18 09/20/22 simvastatin 40 mg tablet 40 mg PO QPM 05/08/18 09/20/22 buspirone 5 mg tablet 2.5 mg PO BIDM 03/31/19 09/20/22 peg 400-propylene glycol (PF) 0.4 1 drp OPB BID 07/01/19 09/20/22 %-0.3 % eye drops in a dropperette (Systane (PF)) olanzapine 5 mg tablet 5 mg PO HS 06/22/20 09/20/22 oxybutynin chloride 5 mg tablet 10 mg PO QAM 07/31/20 09/20/22 cyanocobalamin (vitamin B-12) 1,000 mcg PO QAM 08/18/20 09/20/22 1,000 mcg tablet losartan 25 mg tablet 25 mg PO QAM 08/18/20 09/20/22 acetaminophen 500 mg tablet 1,000 mg PO Q8H PRN Pain 04/15/22 09/20/22 docusate sodium 100 mg capsule 100 mg PO BID 04/15/22 09/20/22 glipizide 5 mg tablet 5 mg PO QPM 04/15/22 09/20/22 glipizide 5 mg tablet 7.5 mg PO QAM 09/20/22 09/20/22 Previous Rx's Medication Instructions Recorded diclofenac sodium 1 % topical gel 4 g EXT Q12H PRN left hip pain 07/04/21 (Voltaren Arthritis Pain) #100 grams levothyroxine 75 mcg tablet 75 mcg PO DAILYBB #30 tabs 04/20/22 (Synthroid) Results & Data (ED) Vital Signs Vital Signs - 24 hr 09/20/22 09:34 09/20/22 09:33 09/20/22 09:26 Temperature 36.5 C Temperature Source Oral Pulse Rate 85 95 H Pulse Rate from SpO2 Sensor 95 H Pulse Rhythm Regular Pulse Strength Normal Respiratory Rate 18 18 Respiratory Effort / Characteristics Non-Labored Spontaneous Respiratory Depth Normal Respiratory Pattern Regular Blood Pressure 122/80 Blood Pressure Mean 94 Pulse Oximetry 95 97 Oxygen Delivery Method Room Air Room Air Oxygen Flow Rate 95 Sepsis Recent Fever Within 48 Hours No Sepsis New/Unexplained Change in Mental Status Yes Sepsis Action Taken by Nursing No Action Required 09/20/22 09:30 09/20/22 09:30 09/20/22 10:00 Temperature Temperature Source Pulse Rate 91 H 87 Pulse Rate from SpO2 Sensor 90 86 Pulse Rhythm Pulse Strength Respiratory Rate 12 11 L Respiratory Effort / Characteristics Respiratory Depth Respiratory Pattern Blood Pressure 131/75 Blood Pressure Mean 93 Pulse Oximetry 98 99 Oxygen Delivery Method Oxygen Flow Rate Sepsis Recent Fever Within 48 Hours Sepsis New/Unexplained Change in Mental Status Sepsis Action Taken by Nursing 09/20/22 12:00 09/20/22 12:30 09/20/22 12:32 Temperature Temperature Source Pulse Rate 85 80 80 Pulse Rate from SpO2 Sensor 83 77 82 Pulse Rhythm Pulse Strength Respiratory Rate 24 24 18 Respiratory Effort / Characteristics Respiratory Depth Respiratory Pattern Blood Pressure 118/74 Blood Pressure Mean 88 Pulse Oximetry 95 92 95 Oxygen Delivery Method Oxygen Flow Rate Sepsis Recent Fever Within 48 Hours Sepsis New/Unexplained Change in Mental Status Sepsis Action Taken by Nursing 09/20/22 12:32 09/20/22 13:00 09/20/22 13:30 Temperature Temperature Source Pulse Rate 84 84 Pulse Rate from SpO2 Sensor 78 Pulse Rhythm Pulse Strength Respiratory Rate 15 15 Respiratory Effort / Characteristics Respiratory Depth Respiratory Pattern Blood Pressure 137/86 Blood Pressure Mean 103 Pulse Oximetry 94 Oxygen Delivery Method Oxygen Flow Rate Sepsis Recent Fever Within 48 Hours Sepsis New/Unexplained Change in Mental Status Sepsis Action Taken by Nursing 09/20/22 14:00 09/20/22 15:35 Temperature Temperature Source Pulse Rate 84 76 Pulse Rate from SpO2 Sensor 86 Pulse Rhythm Pulse Strength Respiratory Rate 12 18 Respiratory Effort / Characteristics Respiratory Depth Respiratory Pattern Blood Pressure 135/78 113/68 Blood Pressure Mean 97 83 Pulse Oximetry 95 Oxygen Delivery Method Oxygen Flow Rate Sepsis Recent Fever Within 48 Hours Sepsis New/Unexplained Change in Mental Status Sepsis Action Taken by Nursing Laboratory Data Attestation: I reviewed the patient's lab results. 09/20/22 09:28 09/20/22 09:28 Lab Results 09/20/22 09/20/22 09/20/22 Range/Units 09:25 09:28 09:28 WBC 9.46 (4.8-10.8) K/ul RBC 4.72 (4.70-6.10) M/uL Hgb 14.3 (14.0-18.0) g/dl Hct 42.7 (42.0-52.0) % MCV 90.5 (80.0-100.0) fL MCH 30.3 (25.0-34.0) pg MCHC 33.5 (32.0-36.0) g/dL RDW Std Deviation 45.4 (36.4-46.3) fL RDW Coeff of Johnnie 13.7 (11.5-14.5) % Plt Count 245 (130-400) K/uL MPV 10.0 (9.4-12.4) fL Immature Gran % (Auto) 0.6 % Neut % (Auto) 66.5 % Lymph % (Auto) 23.8 % [place] % (Auto) 8.0 % Eos % (Auto) 0.4 % Baso % (Auto) 0.7 % Neut # (Auto) 6.28 (1.40-6.50) K/uL Lymph # (Auto) 2.25 (1.2-3.4) K/uL [place] # (Auto) 0.76 H (0.11-0.59) K/uL Eos # (Auto) 0.04 (0-0.50) K/uL Baso # (Auto) 0.07 (0-0.2) K/uL Immature Gran # (Auto) 0.06 (0.01-0.20) K/uL PT 11.0 (9.0-12.0) Seconds INR 1.0 (0.9-1.1) Sodium (136-145) mmol/L Potassium (3.5-5.1) mmol/L Chloride (98-107) mmol/L Carbon Dioxide (21-32) mmol/L Anion Gap (3-11) BUN (6-23) mg/dl Creatinine (0.6-1.4) mg/dl Est Cr Clr Drug Dosing ml/min Est GFR ( Amer) ml/min Est GFR (Non-Af Amer) ml/min BUN/Creatinine Ratio (10-20) Glucose (70-99(Fasting)) mg/dl POC Glucose (70-99) mg/dl Lactate (0.4-2.0) mmol/L Calcium (8.5-10.1) mg/dl Phosphorus (2.5-4.9) mg/dl Magnesium (1.7-2.4) mg/dl Total Bilirubin (0.2-1.0) mg/dl AST (13-39) U/L ALT (7-52) U/L Alkaline Phosphatase (34-104) U/L Troponin I High Sens (0-20) pg/ml Total Protein (6.0-8.3) gm/dl Albumin (3.4-5.0) gm/dl Globulin (2.5-4.0) gm/dl Albumin/Globulin Ratio (0.9-2) Lipase (11-82) U/L Procalcitonin (0-0.5) ng/ml TSH (0.300-4.500) uIu/ml Urine Color Yellow Urine Appearance Cloudy A (Clear) Urine pH 5.5 (4.5-7.5) Ur Specific [place] 1.019 (1.000-1.030) Urine Protein Trace H (Negative) Urine Glucose (UA) Negative (Negative) Urine Ketones Trace H (Negative) Urine Blood 1+ H (Negative) Urine Nitrite Negative (Negative) Urine Bilirubin Negative (Negative) Urine Urobilinogen Negative (Negative) Ur Leukocyte Esterase 3+ H (Negative) Urine WBC (Auto) >30 H (0-5) /hpf Urine RBC (Auto) 0-4 (0-4) /hpf U Hyaline Cast (Auto) 1-5 (0-5) /lpf U Epithel Cells (Auto) 5-10 H (0-5) /lpf Urine Bacteria (Auto) 2+ H (Negative) Urine Yeast Not Reportable SARS-CoV-2 (PCR) (Negative) Influenza Type A (PCR) (Neg) Influenza Type B (PCR) (Neg) RSV (RT-PCR) (Neg) 09/20/22 09/20/22 09/20/22 Range/Units 09:28 09:28 09:28 WBC (4.8-10.8) K/ul RBC (4.70-6.10) M/uL Hgb (14.0-18.0) g/dl Hct (42.0-52.0) % MCV (80.0-100.0) fL MCH (25.0-34.0) pg MCHC (32.0-36.0) g/dL RDW Std Deviation (36.4-46.3) fL RDW Coeff of Johnnie (11.5-14.5) % Plt Count (130-400) K/uL MPV (9.4-12.4) fL Immature Gran % (Auto) % Neut % (Auto) % Lymph % (Auto) % [place] % (Auto) % Eos % (Auto) % Baso % (Auto) % Neut # (Auto) (1.40-6.50) K/uL Lymph # (Auto) (1.2-3.4) K/uL [place] # (Auto) (0.11-0.59) K/uL Eos # (Auto) (0-0.50) K/uL Baso # (Auto) (0-0.2) K/uL Immature Gran # (Auto) (0.01-0.20) K/uL PT (9.0-12.0) Seconds INR (0.9-1.1) Sodium 138 (136-145) mmol/L Potassium 4.3 (3.5-5.1) mmol/L Chloride 105 (98-107) mmol/L Carbon Dioxide 25 (21-32) mmol/L Anion Gap 8 (3-11) BUN 18 (6-23) mg/dl Creatinine 1.16 (0.6-1.4) mg/dl Est Cr Clr Drug Dosing 50.7 ml/min Est GFR ( Amer) 64.8 ml/min Est GFR (Non-Af Amer) 55.9 ml/min BUN/Creatinine Ratio 15.5 (10-20) Glucose 220 H (70-99(Fasting)) mg/dl POC Glucose (70-99) mg/dl Lactate (0.4-2.0) mmol/L Calcium 8.9 (8.5-10.1) mg/dl Phosphorus 3.0 (2.5-4.9) mg/dl Magnesium 1.9 (1.7-2.4) mg/dl Total Bilirubin 0.6 (0.2-1.0) mg/dl AST 22 (13-39) U/L ALT 14 (7-52) U/L Alkaline Phosphatase 72 (34-104) U/L Troponin I High Sens 271.0 H* (0-20) pg/ml Total Protein 6.8 (6.0-8.3) gm/dl Albumin 3.4 (3.4-5.0) gm/dl Globulin 3.4 (2.5-4.0) gm/dl Albumin/Globulin Ratio 1.0 (0.9-2) Lipase 10 L (11-82) U/L Procalcitonin < 0.05 (0-0.5) ng/ml TSH 4.169 (0.300-4.500) uIu/ml Urine Color Urine Appearance (Clear) Urine pH (4.5-7.5) Ur Specific [place] (1.000-1.030) Urine Protein (Negative) Urine Glucose (UA) (Negative) Urine Ketones (Negative) Urine Blood (Negative) Urine Nitrite (Negative) Urine Bilirubin (Negative) Urine Urobilinogen (Negative) Ur Leukocyte Esterase (Negative) Urine WBC (Auto) (0-5) /hpf Urine RBC (Auto) (0-4) /hpf U Hyaline Cast (Auto) (0-5) /lpf U Epithel Cells (Auto) (0-5) /lpf Urine Bacteria (Auto) (Negative) Urine Yeast SARS-CoV-2 (PCR) (Negative) Influenza Type A (PCR) (Neg) Influenza Type B (PCR) (Neg) RSV (RT-PCR) (Neg) 09/20/22 09/20/22 09/20/22 Range/Units 10:01 10:05 14:25 WBC (4.8-10.8) K/ul RBC (4.70-6.10) M/uL Hgb (14.0-18.0) g/dl Hct (42.0-52.0) % MCV (80.0-100.0) fL MCH (25.0-34.0) pg MCHC (32.0-36.0) g/dL RDW Std Deviation (36.4-46.3) fL RDW Coeff of Johnnie (11.5-14.5) % Plt Count (130-400) K/uL MPV (9.4-12.4) fL Immature Gran % (Auto) % Neut % (Auto) % Lymph % (Auto) % [place] % (Auto) % Eos % (Auto) % Baso % (Auto) % Neut # (Auto) (1.40-6.50) K/uL Lymph # (Auto) (1.2-3.4) K/uL [place] # (Auto) (0.11-0.59) K/uL Eos # (Auto) (0-0.50) K/uL Baso # (Auto) (0-0.2) K/uL Immature Gran # (Auto) (0.01-0.20) K/uL PT (9.0-12.0) Seconds INR (0.9-1.1) Sodium (136-145) mmol/L Potassium (3.5-5.1) mmol/L Chloride (98-107) mmol/L Carbon Dioxide (21-32) mmol/L Anion Gap (3-11) BUN (6-23) mg/dl Creatinine (0.6-1.4) mg/dl Est Cr Clr Drug Dosing ml/min Est GFR ( Amer) ml/min Est GFR (Non-Af Amer) ml/min BUN/Creatinine Ratio (10-20) Glucose (70-99(Fasting)) mg/dl POC Glucose (70-99) mg/dl Lactate 1.5 (0.4-2.0) mmol/L Calcium (8.5-10.1) mg/dl Phosphorus (2.5-4.9) mg/dl Magnesium (1.7-2.4) mg/dl Total Bilirubin (0.2-1.0) mg/dl AST (13-39) U/L ALT (7-52) U/L Alkaline Phosphatase (34-104) U/L Troponin I High Sens 609.8 H* D (0-20) pg/ml Total Protein (6.0-8.3) gm/dl Albumin (3.4-5.0) gm/dl Globulin (2.5-4.0) gm/dl Albumin/Globulin Ratio (0.9-2) Lipase (11-82) U/L Procalcitonin (0-0.5) ng/ml TSH (0.300-4.500) uIu/ml Urine Color Urine Appearance (Clear) Urine pH (4.5-7.5) Ur Specific [place] (1.000-1.030) Urine Protein (Negative) Urine Glucose (UA) (Negative) Urine Ketones (Negative) Urine Blood (Negative) Urine Nitrite (Negative) Urine Bilirubin (Negative) Urine Urobilinogen (Negative) Ur Leukocyte Esterase (Negative) Urine WBC (Auto) (0-5) /hpf Urine RBC (Auto) (0-4) /hpf U Hyaline Cast (Auto) (0-5) /lpf U Epithel Cells (Auto) (0-5) /lpf Urine Bacteria (Auto) (Negative) Urine Yeast SARS-CoV-2 (PCR) NEGATIVE (Negative) Influenza Type A (PCR) Negative (Neg) Influenza Type B (PCR) Negative (Neg) RSV (RT-PCR) Negative (Neg) 09/20/22 Range/Units 16:59 WBC (4.8-10.8) K/ul RBC (4.70-6.10) M/uL Hgb (14.0-18.0) g/dl Hct (42.0-52.0) % MCV (80.0-100.0) fL MCH (25.0-34.0) pg MCHC (32.0-36.0) g/dL RDW Std Deviation (36.4-46.3) fL RDW Coeff of Johnnie (11.5-14.5) % Plt Count (130-400) K/uL MPV (9.4-12.4) fL Immature Gran % (Auto) % Neut % (Auto) % Lymph % (Auto) % [place] % (Auto) % Eos % (Auto) % Baso % (Auto) % Neut # (Auto) (1.40-6.50) K/uL Lymph # (Auto) (1.2-3.4) K/uL [place] # (Auto) (0.11-0.59) K/uL Eos # (Auto) (0-0.50) K/uL Baso # (Auto) (0-0.2) K/uL Immature Gran # (Auto) (0.01-0.20) K/uL PT (9.0-12.0) Seconds INR (0.9-1.1) Sodium (136-145) mmol/L Potassium (3.5-5.1) mmol/L Chloride (98-107) mmol/L Carbon Dioxide (21-32) mmol/L Anion Gap (3-11) BUN (6-23) mg/dl Creatinine (0.6-1.4) mg/dl Est Cr Clr Drug Dosing ml/min Est GFR ( Amer) ml/min Est GFR (Non-Af Amer) ml/min BUN/Creatinine Ratio (10-20) Glucose (70-99(Fasting)) mg/dl POC Glucose 121 H (70-99) mg/dl Lactate (0.4-2.0) mmol/L Calcium (8.5-10.1) mg/dl Phosphorus (2.5-4.9) mg/dl Magnesium (1.7-2.4) mg/dl Total Bilirubin (0.2-1.0) mg/dl AST (13-39) U/L ALT (7-52) U/L Alkaline Phosphatase (34-104) U/L Troponin I High Sens (0-20) pg/ml Total Protein (6.0-8.3) gm/dl Albumin (3.4-5.0) gm/dl Globulin (2.5-4.0) gm/dl Albumin/Globulin Ratio (0.9-2) Lipase (11-82) U/L Procalcitonin (0-0.5) ng/ml TSH (0.300-4.500) uIu/ml Urine Color Urine Appearance (Clear) Urine pH (4.5-7.5) Ur Specific [place] (1.000-1.030) Urine Protein (Negative) Urine Glucose (UA) (Negative) Urine Ketones (Negative) Urine Blood (Negative) Urine Nitrite (Negative) Urine Bilirubin (Negative) Urine Urobilinogen (Negative) Ur Leukocyte Esterase (Negative) Urine WBC (Auto) (0-5) /hpf Urine RBC (Auto) (0-4) /hpf U Hyaline Cast (Auto) (0-5) /lpf U Epithel Cells (Auto) (0-5) /lpf Urine Bacteria (Auto) (Negative) Urine Yeast SARS-CoV-2 (PCR) (Negative) Influenza Type A (PCR) (Neg) Influenza Type B (PCR) (Neg) RSV (RT-PCR) (Neg) Administered Medications Insulin Aspart (Insulin Aspart Per Unit) 0 units SC ACHS JULIETA Stop: 10/20/22 16:29 Last Admin: 09/20/22 17:07 Dose: Not Given Documented By: ADENIKE Discontinued Medications Sodium Chloride (Nss 1000ml) 1,000 mls @ 999 mls/hr IV .[id number] ONE Stop: 09/20/22 10:40 Last Infusion: 09/20/22 10:42 Dose: 0 mls/hr Documented By: Admin: 09/20/22 10:11 Dose: 999 mls/hr Documented By: ADENIKE Ceftriaxone Sodium (Rocephin) 2,000 mg in 70 mls @ 140 mls/hr IV NOW STA Stop: 09/20/22 12:59 Last Infusion: 09/20/22 15:49 Dose: 0 mls/hr Documented By: Admin: 09/20/22 12:42 Dose: 140 mls/hr Documented By: ADENIKE Acetaminophen (Ofirmev) 1,000 mg in 100 mls @ 400 mls/hr IV NOW STA Stop: 09/20/22 14:22 Last Infusion: 09/20/22 15:48 Dose: 0 mls/hr Documented By: Admin: 09/20/22 14:43 Dose: 400 mls/hr Documented By: ADENIKE Ioversol (Optiray 320 500ml) 120 ml IV ONCE ONE Stop: 09/20/22 10:58 Last Admin: 09/20/22 10:57 Dose: 120 ml Documented By: NEEL Imaging Data Radiologist's Impression: Chest X-Ray 09/20/22 09:40 XR chest 1V portable CLINICAL HISTORY: ams TECHNIQUE: Single frontal radiograph of the chest was obtained. Comparison: Comparison is made to chest radiograph 04/17/2022 FINDINGS: No lines and tubes are seen. Calcified aortic knob is seen. Lungs are underinflated but clear. No evidence of pleural effusion or pneumothorax. IMPRESSION: No acute chest disease. ACT 112: Negative or not required by law. Electronically signed by: Marshall Prado M.D. 09/20/2022 10:[address] 09/20/22 09:40 CT head/brain wo con CLINICAL HISTORY: 87 years-old Male with AMS. Acutely altered mental status TECHNIQUE: Multiple axial CT images of the head were obtained without contrast. A dose lowering technique was utilized adhering to the principles of ALARA. COMPARISON: CTA head and neck of same day, head CT 04/15/2022 FINDINGS: No acute intracranial hemorrhage, midline shift, intracranial mass, territorial ischemia or abnormal extra-axial collection. Involutional changes with chronic microvascular ischemic disease. Unchanged ventriculomegaly. Cerebral vascular calcifications. The calvarium is intact. Prior bilateral lens repair. Severe near complete opacification the left maxillary sinus redemonstrated. Air within the left golf cart repairer space and cavernous sinuses, possibly from air within an IV catheter. IMPRESSION: No acute intracranial abnormality identified. ACT 112: Negative or not required by law. The above report was generated using voice recognition software. It may contain grammatical, syntax or spelling errors. Electronically signed by: Ever Calhoun M.D. 09/20/2022 11:13 AM Head CTA 09/20/22 09:40 CTA ANGIOGRAPHY OF THE HEAD CLINICAL HISTORY: Altered mental status. COMPARISON STUDY: Head CT April 15, 2022 and MRI of the brain May 30, 2018. TECHNIQUE: Helical axial images of the head were obtained following uneventful intravenous administration of 120 cc of Optiray. Sagittal and coronal reconstructions were viewed as well as maximal intensity projections on an independent 3-D workstation. Automated exposure control was utilized for the study. A dose lowering technique was utilized adhering to the principles of ALARA. FINDINGS: Please note that the head CT will be reported separately. Left maxillary sinus opacification is better depicted on the head CT. This was shown on CT of April 15, 2022. Venous gas is incidentally noted. The bilateral M1, M2, A1 and A2 segments are patent. There is moderate plaque within bilateral cavernous carotids without significant stenosis. There is no intracranial aneury sm. There is no central vessel occlusion. persistence of the right posterior cerebral artery. Mild stenoses of multiple intracranial vessels are noted. IMPRESSION: No central vessel occlusion. No intracranial aneurysm. ACT 112: Negative or not required by law. Electronically signed by: Gabe Oshea M.D. 09/20/2022 11:18 AM Neck CTA 09/20/22 09:40 CT angio neck with con CLINICAL HISTORY: AMS TECHNIQUE: CT angiography of the neck was performed following intravenous administration of iodinated contrast. Coronal and sagittal MIPS were obtained from the axial data set and were submitted for review. Automated dose lowering techniques and/or adjustment according to patient size were utilized for this examination. All measurements were calculated based on NASCET criteria. CT DOSE: 1277.25 mGy.cm Comparison: Comparison is made to CT cervical spine 07/02/2021 FINDINGS: Lungs and soft tissues are unremarkable. CTA Neck: A 3 vessel aortic arch is shown. Atherosclerotic plaque is present in the aortic arch and at the origin of the great vessels. There is intimately significant stenosis of the right internal carotid artery just distal to the bifurcation. Atherosclerosis is seen on the left without hemodynamically significant stenosis. The left vertebral artery is dominant. IMPRESSION: Hemodynamically significant atherosclerosis near the origin of the right internal carotid artery. Assessment of stenosis of the internal carotid arteries is based on NASCET criteria. ACT 112: Negative or not required by law. Electronically signed by: Marshall Prado M.D. 09/20/2022 11:[address] 09/20/22 14:02 CT humerus RT wo con, CT forearm RT wo con HISTORY: 87 years-old Male right arm pain acute pain of the right upper extremity without reported trauma COMPARISON: Chest radiograph September 20, [address] images of the right humerus and forearm were obtained without the use of IV contrast. TECHNIQUE: Multiple axial CT images of the right humerus and forearm were obtained without the use of IV contrast. A dose lowering technique was used consistent with the principals of KRISTEL. FINDINGS: HUMERUS: Small likely degenerative glenohumeral joint effusion. Gynecomastia. Unremarkable soft tissues. Right renal calculi measure up to 9 mm. 1.5 cm pro bable cyst of the right hepatic lobe. Severe glenohumeral with moderate to severe AC joint osteoarthritis. Additional osteoarthritis of the elbow. No acute fracture, dislocation or suspicious bone lesion. 4 mm intra-articular loose body on image 53 series 2. Mild joint space debris within the glenohumeral joint. Tendons and ligaments are not well evaluated by CT technique. Moderate supraspinatus muscle atrophy. FOREARM: Motion degraded exam. No acute fracture or dislocation identified. 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 Tendons and ligaments are not well evaluated by CT technique. Unremarkable soft tissues. No large joint effusion of the elbow identified. IMPRESSION: 1. Osteoarthritis without acute fracture or dislocation identified. 2. Small likely degenerative glenohumeral joint effusion with subcentimeter intra-articular loose body. ACT 112: Negative or not required by law. The above report was generated using voice recognition software. It may contain grammatical, syntax or spelling errors. Electronically signed by: Ever Calhoun M.D. 09/20/2022 4:[address] 09/20/22 14:02 CT humerus RT wo con, CT forearm RT wo con HISTORY: 87 years-old Male right arm pain acute pain of the right upper extremity without reported trauma COMPARISON: Chest radiograph September 20, [address] images of the right humerus and forearm were obtained without the use of IV contrast. TECHNIQUE: Multiple axial CT images of the right humerus and forearm were obtained without the use of IV contrast. A dose lowering technique was used consistent with the principals of KRISTEL. FINDINGS: HUMERUS: Small likely degenerative glenohumeral joint effusion. Gynecomastia. Unremarkable soft tissues. Right renal calculi measure up to 9 mm. 1.5 cm probable cyst of the right hepatic lobe. Severe glenohumeral with moderate to severe AC joint osteoarthritis. Additional osteoarthritis of the elbow. No acute fracture, dislocation or suspicious bone lesion. 4 mm intra-articular loose body on image 53 series 2. Mild joint space debris within the glenohumeral joint. Tendons and ligaments are not well evaluated by CT technique. Moderate supraspinatus muscle atrophy. FOREARM: Motion degraded exam. No acute fracture or dislocation identified. 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 Tendons and ligaments are not well evaluated by CT technique. Unremarkable soft tissues. No large joint effusion of the elbow identified. IMPRESSION: 1. Osteoarthritis without acute fracture or dislocation identified. 2. Small likely degenerative glenohumeral joint effusion with subcentimeter intra-articular loose body. ACT 112: Negative or not required by law. The above report was generated using voice recognition software. It may contain grammatical, syntax or spelling errors. Electronically signed by: Ever Calhoun M.D. 09/20/2022 4:05 PM Venous Doppler Study 09/20/22 14:02 US venous doppler UE RT HISTORY: 87 years-old Male right arm pain . Acute right upper extremity pain and swelling COMPARISON: None TECHNIQUE: Multiple real-time sonographic images of the right upper extremities deep venous structures were obtained assessing grayscale appearance, color and spectral flow FINDINGS: Normal flow, compressibility, phasicity and augmentation. IMPRESSION: No DVT. ACT 112: Negative or not required by law. The above report was generated using voice recognition software. It may contain grammatical, syntax or spelling errors. Electronically signed by: Ever Calhoun M.D. 09/20/2022 4:31 PM Discharge Plan Visit Data Chief Complaint: Confusion Stated Complaint: AMS ED Provider: George Marie Discharge Problem: Acute UTI, Alzheimer disease, Acute alteration in mental status, Elevated troponin Forms Stand Alone Forms: My [facility] Prescriptions Prescriptions: No Action buspirone 5 mg tablet 2.5 mg PO BIDM Rx Instructions: TAKE 2.5MG TWICE DAILY WITH MEALS sertraline 100 mg Tablet 100 mg PO QPM simvastatin 40 mg Tablet 40 mg PO QPM Systane (PF) 0.4-0.3 % Dropperette 1 drp OPB BID olanzapine 5 mg Tablet 5 mg PO HS oxybutynin chloride 5 mg tablet 10 mg PO QAM losartan 25 mg tablet 25 mg PO QAM cyanocobalamin (vitamin B-12) 1,000 mcg tablet 1,000 mcg PO QAM diclofenac sodium [Voltaren Arthritis Pain] 1 % Gel 4 g EXT Q12H PRN (Reason: left hip pain) Qty: 100 0RF Rx Instructions: apply to left hip glipizide 5 mg tablet 7.5 mg PO QAM docusate sodium 100 mg Capsule 100 mg PO BID glipizide 5 mg tablet 5 mg PO QPM acetaminophen 500 mg Tablet 1,000 mg PO Q8H MDD 3G PRN (Reason: Pain) levothyroxine [Synthroid] 75 mcg Tablet 75 mcg PO DAILYBB Qty: 30 0RF Referrals Referrals: Mervat Garcia [Primary Care Provider] -
[2022-09-20] MEDS ORDERED: SODIUM CHLORIDE 0.9% 1000ML 1,000 ML IV ONE (09:40)
--- NOTE | 2022-09-20 10:06 | XRay Report ---
XR chest 1V portable CLINICAL HISTORY: ams TECHNIQUE: Single frontal radiograph of the chest was obtained. Comparison: Comparison is made to chest radiograph 04/17/2022 FINDINGS: No lines and tubes are seen. Calcified aortic knob is seen. Lungs are underinflated but clear. No breonna dence of pleural effusion or pneumothorax. IMPRESSION: No acute chest disease. ACT 112: Negative or not required by law. Electronically signed by: Marshall Prado M.D. 09/20/2022 10:04 AM
[2022-09-20 10:27] LABS: Appearance Urine Cloudy (Clear); Bacteria Urine Automated 2+ (Negative); Bilirubin Urine Negative (Negative); Blood Urine 1+ (Negative); Color Urine Yellow; Glucose Urine UA Negative (Negative); Ketones Urine Trace (Negative); Leukocyte Esterase Urine 3+ (Negative); Nitrite Urine Negative (Negative); Protein Urine Trace (Negative); RBC Urine Automated 0-4 /hpf (0-4); Specific Gravity Urine 1.019 (1.000-1.030); Urobilinogen Urine Negative (Negative); WBC Urine Automated >30 /hpf (0-5); pH Urine 5.5 (4.5-7.5)
[2022-09-20] MEDS ORDERED: OPTIRAY 320 500ml IV ONE (10:57)
[2022-09-20 11:07] LABS: Influenza A virus by PCR Negative (Neg); Influenza B virus by PCR Negative (Neg); RSV by PCR Negative (Neg); SARS CoV2 RNA(COVID-19) Ceph NEGATIVE (Negative)
--- NOTE | 2022-09-20 11:14 | CT Scan Report ---
CT head/brain wo con CLINICAL HISTORY: 87 years-old Male with AMS. Acutely altered mental status TECHNIQUE: Multiple axial CT images of the head were obtained without contrast. A dose lowering tech nique was utilized adhering to the principles of ALARA. COMPARISON: CTA head and neck of same day, head CT 04/15/2022 FINDINGS: No acute intracranial hemorrhage, midline shift, intracranial mass, territorial ischemia or abnormal extra-axial collection. Involutional changes with chronic microvascular ischemic disease. Unchanged v entriculomegaly. Cerebral vascular calcifications. The calvarium is intact. Prior bilateral lens repair. Severe near complete opacification the left max illary sinus redemonstrated. Air within the left firer helper space and cavernous sinuses, possibly fro m air within an IV catheter. IMPRESSION: No acute intracranial abnormality identified. ACT 112: Negative or not required by law. The above report was generated using voice recognition software. It may contain grammatical, syntax o r spelling errors. Electronically signed by: Ever Calhoun M.D. 09/20/2022 11:13 AM
--- NOTE | 2022-09-20 11:19 | CT Scan Report ---
CTA ANGIOGRAPHY OF THE HEAD CLINICAL HISTORY: Altered mental status. COMPARISON STUDY: Head CT April 15, 2022 and MRI of the brain May 30, 2018. TECHNIQUE: Helical axial images of the head were obtained following uneventful intravenous administr ation of 120 cc of Optiray. Sagittal and coronal reconstructions were viewed as well as maximal inten sity projections on an independent 3-D workstation. Automated exposure control was utilized for the study. A dose lowering technique was utilized adhering to the principles of ALARA. FINDINGS: Please note that the head CT will be reported separately. Left maxillary sinus opacificatio n is better depicted on the head CT. This was shown on CT of April 15, 2022. Venous gas is incidenta lly noted. The bilateral M1, M2, A1 and A2 segments are patent. There is moderate plaque within bilat eral cavernous carotids without significant stenosis. There is no intracranial aneurysm. There is no central vessel occlusion. persistence of the right posterior cerebral artery. Mild stenoses of multiple intracranial vessels are noted. IMPRESSION: No central vessel occlusion. No intracranial aneurysm. ACT 112: Negative or not required by law. Electronically signed by: Gabe Oshea M.D. 09/20/2022 11:18 AM
--- NOTE | 2022-09-20 11:24 | CT Scan Report ---
CT angio neck with con CLINICAL HISTORY: AMS TECHNIQUE: CT angiography of the neck was performed following intravenous administration of iodinated contrast. Coronal and sagittal MIPS were obtained from the axial data set and were submitted for rev iew. Automated dose lowering techniques and/or adjustment according to patient size were utilized fo r this examination. All measurements were calculated based on NASCET criteria. CT DOSE: 1277.25 mGy.cm Comparison: Comparison is made to CT cervical spine 07/02/2021 FINDINGS: Lungs and soft tissues are unremarkable. CTA Neck: A 3 vessel aortic arch is shown. Atherosclerotic plaque is present in the aortic arch and at the origin of the great vessels. There is intimately significant stenosis of the right internal c arotid artery just distal to the bifurcation. Atherosclerosis is seen on the left without hemodynamic ally significant stenosis. The left vertebral artery is dominant. IMPRESSION: Hemodynamically significant atherosclerosis near the origin of the right internal carotid artery. Assessment of stenosis of the internal carotid arteries is based on NASCET criteria. ACT 112: Negative or not required by law. Electronically signed by: Marshall Prado M.D. 09/20/2022 11:22 AM
[2022-09-20 11:48] LABS: Albumin Level 3.4 gm/dl (3.4-5.0); BUN Creatinine Ratio 15.5 (10-20); Bilirubin,Total 0.6 mg/dl (0.2-1.0); Calcium 8.9 mg/dl (8.5-10.1); Creatinine Clr Calc Pharmacy 50.7 ml/min; Est GFR (African American) 64.8 ml/min; Est GFR (Non-African American) 55.9 ml/min; Globulin 3.4 gm/dl (2.5-4.0); Magnesium 1.9 mg/dl (1.7-2.4); Potassium 4.3 mmol/L (3.5-5.1); Total Protein 6.8 gm/dl (6.0-8.3)
[2022-09-20] MEDS ORDERED: cefTRIAXone SODIUM 2,000 MG/70 ML BAG IV STA (12:30)
--- NOTE | 2022-09-20 13:25 | History & Physical Report ---
Date of Service September 20, 2022 Assessment & Plan (1) Acute alteration in mental status: Plan: -Admit to med/tele -The patient is currently afebrile, hemodynamically stable, and stable on RA -At this time the patient's alteration in mental status is mostly likely a ssociated with his acute UTI noted in the ED but cannot rule out side effects related to his right internal carotid artery stenosis and subacute lacunar infarct noted on imaging from today. -No other metabolic causes noted on his workup including ammonia and TSH -Re-evaluation of the patient after he received IV fluids and antibiotics shows the patient close to his baseline per his daughter -Patient was started on Ceftriaxone in the ED, will continue with this for now -Follow urine and blood cultures -Patient does not appear cognisant enough at this time to start a diet, bedside dysphagia screen ordered and speech eval ordered -For now will continue him on LR at 100 mL/hr x 2 bags overnight while NPO -Neurology consult ordered for assistance after his findings of the lacunar infarct -Continue buspar but will adjust olanzapine to HS prn to avoid oversedation -Monitor on tele -AM CBC, BMP, A1c, and lipid panel (2) Elevated troponin: Plan: -Initial high sensitivity trop elevated at 271 with 2 hour repeat at 609 -No acute ST segment or T-wave changes noted on ECG, likely due to demand from his acute infection, dehydration, and agitation -Will continue to trend his troponin q6h overnight -Monitor on tele (3) Stenosis of right internal carotid artery: Plan: -Noted on CTA of the head/neck today -Will start the patient on 81 mg aspirin daily -Patient is already on statin therapy, continue (4) Elevated CK: Plan: -Initial CK elevated at 552 -Renal function is stable -Likely due to dehydration and agitation -Continue IV fluids overnight and FU with AM CK level (5) Right arm pain: Plan: -Venous doppler negative for DVT -CT of the arm is negative for acute fractures or dislocations -CT does show degenerative glenohumeral joint effusion with subcentimeter intra- articular loose body. -For now will start with scheduled IV tylenol while he is NPO -Continue to monitor (6) Hypothyroidism: Plan: -TSH WNL -Continue levothyroxine (7) Type 2 diabetes mellitus: Plan: -Monitor BSG q6h while NPO, goal should be 110-140 -Hold glipizide -Will start with 5 units lantus BID, correction factor of 45 and carb ratio of 15 (when he can eat) -Adjust regimen as needed -AM A1C ordered (8) HTN (hypertension): Plan: -Stable -Continue losartan (9) Hyperlipidemia: Plan: -Continue statin Plan The patient was discussed with Dr. Young at the time of the admission History of Present Illness Chief Complaint: [facility] Primary Care Provider: [facility] Mevrat Chencho Real is an 87-year-old male with a past medical history significant for Alzheimer's dementia, hypertension, hyperlipidemia, DM2, CKD, hypothyroidism, osteoarthritis, and depression who presented to the [facility] responsiveness from baseline. In the ED today the patient was found to be afebrile, hemodynamically stable, and stable on RA. Per the ED staff, on arrival the patient would only wake to pain. Labs were significant for stable cr at 1.16, stable electrolytes, lactate WNL, glucose of 220, LFTs WNL, initial high sensitivity trop of 271, procal < 0.05, TSH WNL, UA with 3+ leukocyte esterase, > 30 WBCs, and 2+ bacteria, Covid/Influenza/RSV negative. CT of the head was read as "No acute intracranial abnormality identified.". CTA of the head was read as "No central vessel occlusion. No intracranial aneurysm.". CTA of the neck was reas as "Hemodynamically significant atherosclerosis near the origin of the right internal carotid artery.". Chest xray was read as 'No acute chest disease.". The patient was initially treated with 1L NSS and one dose of ceftriaxone and his mental status began to improve per the ED staff. At the time of the exam the patient was sleeping in bed, lying on his right side, with his Daughter/POA (Elina Doll [phone]) sitting bedside. The history was obtained from the patient's daughter due to the patient's baseline mental status. She states that she currently lives in [place] and last saw her father approximately 2 weeks ago. She noticed a cognitive decline at that time as he was no longer playing cards and seemed more confused than usual. She states that the [facility] staff called her this AM to tell her that the patient was sitting at a table during breakfast when he became less responsive and slouched to the right, supporting himself on his right arm. The staff was concerned that the patient was experiencing right facial droop and was not using his right arm as much as usual. I woke the patient up by calling his name and he was immediately distraught and calling out in pain. When I asked to point to where he was having pain the patient pointed to his right forearm. The patient knew his name but could not provide me with any other information. I spoke to the patient's daughter regarding code status. After our discussion she wishes for the patient to be a DNR/DNI. Please refer to Dr. Young's attestation for any changes to the treatment plan Allergies Allergy/AdvReac Type Severity Reaction Status Date / Time adhesive tape Allergy Unknown Unknown Verified 09/20/22 10:10 cephalexin [From Keflex] Allergy Unknown Unknown Verified 09/20/22 10:10 rofecoxib Allergy Unknown SWOLLEN Verified 09/20/22 10:10 FEET Home Medications Medication Instructions Recorded Confirmed Type sertraline 100 mg tablet 100 mg PO QPM 05/08/18 09/20/22 History simvastatin 40 mg tablet 40 mg PO QPM 05/08/18 09/20/22 History buspirone 5 mg tablet 2.5 mg PO BIDM 03/31/19 09/20/22 History peg 400-propylene glycol (PF) 0.4 1 drp OPB BID 07/01/19 09/20/22 History %-0.3 % eye drops in a dropperette (Systane (PF)) olanzapine 5 mg tablet 5 mg PO HS 06/22/20 09/20/22 History oxybutynin chloride 5 mg tablet 10 mg PO QAM 07/31/20 09/20/22 History cyanocobalamin (vitamin B-12) 1,000 mcg PO QAM 08/18/20 09/20/22 History 1,000 mcg tablet losartan 25 mg tablet 25 mg PO QAM 08/18/20 09/20/22 History diclofenac sodium 1 % topical gel 4 g EXT Q12H PRN left hip pain 07/04/21 09/20/22 Rx (Voltaren Arthritis Pain) #100 grams acetaminophen 500 mg tablet 1,000 mg PO Q8H PRN Pain 04/15/22 09/20/22 History docusate sodium 100 mg capsule 100 mg PO BID 04/15/22 09/20/22 History glipizide 5 mg tablet 5 mg PO QPM 04/15/22 09/20/22 History levothyroxine 75 mcg tablet 75 mcg PO DAILYBB #30 tabs 04/20/22 09/20/22 Rx (Synthroid) glipizide 5 mg tablet 7.5 mg PO QAM 09/20/22 09/20/22 History Past Med/Surg History Medical History Alzheimer disease Bipolar disorder Chronic kidney disease, stage 3a Depression Fall Fracture, ribs HTN (hypertension) Hyperlipidemia Migraines Nocturnal hypoxia Skin problem Type 2 diabetes mellitus Surgical History Previous back surgery S/P appendectomy Family History Other Cancer Diabetes Gallbladder disease Hypertension Kidney disease Social History Smoking Status: Unknown if ever smoked Second Hand Exposure: No; Hx Alcohol Use: No Hx Substance Use: No Preferred Language: Serbian Communication Ability: Impaired Equity Trader Required: No Beliefs That Will Affect Care: None marital status: / Current Living Situation: Alf Current Living Situation Comment: [employer] 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 How many Children do You have: 2 Other Information That Helps Us Care for You: No Feels Safe at Home: Yes Safety Concerns: Feels Safe At This Time Assistive Devices: Walker and Wheelchair Review of Systems Review of Systems: ROS unable to be obtained from the patient due to his baseline mental status, please refer to the HPI Physical Exam Physical Exam: Physical Exam: General: In moderate distress initially when waking the patient and attempting to adjust him in bed, stated age, chronically ill appearing but non- toxic appearing HEENT: Normocephalic, atraumatic, no scleral icterus, pupils around round, symmetrical, and reactive to light, dry mucus membranes, trachea midline, no thyromegaly Chest/Pulm: No respiratory distress, symmetrical chest expansion, clear breath sounds throughout Cardiac: RRR, no murmurs noted Abdomen: Negative for ascites and bruising, normoactive bowel sounds, soft, non-tender to palpation throughout Musculoskeletal: Patient with full ROM of the BL UE's, no crepitus or tenderness to palpation of the BL shoulders/humerus, patient's right forearm is erythematous on the ventral aspect, he is tender to palpation at this site but there are no signs of acute trauma or circumferential swelling/erythema, patient allowed me to passively flex his right forearm without limitation, no acute trauma or tenderness in the BL LE's. Extremities: Radial, dorsalis pedis, and posterior tibial pulses are intact and symmetrical, no edema noted in the BL LE's Skin: As described above Neuro: Alert and oriented to person only, follows some commands, patient will not follow commands for CN testing, symmetrical strength in the BL upper and lower extremities, no tremor noted Psych: No moderate distress, no aggression noted Results & Data Results & Data ([facility]) Vital Signs (Past 12 Hours) Vital Signs Temp Pulse Resp BP Pulse Ox O2 Del Method O2 Flow Rate 09/20/22 12:00 85 24 118/74 95 09/20/22 10:00 87 11 L 99 09/20/22 09:30 91 H 12 98 09/20/22 09:30 131/75 09/20/22 09:26 95 H 18 97 09/20/22 09:33 Room Air 95 09/20/22 09:34 36.5 C 85 18 122/80 95 Room Air Laboratory Results Abnormal lab results 09/20/22 09/20/22 09/20/22 Range/Units 09:25 09:28 09:28 [place] # (Auto) 0.76 H (0.11-0.59) K/uL ESR (0-20) mm/hr Glucose 220 H (70-99(Fasting)) mg/dl POC Glucose (70-99) mg/dl Total Creatine Kinase (30-223) U/L Troponin I High Sens 271.0 H* (0-20) pg/ml C-Reactive Protein (0-0.5) mg/dl Lipase 10 L (11-82) U/L Prostate Specific Ag (0-4) ng/ml Urine Appearance Cloudy A (Clear) Urine Protein Trace H (Negative) Urine Ketones Trace H (Negative) Urine Blood 1+ H (Negative) Ur Leukocyte Esterase 3+ H (Negative) Urine WBC (Auto) >30 H (0-5) /hpf U Epithel Cells (Auto) 5-10 H (0-5) /lpf Urine Bacteria (Auto) 2+ H (Negative) 09/20/22 09/20/22 09/20/22 Range/Units 09:28 14:25 16:59 [place] # (Auto) (0.11-0.59) K/uL ESR 60 H (0-20) mm/hr Glucose (70-99(Fasting)) mg/dl POC Glucose 121 H (70-99) mg/dl Total Creatine Kinase (30-223) U/L Troponin I High Sens 609.8 H* D (0-20) pg/ml C-Reactive Protein (0-0.5) mg/dl Lipase (11-82) U/L Prostate Specific Ag (0-4) ng/ml Urine Appearance (Clear) Urine Protein (Negative) Urine Ketones (Negative) Urine Blood (Negative) Ur Leukocyte Esterase (Negative) Urine WBC (Auto) (0-5) /hpf U Epithel Cells (Auto) (0-5) /lpf Urine Bacteria (Auto) (Negative) 09/20/22 09/20/22 09/20/22 Range/Units 18:57 18:57 20:08 [place] # (Auto) (0.11-0.59) K/uL ESR (0-20) mm/hr Glucose (70-99(Fasting)) mg/dl POC Glucose (70-99) mg/dl Total Creatine Kinase 552 H (30-223) U/L Troponin I High Sens 849.3 H* D (0-20) pg/ml C-Reactive Protein 2.25 H (0-0.5) mg/dl Lipase (11-82) U/L Prostate Specific Ag 7.597 H (0-4) ng/ml Urine Appearance (Clear) Urine Protein (Negative) Urine Ketones (Negative) Urine Blood (Negative) Ur Leukocyte Esterase (Negative) Urine WBC (Auto) (0-5) /hpf U Epithel Cells (Auto) (0-5) /lpf Urine Bacteria (Auto) (Negative) 09/20/22 Range/Units 20:42 [place] # (Auto) (0.11-0.59) K/uL ESR (0-20) mm/hr Glucose (70-99(Fasting)) mg/dl POC Glucose 102 H (70-99) mg/dl Total Creatine Kinase (30-223) U/L Troponin I High Sens (0-20) pg/ml C-Reactive Protein (0-0.5) mg/dl Lipase (11-82) U/L Prostate Specific Ag (0-4) ng/ml Urine Appearance (Clear) Urine Protein (Negative) Urine Ketones (Negative) Urine Blood (Negative) Ur Leukocyte Esterase (Negative) Urine WBC (Auto) (0-5) /hpf U Epithel Cells (Auto) (0-5) /lpf Urine Bacteria (Auto) (Negative) Diagnostic Findings Chest X-Ray 09/20/22 09:40 XR chest 1V portable CLINICAL HISTORY: ams TECHNIQUE: Single frontal radiograph of the chest was obtained. Comparison: Comparison is made to chest radiograph 04/17/2022 FINDINGS: No lines and tubes are seen. Calcified aortic knob is seen. Lungs are underinflated but clear. No evidence of pleural effusion or pneumothorax. IMPRESSION: No acute chest disease. ACT 112: Negative or not required by law. Electronically signed by: Marshall Prado M.D. 09/20/2022 10:[address] 09/20/22 09:40 CT head/brain wo con CLINICAL HISTORY: 87 years-old Male with AMS. Acutely altered mental status TECHNIQUE: Multiple axial CT images of the head were obtained without contrast. A dose lowering technique was utilized adhering to the principles of ALARA. COMPARISON: CTA head and neck of same day, head CT 04/15/2022 FINDINGS: No acute intracranial hemorrhage, midline shift, intracranial mass, territorial ischemia or abnormal extra-axial collection. Involutional changes with chronic microvascular ischemic disease. Unchanged ventriculomegaly. Cerebral vascular calcifications. The calvarium is intact. Prior bilateral lens repair. Severe near complete opacification the left maxillary sinus redemonstrated. Air within the left client service and consulting manager space and cavernous sinuses, possibly from air within an IV catheter. IMPRESSION: No acute intracranial abnormality identified. ACT 112: Negative or not required by law. The above report was generated using voice recognition software. It may contain grammatical, syntax or spelling errors. Electronically signed by: Ever Calhoun M.D. 09/20/2022 11:13 AM Head CTA 09/20/22 09:40 CTA ANGIOGRAPHY OF THE HEAD CLINICAL HISTORY: Altered mental status. COMPARISON STUDY: Head CT April 15, 2022 and MRI of the brain May 30, 2018. TECHNIQUE: Helical axial images of the head were obtained following uneventful intravenous administration of 120 cc of Optiray. Sagittal and coronal recons tructions were viewed as well as maximal intensity projections on an independent 3-D workstation. Automated exposure control was utilized for the study. A dose lowering technique was utilized adhering to the principles of ALARA. FINDINGS: Please note that the head CT will be reported separately. Left maxillary sinus opacification is better depicted on the head CT. This was shown on CT of April 15, 2022. Venous gas is incidentally noted. The bilateral M1, M2, A1 and A2 segments are patent. There is moderate plaque within bilateral cavernous carotids without significant stenosis. There is no intracranial aneurysm. There is no central vessel occlusion. persistence of the right posterior cerebral artery. Mild stenoses of multiple intracranial vessels are noted. IMPRESSION: No central vessel occlusion. No intracranial aneurysm. ACT 112: Negative or not required by law. Electronically signed by: Gabe Oshea M.D. 09/20/2022 11:18 AM Neck CTA 09/20/22 09:40 CT angio neck with con CLINICAL HISTORY: AMS TECHNIQUE: CT angiography of the neck was performed following intravenous administration of iodinated contrast. Coronal and sagittal MIPS were obtained from the axial data set and were submitted for review. Automated dose lowering techniques and/or adjustment according to patient size were utilized for this examination. All measurements were calculated based on NASCET criteria. CT DOSE: 1277.25 mGy.cm Comparison: Comparison is made to CT cervical spine 07/02/2021 FINDINGS: Lungs and soft tissues are unremarkable. CTA Neck: A 3 vessel aortic arch is shown. Atherosclerotic plaque is present in the aortic arch and at the origin of the great vessels. There is intimately significant stenosis of the right internal carotid artery just distal to the bifurcation. Atherosclerosis is seen on the left without hemodynamically significant stenosis. The left vertebral artery is dominant. IMPRESSION: Hemodynamically significant atherosclerosis near the origin of the right internal carotid artery. Assessment of stenosis of the internal carotid arteries is based on NASCET criteria. ACT 112: Negative or not required by law. Electronically signed by: Marshall Prado M.D. 09/20/2022 11:[address] 09/20/22 14:02 CT humerus RT wo con, CT forearm RT wo con HISTORY: 87 years-old Male right arm pain acute pain of the right upper extremity without reported trauma COMPARISON: Chest radiograph September 20, [address] images of the right humerus and forearm were obtained without the use of IV contrast. TECHNIQUE: Multiple axial CT images of the right humerus and forearm were obtained without the use of IV contrast. A dose lowering technique was used consistent with the principals of ALARA. FINDINGS: HUMERUS: Small likely degenerative glenohumeral joint effusion. Gynecomastia. Unremarkable soft tissues. Right renal calculi measure up to 9 mm. 1.5 cm probable cyst of the right hepatic lobe. Severe glenohumeral with moderate to severe AC joint osteoarthritis. Additional osteoarthritis of the elbow. No acute fracture, dislocation or suspicious bone lesion. 4 mm intra-articular loose body on image 53 series 2. Mild joint space debris within the glenohumeral joint. Tendons and ligaments are not well evaluated by CT technique. Moderate sup raspinatus muscle atrophy. FOREARM: Motion degraded exam. No acute fracture or dislocation identified. 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 Tendons and ligaments are not well evaluated by CT technique. Unremarkable soft tissues. No large joint effusion of the elbow identified. IMPRESSION: 1. Osteoarthritis without acute fracture or dislocation identified. 2. Small likely degenerative glenohumeral joint effusion with subcentimeter intra-articular loose body. ACT 112: Negative or not required by law. The above report was generated using voice recognition software. It may contain grammatical, syntax or spelling errors. Electronically signed by: Ever Calhoun M.D. 09/20/2022 4:[address] 09/20/22 14:02 CT humerus RT wo con, CT forearm RT wo con HISTORY: 87 years-old Male right arm pain acute pain of the right upper extremity without reported trauma COMPARISON: Chest radiograph September 20, [address] images of the right humerus and forearm were obtained without the use of IV contrast. TECHNIQUE: Multiple axial CT images of the right humerus and forearm were obtained without the use of IV contrast. A dose lowering technique was used consistent with the principals of ALARA. FINDINGS: HUMERUS: Small likely degenerative glenohumeral joint effusion. Gynecomastia. Unremarkable soft tissues. Right renal calculi measure up to 9 mm. 1.5 cm probable cyst of the right hepatic lobe. Severe glenohumeral with moderate to severe AC joint osteoarthritis. Additional osteoarthritis of the elbow. No acute fracture, dislocation or suspicious bone lesion. 4 mm intra-articular loose body on image 53 series 2. Mild joint space debris within the glenohumeral joint. Tendons and ligaments are not well evaluated by CT technique. Moderate supraspinatus muscle atrophy. FOREARM: Motion degraded exam. No acute fracture or dislocation identified. 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 Tendons and ligaments are not well evaluated by CT technique. Unremarkable soft tissues. No large joint effusion of the elbow identified. IMPRESSION: 1. Osteoarthritis without acute fracture or dislocation identified. 2. Small likely degenerative glenohumeral joint effusion with subcentimeter intra-articular loose body. ACT 112: Negative or not required by law. The above report was generated using voice recognition software. It may contain grammatical, syntax or spelling errors. Electronically signed by: Ever Calhoun M.D. 09/20/2022 4:05 PM Venous Doppler Study 09/20/22 14:02 US venous doppler UE RT HISTORY: 87 years-old Male right arm pain . Acute right upper extremity pain and swelling COMPARISON: None TECHNIQUE: Multiple real-time sonographic images of the right upper extremities deep venous structures were obtained assessing grayscale appearance, color and spectral flow FINDINGS: Normal flow, compressibility, phasicity and augmentation. IMPRESSION: No DVT. ACT 112: Negative or not required by law. The above report was generated using voice recognition software. It may contain grammatical, syntax or spelling errors. Electronically signed by: Ever Calhoun M.D. 09/20/2022 4:31 PM Brain MRI 09/20/22 14:07 MR brain wo con HISTORY: 87 years-old Male stroke workup acutely altered mental status with weakness COMPARISON: Head CT of same day, brain MRI 05/30/2018 TECHNIQUE: Multiplanar multisequence MRI of the brain was obtained without the use of IV contrast. FINDINGS: Motion degraded exam. Degenerative changes of the imaged cervical spine. Partially empty sella. Involutional changes with unchanged ventriculomegaly. There is an 8 mm area of increased diffusion-weighted signal noted within the periventricular left parietal lobe on image 17 series 4 with intermediate signal on ADC map and slightly increased T2/FLAIR signal. No acute or subacute territorial infarct. No midline shift, abnormal extra-axial collection, or intracranial mass identified. Moderate to extensive T2/FLAIR hyperintense foci again noted throughout the white matter. Cerebral venous sinuses and major arterial flow voids appear patent. The skull, orbits and soft tissues are unremarkable. Prior bilateral lens repair. Moderate mucosal thickening of the paranasal sinuses. IMPRESSION: 1. Subtle subcentimeter focus of slightly increased diffusion-weighted signal within the periventricular left parietal lobe may represent a subacute lacunar infarct. 2. Involutional changes with unchanged ventriculomegaly. 3. Chronic microvascular ischemic disease. ACT 112: Negative or not required by law. The above report was generated using voice recognition software. It may contain grammatical, syntax or spelling errors. Electronically signed by: Ever Calhoun M.D. 09/20/2022 5:45 PM Hip/Pelvis X-Ray 09/20/22 16:49 XR hip MARKUS 2v w pelvis HISTORY: 87 years-old Male r/o hip fracture acute right hip pain COMPARISON: CT abdomen and pelvis 04/15/2022 TECHNIQUE: AP view of the pelvis with 2 views the right hip FINDINGS: Contrast in the urinary bladder lumen. Severe left greater than right osteoarthritis of the hips. Shortness left femoral neck is similar to the prior study. Demineralized appearance of the bones. No acute fracture, dislocation or avascular necrosis. Bilateral nephrolithiasis. IMPRESSION: 1. No acute fracture or dislocation. 2. Severe osteoarthritis of the left greater than right hips redemonstrated. 3. Bilateral nephrolithiasis. ACT 112: Negative or not required by law. The above report was generated using voice recognition software. It may contain grammatical, syntax or spelling errors. Electronically signed by: Ever Calhoun M.D. 09/20/2022 5:59 PM ECG Additional Comments: Sinus rhythm with Premature atrial complexes Low voltage QRS Inferior infarct (cited on or before 02-JUL-2021) Cannot rule out Anterior infarct (cited on or before 15-APR-2022) Abnormal ECG When compared with ECG of 15-APR-2022 12:58, Premature atrial complexes are now Present Code Status & VTE Plan Code Status DNR/DNI Supervising Physician Co-Signing Physician Notes I personally saw and examined the patient. I verified all wisdom points and agree with Daren Laar PA-C with the following exceptions and/or additions: 87-year-old male presents to the ER with acute progressive change in altered mental status over the course of 2 weeks on a background of advanced dementia. Very far off his baseline according to his daughter (Elina) at bedside. O/E Patient alert but generalized moaning, making non sensical signs, in bed on palpation anywhere, 1+ pitting edema of RUE, appears to be in pain moving any extremity but especially left leg and right arm, holding his right shoulder, HS1+2, no murmurs, RRR, Chest CTAB, Abdo SNT A/P Altered mental status - appears similar to presentation in March with cellulitis with normal WBC and provalcitonin suggesting he doesn't amount much of an immune response. Most likely source is urine - follow up blood and urine cultures. Empiric antibiotics with ceftriaxone. patient is not septic appearing. Will get ESR/CRP/PSA to assess for prostatic involvement - if not improving consider CT A/P. Ammonia level normal. Given concern for right facial droop and leaning to right side by detention will complete assessment for stroke with brain MRI. Elevated troponin - suspect demand-ischemia with current infection and underlying CAD, lower suspicion of ACS however will get TTE to assess for wall motion abnormality Right internal carotid stenosis - patient is a very poor surgical candidate, agree with starting aspirin and continuing statin. I have a lower suspicion this is contributing towards his altered mental status Right arm pain - difficult to assess given patients altered mental status, no areas of cellulitis, suspect edema from poor venous return as reportedly lying on hits side. Left hip pain - will get hip XR to assess for #, known severe OA of left side and not a surgical candidate Otherwise plan as above PG Care Time/CCT Total # of Minutes Spent Total Time Spent with Patient: Total time spent is greater than 50% in coordination of care (as documented) at patient's floor/unit and/or counseling patient: Coding [place] [address] INT INP/OBS CARE 3/75MIN Patient Type Established Medical Decision Making High Complexity Diagnoses Acute alteration in mental status R41.82 Elevated troponin R77.8 Stenosis of right internal carotid artery I65.21 Elevated CK R74.8 Right arm pain M79.601 Hypothyroidism E03.9 Type 2 diabetes mellitus E11.9 HTN (hypertension) I10 Hyperlipidemia E78.5
[2022-09-20] MEDS ORDERED: CARBOHYDRATES FOR HYPOGLYCEMIA PO PRN (13:36)
[2022-09-20] MEDS ORDERED: GLUCOSE 10 TAB/TUBE PO PRN (13:36)
[2022-09-20] MEDS ORDERED: GLUCAGON FOR INJ 1 MG VIAL SQ PRN (13:36)
[2022-09-20] MEDS ORDERED: DEXTROSE 50% 50 ML SYRINGE IV PRN (13:36)
[2022-09-20] MEDS ORDERED: GLUCOSE 40% GEL 15 GM TUBE PO PRN (13:36)
[2022-09-20 13:40] LABS: Basophils # (auto) 0.07 K/uL (0-0.2); Basophils % (auto) 0.7 %; Eosinophils # (auto) 0.04 K/uL (0-0.50); Eosinophils % (auto) 0.4 %; Hematocrit (blood only) 42.7 % (42.0-52.0); Hemoglobin 14.3 g/dl (14.0-18.0); Immature Granulocytes # (auto) 0.06 K/uL (0.01-0.20); Immature Granulocytes % (auto) 0.6 %; Lymphocytes # (auto) 2.25 K/uL (1.2-3.4); Lymphocytes % (auto) 23.8 %; Mean Corpuscular Hemoglobin 30.3 pg (25.0-34.0); Mean Corpuscular Hgb Conc 33.5 g/dL (32.0-36.0); Mean Corpuscular Volume 90.5 fL (80.0-100.0); Monocytes # (auto) 0.76 K/uL (0.11-0.59); Neutrophils # (auto) 6.28 K/uL (1.40-6.50); Neutrophils % (auto) 66.5 %; Platelet Count 245 K/uL (130-400); RDW Coefficient of Variation 13.7 % (11.5-14.5); RDW Standard Deviation 45.4 fL (36.4-46.3); Red Blood Count 4.72 M/uL (4.70-6.10); White Blood Count 9.46 K/ul (4.8-10.8)
--- NOTE | 2022-09-20 14:00 | Electrocardiogram Report ---
Test Reason : Blood Pressure : / mmHG Vent. Rate : 090 BPM Atrial Rate : 090 BPM P-R Int : 164 ms QRS Dur : 088 ms QT Int : 374 ms P-R-T Axes : 035 -17 011 degrees QTc Int : 457 ms Sinus rhythm with Premature atrial complexes Low voltage QRS Inferior infarct (cited on or before 02-JUL-2021) Abnormal ECG When compared with ECG of 15-APR-2022 12:58, Premature atrial complexes are now Present Confirmed by Lei Oscar ([id number]) on 09/20/2022 1:59:43 PM Referred By: REFERRED SELF Confirmed By:Aaron Oscar
[2022-09-20] MEDS ORDERED: ACETAMINOPHEN 1,000 MG/100 ML VIAL IV STA (14:08)
--- NOTE | 2022-09-20 16:08 | CT Scan Report ---
CT humerus RT wo con, CT forearm RT wo con HISTORY: 87 years-old Male right arm pain acute pain of the right upper extremity without reported t rauma COMPARISON: Chest radiograph September 20, [address] images of the right humerus and forea rm were obtained without the use of IV contrast. TECHNIQUE: Multiple axial CT images of the right humerus and forearm were obtained without the use of IV contrast. A dose lowering technique was used consistent with the principals of ALARA. FINDINGS: HUMERUS: Small likely degenerative glenohumeral joint effusion. Gynecomastia. Unremarkable soft tissues. Right renal calculi measure up to 9 mm. 1.5 cm probable cyst of the right hepatic lobe. Severe glenohumera l with moderate to severe AC joint osteoarthritis. Additional osteoarthritis of the elbow. No acute f racture, dislocation or suspicious bone lesion. 4 mm intra-articular loose body on image 53 series 2. Mild joint space debris within the glenohumeral joint. Tendons and ligaments are not well evaluated by CT technique. Moderate supraspinatus muscle atrophy. FOREARM: Motion degraded exam. No acute fracture or dislocation identified. Moderate osteoarthritis of the wri st and elbow. Tendons and ligaments are not well evaluated by CT technique. Unremarkable soft tissues . No large joint effusion of the elbow identified. IMPRESSION: 1. Osteoarthritis without acute fracture or dislocation identified. 2. Small likely degenerative glenohumeral joint effusion with subcentimeter intra-articular loose bod y. ACT 112: Negative or not required by law. The above report was generated using voice recognition software. It may contain grammatical, syntax o r spelling errors. Electronically signed by: Ever Calhoun M.D. 09/20/2022 4:05 PM
--- NOTE | 2022-09-20 16:33 | Ultrasound Report ---
US venous doppler UE RT HISTORY: 87 years-old Male right arm pain . Acute right upper extremity pain and swelling COMPARISON: None TECHNIQUE: Multiple real-time sonographic images of the right upper extremities deep venous structure s were obtained assessing grayscale appearance, color and spectral flow FINDINGS: Normal flow, compressibility, phasicity and augmentation. IMPRESSION: No DVT. ACT 112: Negative or not required by law. The above report was generated using voice recognition software. It may contain grammatical, syntax o r spelling errors. Electronically signed by: Ever Calhoun M.D. 09/20/2022 4:31 PM
[2022-09-20] MEDS: INSULIN ASPART PER UNIT SC SCH ×3 (17:07→21:58)
--- NOTE | 2022-09-20 17:48 | Magnetic Resonance Report ---
MR brain wo con HISTORY: 87 years-old Male stroke workup acutely altered mental status with weakness COMPARISON: Head CT of same day, brain MRI 05/30/2018 TECHNIQUE: Multiplanar multisequence MRI of the brain was obtained without the use of IV contrast. FINDINGS: Motion degraded exam. Degenerative changes of the imaged cervical spine. Partially empty sella. Invol utional changes with unchanged ventriculomegaly. There is an 8 mm area of increased diffusion-weighte d signal noted within the periventricular left parietal lobe on image 17 series 4 with intermediate s ignal on ADC map and slightly increased T2/FLAIR signal. No acute or subacute territorial infarct. No midline shift, abnormal extra-axial collection, or intracranial mass identified. Moderate to exten sive T2/FLAIR hyperintense foci again noted throughout the white matter. Cerebral venous sinuses and major arterial flow voids appear patent. The skull, orbits and soft tissues are unremarkable. Prior b ilateral lens repair. Moderate mucosal thickening of the paranasal sinuses. IMPRESSION: 1. Subtle subcentimeter focus of slightly increased diffusion-weighted signal within the periventricu lar left parietal lobe may represent a subacute lacunar infarct. 2. Involutional changes with unchanged ventriculomegaly. 3. Chronic microvascular ischemic disease. ACT 112: Negative or not required by law. The above report was generated using voice recognition software. It may contain grammatical, syntax o r spelling errors. Electronically signed by: Ever Calhoun M.D. 09/20/2022 5:45 PM
--- NOTE | 2022-09-20 18:00 | XRay Report ---
XR hip MARKUS 2v w pelvis HISTORY: 87 years-old Male r/o hip fracture acute right hip pain COMPARISON: CT abdomen and pelvis 04/15/2022 TECHNIQUE: AP view of the pelvis with 2 views the right hip FINDINGS: Contrast in the urinary bladder lumen. Severe left greater than right osteoarthritis of the hips. Kendal rtness left femoral neck is similar to the prior study. Demineralized appearance of the bones. No acu te fracture, dislocation or avascular necrosis. Bilateral nephrolithiasis. IMPRESSION: 1. No acute fracture or dislocation. 2. Severe osteoarthritis of the left greater than right hips redemonstrated. 3. Bilateral nephrolithiasis. ACT 112: Negative or not required by law. The above report was generated using voice recognition software. It may contain grammatical, syntax o r spelling errors. Electronically signed by: Ever Calhoun M.D. 09/20/2022 5:59 PM
[2022-09-20 19:32] LABS: C Reactive Protein 2.25 mg/dl (0-0.5)
[2022-09-20] MEDS ORDERED: LANTUS PER UNIT CHARGE SQ SCH (21:00)
[2022-09-20] MEDS ORDERED: OLANZapine 5 MG TABLET PO PRN (21:07)
[2022-09-20] MEDS ORDERED: SERTRALINE HCL 100 MG TABLET PO SCH (21:07)
[2022-09-20] MEDS ORDERED: PHARMACIST DISCHARGE MED REC CONSULT PRN (21:07)
[2022-09-20] MEDS: LACTATED RINGER'S 1,000 ML IV SCH (21:38)
[2022-09-20] MEDS: SIMVASTATIN 40 MG TAB PO SCH (21:39)
[2022-09-20] MEDS: busPIRone 5 MG TAB PO SCH (21:39)
[2022-09-20] MEDS: DOCUSATE SODIUM 100 MG CAP PO SCH (21:39)
[2022-09-20] MEDS: ENOXAPARIN INJ 30 MG/0.3 ML SYR SQ SCH (21:40)
[2022-09-20] MEDS: ACETAMINOPHEN 1,000 MG/100 ML VIAL IV SCH (22:56)
[2022-09-21 02:35] LABS: Hematocrit (blood only) 36.2 % (42.0-52.0); Hemoglobin 12.3 g/dl (14.0-18.0); Mean Corpuscular Hemoglobin 30.1 pg (25.0-34.0); Mean Corpuscular Volume 88.7 fL (80.0-100.0); Platelet Count 224 K/uL (130-400); RDW Standard Deviation 45.2 fL (36.4-46.3); Red Blood Count 4.08 M/uL (4.70-6.10); White Blood Count 8.21 K/ul (4.8-10.8)
[2022-09-21 02:59] LABS: Calcium 8.4 mg/dl (8.5-10.1); Potassium 4.1 mmol/L (3.5-5.1)
[2022-09-21 03:06] LABS: BUN Creatinine Ratio 14.4 (10-20); Chol HDL Ratio 3.2 (0-5); Creatinine Clr Calc Pharmacy 59.9 ml/min; Est GFR (African American) 80.5 ml/min; Est GFR (Non-African American) 69.4 ml/min
[2022-09-21] MEDS: INSULIN ASPART PER UNIT SC SCH ×5 (04:07→21:08)
[2022-09-21] MEDS: LEVOTHYROXINE SODIUM 75 MCG TABLET PO SCH (04:45)
[2022-09-21] MEDS: ACETAMINOPHEN 1,000 MG/100 ML VIAL IV SCH ×3 (06:17→22:37)
[2022-09-21 06:32] LABS: Estimated Average Glucose 206 mg/dl; Hemoglobin A1C 8.8 % (4.5-5.6)
[2022-09-21] MEDS: SODIUM CHLORIDE 0.9% 1000ML 1,000 ML IV SCH ×2 (08:13→21:09)
[2022-09-21] MEDS: LACTATED RINGER'S 1,000 ML IV SCH (08:13)
[2022-09-21] MEDS: busPIRone 5 MG TAB PO SCH ×3 (08:15→17:25)
[2022-09-21] MEDS: OXYBUTYNIN CHLORIDE 5 MG TAB PO SCH ×2 (08:15→10:32)
[2022-09-21] MEDS: DOCUSATE SODIUM 100 MG CAP PO SCH ×3 (08:15→21:06)
[2022-09-21] MEDS: LOSARTAN POTASSIUM 25 MG TAB PO SCH ×2 (08:15→10:32)
[2022-09-21] MEDS: ARTIFICIAL TEARS OP SCH ×3 (08:15→21:07)
[2022-09-21] MEDS: ASPIRIN 81 MG ECTAB PO SCH ×2 (08:15→10:33)
--- NOTE | 2022-09-21 10:40 | XCELERA ---
[id number] \\[id number]
[2022-09-21] MEDS: cefTRIAXone SODIUM 2,000 MG in DEXTROSE 5% 50 ML IV SCH (11:36)
--- NOTE | 2022-09-21 12:08 | Neurology Consultation ---
Date of Consultation September 21, 2022 Assessment & Plan (1) Acute UTI: Plan Neurology Consultation Assessment & Plan: Impression: pt with UTI related confusion in setting of dementia and cardiac issues. pt mri brain with subacute small left parietal infarct that is clinically not relevant at this point. it should not cause his mental status decline. Recommendations: * continue ASA as now. * given advance age and DNR status, no aggressive work up needed at this point. continue tx for UTI and focus at this point is for nutritional care and safety and supportive care. * echo negative. * no need for permissive HTN. * * Long-term SBP goal less than 130. * * Initiate DVT prevention therapy * Avoid hypoglycemia, serum glucose goal during hospitalization: 140-180 * Long-term HgA1c goal less than 7 * Start statin if not on it.Long-term LDL goal of less than 70. * Head of bed up 30 degree if possible. * * Telemetry monitoring. * Fall precaution and aspiration precaution. * Consider nutritional consult * not much else to add at this point. please call again if new question. Chart reviewed I have spent more than 50% educating patient about potential diagnosis and neurological evaluation and coordinating care with patient's treatment team. Total time spent: 80 min (this includes chart review and documentation) Dr. Duy Barnes MD [facility] Neurology Chief Complaint: stroke HISTORY OF PRESENT ILLNESS:pt this morning sleepy but able to follow simple command. pt appears NAD. chart reviewed. mri reviewed. Admission/Initial HPI:Chencho Real is an 87-year-old male with a past medical history significant for Alzheimer's dementia, hypertension, hyperlipidemia, DM2, CKD, hypothyroidism, osteoarthritis, and depression who presented to the [facility] ED [facility] to decreased responsiveness from baseline. In the ED today the patient was found to be afebrile, hemodynamically stable, and stable on RA. Per the ED staff, on arrival the patient would only wake to pain. Labs were significant for stable cr at 1.16, stable electrolytes, lactate WNL, glucose of 220, LFTs WNL, initial high sensitivity trop of 271, procal < 0.05, TSH WNL, UA with 3+ leukocyte esterase, > 30 WBCs, and 2+ bacteria, Covid/Influenza/RSV negative. CT of the head was read as "No acute intracranial abnormality identified.". CTA of the head was read as "No central vessel occlusion. No intracranial aneurysm.". CTA of the neck was reas as "Hemodynamically significant atherosclerosis near the origin of the right internal carotid artery.". Chest xray was read as 'No acute chest disease.". The patient was initially treated with 1L NSS and one dose of ceftriaxone and his mental status began to improve per the ED staff. At the time of the exam the patient was sleeping in bed, lying on his right side, with his Daughter/POA (Elina Doll [phone]) sitting bedside. The history was obtained from the patient's daughter due to the patient's baseline mental status. She states that she currently lives in [place] and last saw her father approximately 2 weeks ago. She noticed a cognitive decline at that time as he was no longer playing cards and seemed more confused than usual. She states that the [facility] staff called her this AM to tell her that the patient was sitting at a table during breakfast when he became less responsive and slouched to the right, supporting himself on his right arm. The staff was concerned that the patient was experiencing right facial droop and was not using his right arm as much as usual. I woke the patient up by calling his name and he was immediately distraught and calling out in pain. When I asked to point to where he was having pain the patient pointed to his right forearm. The patient knew his name but could not provide me with any other information. I spoke to the patient's daughter regarding code status. After our discussion she wishes for the patient to be a DNR/DNI. Past Medical History: See chart Meds: See chart Social & Family History: See chart Review of Systems: Per HPI. Physical Exam: General Statement: not in acute distress, Mental Status: pt with baseline dementia. pt follows simple command but sleepy. limited exam. Cranial Nerves: PERRL.Extraocular movements were full with no nystagmus. Normal pursuit.Facial movements were symmetric.Hearing was grossly intact. Motor: Normal tone.There were no abnormal movement Sensory:intact grossly Coordination: unable to test Reflexes: Toes down bilaterally History of Present Illness Attending Physician: Keo Mcbride MD Allergies Allergy/AdvReac Type Severity Reaction Status Date / Time adhesive tape Allergy Unknown Unknown Verified 09/20/22 10:10 cephalexin [From Keflex] Allergy Unknown Unknown Verified 09/20/22 10:10 rofecoxib Allergy Unknown SWOLLEN Verified 09/20/22 10:10 FEET Home Medications Medication Instructions Recorded Confirmed Type sertraline 100 mg tablet 100 mg PO QPM 05/08/18 09/20/22 History simvastatin 40 mg tablet 40 mg PO QPM 05/08/18 09/20/22 History buspirone 5 mg tablet 2.5 mg PO BIDM 03/31/19 09/20/22 History peg 400-propylene glycol (PF) 0.4 1 drp OPB BID 07/01/19 09/20/22 History %-0.3 % eye drops in a dropperette (Systane (PF)) olanzapine 5 mg tablet 5 mg PO HS 06/22/20 09/20/22 History oxybutynin chloride 5 mg tablet 10 mg PO QAM 07/31/20 09/20/22 History cyanocobalamin (vitamin B-12) 1,000 mcg PO QAM 08/18/20 09/20/22 History 1,000 mcg tablet losartan 25 mg tablet 25 mg PO QAM 08/18/20 09/20/22 History diclofenac sodium 1 % topical gel 4 g EXT Q12H PRN left hip pain 07/04/21 09/20/22 Rx (Voltaren Arthritis Pain) #100 grams acetaminophen 500 mg tablet 1,000 mg PO Q8H PRN Pain 04/15/22 09/20/22 History docusate sodium 100 mg capsule 100 mg PO BID 04/15/22 09/20/22 History glipizide 5 mg tablet 5 mg PO QPM 04/15/22 09/20/22 History levothyroxine 75 mcg tablet 75 mcg PO DAILYBB #30 tabs 04/20/22 09/20/22 Rx (Synthroid) glipizide 5 mg tablet 7.5 mg PO QAM 09/20/22 09/20/22 History Patient History Medical History Alzheimer disease Bipolar disorder Chronic kidney disease, stage 3a Depression Fall Fracture, ribs HTN (hypertension) Hyperlipidemia Migraines Nocturnal hypoxia Skin problem Type 2 diabetes mellitus Surgical History Previous back surgery S/P appendectomy Family History Other Cancer Diabetes Gallbladder disease Hypertension Kidney disease Social History Smoking Status: Unknown if ever smoked Second Hand Exposure: No; Hx Alcohol Use: No Hx Substance Use: No Preferred Language: Eritrean Communication Ability: Impaired Electric Range Servicer Required: No Beliefs That Will Affect Care: None marital status: / Current Living Situation: Jail Current Living Situation Comment: [employer] 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
--- NOTE | 2022-09-21 12:57 | Hospitalist Progress Note ---
Date of Service September 21, 2022 Assessment & Plan (1) Acute alteration in mental status: Plan: He appears to have a metabolic encephalopathy probably from the underlying infection. The left parietal lacunar defect seen on MRI scan could represent a subacute CVA but nevertheless this is not responsible for his current mental status. Continue supportive care and treatment of underlying infectious process. Neurology consultation appreciated (2) Elevated troponin: Plan: No evidence of acute coronary syndrome. Cardiac echo negative for regional wall motion abnormalities. This could be a consequence of the COVID-vaccine producing subclinical myocarditis. Continue telemetry for now (3) Stenosis of right internal carotid artery: Plan: Noted on CTA of the head/neck. Continue aspirin therapy. No acute intervention needed at this time (4) Elevated CK: Plan: No evidence of acute coronary syndrome. No regional wall motion abnormality seen on cardiac echo. Again, this could be due to subclinical myocarditis produced by the COVID-vaccine (5) Right arm pain: Plan: Venous doppler negative for DVT . CT of the arm is negative for acute fractures or dislocations . Symptomatic care. -Continue to monitor (6) Hypothyroidism: Plan: TSH WNL . Continue levothyroxine (7) Type 2 diabetes mellitus: Plan: ADA diet when able. Glipizide is on hold. Sliding scale coverage for now. Lantus was started on admission but has been discontinued due to borderline low glucose levels. (8) HTN (hypertension): Plan: Stable . Continue losartan (9) Hyperlipidemia: Plan: Currently on statin therapy Plan To be determined. OT and PT assessments ordered and pending Admission and Anticipated Discharge Date Admission Date: September 20, 2022 Subjective Awake. Still exhibiting some encephalopathic features probably due to underlying UTI. The tiny left lacunar abnormality seen on MRI scan could represent an acute or subacute CVA but is inconsequential at this point and not accountable for his current symptoms. I spoke with his daughter, Elina, by phone. He remains on intravenous Rocephin until final culture results are known. Speech therapy has evaluated him and he now has a diet ordered. We will continue IV fluids for now. Lantus has been placed on hold due to borderline low glucose which needs to be avoided. OT and PT evaluations requested Review of Systems Review of Systems: The patient cannot answer any questions regarding review of systems at this time Physical Exam Physical Exam: General-alert , no fevers, no chills HEENT-head atraumatic and normocephalic, pupils equal and reactive to light, extraocular muscles intact Neck-no lymphadenopathy or thyromegaly, trachea midline Chest-clear to auscultation percussion. No rales wheezing or rhonchi Cardiac-regular rate and rhythm, normal S1 and S2, no murmurs Abdomen-normal bowel sounds, nontender, no hepatosplenomegaly Extremities-no cyanosis, clubbing, or edema Neuro-cranial nerves II through XII intact, motor and sensory function within normal limits, strength symmetrical , no focal deficits Psych-normal affect, normal mood Results & Data Results & Data ([facility]) Vital Signs (Past 12 Hours) Vital Signs Temp Pulse Pulse Resp BP Pulse Ox O2 Del Method 09/21/22 11:09 36.5 C 69 18 151/89 H 96 Room Air 09/21/22 05:59 71 09/21/22 08:20 36.4 C L 74 18 156/82 H 95 Room Air 09/21/22 07:49 Room Air 09/21/22 03:24 66 20 115/56 L 97 Room Air 09/21/22 01:33 75 Laboratory Results 09/21/22 02:10 09/21/22 02:10 PG Care Time/CCT Total # of Minutes Spent Total Time Spent with Patient: Total time spent is greater than 50% in coordination of care (as documented) at patient's floor/unit and/or counseling patient: Coding Level of Care Code 98360 SUB INP/OBS CARE 3/50MIN Diagnoses Acute alteration in mental status R41.82 Elevated troponin R77.8 Stenosis of right internal carotid artery I65.21 Elevated CK R74.8 Right arm pain M79.601 Hypothyroidism E03.9 Type 2 diabetes mellitus E11.9 HTN (hypertension) I10 Hyperlipidemia E78.5
[2022-09-21] MEDS: ENOXAPARIN INJ 30 MG/0.3 ML SYR SQ SCH (21:06)
[2022-09-21] MEDS: SIMVASTATIN 40 MG TAB PO SCH (21:06)
[2022-09-22 03:41] LABS: Mean Corpuscular Hemoglobin 30.6 pg (25.0-34.0); Mean Corpuscular Hgb Conc 34.3 g/dL (32.0-36.0); Mean Corpuscular Volume 89.3 fL (80.0-100.0); Platelet Count 218 K/uL (130-400); RDW Coefficient of Variation 14.1 % (11.5-14.5); RDW Standard Deviation 45.7 fL (36.4-46.3); Red Blood Count 3.92 M/uL (4.70-6.10); White Blood Count 6.93 K/ul (4.8-10.8)
[2022-09-22 03:59] LABS: Calcium 8.1 mg/dl (8.5-10.1); Potassium 3.9 mmol/L (3.5-5.1)
[2022-09-22 04:05] LABS: BUN Creatinine Ratio 14.3 (10-20); Est GFR (African American) 79.5 ml/min; Est GFR (Non-African American) 68.6 ml/min
[2022-09-22] MEDS: LEVOTHYROXINE SODIUM 75 MCG TABLET PO SCH (06:08)
[2022-09-22] MEDS: ACETAMINOPHEN 1,000 MG/100 ML VIAL IV SCH ×3 (06:09→23:44)
[2022-09-22] MEDS: OXYBUTYNIN CHLORIDE 5 MG TAB PO SCH (08:07)
[2022-09-22] MEDS: DOCUSATE SODIUM 100 MG CAP PO SCH ×2 (08:07→20:18)
[2022-09-22] MEDS: LOSARTAN POTASSIUM 25 MG TAB PO SCH (08:07)
[2022-09-22] MEDS: busPIRone 5 MG TAB PO SCH ×2 (08:07→16:40)
[2022-09-22] MEDS: ASPIRIN 81 MG ECTAB PO SCH (08:08)
[2022-09-22] MEDS: ARTIFICIAL TEARS OP SCH ×2 (08:09→20:19)
[2022-09-22] MEDS: INSULIN ASPART PER UNIT SC SCH ×4 (08:14→20:29)
[2022-09-22] MEDS: SODIUM CHLORIDE 0.9% 1000ML 1,000 ML IV SCH (08:16)
[2022-09-22] MEDS: cefTRIAXone SODIUM 2,000 MG in DEXTROSE 5% 50 ML IV SCH (12:52)
--- NOTE | 2022-09-22 14:44 | Hospitalist Progress Note ---
Date of Service September 22, 2022 Assessment & Plan (1) Acute alteration in mental status: Plan: He appears to have a metabolic encephalopathy probably from the underlying suspected UTI . The left parietal lacunar defect seen on MRI scan could represent a subacute CVA but nevertheless this is not responsible for his current mental status changes. Continue supportive care and treatment of underlying infectious process. Neurology consultation appreciated (2) Elevated troponin: Plan: No evidence of acute coronary syndrome. Cardiac echo negative for regional wall motion abnormalities. This could be a consequence of the COVID-vaccine producing subclinical myocarditis. Continue telemetry for now (3) Stenosis of right internal carotid artery: Plan: Noted on CTA of the head/neck. Continue aspirin therapy. No acute intervention needed at this time (4) Elevated CK: Plan: No evidence of acute coronary syndrome. No regional wall motion abnormality seen on cardiac echo. Again, this could be due to subclinical myocarditis produced by the COVID-vaccine (5) Right arm pain: Plan: Venous doppler negative for DVT . CT of the arm is negative for acute fractures or dislocations . Symptomatic care. (6) Hypothyroidism: Plan: TSH WNL . Continue levothyroxine (7) Type 2 diabetes mellitus: Plan: ADA diet when able. Glipizide is on hold. Sliding scale coverage for now. Lantus was started on admission but has been discontinued due to borderline low glucose levels. (8) HTN (hypertension): Plan: Stable . Continue losartan (9) Hyperlipidemia: Plan: Currently on statin therapy Plan Hopeful return to [facility] tomorrow, September 23 Admission and Anticipated Discharge Date Admission Date: September 21, 2022 Subjective Sleeping at the time of my rounds but easily arousable. No acute distress. Urine culture nondiagnostic and blood cultures remain negative. Glucose 104 and stable since Lantus discontinued yesterday. Troponin is elevated but not trending and no evidence of acute coronary syndrome. Hopeful return to [facility] tomorrow, September 23 Review of Systems Review of Systems: The patient cannot answer any questions regarding review of systems at this time Physical Exam Physical Exam: General-alert , no fevers, no chills HEENT-head atraumatic and normocephalic, pupils equal and reactive to light, extraocular muscles intact Neck-no lymphadenopathy or thyromegaly, trachea midline Chest-clear to auscultation percussion. No rales wheezing or rhonchi Cardiac-regular rate and rhythm, normal S1 and S2, no murmurs Abdomen-normal bowel sounds, nontender, no hepatosplenomegaly Extremities-no cyanosis, clubbing, or edema Neuro-cranial nerves II through XII intact, motor and sensory function within normal limits, strength symmetrical , no focal deficits Psych-normal affect, normal mood Results & Data Results & Data ([facility]) Vital Signs (Past 12 Hours) Vital Signs Temp Pulse Pulse Resp BP BP Pulse Ox 09/22/22 12:14 36.3 C L 75 16 164/93 H 97 09/22/22 10:52 36.4 C L 89 20 133/73 97 09/22/22 09:52 36.6 C 89 20 124/69 100 09/22/22 07:00 60 09/22/22 03:01 36.9 C 76 18 131/77 95 O2 Del Method 09/22/22 12:14 Room Air 09/22/22 10:52 Room Air 09/22/22 09:52 Room Air 09/22/22 07:00 09/22/22 03:01 Room Air Laboratory Results Abnormal lab results 09/21/22 09/21/22 09/21/22 Range/Units 14:22 19:31 20:33 RBC (4.70-6.10) M/uL Hgb (14.0-18.0) g/dl Hct (42.0-52.0) % Chloride (98-107) mmol/L Glucose (70-99(Fasting)) mg/dl POC Glucose 118 H (70-99) mg/dl Calcium (8.5-10.1) mg/dl Troponin I High Sens 389.8 H* 375.1 H* (0-20) pg/ml 09/22/22 09/22/22 09/22/22 Range/Units 02:40 02:40 02:40 RBC 3.92 L (4.70-6.10) M/uL Hgb 12.0 L (14.0-18.0) g/dl Hct 35.0 L (42.0-52.0) % Chloride 108 H (98-107) mmol/L Glucose 104 H (70-99(Fasting)) mg/dl POC Glucose (70-99) mg/dl Calcium 8.1 L (8.5-10.1) mg/dl Troponin I High Sens 316.5 H* (0-20) pg/ml 09/22/22 Range/Units 07:44 RBC (4.70-6.10) M/uL Hgb (14.0-18.0) g/dl Hct (42.0-52.0) % Chloride (98-107) mmol/L Glucose (70-99(Fasting)) mg/dl POC Glucose 121 H (70-99) mg/dl Calcium (8.5-10.1) mg/dl Troponin I High Sens (0-20) pg/ml PG Care Time/CCT Total # of Minutes Spent Total Time Spent with Patient: Total time spent is greater than 50% in coordination of care (as documented) at patient's floor/unit and/or counseling patient: Coding Level of Care Code 71458 SUB INP/OBS CARE 3/50MIN Diagnoses Acute alteration in mental status R41.82 Elevated troponin R77.8 Stenosis of right internal carotid artery I65.21 Elevated CK R74.8 Right arm pain M79.601 Hypothyroidism E03.9 Type 2 diabetes mellitus E11.9 HTN (hypertension) I10 Hyperlipidemia E78.5
[2022-09-22] MEDS: ENOXAPARIN INJ 30 MG/0.3 ML SYR SQ SCH (20:19)
[2022-09-22] MEDS: SIMVASTATIN 40 MG TAB PO SCH (20:19)
[2022-09-23 05:35] LABS: Hemoglobin 12.8 g/dl (14.0-18.0); Mean Corpuscular Hemoglobin 30.1 pg (25.0-34.0); Mean Corpuscular Hgb Conc 33.7 g/dL (32.0-36.0); Mean Corpuscular Volume 89.4 fL (80.0-100.0); Mean Platelet Volume 9.8 fL (9.4-12.4); Platelet Count 241 K/uL (130-400); RDW Standard Deviation 45.3 fL (36.4-46.3); Red Blood Count 4.25 M/uL (4.70-6.10); White Blood Count 7.15 K/ul (4.8-10.8)
[2022-09-23 05:53] LABS: Calcium 8.3 mg/dl (8.5-10.1); Potassium 3.8 mmol/L (3.5-5.1)
[2022-09-23] MEDS: LEVOTHYROXINE SODIUM 75 MCG TABLET PO SCH (05:54)
[2022-09-23 05:58] LABS: BUN Creatinine Ratio 13.8 (10-20); Creatinine Clr Calc Pharmacy 67.4 ml/min; Est GFR (African American) 89.3 ml/min; Est GFR (Non-African American) 77.1 ml/min
[2022-09-23] MEDS: ACETAMINOPHEN 1,000 MG/100 ML VIAL IV SCH ×2 (06:03→15:20)
[2022-09-23] MEDS: LOSARTAN POTASSIUM 25 MG TAB PO SCH (09:06)
[2022-09-23] MEDS: DOCUSATE SODIUM 100 MG CAP PO SCH ×2 (09:06→20:52)
[2022-09-23] MEDS: busPIRone 5 MG TAB PO SCH ×2 (09:07→17:06)
[2022-09-23] MEDS: OXYBUTYNIN CHLORIDE 5 MG TAB PO SCH (09:07)
[2022-09-23] MEDS: ASPIRIN 81 MG ECTAB PO SCH (09:08)
[2022-09-23] MEDS: ARTIFICIAL TEARS OP SCH ×2 (09:08→20:52)
[2022-09-23] MEDS: INSULIN ASPART PER UNIT SC SCH ×5 (09:11→20:52)
[2022-09-23] MEDS: cephALEXin 250 MG CAP PO SCH ×4 (09:13→20:51)
--- NOTE | 2022-09-23 15:08 | Hospitalist Progress Note ---
Date of Service September 23, 2022 Assessment & Plan (1) Acute alteration in mental status: Plan: He appeared to have a metabolic encephalopathy on admission probably from the underlying suspected UTI . Now resolved. The left parietal lacunar defect seen on MRI scan could represent a subacute CVA but nevertheless this is not responsible for his mental status changes. Continue supportive care and treatment of underlying infectious process. Neurology consultation appreciated (2) Elevated troponin: Plan: No evidence of acute coronary syndrome. Cardiac echo negative for regional wall motion abnormalities. This could be a consequence of the COVID-vaccine producing subclinical myocarditis. Continue telemetry for now (3) Stenosis of right internal carotid artery: Plan: Noted on CTA of the head/neck. Continue aspirin therapy. No acute intervention needed at this time (4) Elevated CK: Plan: No evidence of acute coronary syndrome. No regional wall motion abnormality seen on cardiac echo. Again, this could be due to subclinical myocarditis produ salena by the COVID-vaccine (5) Right arm pain: Plan: Venous doppler negative for DVT . CT of the arm is negative for acute fractures or dislocations . Symptomatic care. (6) Hypothyroidism: Plan: TSH WNL . Continue levothyroxine (7) Type 2 diabetes mellitus: Plan: ADA diet when able. Glipizide discontinued due to propensity for hypoglycemia in the elderly. Sliding scale coverage for now. Lantus was started on admission but has been discontinued due to borderline low glucose levels. (8) HTN (hypertension): Plan: Stable . Continue losartan (9) Hyperlipidemia: Plan: Currently on statin therapy Plan Hopeful return to [place] tomorrow, September 24 Admission and Anticipated Discharge Date Admission Date: September 21, 2022 Subjective The patient is now alert and very pleasant. IV Rocephin switched to oral Keflex. Lantus was discontinued on September 21 and glucose remains normal at 101. Overall he is stable. Awaiting SNF placement Review of Systems Review of Systems: Constitutional-no fever or chills ENT-no blurred vision, no double vision, no epistaxis, no sore throat Respiratory-no cough, no wheezing, no shortness of breath Cardiac-no palpitations, no chest pain, no syncope GI-no nausea, vomiting, diarrhea, melena, hematochezia -no urinary retention, no urinary incontinence, no dysuria, no hematuria Musculoskeletal-no joint pain, no muscle tenderness Skin-no bruising, no rashes, no pruritus Neuro-no isolated weakness, no paresthesia, no weakness Psych-no depression, no anxiety Physical Exam Physical Exam: General-alert , no fevers, no chills HEENT-head atraumatic and normocephalic, pupils equal and reactive to light, extraocular muscles intact Neck-no lymphadenopathy or thyromegaly, trachea midline Chest-clear to auscultation percussion. No rales wheezing or rhonchi Cardiac-regular rate and rhythm, normal S1 and S2, no murmurs Abdomen-normal bowel sounds, nontender, no hepatosplenomegaly Extremities-no cyanosis, clubbing, or edema Neuro-cranial nerves II through XII intact, motor and sensory function within normal limits, strength symmetrical , no focal deficits Psych-normal affect, normal mood Results & Data Results & Data ([facility]) Vital Signs (Past 12 Hours) Vital Signs Temp Pulse Pulse Resp BP BP Pulse Ox 09/23/22 12:13 36.9 C 91 H 18 105/63 97 09/23/22 07:32 36.8 C 75 16 148/77 H 95 09/23/22 07:15 74 09/23/22 04:00 37.1 C 82 16 133/78 96 O2 Del Method 09/23/22 12:13 Room Air 09/23/22 07:32 Room Air 09/23/22 07:15 09/23/22 04:00 Room Air Laboratory Results 09/23/22 05:05 09/23/22 05:05 PG Care Time/CCT Total # of Minutes Spent Total Time Spent with Patient: Total time spent is greater than 50% in coordination of care (as documented) at patient's floor/unit and/or counseling patient: Coding Level of Care Code 47848 SUB INP/OBS CARE 3/50MIN Diagnoses Acute alteration in mental status R41.82 Elevated troponin R77.8 Stenosis of right internal carotid artery I65.21 Elevated CK R74.8 Right arm pain M79.601 Hypothyroidism E03.9 Type 2 diabetes mellitus E11.9 HTN (hypertension) I10 Hyperlipidemia E78.5
[2022-09-23] MEDS: ENOXAPARIN INJ 30 MG/0.3 ML SYR SQ SCH (20:51)
[2022-09-23] MEDS: SIMVASTATIN 40 MG TAB PO SCH (20:52)
[2022-09-24] MEDS: LEVOTHYROXINE SODIUM 75 MCG TABLET PO SCH (05:41)
[2022-09-24] MEDS: INSULIN ASPART PER UNIT SC SCH ×2 (08:41→12:48)
[2022-09-24] MEDS: busPIRone 5 MG TAB PO SCH (08:43)
[2022-09-24] MEDS: ARTIFICIAL TEARS OP SCH (08:44)
[2022-09-24] MEDS: ASPIRIN 81 MG ECTAB PO SCH (08:45)
[2022-09-24] MEDS: cephALEXin 250 MG CAP PO SCH ×2 (08:45→12:48)
[2022-09-24] MEDS: LOSARTAN POTASSIUM 25 MG TAB PO SCH (08:45)
[2022-09-24] MEDS: OXYBUTYNIN CHLORIDE 5 MG TAB PO SCH (08:45)
[2022-09-24] MEDS: DOCUSATE SODIUM 100 MG CAP PO SCH (08:53)
--- NOTE | 2022-09-24 10:45 | Pharmacy Report ---
- Date of Service September 24, 2022 - Pharmacy CVA/TIA Medication Review Medications to Prevent Stroke handout has been added to the patients discharge packet. Antiplatelet(s) * Aspirin 81 mg daily Cholesterol * Simvastatin 40 mg daily - moderate intensity * High intensity statin deferred due to age >75 DVT Prophylaxis * Lovenox 30 mg daily Therapeutic Anticoagulation * No history of Afib/Aflutter noted Type 2 Diabetes * Patient has T2DM. A1c 8.8% - patient managed on glipizide at home * A diabetes medication with proven CVD benefit could be considered such as a GLP-1 agonist or SGLT2 inhibitor. It is reasonable to defer to their outpatient provider due to familiarity with risks/benefits of such therapies. "Medications to prevent stroke" handout has already been added to the patient's discharge packet, which instructs the patient to follow up with their outpatient provider to evaluate which diabetes medication with proven CVD benefit is best for them
--- NOTE | 2022-09-24 11:06 | Discharge Summary ---
Date of Service September 24, 2022 Admission HPI Per Admitting Provider Chencho Real is an 87-year-old male with a past medical history significant for Alzheimer's dementia, hypertension, hyperlipidemia, DM2, CKD, hypothyroidism, osteoarthritis, and depression who presented to [facility] to decreased responsiveness from baseline. In the ED today the patient was found to be afebrile, hemodynamically stable, and stable on RA. Per the ED staff, on arrival the patient would only wake to pain. Labs were significant for stable cr at 1.16, stable electrolytes, lactate WNL, glucose of 220, LFTs WNL, initial high sensitivity trop of 271, procal < 0.05, TSH WNL, UA with 3+ leukocyte esterase, > 30 WBCs, and 2+ bacteria, Covid/Influenza/RSV negative. CT of the head was read as "No acute intracranial abnormality identified.". CTA of the head was read as "No central vessel occlusion. No intracranial aneurysm.". CTA of the neck was reas as "Hemodynamically significant atherosclerosis near the origin of the right internal carotid artery.". Chest xray was read as 'No acute chest disease.". The patient was initially treated with 1L NSS and one dose of ceftriaxone and his mental status began to improve per the ED staff. At the time of the exam the patient was sleeping in bed, lying on his right side, with his Daughter/POA (Elina Doll [phone]) sitting bedside. The history was obtained from the patient's daughter due to the patient's baseline mental status. She states that she currently lives in [place] and last saw her father approximately 2 weeks ago. She noticed a cognitive decline at that time as he was no longer playing cards and seemed more confused than usual. She states that the [facility] staff called her this AM to tell her that the patient was sitting at a table during breakfast when he became less responsive and slouched to the right, supporting himself on his right arm. The staff was concerned that the patient was experiencing right facial droop and was not using his right arm as much as usual. I woke the patient up by calling his name and he was immediately distraught and calling out in pain. When I asked to point to where he was having pain the patient pointed to his right forearm. The patient knew his name but could not provide me with any other information. I spoke to the patient's daughter regarding code status. After our discussion she wishes for the patient to be a DNR/DNI. Please refer to Dr. Young's attestation for any changes to the treatment plan Principal Diagnosis Suspected urinary tract infection, metabolic encephalopathy, possible left lacunar CVA, elevated troponin without acute coronary syndrome Discharge Exam General-alert , no fevers, no chills HEENT-head atraumatic and normocephalic, pupils equal and reactive to light, extraocular muscles intact Neck-no lymphadenopathy or thyromegaly, trachea midline Chest-clear to auscultation percussion. No rales wheezing or rhonchi Cardiac-regular rate and rhythm, normal S1 and S2, no murmurs Abdomen-normal bowel sounds, nontender, no hepatosplenomegaly Extremities-no cyanosis, clubbing, or edema Neuro-cranial nerves II through XII intact, motor and sensory function within normal limits, strength symmetrical , no focal deficits Psych-normal affect, normal mood Discharge Data Allergies Allergy/AdvReac Type Severity Reaction Status Date / Time adhesive tape Allergy Unknown Unknown Verified 09/20/22 10:10 cephalexin [From Keflex] Allergy Unknown Unknown Verified 09/20/22 10:10 rofecoxib Allergy Unknown SWOLLEN Verified 09/20/22 10:10 FEET Consultations 09/20/22 12:47 ED Decision to Admit Stat 09/21/22 07:00 Consult Neurology Routine Ordered Studies 09/20/22 09:40 CT angio head w con Stat CT angio neck with con Stat CT head/brain wo con Stat 09/20/22 14:02 CT arm [CT forearm RT wo con] Urgent CT arm [CT humerus RT wo con] Urgent US venous duplex arm [US venous doppler UE RT] Urgent 09/20/22 14:07 MRI Brain [MR brain wo con] Urgent Hospital Course (1) Acute alteration in mental status: He appeared to have a metabolic encephalopathy on admission probably from the underlying suspected UTI . Now resolved. The left parietal lacunar defect seen on MRI scan could represent a subacute CVA but nevertheless this is not responsible for his mental status changes. Continue supportive care and treatment of underlying infectious process. Neurology consultation appreciated (2) Elevated troponin: No evidence of acute coronary syndrome. Cardiac echo negative for regional wall motion abnormalities. This could be a consequence of the COVID-vaccine producing subclinical myocarditis. Continue telemetry while hospitalized (3) Stenosis of right internal carotid artery: Noted on CTA of the head/neck. Continue aspirin therapy. No acute intervention needed at this time (4) Elevated CK: No evidence of acute coronary syndrome. No regional wall motion abnormality seen on cardiac echo. Again, this could be due to subclinical myocarditis produced by the COVID-vaccine (5) Right arm pain: Venous doppler negative for DVT . CT of the arm is negative for acute fractures or dislocations . Symptomatic care. (6) Hypothyroidism: TSH WNL . Continue levothyroxine (7) Type 2 diabetes mellitus: ADA diet when able. Glipizide discontinued due to propensity for hypoglycemia in the elderly. Sliding scale coverage for now. Lantus was started on admission but has been discontinued due to borderline low glucose levels. (8) HTN (hypertension): Stable . Continue losartan (9) Hyperlipidemia: Currently on statin therapy Plan return to [place] today , September 24 . I notified his daughter, Marlys, by phone Total Time Total Time Spent Total Time Spent (In Minutes): 35 minutes Discharge Plan Discharge Items Patient Disposition: Personal Nursing Home Reason For Visit: AMS Discharge Diagnosis: Metabolic encephalopathy, suspected UTI, possible left lacunar CVA, elevated troponin without acute coronary syndrome Activity: Resume your previous activity Non-emergency contact: Primary Care Provider Call non-emergency contact if: you have any medication questions Follow-up/Referrals: Mervat Garcia [Primary Care Provider] - Diet: Carb Consistent or DM2 and Heart Healthy Addtl Attending Provider Instructions: Take cephalexin antibiotic for 5 more days Pending Studies at Discharge: No Stand-Alone Forms: My [employer], Smoking Cessation, Medications to Prevent Stroke Skilled Items Patient informed of condition?: Yes DNR: Yes Discharge Level of Care: Other Communicable Disease: No Discharge Prognosis: Stable Lines: None Urinary Catheter: No Medications and DC Order Prescriptions: New cephalexin 250 mg Capsule 250 mg PO QID Qty: 20 0RF aspirin 81 mg Tablet,Delayed Release (Dr/Ec) 81 mg PO DAILY Qty: 90 0RF Continued buspirone 5 mg tablet 2.5 mg PO BIDM Rx Instructions: TAKE 2.5MG TWICE DAILY WITH MEALS sertraline 100 mg Tablet 100 mg PO QPM simvastatin 40 mg Tablet 40 mg PO QPM Systane (PF) 0.4-0.3 % Dropperette 1 drp OPB BID olanzapine 5 mg Tablet 5 mg PO HS oxybutynin chloride 5 mg tablet 10 mg PO QAM losartan 25 mg tablet 25 mg PO QAM cyanocobalamin (vitamin B-12) 1,000 mcg tablet 1,000 mcg PO QAM diclofenac sodium [Voltaren Arthritis Pain] 1 % Gel 4 g EXT Q12H PRN (Reason: left hip pain) Qty: 100 0RF Rx Instructions: apply to left hip glipizide 5 mg tablet 7.5 mg PO QAM docusate sodium 100 mg Capsule 100 mg PO BID glipizide 5 mg tablet 5 mg PO QPM acetaminophen 500 mg Tablet 1,000 mg PO Q8H MDD 3G PRN (Reason: Pain) levothyroxine [Synthroid] 75 mcg Tablet 75 mcg PO DAILYBB Qty: 30 0RF Discharge Orders: Discharge Order (Routine); Ordered 09/24/22 Ordered By: Keo Mcbride Admission Data Admit Date/Time: 09/21/22 12:49 Attending Provider: Keo Mcbride Admit Provider: Clinton Young Primary Care Provider: Mervat Garcia Other Providers: Clinton Young ; Thomas Handy ; Cory Yuan ; Patito Cummings ; Liza Carrasquillo ; Duy Dixon Kathleen ; Miguel Vazquez ; Sandhya Briceno ; Arnel Christine ; Jennifer Farley ; Montserrat Kumar ; Duy Barnes ; Neftaly Moreno Coding Level of Care Code HOSP INP/OBS DISCH >30 MIN Diagnoses Acute alteration in mental status R41.82 Elevated troponin R77.8 Stenosis of right internal carotid artery I65.21 Elevated CK R74.8 Right arm pain M79.601 Hypothyroidism E03.9 Type 2 diabetes mellitus E11.9 HTN (hypertension) I10 Hyperlipidemia E78.5
[2022-09-24] MEDS ORDERED: STROKE PATIENT DISCHARGE STA (11:08)
== END 2022-09-24 14:33 | disposition home or self-care (01) | DRG 689 ==
LOC: ED 09:11 → 2N 09:11 → SUATTDRO 13:35 → 2N 20:24

== ENCOUNTER 2023-09-08 12:57 | Observation (INO) ==
--- NOTE | 2023-09-08 13:29 | Emergency Department Note ---
Impression & Plan RSV bronchitis, Chest pain, Hyperglycemia, Wheezing ED Provider Note NAME: EBENEZER OSUNA AGE: 88 SEX: M : 1935 ARRIVES VIA: Ambulance INFORMANT: Patient, ED PROVIDER(S): Josemanuel Rosa MD CHIEF COMPLAINT: Chest pain MEDICAL DECISION MAKING: Patient presents due to concern for chest pain. IV was established and blood work was obtained. The patient was noted to be hypertensive but did receive 2 nitro sprays prior to arrival. Patient Patient's blood work shows a normal white count mild anemia and normal platelet count. The patient's kidney function is unremarkable. BSG at 193. Not DKA. Procalcitonin is not elevated. The patient is positive for RSV. The patient has had borderline oxygen saturations. Chest x-ray with pulmonary vascular congestion which could be secondary to his infectious process. Patient's initial troponin 17. No obvious STEMI at this time. Patient has remained borderline hypotensive and was ordered additional fluids. In light of the patient's history of Alzheimer's age comorbidities borderline oxygen saturation and intermittent hypotension do believe the patient would warrant inpatient treatment. I did speak the on-call hospitalist Dr. Young and the patient was admitted to the medicine service. Discussion w/ other healthcare providers: Dr. Young inpatient medicine service Prior /Outside records reviewed: I reviewed an echocardiogram from September 21, 2022. The patient had normal LV systolic function and left atrium mildly dilated. Borderline aortic root dilatation right ventricular systolic pressure is normal with moderate mitral regurg and mild mitral annular regurgitation. EF at that time was 60 to 65% Differential diagnosis: Cardiac ischemia, aortic dissection, pulmonary embolism, pneumothorax, pneumonia, pericarditis, myocarditis, GERD, cholecystitis, pancreatitis, musculoskeletal, as well as other pathologies were considered. Diagnostics, as interpreted by me: ECG: Sinus with PACs, rate of 93, normal intervals, normal axis no ST elevations. Cardiac monitoring: An order was placed for continuous cardiac monitoring. The monitor shows a rate of 88 with sinus rhythm. Patient was placed on pulse oximetry Medical decision rules: Heart score Imaging studies: I informally interpreted the patient's chest x-ray which does not show obvious pneumonia or pneumothorax with formal report to follow. HPI: Patient presents due to concern for chest pain. The patient reportedly had chest pain while at his facility. The patient does describe it as left-sided and would go to his arm. The patient has had associated cough that has been productive. Patient states he currently does not have any chest pain. Patient did receive 324 of aspirin and 2 nitro sprays prior to arrival. Patient states that it did not change his symptoms but currently denies any chest pains. Patient denies any leg swelling or calf pain. No abdominal pain. Patient does have history of Alzheimer's and does live at a care facility. PAST MEDICAL HISTORY: See Below PAST SURGICAL HISTORY: See Below SOCIAL HISTORY: See Below HOME MEDICATIONS: See Below ALLERGIES: See Below VITALS: See Below PHYSICAL EXAMINATION: GENERAL: NAD, non-toxic. Wearing glasses. EYE EXAM: Normal conjunctiva. PERRL, no anisocoria and EOM's grossly intact w/o pain. OROPHARYNX: Moist mucus membranes, grossly normal dentition. NECK: Supple, no nuchal rigidity, no adenopathy, non-tender. No signs of meningismus. FROM of the neck with good chin to chest and neck extension. No stridor. LUNGS: Wheezing noted throughout normal chest wall mechanics. HEART: NSR, no MRG. ABDOMEN: Abdomen soft, non-tender, no masses, no rebound or guarding. BACK: No CVA TTP. SKIN: No rashes and no bruising. UPPER EXTREMITIES: Upper extremities are grossly normal. LOWER EXTREMITIES: Grossly normal, no edema. NEURO EXAM: Awake and alert, follows basic commands, speech is normal cranial nerves II through XII grossly intact moves all 4 extremities Past Med/Surg History Medical History (Updated 09/09/23 @ 10:49 by Josemanuel Rosa MD) Mood disorder Hypothyroidism Type 2 diabetes mellitus HTN (hypertension) Stenosis of right internal carotid artery Bipolar disorder Nocturnal hypoxia Chronic kidney disease, stage 3a Alzheimer disease B12 deficiency Acute kidney injury Chronic kidney disease, stage 3a Pneumonia of both lower lobes Acute respiratory failure with hypoxia Fall Fracture, ribs Hypothyroidism Skin problem Alzheimer disease Migraines Depression Hyperlipidemia Surgical History Previous back surgery S/P appendectomy Family History Other Cancer Diabetes Gallbladder disease Hypertension Kidney disease Social History Smoking Status: Never smoker Second Hand Exposure: No; Do You Dip or Chew Tobacco: No; Hx Alcohol Use: No Hx Substance Use: No Preferred Language: Turkish Communication Ability: Impaired Communication Ability Comment: Pt is very hard of hearing Sales Estimator Required: No Beliefs That Will Affect Care: None marital status: / Current Living Situation: Long Term Current Living Situation Comment: [facility] 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 How many Children do You have: 2 Feels Safe at Home: Yes Assistive Devices: Glasses, Walker and Wheelchair Allergies Allergies Allergy/AdvReac Type Severity Reaction Status Date / Time adhesive tape Allergy Unknown ON [facility] Verified 09/08/23 15:05 MED LIST cephalexin [From Keflex] Allergy Unknown ON [facility] Verified 09/08/23 15:05 MED LIST rofecoxib AdvReac Intermediate [facility] Verified 09/08/23 15:05 FEET Home Meds Home Medications Medication Instructions Recorded Confirmed sertraline 100 mg tablet 100 mg PO QPM 05/08/18 09/08/23 simvastatin 40 mg tablet 40 mg PO QPM 05/08/18 09/08/23 buspirone 5 mg tablet 2.5 mg PO BID17 03/31/19 09/08/23 peg 400-propylene glycol (PF) 0.4 1 drp OPB BID 07/01/19 09/08/23 %-0.3 % eye drops in a dropperette (Systane (PF)) olanzapine 5 mg tablet 5 mg PO QPM 06/22/20 09/08/23 oxybutynin chloride 5 mg tablet 10 mg PO QAM 07/31/20 09/08/23 cyanocobalamin (vitamin B-12) 1,000 mcg PO QAM 08/18/20 09/08/23 1,000 mcg tablet losartan 25 mg tablet 25 mg PO QAM 08/18/20 09/08/23 acetaminophen 500 mg tablet 1,000 mg PO Q8H PRN Pain 04/15/22 09/08/23 docusate sodium 100 mg capsule 100 mg PO BID 04/15/22 09/08/23 glipizide 5 mg tablet 7.5 mg PO BID17 09/20/22 09/08/23 aspirin 81 mg tablet,delayed 81 mg PO QAM 09/08/23 09/08/23 release diclofenac sodium 1 % topical gel 4 g topical Q12H PRN LEFT HIP PAIN 09/08/23 09/08/23 diclofenac sodium 1 % topical gel 4 g EXT TID 09/08/23 09/08/23 (Voltaren Arthritis Pain) lidocaine 4 % topical patch 1 patch topical DAILY 09/08/23 09/08/23 nystatin 100,000 unit/gram topical 1 applic topical BID PRN GROIN 09/08/23 09/08/23 powder AREA/SKIN IRRITATION tramadol 50 mg tablet 50 mg PO BID PRN Pain 09/08/23 09/08/23 Previous Rx's Medication Instructions Recorded levothyroxine 75 mcg tablet 75 mcg PO DAILYBB #30 tabs 04/20/22 (Synthroid) Results & Data (ED) Vital Signs Vital Signs - 24 hr 09/08/23 13:10 09/08/23 13:10 09/08/23 13:10 Temperature 36.7 C Temperature Source Oral Pulse Rate 97 H Pulse Rate from SpO2 Sensor Respiratory Rate 15 Respiratory Effort / Characteristics Non-Labored Spontaneous Non-Labored Spontaneous Respiratory Depth Normal Normal Respiratory Pattern Regular Blood Pressure 94/72 L Blood Pressure Mean 79 Pulse Oximetry 92 92 Oxygen Delivery Method Room Air Room Air Oxygen Flow Rate 0 Sepsis Recent Fever Within 48 Hours No Sepsis New/Unexplained Change in Mental Status N/A Sepsis Action Taken by Nursing No Action Required 09/08/23 13:10 09/08/23 13:14 09/08/23 13:20 Temperature Temperature Source Pulse Rate 91 H 92 H 93 H Pulse Rate from SpO2 Sensor 86 93 H Respiratory Rate 17 19 Respiratory Effort / Characteristics Respiratory Depth Respiratory Pattern Blood Pressure Blood Pressure Mean Pulse Oximetry 92 91 Oxygen Delivery Method Oxygen Flow Rate Sepsis Recent Fever Within 48 Hours Sepsis New/Unexplained Change in Mental Status Sepsis Action Taken by Nursing 09/08/23 13:30 09/08/23 13:30 09/08/23 13:31 Temperature Temperature Source Pulse Rate 88 88 Pulse Rate from SpO2 Sensor 88 88 Respiratory Rate 17 22 Respiratory Effort / Characteristics Respiratory Depth Respiratory Pattern Blood Pressure 89/65 L Blood Pressure Mean 69 Pulse Oximetry 93 92 Oxygen Delivery Method Oxygen Flow Rate Sepsis Recent Fever Within 48 Hours Sepsis New/Unexplained Change in Mental Status Sepsis Action Taken by Nursing 09/08/23 13:31 09/08/23 13:40 09/08/23 13:46 Temperature Temperature Source Pulse Rate 86 Pulse Rate from SpO2 Sensor 86 Respiratory Rate 14 Respiratory Effort / Characteristics Respiratory Depth Respiratory Pattern Blood Pressure 98/69 L Blood Pressure Mean 79 Pulse Oximetry 93 94 Oxygen Delivery Method Room Air Oxygen Flow Rate Sepsis Recent Fever Within 48 Hours Sepsis New/Unexplained Change in Mental Status Sepsis Action Taken by Nursing 09/08/23 13:50 09/08/23 14:00 09/08/23 14:00 Temperature Temperature Source Pulse Rate 101 H 81 Pulse Rate from SpO2 Sensor 89 82 Respiratory Rate 13 23 Respiratory Effort / Characteristics Respiratory Depth Respiratory Pattern Blood Pressure 98/67 L Blood Pressure Mean 76 Pulse Oximetry 92 100 Oxygen Delivery Method Room Air Oxygen Flow Rate Sepsis Recent Fever Within 48 Hours Sepsis New/Unexplained Change in Mental Status Sepsis Action Taken by Nursing 09/08/23 14:30 09/08/23 15:00 09/08/23 15:30 Temperature Temperature Source Pulse Rate 81 79 79 Pulse Rate from SpO2 Sensor 81 79 79 Respiratory Rate 19 17 14 Respiratory Effort / Characteristics Respiratory Depth Respiratory Pattern Blood Pressure 99/62 L 97/58 L 93/54 L Blood Pressure Mean 74 71 67 Pulse Oximetry 94 91 92 Oxygen Delivery Method Oxygen Flow Rate Sepsis Recent Fever Within 48 Hours Sepsis New/Unexplained Change in Mental Status Sepsis Action Taken by Nursing 09/08/23 16:00 09/08/23 16:30 Temperature Temperature Source Pulse Rate 71 107 H Pulse Rate from SpO2 Sensor 73 Respiratory Rate 13 21 Respiratory Effort / Characteristics Respiratory Depth Respiratory Pattern Blood Pressure 92/61 L 101/73 Blood Pressure Mean 71 82 Pulse Oximetry 92 Oxygen Delivery Method Oxygen Flow Rate Sepsis Recent Fever Within 48 Hours Sepsis New/Unexplained Change in Mental Status Sepsis Action Taken by Long Term Medications Current Medication List: was personally reviewed by me Laboratory Data Attestation: I reviewed the patient's lab results. 09/09/23 03:26 09/09/23 03:26 Lab Results 09/08/23 09/08/23 Range/Units 13:15 13:17 WBC 8.92 (4.8-10.8) K/ul RBC 4.50 L (4.70-6.10) M/uL Hgb 13.6 L (14.0-18.0) g/dl Hct 42.4 (42.0-52.0) % MCV 94.2 (80.0-100.0) fL MCH 30.2 (25.0-34.0) pg MCHC 32.1 (32.0-36.0) g/dL RDW Std Deviation 48.8 H (36.4-46.3) fL RDW Coeff of Johnnie 14.2 (11.5-14.5) % Plt Count 212 (130-400) K/uL MPV 10.3 (9.4-12.4) fL Immature Gran % (Auto) 0.3 % Neut % (Auto) 49.3 % Lymph % (Auto) 35.7 % Hidalgo % (Auto) 8.7 % Eos % (Auto) 5.0 % Baso % (Auto) 1.0 % Neut # (Auto) 4.39 (1.40-6.50) K/uL Lymph # (Auto) 3.18 (1.20-3.40) K/uL Hidalgo # (Auto) 0.78 H (0.11-0.59) K/uL Eos # (Auto) 0.45 (0.00-0.50) K/uL Baso # (Auto) 0.09 (0.00-0.20) K/uL Immature Gran # (Auto) 0.03 (0.01-0.20) K/uL Sodium 139 (136-145) mmol/L Potassium 4.6 (3.5-5.1) mmol/L Chloride 107 (98-107) mmol/L Carbon Dioxide 25 (21-32) mmol/L Anion Gap 7 (3-11) BUN 26 H (6-23) mg/dl Creatinine 1.04 (0.6-1.4) mg/dl Est Cr Clr Drug Dosing 55.7 ml/min Est GFR ( Amer) 73.4 ml/min Est GFR (Non-Af Amer) 63.4 ml/min BUN/Creatinine Ratio 25.0 H (10-20) Glucose 193 H (70-99(Fasting)) mg/dl Calcium 8.9 (8.6-10.3) mg/dl Magnesium 2.0 (1.7-2.4) mg/dl Total Bilirubin 0.6 (0.2-1.0) mg/dl AST 19 (13-39) U/L ALT 12 (7-52) U/L Alkaline Phosphatase 75 (34-104) U/L Troponin I High Sens 17.4 (0-20) pg/ml Total Protein 6.9 (6.0-8.3) gm/dl Albumin 3.5 (3.4-5.0) gm/dl Globulin 3.4 (2.5-4.0) gm/dl Albumin/Globulin Ratio 1.0 (0.9-2) Lipase 11 (11-82) U/L Procalcitonin < 0.05 (0-0.5) ng/ml Adenovirus (PCR) Not Detected (NotDetected) B. pertussis DNA (PCR) Not Detected (NotDetected) B.parapertussis DNA PCR Not Detected (NotDetected) C. pneumoniae DNA (PCR) Not Detected (NotDetected) Coronavirus OC43 (PCR) Not Detected (NotDetected) Coronavirus HKU1 (PCR) Not Detected (NotDetected) Coronavirus 229E (PCR) Not Detected (NotDetected) SARS-CoV-2 (PCR) Not Detected (NotDetected) Coronavirus NL63 (PCR) Not Detected (NotDetected) Human Metapneumovir PCR Not Detected (NotDetected) Influenza Type A (PCR) Not Detected (NotDetected) Influenza Type B (PCR) Not Detected (NotDetected) M. pneumoniae (PCR) Not Detected (NotDetected) Parainfluenza 1 (PCR) Not Detected (NotDetected) Parainfluenza 2 (PCR) Not Detected (NotDetected) Parainfluenza 3 (PCR) Not Detected (NotDetected) Parainfluenza 4 (PCR) Not Detected (NotDetected) RSV (PCR) DETECTED A* (NotDetected) Entero/Rhino (PCR) Not Detected (NotDetected) Administered Medications Albuterol (Albut/Ipratrop 3mg/0.5mg Neb 3 Ml Vial) 3 ml NEB QIDR [facility]; Protocol Stop: 10/08/23 19:59 Last Admin: 09/09/23 07:36 Dose: 3 ml Documented By: Admin: 09/08/23 21:02 Dose: 3 ml Documented By: SUMAYA Aspirin (Aspirin 81 Mg Ectab) 81 mg PO QAM [facility] Stop: 10/09/23 08:59 Last Admin: 09/09/23 08:42 Dose: 81 mg Documented By: LYNNETTE Buspirone HCl (Buspirone 5 Mg Tab) 2.5 mg PO BID17 [facility] Stop: 10/08/23 19:59 Last Admin: 09/09/23 08:42 Dose: 2.5 mg Documented By: Admin: 09/08/23 21:36 Dose: 2.5 mg Documented By: RODDY Docusate Sodium (Docusate Sodium 100 Mg Cap) 100 mg PO BID JULIETA Stop: 10/08/23 20:59 Last Admin: 09/09/23 08:42 Dose: 100 mg Documented By: Admin: 09/08/23 21:36 Dose: 100 mg Documented By: RODDY Enoxaparin Sodium (Enoxaparin Inj 40 Mg/0.4 Ml Syr) 40 mg SQ Q24H JULIETA Stop: 10/08/23 19:59 Last Admin: 09/08/23 21:37 Dose: 40 mg Documented By: RODDY Guaifenesin (Guaifenesin 600 Mg Tabcr) 600 mg PO Q12 JULIETA Stop: 10/08/23 20:59 Last Admin: 09/09/23 08:42 Dose: 600 mg Documented By: Admin: 09/08/23 21:36 Dose: 600 mg Documented By: RODDY Insulin Aspart (Insulin Aspart Per Unit Charge) 0 units SC ACHS JULIETA Stop: 10/08/23 20:59 Last Admin: 09/09/23 08:45 Dose: 2 units Documented By: LYNNETTE Co-signed By: NANCIE Admin: 09/08/23 21:36 Dose: 1 units Documented By: RODDY Co-signed By: KARLA Insulin Glargine (Lantus Per Unit Charge) 5 units SQ BID JULIETA Stop: 10/08/23 20:59 Last Admin: 09/09/23 08:45 Dose: 5 units Documented By: LYNNETTE Co-signed By: NANCIE Admin: 09/08/23 21:37 Dose: 5 units Documented By: RODDY Co-signed By: KARLA Levothyroxine Sodium (Levothyroxine Sodium 75 Mcg Tablet) 75 mcg PO DAILYBB [facility] Stop: 10/09/23 06:29 Last Admin: 09/09/23 06:34 Dose: 75 mcg Documented By: SUE Lidocaine (Lidocaine 5% 1 Patch) 1 patch TD DAILY JULIETA Stop: 10/09/23 08:59 Last Admin: 09/09/23 08:40 Dose: 1 patch Documented By: LYNNETTE Losartan Potassium (Losartan Potassium 25 Mg Tab) 25 mg PO QAM [facility] Stop: 10/09/23 08:59 Last Admin: 09/09/23 08:42 Dose: 25 mg Documented By: LYNNETTE Olanzapine (Olanzapine 5 Mg Tablet) 5 mg PO QPM JULIETA Stop: 10/08/23 20:59 Last Admin: 09/08/23 21:36 Dose: 5 mg Documented By: RODDY Oxybutynin Chloride (Oxybutynin Chloride 5 Mg Tab) 10 mg PO QAM [facility] Stop: 10/09/23 08:59 Last Admin: 09/09/23 08:41 Dose: 10 mg Documented By: LYNNETTE Sertraline HCl (Sertraline Hcl 100 Mg Tablet) 100 mg PO QPM JULIETA Stop: 10/08/23 20:59 Last Admin: 09/08/23 21:36 Dose: 100 mg Documented By: RODDY Simvastatin (Simvastatin 40 Mg Tab) 40 mg PO QPM JULIETA Stop: 10/08/23 20:59 Last Admin: 09/08/23 21:36 Dose: 40 mg Documented By: RODDY Discontinued Medications Albuterol (Albut/Ipratrop 3mg/0.5mg Neb 3 Ml Vial) 3 ml NEB NOW STA; Protocol Stop: 09/08/23 13:47 Last Admin: 09/08/23 13:52 Dose: 3 ml Documented By: YOEL Sodium Chloride (Nss) 500 mls @ 999 mls/hr IV .Q31M STA Stop: 09/08/23 14:16 Last Infusion: 09/08/23 14:42 Dose: Infused Documented By: Admin: 09/08/23 13:51 Dose: 999 mls/hr Documented By: YOEL Sodium Chloride (Nss) 500 mls @ 999 mls/hr IV .Q31M ONE Stop: 09/08/23 16:34 Last Infusion: 09/08/23 17:04 Dose: Infused Documented By: Admin: 09/08/23 16:11 Dose: 999 mls/hr Documented By: TATA Imaging Data Radiologist's Impression: Chest X-Ray 09/08/23 13:46 SINGLE VIEW CHEST CLINICAL HISTORY: Atypical chest pain FINDINGS: An AP, portable, upright chest radiograph is compared to study dated 09/20/2022. The heart is enlarged noting atherosclerotic calcification of the thoracic area. There is pulmonary vascular congestion. Atelectasis is noted at the lung bases. No large pleural effusion or pneumothorax is seen. The skeletal structures are osteopenic. The bony thorax is grossly intact. Arthritic change is seen in the shoulders and spine. IMPRESSION: Cardiomegaly with pulmonary vascular congestion. ACT 112: Negative or not required by law. Electronically signed by: Terry Forrest M.D. 09/08/2023 2:24 PM Discharge Plan Visit Data Chief Complaint: Chest Pain ED Provider: Josemanuel Rosa Discharge Problem: RSV bronchitis, Chest pain, Hyperglycemia, Wheezing Patient Disposition: Admitted As Inpatient Discharge Instructions Interventions: ED Discharge Assessment Last Done: 09/08/23 20:01 Discharge Problem: Chest pain Qualifiers: Chest pain type: unspecified Qualified Code(s): R07.9 - Chest pain, unspecified
[2023-09-08] MEDS ORDERED: SODIUM CHLORIDE 0.9% 500 ML IV STA (13:46)
[2023-09-08] MEDS ORDERED: ALBUT/IPRATROP 3MG/0.5MG NEB 3 ML VIAL NEB STA (13:46)
[2023-09-08 14:05] LABS: Basophils # (auto) 0.09 K/uL (0.00-0.20); Eosinophils # (auto) 0.45 K/uL (0.00-0.50); Hematocrit (blood only) 42.4 % (42.0-52.0); Hemoglobin 13.6 g/dl (14.0-18.0); Immature Granulocytes # (auto) 0.03 K/uL (0.01-0.20); Immature Granulocytes % (auto) 0.3 %; Lymphocytes # (auto) 3.18 K/uL (1.20-3.40); Lymphocytes % (auto) 35.7 %; Mean Corpuscular Hemoglobin 30.2 pg (25.0-34.0); Mean Corpuscular Hgb Conc 32.1 g/dL (32.0-36.0); Mean Corpuscular Volume 94.2 fL (80.0-100.0); Mean Platelet Volume 10.3 fL (9.4-12.4); Monocytes # (auto) 0.78 K/uL (0.11-0.59); Monocytes % (auto) 8.7 %; Neutrophils # (auto) 4.39 K/uL (1.40-6.50); Neutrophils % (auto) 49.3 %; Platelet Count 212 K/uL (130-400); RDW Coefficient of Variation 14.2 % (11.5-14.5); RDW Standard Deviation 48.8 fL (36.4-46.3); White Blood Count 8.92 K/ul (4.8-10.8)
[2023-09-08 14:26] LABS: Albumin Level 3.5 gm/dl (3.4-5.0); Bilirubin,Total 0.6 mg/dl (0.2-1.0); Calcium 8.9 mg/dl (8.6-10.3); Potassium 4.6 mmol/L (3.5-5.1)
--- NOTE | 2023-09-08 14:27 | XRay Report ---
SINGLE VIEW CHEST CLINICAL HISTORY: Atypical chest pain FINDINGS: An AP, portable, upright chest radiograph is compared to study dated 09/20/2022. The heart i s enlarged noting atherosclerotic calcification of the thoracic area. There is pulmonary vascular con gestion. Atelectasis is noted at the lung bases. No large pleural effusion or pneumothorax is seen. T he skeletal structures are osteopenic. The bony thorax is grossly intact. Arthritic change is seen in the shoulders and spine. IMPRESSION: Cardiomegaly with pulmonary vascular congestion. ACT 112: Negative or not required by law. Electronically signed by: Terry Frorest M.D. 09/08/2023 2:24 PM
[2023-09-08 14:31] LABS: Creatinine Clr Calc Pharmacy 55.7 ml/min; Est GFR (African American) 73.4 ml/min; Est GFR (Non-African American) 63.4 ml/min; Globulin 3.4 gm/dl (2.5-4.0); Total Protein 6.9 gm/dl (6.0-8.3)
[2023-09-08 14:37] LABS: Troponin I High Sensitivity 17.4 pg/ml (0-20)
[2023-09-08 15:03] LABS: Adenovirus PCR Not Detected (NotDetected); Bordetella parapertussis PCR Not Detected (NotDetected); Bordetella pertussis PCR Not Detected (NotDetected); Chlamydia pneumoniae PCR Not Detected (NotDetected); Coronavirus 229E PCR Not Detected (NotDetected); Coronavirus CoV-2 (COVID19)PCR Not Detected (NotDetected); Coronavirus HKU1 PCR Not Detected (NotDetected); Coronavirus NL63 PCR Not Detected (NotDetected); Coronavirus OC43PCR Not Detected (NotDetected); Human Metapneumovirus PCR Not Detected (NotDetected); Influenza A PCR Not Detected (NotDetected); Influenza B PCR Not Detected (NotDetected); Mycoplasma pneumoniae PCR Not Detected (NotDetected); Parainfluenza Virus 1 PCR Not Detected (NotDetected); Parainfluenza Virus 2 PCR Not Detected (NotDetected); Parainfluenza Virus 3 PCR Not Detected (NotDetected); Parainfluenza Virus 4 PCR Not Detected (NotDetected); Rhinovirus/Enterovirus PCR Not Detected (NotDetected)
[2023-09-08 15:14] LABS: Respiratory Syncytial VirusPCR DETECTED (NotDetected)
--- NOTE | 2023-09-08 15:52 | History & Physical Report ---
Date of Service September 08, 2023 Assessment & Plan (1) RSV (respiratory syncytial virus infection): Plan: Sharp, left-sided chest pain and cough first noticed on the morning of 09/08; however, patient reports it has been intermittent over the past 2-3 days Troponin WNL at 17.4; second troponin ordered, pending EKG sinus rhythm with PACs at 93 bpm; QTc 452 No leukocytosis; afebrile Procalcitonin WNL RSV+ on arrival CXR revealed cardiomegaly with pulmonary vascular congestion Droplet isolation precautions Supplemental oxygen as needed to maintain SpO2 >94% DuoNeb 3 mL QIDR for wheezing Guaifenesin 600 mg p.o. q12h for cough Acetaminophen as needed for pain/fever Tramadol 50 mg BID as needed for breakthrough pain Promote good pulmonary hygiene with incentive spirometry and flutter valve QID A.m. CBC, BMP (2) Chronic kidney disease, stage 3a: Plan: BUN 26, creatinine 1.04 (baseline 0.94), eGFR 63.4 at time of admission Avoid nephrotoxic agents or possible (3) Type 2 diabetes mellitus: Plan: Last A1c at 7.7% on 09/04/2023; no need to repeat Glucose 193 on admission Hold glipizide Lantus 5 u BID while inpatient SSI; with target BSG range 110-140mg/dL, CF 45, carb ratio 15 T2DM diet BSG ACHS Adjust regimen as needed (4) BPH (benign prostatic hyperplasia): Plan: Continue oxybutynin (5) Depression: Plan: Continue sertraline (6) Mood disorder: Plan: Continue buspirone, olanzapine (7) Hypothyroidism: Plan: Continue levothyroxine (8) HTN (hypertension): Plan: Continue losartan Plan Disposition: Obs - Admit to [facility] Telemetry Full code T2DM diet; aspiration precautions VTE PPx: Lovenox 40mg SQ q24h History of Present Illness Chief Complaint: Chest pain, RSV Primary Care Provider: [facility] Nikolai Matosmarcos Paiz is an 88-year-old male with PMH of Alzheimer's, T2DM, hypothyroidism, HTN, HLD, depression, BPH, OA, CKD stage IIIa, and migraines. He presented via EMS from [facility] for sharp left-sided chest pain and cough on 09/08. RSV positive on arrival. Patient received nitro x 2, as well as albuterol via EMS. Patient is a poor historian due to his underlying Alzheimer's. However, he does endorse left-sided chest pain that has been intermittent over the past 2-3 days. No pain at present, he rates it 0/10; however when asked to characterize the pain, he reports that it is "not strong at times, but other times it is quite strong". He denies supplemental at home oxygen use. He reports that he has not been in contact with other sick people, such as his neighbor who has had a cough. Coughing makes the left-sided chest pain worse. He denies smoking, tobacco use, alcohol use. He reports that he took his regular medications this morning. Patient is hypotensive at 93/54 at time of admission; SpO2 94% on RA. ED course: NSS 500 mL IV DuoNeb 3 mL ROS: Patient endorses productive cough and L-sided chest pain (which resolved after being given nitro). Patient denies fever, chills, night-sweats, FIGUEROA, dizziness, lightheadedness, confusion, hemoptysis, SOB, abdominal pain, N/V/D, burning with urination, dysuria, or numbness/tingling in the legs or arms. Spoke on the phone with patient's daughter (Elina) and provided update. She requested that she be updated if anything changes. Allergies Allergy/AdvReac Type Severity Reaction Status Date / Time adhesive tape Allergy Unknown ON [facility] Verified 09/08/23 15:05 MED LIST cephalexin [From Keflex] Allergy Unknown ON [facility] Verified 09/08/23 15:05 MED LIST rofecoxib AdvReac Intermediate SWOLLEN Verified 09/08/23 15:05 FEET Home Medications Medication Instructions Recorded Confirmed Type sertraline 100 mg tablet 100 mg PO QPM 05/08/18 09/08/23 History simvastatin 40 mg tablet 40 mg PO QPM 05/08/18 09/08/23 History buspirone 5 mg tablet 2.5 mg PO BID17 03/31/19 09/08/23 History peg 400-propylene glycol (PF) 0.4 1 drp OPB BID 07/01/19 09/08/23 History %-0.3 % eye drops in a dropperette (Systane (PF)) olanzapine 5 mg tablet 5 mg PO QPM 06/22/20 09/08/23 History oxybutynin chloride 5 mg tablet 10 mg PO QAM 07/31/20 09/08/23 History cyanocobalamin (vitamin B-12) 1,000 mcg PO QAM 08/18/20 09/08/23 History 1,000 mcg tablet losartan 25 mg tablet 25 mg PO QAM 08/18/20 09/08/23 History acetaminophen 500 mg tablet 1,000 mg PO Q8H PRN Pain 04/15/22 09/08/23 History docusate sodium 100 mg capsule 100 mg PO BID 04/15/22 09/08/23 History levothyroxine 75 mcg tablet 75 mcg PO DAILYBB #30 tabs 04/20/22 09/08/23 Rx (Synthroid) glipizide 5 mg tablet 7.5 mg PO BID17 09/20/22 09/08/23 History aspirin 81 mg tablet,delayed 81 mg PO QAM 09/08/23 09/08/23 History release diclofenac sodium 1 % topical gel 4 g topical Q12H PRN LEFT HIP PAIN 09/08/23 09/08/23 History diclofenac sodium 1 % topical gel 4 g EXT TID 09/08/23 09/08/23 History (Voltaren Arthritis Pain) lidocaine 4 % topical patch 1 patch topical DAILY 09/08/23 09/08/23 History nystatin 100,000 unit/gram topical 1 applic topical BID PRN GROIN 09/08/23 09/08/23 History powder AREA/SKIN IRRITATION tramadol 50 mg tablet 50 mg PO BID PRN Pain 09/08/23 09/08/23 History Past Med/Surg History Medical History (Updated 09/08/23 @ 16:51 by Elmo De Leon PA-C) Mood disorder Hypothyroidism Type 2 diabetes mellitus HTN (hypertension) Stenosis of right internal carotid artery Bipolar disorder Nocturnal hypoxia Chronic kidney disease, stage 3a Alzheimer disease B12 deficiency Acute kidney injury Chronic kidney disease, stage 3a Pneumonia of both lower lobes Acute respiratory failure with hypoxia Fall Fracture, ribs Hypothyroidism Skin problem Alzheimer disease Migraines Depression Hyperlipidemia Surgical History Previous back surgery S/P appendectomy Family History Other Cancer Diabetes Gallbladder disease Hypertension Kidney disease Social History Smoking Status: Never smoker Second Hand Exposure: No; Do You Dip or Chew Tobacco: No; Hx Alcohol Use: No Hx Substance Use: No Preferred Language: Azeri Communication Ability: Impaired Communication Ability Comment: Pt is very hard of hearing Performance Manager Required: No Beliefs That Will Affect Care: None marital status: / Current Living Situation: Alf Current Living Situation Comment: [employer] 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 How many Children do You have: 2 Feels Safe at Home: Yes Assistive Devices: Glasses, Walker and Wheelchair Review of Systems Review of Systems: See HPI above Physical Exam Physical Exam: General: no acute distress; pleasant affect; non-toxic appearing; well- nourished; cooperative; 94% SpO2 on RA HEENT: normocephalic, atraumatic; no scleral icterus; PERRLA w/ EOMs intact; moist mucus membrane; vision and hearing grossly intact Neck: supple; no JVD; no lymphadenopathy; trachea midline Skin: warm, dry without signs of tenting; no cyanosis; no rashes, bruising, lesions, or erythema noted CV: chest wall NTP; RRR; S1/S2 normal; no murmurs/rubs/gallops; pulses intact and symmetric at radial, DP, and PT Lungs: no acute respiratory distress; symmetrical chest wall expansion; mild expiratory wheeze auscultated in the upper right lung field ABD: Soft, NTP; BS present; no rebound/guarding; no distention MSK: no tics or fasciculations; no edema noted in the LEs b/l, nonerythematous Neuro: Oriented to name/, not oriented to time/month or location; slow to respond to some questioning; normal mood and affect; fluent speech; no focal deficits; sensation intact in the LEs B/L Results & Data Results & Data Vital Signs (Past 12 Hours) Vital Signs Temp Pulse Resp BP Pulse Ox O2 Del Method O2 Flow Rate 09/08/23 15:30 79 14 93/54 L 92 09/08/23 15:00 79 17 97/58 L 91 09/08/23 14:30 81 19 99/62 L 94 09/08/23 14:00 98/67 L 09/08/23 14:00 81 23 100 Room Air 09/08/23 13:50 101 H 13 92 09/08/23 13:46 94 Room Air 09/08/23 13:40 86 14 93 09/08/23 13:31 98/69 L 09/08/23 13:31 88 22 92 09/08/23 13:30 89/65 L 09/08/23 13:30 88 17 93 09/08/23 13:20 93 H 19 91 09/08/23 13:14 92 H 09/08/23 13:10 91 H 17 92 09/08/23 13:10 92 Room Air 0 09/08/23 13:10 36.7 C 97 H 15 94/72 L 92 Room Air Laboratory Results Abnormal lab results 09/08/23 09/08/23 Range/Units 13:15 13:17 RBC 4.50 L (4.70-6.10) M/uL Hgb 13.6 L (14.0-18.0) g/dl RDW Std Deviation 48.8 H (36.4-46.3) fL [place] # (Auto) 0.78 H (0.11-0.59) K/uL BUN 26 H (6-23) mg/dl BUN/Creatinine Ratio 25.0 H (10-20) Glucose 193 H (70-99(Fasting)) mg/dl RSV (PCR) DETECTED A* (NotDetected) Diagnostic Findings Chest X-Ray 09/08/23 13:46 SINGLE VIEW CHEST CLINICAL HISTORY: Atypical chest pain FINDINGS: An AP, portable, upright chest radiograph is compared to study dated 09/20/2022. The heart is enlarged noting atherosclerotic calcification of the thoracic area. There is pulmonary vascular congestion. Atelectasis is noted at the lung bases. No large pleural effusion or pneumothorax is seen. The skeletal structures are osteopenic. The bony thorax is grossly intact. Arthritic change is seen in the shoulders and spine. IMPRESSION: Cardiomegaly with pulmonary vascular congestion. ACT 112: Negative or not required by law. Electronically signed by: Terry Forrest M.D. 09/08/2023 2:24 PM Code Status & VTE Plan Code Status Full code (per paperwork provided by [facility], which was last updated 07/23/2023; patient does not exhibit capacity at his current cognitive baseline) VTE Prophylaxis Plan VTE Prophylaxis will be ordered: Yes Supervising Physician Co-Signing Physician Notes I personally saw and examined the patient. I independently reviewed the labs, EKG, imaging, problem list, medication list, past medical history and family history. I verified all wisdom points and agree with Elmo De Leon PA-C with the following exceptions and/or additions: 88 year old male with dementia presents to the ER with left sided chest pain. Unable to give me much of a history of this. He reports no longer being in pain. O/E Alert, orientated to self only, HS RRR, no murmurs, Chest CTAB, left chest pain on palpation, Abdo SNT, no cva tenderness A/P RSV - symptomatic treatment only Left chest pain - MSK as reproducible on palpation +/- pleurisy. x2 troponins negative. Low suspicion of PE as not no tachycardia/hypoxia and alternative explanation. PG Care Time/CCT Total # of Minutes Spent Total Time Spent with Patient: Total time spent is greater than 50% in coordination of care (as documented) at patient's floor/unit and/or counseling patient: [place] [address] INT INP/OBS CARE 2/55MIN Patient Type Established Medical Decision Making Moderate Complexity Diagnoses RSV (respiratory syncytial virus infection) B33.8 Chronic kidney disease, stage 3a N18.31 Type 2 diabetes mellitus E11.9 BPH (benign prostatic hyperplasia) N40.0 Depression F32.9 Mood disorder F39 Hypothyroidism E03.9 HTN (hypertension) I10
[2023-09-08] MEDS ORDERED: SODIUM CHLORIDE 0.9% 500 ML IV ONE (16:04)
[2023-09-08] MEDS ORDERED: DICLOFENAC SOD 1% GEL 100 GM TUBE EXT PRN (20:00)
[2023-09-08] MEDS ORDERED: GLUCOSE 10 TAB/TUBE PO PRN (20:00)
[2023-09-08] MEDS ORDERED: ACETAMINOPHEN 325 MG TAB PO PRN (20:00)
[2023-09-08] MEDS ORDERED: NITROGLYCERIN SL 0.4 MG/TAB TAB SL PRN (20:00)
[2023-09-08] MEDS ORDERED: GLUCAGON FOR INJ 1 MG VIAL SQ PRN (20:00)
[2023-09-08] MEDS ORDERED: ENOXAPARIN INJ 40 MG/0.4 ML SYR SQ SCH (20:00)
[2023-09-08] MEDS ORDERED: ONDANSETRON INJ 2 MG/ML 2 ML VIAL IV PRN (20:00)
[2023-09-08] MEDS ORDERED: CARBOHYDRATES FOR HYPOGLYCEMIA PO PRN (20:00)
[2023-09-08] MEDS ORDERED: GLUCOSE 40% GEL 15 GM TUBE PO PRN (20:00)
[2023-09-08] MEDS ORDERED: DEXTROSE 50% 50 ML SYRINGE IV PRN (20:00)
[2023-09-08] MEDS ORDERED: traMADol HCL 50 MG TABLET PO PRN (20:00)
[2023-09-08] MEDS ORDERED: SIMVASTATIN 40 MG TAB PO SCH (21:00)
[2023-09-08] MEDS ORDERED: ARTIFICIAL TEARS OPB PRN (21:00)
[2023-09-08] MEDS ORDERED: SERTRALINE HCL 100 MG TABLET PO SCH (21:00)
[2023-09-08] MEDS ORDERED: OLANZapine 5 MG TABLET PO SCH (21:00)
[2023-09-08] MEDS: ALBUT/IPRATROP 3MG/0.5MG NEB 3 ML VIAL NEB SCH (21:02)
[2023-09-08] MEDS: guaiFENesin 600 MG TABCR PO SCH (21:36)
[2023-09-08] MEDS: INSULIN ASPART PER UNIT CHARGE SC SCH (21:36)
[2023-09-08] MEDS: busPIRone 5 MG TAB PO SCH (21:36)
[2023-09-08] MEDS: DOCUSATE SODIUM 100 MG CAP PO SCH (21:36)
[2023-09-08] MEDS: LANTUS PER UNIT CHARGE SQ SCH (21:37)
--- NOTE | 2023-09-08 21:45 | Electrocardiogram Report ---
Test Reason : Blood Pressure : / mmHG Vent. Rate : 093 BPM Atrial Rate : 093 BPM P-R Int : 164 ms QRS Dur : 090 ms QT Int : 364 ms P-R-T Axes : 055 -16 041 degrees QTc Int : 452 ms Sinus rhythm with Premature atrial complexes Low voltage QRS Borderline ECG When compared with ECG of 20-SEP-2022 09:30, Criteria for Inferior infarct are no longer Present Nonspecific T wave abnormality no longer evident in Inferior leads Confirmed by Fran Etienne ([id number]) on 09/08/2023 9:44:47 PM Referred By: NO PCP Confirmed By:Fran Etienne
[2023-09-09 03:50] LABS: Basophils # (auto) 0.08 K/uL (0.00-0.20); Basophils % (auto) 1.1 %; Eosinophils # (auto) 0.41 K/uL (0.00-0.50); Eosinophils % (auto) 5.9 %; Hematocrit (blood only) 37.1 % (42.0-52.0); Hemoglobin 11.9 g/dl (14.0-18.0); Immature Granulocytes # (auto) 0.02 K/uL (0.01-0.20); Immature Granulocytes % (auto) 0.3 %; Lymphocytes # (auto) 1.93 K/uL (1.20-3.40); Lymphocytes % (auto) 27.7 %; Mean Corpuscular Hgb Conc 32.1 g/dL (32.0-36.0); Mean Corpuscular Volume 93.5 fL (80.0-100.0); Mean Platelet Volume 9.7 fL (9.4-12.4); Monocytes # (auto) 0.72 K/uL (0.11-0.59); Monocytes % (auto) 10.3 %; Neutrophils % (auto) 54.7 %; Platelet Count 173 K/uL (130-400); RDW Coefficient of Variation 14.1 % (11.5-14.5); RDW Standard Deviation 48.3 fL (36.4-46.3); Red Blood Count 3.97 M/uL (4.70-6.10); White Blood Count 6.96 K/ul (4.8-10.8)
[2023-09-09 04:04] LABS: BUN Creatinine Ratio 23.2 (10-20); Calcium 8.4 mg/dl (8.6-10.3); Est GFR (African American) 81.9 ml/min; Est GFR (Non-African American) 70.7 ml/min; Potassium 4.2 mmol/L (3.5-5.1)
[2023-09-09] MEDS ORDERED: LEVOTHYROXINE SODIUM 75 MCG TABLET PO SCH (06:30)
[2023-09-09] MEDS: ALBUT/IPRATROP 3MG/0.5MG NEB 3 ML VIAL NEB SCH ×4 (07:36→19:10)
[2023-09-09] MEDS: busPIRone 5 MG TAB PO SCH (08:42)
[2023-09-09] MEDS: guaiFENesin 600 MG TABCR PO SCH (08:42)
[2023-09-09] MEDS: DOCUSATE SODIUM 100 MG CAP PO SCH (08:42)
[2023-09-09] MEDS: INSULIN ASPART PER UNIT CHARGE SC SCH (08:45)
[2023-09-09] MEDS: LANTUS PER UNIT CHARGE SQ SCH (08:45)
[2023-09-09] MEDS ORDERED: LIDOCAINE 5% 1 PATCH TD SCH (09:00)
[2023-09-09] MEDS ORDERED: LOSARTAN POTASSIUM 25 MG TAB PO SCH (09:00)
[2023-09-09] MEDS ORDERED: oxyBUTYnin chloride 5 MG TAB PO SCH (09:00)
[2023-09-09] MEDS ORDERED: ASPIRIN 81 MG ECTAB PO SCH (09:00)
--- NOTE | 2023-09-09 10:06 | Discharge Summary ---
Date of Service September 09, 2023 Admission HPI Per Admitting Provider Chencho is an 88-year-old male with PMH of Alzheimer's, T2DM, hypothyroidism, HTN, HLD, depression, BPH, OA, CKD stage IIIa, and migraines. He presented via EMS from [facility] for sharp left-sided chest pain and cough on 09/08. RSV positive on arrival. Patient received nitro x 2, as well as albuterol via EMS. Patient is a poor historian due to his underlying Alzheimer's. However, he does endorse left-sided chest pain that has been intermittent over the past 2-3 days. No pain at present, he rates it 0/10; however when asked to characterize the pain, he reports that it is "not strong at times, but other times it is quite strong". He denies supplemental at home oxygen use. He reports that he has not been in contact with other sick people, such as his neighbor who has had a cough. Coughing makes the left-sided chest pain worse. He denies smoking, tobacco use, alcohol use. He reports that he took his regular medications this morning. Patient is hypotensive at 93/54 at time of admission; SpO2 94% on RA. ED course: NSS 500 mL IV DuoNeb 3 mL ROS: Patient endorses productive cough and L-sided chest pain (which resolved after being given nitro). Patient denies fever, chills, night-sweats, FIGUEROA, dizziness, lightheadedness, confusion, hemoptysis, SOB, abdominal pain, N/V/D, burning with urination, dysuria, or numbness/tingling in the legs or arms. Spoke on the phone with patient's daughter (Elina) and provided update. She requested that she be updated if anything changes. Principal Diagnosis RSV Discharge Exam The patient is awake, alert and oriented 3, well developed and well nourished, normocephalic and atraumatic, lying in bed and in no acute distress. HEENT--PERRL, EOMI, mucous membranes and oropharynx mildly dry Neck--supple. No JVD. No bruits. Thyroid normal, trachea midline, no adenopathy. Heart--normal S1 and S2. No murmurs, rubs or gallops. Lungs--clear bilaterally, no respiratory distress, no accessory muscle use. Abdomen--normal bowel sounds and soft. Mild epigastric and left sided abdominal pain Extremities--no cyanosis or clubbing. No edema. Dermatologic--normal skin turgor, normal color, no abnormal lymph nodes, no rash. Neurologic--cranial nerves II through XII grossly intact. Rheumatologic--normal range of motion. Psychiatric--normal affect. Discharge Data Allergies Allergy/AdvReac Type Severity Reaction Status Date / Time adhesive tape Allergy Unknown ON [facility] Verified 09/08/23 15:05 MED LIST cephalexin [From Keflex] Allergy Unknown ON [facility] Verified 09/08/23 15:05 MED LIST rofecoxib AdvReac Intermediate SWOLLEN Verified 09/08/23 15:05 FEET Consultations 09/08/23 16:04 ED Decision to Admit Stat Hospital Course (1) RSV (respiratory syncytial virus infection): Most likely the reason for his chest pain and mild shortness of breath RSV+ on arrival CXR revealed cardiomegaly with pulmonary vascular congestion Droplet isolation precautions Supplemental oxygen as needed to maintain SpO2 >94% DuoNeb 3 mL QIDR for wheezing Guaifenesin 600 mg p.o. q12h for cough Acetaminophen as needed for pain/fever Tramadol 50 mg BID as needed for breakthrough pain Promote good pulmonary hygiene with incentive spirometry and flutter valve QID Pain is much improved Saturating well on room air Plan is to discharge back to [place] (2) Chronic kidney disease, stage 3a: BUN 26, creatinine 1.04 (baseline 0.94), eGFR 63.4 at time of admission Avoid nephrotoxic agents or possible (3) Type 2 diabetes mellitus: Last A1c at 7.7% on 09/04/2023; no need to repeat Glucose 193 on admission Hold glipizide Lantus 5 u BID while inpatient SSI; with target BSG range 110-140mg/dL, CF 45, carb ratio 15 T2DM diet BSG ACHS Adjust regimen as needed (4) BPH (benign prostatic hyperplasia): Continue oxybutynin (5) Depression: Continue sertraline (6) Mood disorder: Continue buspirone, olanzapine (7) Hypothyroidism: Continue levothyroxine (8) HTN (hypertension): Continue losartan Plan Discharge back to [place] Total Time Total Time Spent Total Time Spent (In Minutes): 35 Discharge Plan Discharge Items Patient Disposition: Transfer [facility] Reason For Visit: INTERMITTENT CHEST PAIN, RSV Discharge Diagnosis: RSV Activity: Resume your previous activity Non-emergency contact: Primary Care Provider Call non-emergency contact if: you have any medication questions Follow-up/Referrals: Mervat Garcia [Primary Care Provider] - Diet: Regular Addtl Attending Provider Instructions: please follow up with your regular PCP Pending Studies at Discharge: No Stand-Alone Forms: My [facility] Skilled Items Patient informed of condition?: Yes DNR: No Discharge Level of Care: Skilled Communicable Disease: No Discharge Prognosis: Stable Lines: None Urinary Catheter: No Medications and DC Order Prescriptions: Continued buspirone 5 mg tablet 2.5 mg PO BID17 Rx Instructions: TAKE 2.5MG TWICE DAILY WITH MEALS sertraline 100 mg Tablet 100 mg PO QPM Rx Instructions: TAKES AT 1900 simvastatin 40 mg Tablet 40 mg PO QPM Rx Instructions: TAKES AT 1900 Systane (PF) 0.4-0.3 % Dropperette 1 drp OPB BID Rx Instructions: 0800 & 1900 olanzapine 5 mg Tablet 5 mg PO QPM Rx Instructions: TAKES AT 1900 oxybutynin chloride 5 mg tablet 10 mg PO QAM losartan 25 mg tablet 25 mg PO QAM cyanocobalamin (vitamin B-12) 1,000 mcg tablet 1,000 mcg PO QAM glipizide 5 mg tablet 7.5 mg PO BID17 lidocaine 4 % Adhesive Patch,Medicated 1 patch TOPICAL DAILY Rx Instructions: APPLY TO RIGHT SHOULDER, REMOVE AT 2000 tramadol 50 mg Tablet 50 mg PO BID PRN (Reason: Pain) nystatin 100,000 unit/gram Powder 1 applic TOPICAL BID PRN (Reason: GROIN AREA/SKIN IRRITATION) diclofenac sodium 1 % Gel 4 g TOPICAL Q12H PRN (Reason: LEFT HIP PAIN) aspirin 81 mg tablet,delayed release (DR/EC) 81 mg PO QAM diclofenac sodium [Voltaren Arthritis Pain] 1 % gel 4 g EXT TID Rx Instructions: APPLY TO RIGHT SHOULDER--0600, 0800 & 1800 docusate sodium 100 mg Capsule 100 mg PO BID acetaminophen 500 mg Tablet 1,000 mg PO Q8H MDD 3 GRAMS APAP/24 HOURS PRN (Reason: Pain) levothyroxine [Synthroid] 75 mcg Tablet 75 mcg PO DAILYBB Qty: 30 0RF Discharge Orders: Discharge Order (Routine); Ordered 09/09/23 Ordered By: Kvng Saldana Admission Data Admit Date/Time: 09/08/23 16:39 Attending Provider: Clinton Young Admit Provider: Clinton Young Primary Care Provider: Mervat Garcia Other Providers: Clinton Young Other Interventions: Discharge Summary Assessment (RN) Last Done: 09/09/23 09:53 Coding Level of Care Code 76367 INP/OBS DISCH >30 MIN Diagnoses RSV (respiratory syncytial virus infection) B33.8 Chronic kidney disease, stage 3a N18.31 Type 2 diabetes mellitus E11.9 BPH (benign prostatic hyperplasia) N40.0 Depression F32.9 Mood disorder F39 Hypothyroidism E03.9 HTN (hypertension) I10
--- NOTE | 2023-09-09 14:27 | Electrocardiogram Report ---
Test Reason : Blood Pressure : / mmHG Vent. Rate : 068 BPM Atrial Rate : 068 BPM P-R Int : 170 ms QRS Dur : 082 ms QT Int : 392 ms P-R-T Axes : 049 -11 016 degrees QTc Int : 416 ms Normal sinus rhythm Low voltage QRS Borderline ECG When compared with ECG of 08-SEP-2023 13:07, Premature atrial complexes are no longer Present Confirmed by Dayo Chong ([id number]) on 09/09/2023 2:27:07 PM Referred By: NO PCP Confirmed By:Dayo Chong
[2023-09-11] MEDS: ALBUT/IPRATROP 3MG/0.5MG NEB 3 ML VIAL NEB SCH ×2 (00:48→00:49)
== END 2023-09-09 09:53 ==
LOC: ED 12:57 → EDINP 12:57 → SUATTDRO 16:39 → EDINP 20:01

== ENCOUNTER 2023-09-11 12:59 | Inpatient (IN) ==
[2023-09-11] MEDS ORDERED: LACTATED RINGER'S 1,000 ML IV SCH (13:15)
--- NOTE | 2023-09-11 13:15 | Emergency Department Note ---
Impression & Plan Hypoxia, Respiratory syncytial virus (RSV), Dementia, Dehydration ED Provider Note ED Provider Note NAME: EBENEZER OSUNA AGE:88 SEX: Male : 1935 ARRIVES VIA: EMS INFORMANT: EMS ED PROVIDER(s): Anabela Petersen DO CHIEF COMPLAINT: [facility] reports decreased urine output, decreased intake HPI: This is an 88-year-old male brought in by EMS after [facility] staff concern for 24 hours of minimal oral intake and no urine output. Patient seen and evaluated here several days ago and diagnosed with RSV. They states since his return to the facility he has had decreased intake and now has not had any urine output in the last 24 hours. Patient does have a history of dementia and is unable to provide any additional history. They also state the patient has seemed more somnolent and lethargic. Patient noted to be hypoxic on arrival here, and placed on oxygen via nasal cannula. O2 sats were 88%. He does not typically require oxygen. PAST MEDICAL HISTORY:See Below PAST SURGICAL HISTORY:See Below FAMILY HISTORY:See Below SOCIAL HISTORY:See Below HOME MEDICATIONS:See Below ALLERGIES:See Below VITALS:See Below PHYSICAL EXAMINATION: GENERAL: well nourished, no distress, non-toxic EYE EXAM: normal conjunctiva, PERRL and EOM's grossly intact OROPHARYNX: no exudate, no erythema, lips, buccal mucosa, and tongue normal and mucous membranes are dry NECK: supple, no nuchal rigidity, no adenopathy, non-tender LUNGS: Clear to auscultation. Normal chest wall mechanics, no w/r/r HEART: no murmurs, S1 normal and S2 normal ABDOMEN: abdomen soft, non-tender, normo-active bowel sounds, no masses, no rebound or guarding. BACK: Back is symmetrical on inspection and there is no deformity, no midline tenderness, no CVA tenderness. SKIN: no rashes, petechiae, orbruising UPPER EXTREMITIES: upper extremities are grossly normal. FROM, nml pulses b/l. LOWER EXTREMITIES: No pitting edema. FROM, nml pulses b/l. NEURO EXAM: Somnolent, responds to voice and pain, unable to perform any additional neuro testing Vital Signs: reviewed and remarkable Differential Diagnosis: pneumonia, bronchitis, COPD/Asthma exacerbation, pneumothorax, pulmonary embolism, congestive heart failure, acute coronary syndrome, as well as others were considered MEDICAL DECISION MAKING: This is an 88-year-old male brought in by EMS due to concern for decreased oral intake and decreased urine output after recent diagnosis of RSV. Patient does have a history of dementia and cannot provide any additional history. Recent evaluation in the ER as well as [facility] records were reviewed. Labs drawn and sent, IV established, EKG and CXR performed and interpreted at bedside, and patient placed on telemetry. Patient started on gentle IV fluid hydration. Bladder scan did show greater than 300 mL in the bladder and so a Alvarez catheter was placed, and urine sent for evaluation. Patient was initially noted to be mildly hypoglycemic, and dextrose solution was given with some improvement. Patient was noted to have an elevated troponin additionally. Patient with borderline hypoxia at 90% although no obvious increased work of breathing, he did have a coarse intermittent cough that was noted. I did attempt to contact the daughter listed as the next of kin however there was a busy signal no ability to leave voicemail. Due to concern for worsening symptoms patient sent for CT angiography of the chest as a precaution. No evidence of PE, increased secretions/sputum was noted and possible early infiltrate. Patient's labs otherwise reassuring other than the elevated troponin. No acute EKG changes noted. I suspect patient with worsening symptoms and decline related to recent acute RSV infection in the setting of advanced age and other comorbidities. Case discussed with the hospitalist team for additional evaluation and management, and consideration for additional antibiotics for possible secondary bacterial pulmonary infection deferred to them. No evidence of sepsis at this time. Consultation(s): [] ER Treatment Provided: See below Diagnostics Interpreted By Me: -ECG: Normal sinus at 78, normal axis, normal intervals, no acute ST/T wave changes, low voltage throughout -Cardiac Monitoring: An order was placed for continuous cardiac monitoring. The monitor shows a rate of 80 with normal sinus rhythm. -Laboratory studies: As stated above and show below. -Imaging studies: X-ray Chest: A single view study of the chest was reviewed and was negative for cardiomegaly, focal infiltrate, effusion, or wide mediastinum. Appearance of increased interstitial markings bilaterally Triage Nursing Note Reviewed Prior/Outside Records Reviewed - [facility] records Past Med/Surg History Medical History (Updated 09/13/23 @ 07:06 by Anabela Petersen DO) Mood disorder Hypothyroidism Type 2 diabetes mellitus HTN (hypertension) Stenosis of right internal carotid artery Bipolar disorder Nocturnal hypoxia Chronic kidney disease, stage 3a Alzheimer disease B12 deficiency Acute kidney injury Chronic kidney disease, stage 3a Pneumonia of both lower lobes Acute respiratory failure with hypoxia Fall Fracture, ribs Hypothyroidism Skin problem Alzheimer disease Migraines Depression Hyperlipidemia Surgical History Previous back surgery S/P appendectomy Family History Other Cancer Diabetes Gallbladder disease Hypertension Kidney disease Social History Smoking Status: Never smoker Second Hand Exposure: No; Do You Dip or Chew Tobacco: No; Hx Alcohol Use: No Hx Substance Use: No Preferred Language: Estonian Communication Ability: Impaired Communication Ability Comment: Pt is very hard of hearing Film Sound Engineer Required: No Beliefs That Will Affect Care: None marital status: / Current Living Situation: Personal Care Facility Current Living Situation Comment: [facility] 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 How many Children do You have: 2 Other Information That Helps Us Care for You: No Feels Safe at Home: Yes Assistive Devices: Walker Allergies Allergies Allergy/AdvReac Type Severity Reaction Status Date / Time adhesive tape Allergy Unknown ON [facility] Verified 09/08/23 15:05 MED LIST cephalexin [From Keflex] Allergy Unknown ON [facility] Verified 09/08/23 15:05 MED LIST rofecoxib AdvReac Intermediate SWOLLEN Verified 09/08/23 15:05 FEET Home Meds Home Medications Medication Instructions Recorded Confirmed sertraline 100 mg tablet 100 mg PO QPM 05/08/18 09/11/23 simvastatin 40 mg tablet 40 mg PO QPM 05/08/18 09/11/23 buspirone 5 mg tablet 2.5 mg PO BID17 03/31/19 09/11/23 peg 400-propylene glycol (PF) 0.4 1 drp OPB BID 07/01/19 09/11/23 %-0.3 % eye drops in a dropperette (Systane (PF)) olanzapine 5 mg tablet 5 mg PO QPM 06/22/20 09/11/23 oxybutynin chloride 5 mg tablet 10 mg PO QAM 07/31/20 09/11/23 cyanocobalamin (vitamin B-12) 1,000 mcg PO QAM 08/18/20 09/11/23 1,000 mcg tablet losartan 25 mg tablet 25 mg PO QAM 08/18/20 09/11/23 acetaminophen 500 mg tablet 1,000 mg PO Q8H PRN Pain 04/15/22 09/11/23 docusate sodium 100 mg capsule 100 mg PO BID 04/15/22 09/11/23 glipizide 5 mg tablet 7.5 mg PO BID17 09/20/22 09/11/23 aspirin 81 mg tablet,delayed 81 mg PO QAM 09/08/23 09/11/23 release diclofenac sodium 1 % topical gel 4 g topical Q12H PRN LEFT HIP PAIN 09/08/23 09/11/23 diclofenac sodium 1 % topical gel 4 g EXT TID 09/08/23 09/11/23 (Voltaren Arthritis Pain) lidocaine 4 % topical patch 1 patch topical DAILY 09/08/23 09/11/23 nystatin 100,000 unit/gram topical 1 applic topical BID PRN GROIN 09/08/23 09/11/23 powder AREA/SKIN IRRITATION tramadol 50 mg tablet 50 mg PO BID PRN Pain 09/08/23 09/11/23 Previous Rx's Medication Instructions Recorded levothyroxine 75 mcg tablet 75 mcg PO DAILYBB #30 tabs 04/20/22 (Synthroid) Results & Data (ED) Vital Signs Vital Signs - 24 hr 09/11/23 13:15 09/11/23 13:24 09/11/23 13:56 Temperature 36.7 C Temperature Source Oral Pulse Rate 83 80 Pulse Rate [Apical] 78 Respiratory Rate 14 Respiratory Effort / Characteristics Respiratory Depth Normal Blood Pressure 95/57 L Blood Pressure [Right Arm] 94/50 L Blood Pressure Mean 69 Blood Pressure Mean [Right Arm] 64 Blood Pressure Position Lying Blood Pressure Position [Right Arm] Pulse Oximetry 90 93 Oxygen Delivery Method Nasal Cannula Nasal Cannula Oxygen Flow Rate 2 Sepsis Recent Fever Within 48 Hours No Sepsis New/Unexplained Change in Mental Status Yes Sepsis Action Taken by Nursing Physician Notified 09/11/23 15:15 09/11/23 17:00 09/11/23 17:31 Temperature Temperature Source Pulse Rate 73 Pulse Rate [Apical] 72 75 Respiratory Rate 18 18 Respiratory Effort / Characteristics Non-Labored Respiratory Depth Normal Normal Blood Pressure Blood Pressure [Right Arm] 105/64 131/79 Blood Pressure Mean Blood Pressure Mean [Right Arm] 77 96 Blood Pressure Position Blood Pressure Position [Right Arm] Lying Pulse Oximetry 93 96 Oxygen Delivery Method Nasal Cannula Room Air Oxygen Flow Rate 2 Sepsis Recent Fever Within 48 Hours Sepsis New/Unexplained Change in Mental Status Sepsis Action Taken by Nursing Laboratory Data 09/13/23 06:35 09/12/23 07:24 Lab Results 09/11/23 09/11/23 09/11/23 Range/Units 13:17 13:18 14:27 WBC 8.80 (4.8-10.8) K/ul RBC 4.32 L (4.70-6.10) M/uL Hgb 13.0 L (14.0-18.0) g/dl Hct 40.7 L (42.0-52.0) % MCV 94.2 (80.0-100.0) fL MCH 30.1 (25.0-34.0) pg MCHC 31.9 L (32.0-36.0) g/dL RDW Std Deviation 50.0 H (36.4-46.3) fL RDW Coeff of Johnnie 14.4 (11.5-14.5) % Plt Count 191 (130-400) K/uL MPV 9.8 (9.4-12.4) fL Immature Gran % (Auto) 0.2 % Neut % (Auto) 35.2 % Lymph % (Auto) 48.9 % Elbert % (Auto) 10.8 % Eos % (Auto) 4.0 % Baso % (Auto) 0.9 % Neut # (Auto) 3.10 (1.40-6.50) K/uL Lymph # (Auto) 4.30 H (1.20-3.40) K/uL Elbert # (Auto) 0.95 H (0.11-0.59) K/uL Eos # (Auto) 0.35 (0.00-0.50) K/uL Baso # (Auto) 0.08 (0.00-0.20) K/uL Immature Gran # (Auto) 0.02 (0.01-0.20) K/uL PT 11.2 (9.0-12.0) Seconds INR 1.0 (0.9-1.1) Sodium 142 (136-145) mmol/L Potassium 3.9 (3.5-5.1) mmol/L Chloride 109 H (98-107) mmol/L Carbon Dioxide 27 (21-32) mmol/L Anion Gap 6 (3-11) BUN 25 H (6-23) mg/dl Creatinine 1.14 (0.6-1.4) mg/dl Est Cr Clr Drug Dosing 52.2 ml/min Est GFR ( Amer) 65.7 ml/min Est GFR (Non-Af Amer) 56.7 ml/min BUN/Creatinine Ratio 21.9 H (10-20) Glucose 58 L (70-99(Fasting)) mg/dl POC Glucose 106 H (70-99) mg/dl Calcium 8.9 (8.6-10.3) mg/dl Magnesium 2.1 (1.7-2.4) mg/dl Total Bilirubin 0.8 (0.2-1.0) mg/dl AST 41 H (13-39) U/L ALT 14 (7-52) U/L Alkaline Phosphatase 68 (34-104) U/L Troponin I High Sens 49.4 H (0-20) pg/ml B-Natriuretic Peptide 61 (0-100) pg/ml Total Protein 6.9 (6.0-8.3) gm/dl Albumin 3.4 (3.4-5.0) gm/dl Globulin 3.5 (2.5-4.0) gm/dl Albumin/Globulin Ratio 1.0 (0.9-2) Lipase < 3 L (11-82) U/L Procalcitonin < 0.05 (0-0.5) ng/ml TSH 2.269 (0.300-4.500) uIu/ml SARS-CoV-2 (PCR) (Negative) Influenza Type A (PCR) (Neg) Influenza Type B (PCR) (Neg) RSV (RT-PCR) (Neg) 09/11/23 09/11/23 09/11/23 Range/Units 15:17 18:21 18:46 WBC (4.8-10.8) K/ul RBC (4.70-6.10) M/uL Hgb (14.0-18.0) g/dl Hct (42.0-52.0) % MCV (80.0-100.0) fL MCH (25.0-34.0) pg MCHC (32.0-36.0) g/dL RDW Std Deviation (36.4-46.3) fL RDW Coeff of Johnnie (11.5-14.5) % Plt Count (130-400) K/uL MPV (9.4-12.4) fL Immature Gran % (Auto) % Neut % (Auto) % Lymph % (Auto) % Elbert % (Auto) % Eos % (Auto) % Baso % (Auto) % Neut # (Auto) (1.40-6.50) K/uL Lymph # (Auto) (1.20-3.40) K/uL Elbert # (Auto) (0.11-0.59) K/uL Eos # (Auto) (0.00-0.50) K/uL Baso # (Auto) (0.00-0.20) K/uL Immature Gran # (Auto) (0.01-0.20) K/uL PT (9.0-12.0) Seconds INR (0.9-1.1) Sodium (136-145) mmol/L Potassium (3.5-5.1) mmol/L Chloride (98-107) mmol/L Carbon Dioxide (21-32) mmol/L Anion Gap (3-11) BUN (6-23) mg/dl Creatinine (0.6-1.4) mg/dl Est Cr Clr Drug Dosing ml/min Est GFR ( Amer) ml/min Est GFR (Non-Af Amer) ml/min BUN/Creatinine Ratio (10-20) Glucose (70-99(Fasting)) mg/dl POC Glucose 61 L* 99 (70-99) mg/dl Calcium (8.6-10.3) mg/dl Magnesium (1.7-2.4) mg/dl Total Bilirubin (0.2-1.0) mg/dl AST (13-39) U/L ALT (7-52) U/L Alkaline Phosphatase (34-104) U/L Troponin I High Sens (0-20) pg/ml B-Natriuretic Peptide (0-100) pg/ml Total Protein (6.0-8.3) gm/dl Albumin (3.4-5.0) gm/dl Globulin (2.5-4.0) gm/dl Albumin/Globulin Ratio (0.9-2) Lipase (11-82) U/L Procalcitonin (0-0.5) ng/ml TSH (0.300-4.500) uIu/ml SARS-CoV-2 (PCR) NEGATIVE (Negative) Influenza Type A (PCR) Negative (Neg) Influenza Type B (PCR) Negative (Neg) RSV (RT-PCR) Positive A* (Neg) Administered Medications Acetaminophen (Acetaminophen 325 Mg Tab) 650 mg PO Q4H PRN PRN Reason: Pain or Fever Stop: 10/11/23 20:07 Last Admin: 09/12/23 20:29 Dose: 650 mg Documented By: EDWIN Albuterol (Albut/Ipratrop 3mg/0.5mg Neb 3 Ml Vial) 3 ml NEB QIDR [facility]; Protocol Stop: 10/11/23 20:07 Last Admin: 09/12/23 21:01 Dose: 3 ml Documented By: Admin: 09/12/23 14:30 Dose: 3 ml Documented By: Admin: 09/12/23 11:24 Dose: 3 ml Documented By: Admin: 09/12/23 07:04 Dose: 3 ml Documented By: Admin: 09/11/23 23:34 Dose: 3 ml Documented By: Admin: 09/11/23 20:46 Dose: 3 ml Documented By: DONTE Artificial Tears (Artificial Tears) 1 drops OP BID [facility] Stop: 10/11/23 20:59 Last Admin: 09/12/23 21:35 Dose: 1 drops Documented By: Admin: 09/12/23 08:16 Dose: 1 drops Documented By: Admin: 09/11/23 21:10 Dose: 1 drops Documented By: Aspirin (Aspirin 81 Mg Ectab) 81 mg PO QAM [facility] Stop: 10/12/23 08:59 Last Admin: 09/12/23 08:17 Dose: 81 mg Documented By: ZURDO Buspirone HCl (Buspirone 5 Mg Tab) 2.5 mg PO BID17 [facility] Stop: 10/12/23 08:59 Last Admin: 09/12/23 17:36 Dose: 2.5 mg Documented By: Admin: 09/12/23 08:17 Dose: 2.5 mg Documented By: ZURDO Cyanocobalamin (Cyanocobalamin (B-12) 500 Mcg Tablet) 1,000 mcg PO QAM JULIETA Stop: 10/12/23 08:59 Last Admin: 09/12/23 08:18 Dose: 1,000 mcg Documented By: ZURDO Diclofenac Sodium (Diclofenac Sod 1% Gel 100 Gm Tube) 4 gm EXT TID JULIETA; Protocol Stop: 10/11/23 20:59 Last Admin: 09/12/23 21:36 Dose: 4 gm Documented By: Admin: 09/12/23 14:51 Dose: 4 gm Documented By: Admin: 09/12/23 08:18 Dose: 4 gm Documented By: Admin: 09/11/23 21:10 Dose: 4 gm Documented By: Docusate Sodium (Docusate Sodium 100 Mg Cap) 100 mg PO BID [facility] Stop: 10/11/23 20:59 Last Admin: 09/12/23 20:32 Dose: 100 mg Documented By: Admin: 09/12/23 08:18 Dose: 100 mg Documented By: Admin: 09/11/23 21:15 Dose: Not Given Documented By: Enoxaparin Sodium (Enoxaparin Inj 40 Mg/0.4 Ml Syr) 40 mg SQ Q24H JULIETA Stop: 10/11/23 20:59 Last Admin: 09/12/23 20:30 Dose: 40 mg Documented By: Admin: 09/12/23 01:32 Dose: Not Given Documented By: NONA Guaifenesin (Guaifenesin 600 Mg Tabcr) 1,200 mg PO Q12 JULIETA Stop: 10/11/23 20:59 Last Admin: 09/12/23 20:32 Dose: 1,200 mg Documented By: Admin: 09/12/23 08:19 Dose: 1,200 mg Documented By: Admin: 09/11/23 21:15 Dose: Not Given Documented By: Azithromycin 500 mg/ Dextrose 255 mls @ 125 mls/hr IV Q24H JULIETA Stop: 09/18/23 19:59 Last Infusion: 09/12/23 23:28 Dose: Infused Documented By: Admin: 09/12/23 20:27 Dose: 85 mls/hr Documented By: Infusion: 09/11/23 22:01 Dose: Infused Documented By: Admin: 09/11/23 19:57 Dose: 125 mls/hr Documented By: Cefepime HCl 2,000 mg/ Syringe 20 mls @ 5 mls/min IV Q12H [facility]; Protocol Stop: 09/18/23 19:59 Last Admin: 09/12/23 21:33 Dose: 5 mls/min Documented By: Admin: 09/12/23 08:16 Dose: 5 mls/min Documented By: Admin: 09/11/23 19:54 Dose: 5 mls/min Documented By: Insulin Aspart (Insulin Aspart Per Unit Charge) 0 units SC ACHS JULIETA Stop: 10/11/23 20:59 Last Admin: 09/12/23 23:23 Dose: Not Given Documented By: EDWIN Co-signed By: ANYA Admin: 09/12/23 22:51 Dose: Not Given Documented By: Admin: 09/12/23 17:42 Dose: 1 units Documented By: ZURDO Co-signed By: MATIAS Admin: 09/12/23 12:35 Dose: Not Given Documented By: Admin: 09/12/23 08:15 Dose: 1 units Documented By: ZURDO Co-signed By: JENSEN Admin: 09/11/23 20:35 Dose: Not Given Documented By: Co-signed By: ARTEMIO Insulin Glargine (Lantus Per Unit Charge) 0 units SQ BID [facility]; Protocol Stop: 10/12/23 07:44 Last Admin: 09/12/23 23:24 Dose: 4 units Documented By: EDWIN Co-signed By: ANYA Admin: 09/12/23 08:15 Dose: 4 units Documented By: ZURDO Co-signed By: JENSEN Levothyroxine Sodium (Levothyroxine Sodium 75 Mcg Tablet) 75 mcg PO DAILYBB [facility] Stop: 10/12/23 06:29 Last Admin: 09/13/23 06:19 Dose: 75 mcg Documented By: Admin: 09/12/23 06:03 Dose: 75 mcg Documented By: NONA Lidocaine (Lidocaine 5% 1 Patch) 1 patch TD DAILY JULIETA Stop: 10/12/23 08:59 Last Admin: 09/12/23 08:19 Dose: 1 patch Documented By: ZURDO Losartan Potassium (Losartan Potassium 25 Mg Tab) 25 mg PO QAM [facility] Stop: 10/12/23 08:59 Last Admin: 09/12/23 08:20 Dose: 25 mg Documented By: ZURDO Miscellaneous (Remove Lidoderm Patch) 1 each N/A DAILY@2100 [facility] Stop: 10/11/23 20:59 Last Admin: 09/12/23 22:44 Dose: 1 each Documented By: [facility] Admin: 09/11/23 21:15 Dose: Not Given Documented By: Olanzapine (Olanzapine 5 Mg Tablet) 5 mg PO QPM [facility] Stop: 10/11/23 20:59 Last Admin: 09/12/23 20:30 Dose: 5 mg Documented By: [facility] Admin: 09/11/23 21:15 Dose: Not Given Documented By: Oxybutynin Chloride (Oxybutynin Chloride 5 Mg Tab) 10 mg PO QAM [facility] Stop: 10/12/23 08:59 Last Admin: 09/12/23 08:20 Dose: 10 mg Documented By: ZURDO Sertraline HCl (Sertraline Hcl 100 Mg Tablet) 100 mg PO QPM [facility] Stop: 10/11/23 20:59 Last Admin: 09/12/23 20:32 Dose: 100 mg Documented By: [facility] Admin: 09/11/23 21:15 Dose: Not Given Documented By: Simvastatin (Simvastatin 40 Mg Tab) 40 mg PO QPM [facility] Stop: 10/11/23 20:59 Last Admin: 09/12/23 20:31 Dose: 40 mg Documented By: [facility] Admin: 09/11/23 21:15 Dose: Not Given Documented By: Sodium Chloride (Sodium Chlor 7% 4 Ml Neb) 4 ml NEB BIDR [facility] Stop: 10/12/23 18:59 Last Admin: 09/12/23 21:01 Dose: Not Given Documented By: CAM Discontinued Medications Dextrose (Dextrose 50% 50 Ml Syringe) 25 ml IV NOW ONE Stop: 09/11/23 13:59 Last Admin: 09/11/23 14:01 Dose: 25 ml Documented By: ARIADNE Dextrose (Dextrose 50% 50 Ml Syringe) 25 ml IV NOW ONE Stop: 09/11/23 18:30 Last Admin: 09/11/23 18:27 Dose: 25 ml Documented By: JOE Lactated Ringer's (Lr) 1,000 mls @ 125 mls/hr IV .Q8H [facility] Stop: 10/11/23 13:14 Last Infusion: 09/11/23 21:38 Dose: Infused Documented By: Admin: 09/11/23 13:37 Dose: 125 mls/hr Documented By: JOE Lactated Ringer's (Lr) 1,000 mls @ 999 mls/hr IV .Q1H1M ONE Stop: 09/11/23 15:29 Last Infusion: 09/11/23 14:20 Dose: Infused Documented By: Admin: 09/11/23 13:20 Dose: 999 mls/hr Documented By: JOE Dextrose/Sodium Chloride (D5w And 1/2nss) 1,000 mls @ 80 mls/hr IV .[id number] JULIETA Stop: 09/12/23 08:44 Last Infusion: 09/12/23 09:33 Dose: Infused Documented By: Admin: 09/11/23 21:03 Dose: 80 mls/hr Documented By: Ioversol (Optiray 320 125ml) 117 ml IV ONCE ONE Stop: 09/11/23 15:31 Last Admin: 09/11/23 15:30 Dose: 117 ml Documented By: CRIS Olanzapine (Olanzapine 5 Mg Tablet) 5 mg PO ONE ONE Stop: 09/12/23 01:11 Last Admin: 09/12/23 01:29 Dose: 5 mg Documented By: NONA Sertraline HCl (Sertraline Hcl 100 Mg Tablet) 100 mg PO ONE ONE Stop: 09/12/23 01:10 Last Admin: 09/12/23 01:29 Dose: 100 mg Documented By: NONA Sodium Chloride (Sodium Chlor 7% 4 Ml Neb) 4 ml NEB BIDR [facility] Stop: 10/11/23 20:07 Last Admin: 09/12/23 21:01 Dose: 4 ml Documented By: Admin: 09/12/23 07:04 Dose: 4 ml Documented By: Admin: 09/11/23 20:46 Dose: 4 ml Documented By: DONTE Imaging Data Radiologist's Impression: Chest X-Ray 09/11/23 13:11 XR chest 1V portable HISTORY: 88 years-old Male hypoxia acute hypoxia COMPARISON: Chest radiograph 09/08/2023 TECHNIQUE: AP view of the chest FINDINGS: Cardiac silhouette is enlarged. Pulmonary vascular congestion. Hypoinflation with bronchovascular crowding. Atherosclerosis of the aorta. No pneumothorax, pleural effusion or lobar airspace consolidation. Degenerative changes of the shoulders and spine. IMPRESSION: 1. Cardiomegaly with pulmonary vascular congestion. 2. Hypoinflation. ACT 112: Negative or not required by law. The above report was generated using voice recognition software. It may contain grammatical, syntax or spelling errors. Electronically signed by: Ever Calhoun M.D. 09/11/2023 2:34 PM Chest CTA 09/11/23 14:20 CHEST CTA for PULMONARY ARTERIES CT DOSE: 873.09 mGy.cm HISTORY: Shortness of breath. Cough. TECHNIQUE: Multiaxial CT images of the chest were performed following the intravenous administration of contrast to evaluate the pulmonary arteries. 3D/Maximal intensity projection images were also obtained. Sagittal and coronal reformations were also reviewed. A dose lowering technique was utilized adhering to the principles of ALARA. COMPARISON STUDY: None. FINDINGS: Calcified plaque within the normal caliber thoracic aorta. No evidence for an aortic dissection. The heart is mildly enlarged. There are severe coronary artery calcifications noted. No pleural or pericardial effusions. Normal esophagus. Limited views of the upper abdomen demonstrate a normal liver, spleen, and adrenal glands. A 9 mm hyperdense lesion within the upper pole of the left kidney is technically too small to characterize but favors a hyperdense cyst. Mild bilateral gynecomastia is noted. There is mild right hilar lymphadenopathy. Dominant right hilar lymph node measures 11 mm. No mediastinal or left hilar lymphadenopathy. Motion artifact results in nondiagnostic evaluation of the majority of the segmental/subsegmental pulmonary arteries within the bilateral lower lobes, right middle lobe, and lingula. Otherwise, no filling defects within the remaining pulmonary arteries to suggest a pulmonary embolus. Degenerative changes within the shoulders. There are old, healed bilateral rib fractures. No acute fractures identified within the chest. No pneumothorax. Partial mucoid opacification of the trachea and mainstem bronchi. Respiratory motion artifact results in suboptimal evaluation of the lungs. Mosaic attenuation within the lungs suggestive of air-trapping. Bibasilar linear densities favor subsegmental atelectasis. Moderate bronchial wall thickening within the right upper lobe. Small patchy density within the superior segment of the left lower lobe posteriorly on image 131. This could represent atelectasis or a pneumonia. IMPRESSION: 1. No evidence for a pulmonary embolus with limitations as described above. 2. Partial mucoid opacification of the trachea and mainstem bronchi. 3. Moderate bronchial wall thickening within the right upper lobe. This is nonspecific but could represent a focal bronchitis. 4. There is also mild right hilar lymphadenopathy. [address] follow-up recommended to ensure resolution of the right hilar lymphadenopathy and right upper lobe bronchial wall thickening. 5. Small patchy density within the superior segment of the lower lobes posteriorly. This could represent atelectasis or pneumonia. 6. Additional findings as described above. ACT 112: Positive. There are findings on this exam that require communication between the performing entity and the patient following Patient Test Result Information Act ([place] Act 112) guidelines. Electronically signed by: Elmo Redmond M.D. 09/11/2023 4:38 PM Discharge Plan Visit Data Chief Complaint: Altered Mental Status Stated Complaint: AMS ED Provider: Anabela Petersen Discharge Problem: Hypoxia, Respiratory syncytial virus (RSV), Dementia, Dehydration Patient Disposition: Admitted As Inpatient Discharge Instructions Interventions: ED Discharge Assessment Last Done: 09/11/23 20:07
[2023-09-11 13:36] LABS: Basophils # (auto) 0.08 K/uL (0.00-0.20); Basophils % (auto) 0.9 %; Eosinophils # (auto) 0.35 K/uL (0.00-0.50); Hematocrit (blood only) 40.7 % (42.0-52.0); Immature Granulocytes # (auto) 0.02 K/uL (0.01-0.20); Immature Granulocytes % (auto) 0.2 %; Lymphocytes % (auto) 48.9 %; Mean Corpuscular Hemoglobin 30.1 pg (25.0-34.0); Mean Corpuscular Hgb Conc 31.9 g/dL (32.0-36.0); Mean Corpuscular Volume 94.2 fL (80.0-100.0); Mean Platelet Volume 9.8 fL (9.4-12.4); Monocytes # (auto) 0.95 K/uL (0.11-0.59); Monocytes % (auto) 10.8 %; Neutrophils % (auto) 35.2 %; Platelet Count 191 K/uL (130-400); RDW Coefficient of Variation 14.4 % (11.5-14.5); Red Blood Count 4.32 M/uL (4.70-6.10)
[2023-09-11 13:55] LABS: Anion Gap 6 (3-11); BUN Creatinine Ratio 21.9 (10-20); Blood Urea Nitrogen 25 mg/dl (6-23); Calcium 8.9 mg/dl (8.6-10.3); Carbon Dioxide 27 mmol/L (21-32); Chloride 109 mmol/L (98-107); Creatinine Clr Calc Pharmacy 52.2 ml/min; Est GFR (African American) 65.7 ml/min; Est GFR (Non-African American) 56.7 ml/min; Glucose 58 mg/dl (70-99(Fasting)); Potassium 3.9 mmol/L (3.5-5.1); Sodium 142 mmol/L (136-145)
[2023-09-11 13:57] LABS: Alanine Aminotransferase 14 U/L (7-52); Albumin Level 3.4 gm/dl (3.4-5.0); Alkaline Phosphatase 68 U/L (34-104); Aspartate Aminotransferase 41 U/L (13-39); Bilirubin,Total 0.8 mg/dl (0.2-1.0); Globulin 3.5 gm/dl (2.5-4.0); Lipase < 3 U/L (11-82); Magnesium 2.1 mg/dl (1.7-2.4); Total Protein 6.9 gm/dl (6.0-8.3)
[2023-09-11] MEDS ORDERED: DEXTROSE 50% 50 ML SYRINGE IV ONE ×2 (13:58→18:29)
[2023-09-11 14:00] LABS: Troponin I High Sensitivity 49.4 pg/ml (0-20)
[2023-09-11 14:09] LABS: Prothrombin Time 11.2 Seconds (9.0-12.0); Thyroid Stimulating Hormone 2.269 uIu/ml (0.300-4.500)
[2023-09-11] MEDS ORDERED: LACTATED RINGER'S 1,000 ML IV ONE (14:29)
--- NOTE | 2023-09-11 14:36 | XRay Report ---
XR chest 1V portable HISTORY: 88 years-old Male hypoxia acute hypoxia COMPARISON: Chest radiograph 09/08/2023 TECHNIQUE: AP view of the chest FINDINGS: Cardiac silhouette is enlarged. Pulmonary vascular congestion. Hypoinflation with bronchovascular escrow representative wding. Atherosclerosis of the aorta. No pneumothorax, pleural effusion or lobar airspace consolidatio n. Degenerative changes of the shoulders and spine. IMPRESSION: 1. Cardiomegaly with pulmonary vascular congestion. 2. Hypoinflation. ACT 112: Negative or not required by law. The above report was generated using voice recognition software. It may contain grammatical, syntax o r spelling errors. Electronically signed by: Ever Calhoun M.D. 09/11/2023 2:34 PM
[2023-09-11 14:53] LABS: Appearance Urine Clear (Clear); Bacteria Urine Automated Negative (Negative); Bilirubin Urine Negative (Negative); Blood Urine Negative (Negative); Color Urine Yellow; Glucose Urine UA Negative (Negative); Ketones Urine Trace (Negative); Leukocyte Esterase Urine 1+ (Negative); Nitrite Urine Negative (Negative); Protein Urine Negative (Negative); RBC Urine Automated 0-4 /hpf (0-4); Urobilinogen Urine Negative (Negative); pH Urine 5.5 (4.5-7.5)
[2023-09-11] MEDS ORDERED: OPTIRAY 320 125ml IV ONE (15:30)
[2023-09-11 16:36] LABS: Influenza A virus by PCR Negative (Neg); Influenza B virus by PCR Negative (Neg); SARS CoV2 RNA(COVID-19) Ceph NEGATIVE (Negative)
--- NOTE | 2023-09-11 16:40 | CT Scan Report ---
CHEST CTA for PULMONARY ARTERIES CT DOSE: 873.09 mGy.cm HISTORY: Shortness of breath. Cough. TECHNIQUE: Multiaxial CT images of the chest were performed following the intravenous administration of contrast to evaluate the pulmonary arteries. 3D/Maximal intensity projection images were also obta ined. Sagittal and coronal reformations were also reviewed. A dose lowering technique was utilized a dhering to the principles of ALARA. COMPARISON STUDY: None. FINDINGS: Calcified plaque within the normal caliber thoracic aorta. No evidence for an aortic dissec tion. The heart is mildly enlarged. There are severe coronary artery calcifications noted. No pleural or pericardial effusions. Normal esophagus. Limited views of the upper abdomen demonstrate a normal liver, spleen, and adrenal glands. A 9 mm hyperdense lesion within the upper pole of the left kidney is technically too small to characterize but favors a hyperdense cyst. Mild bilateral gynecomastia is noted. There is mild right hilar lymphadenopathy. Dominant right hilar lymph node measures 11 mm. No mediastinal or left hilar lymphadenopathy. Motion artifact results in nondiagnostic evaluation of th e majority of the segmental/subsegmental pulmonary arteries within the bilateral lower lobes, right m iddle lobe, and lingula. Otherwise, no filling defects within the remaining pulmonary arteries to sug gest a pulmonary embolus. Degenerative changes within the shoulders. There are old, healed bilateral rib fractures. No acute fractures identified within the chest. No pneumothorax. Partial mucoid opacif ication of the trachea and mainstem bronchi. Respiratory motion artifact results in suboptimal evalua tion of the lungs. Mosaic attenuation within the lungs suggestive of air-trapping. Bibasilar linear d ensities favor subsegmental atelectasis. Moderate bronchial wall thickening within the right upper lo be. Small patchy density within the superior segment of the left lower lobe posteriorly on image 131. This could represent atelectasis or a pneumonia. IMPRESSION: 1. No evidence for a pulmonary embolus with limitations as described above. 2. Partial mucoid opacification of the trachea and mainstem bronchi. 3. Moderate bronchial wall thickening within the right upper lobe. This is nonspecific but could repr esent a focal bronchitis. 4. There is also mild right hilar lymphadenopathy. [address] follow-up recommended to ensure r esolution of the right hilar lymphadenopathy and right upper lobe bronchial wall thickening. 5. Small patchy density within the superior segment of the lower lobes posteriorly. This could repres ent atelectasis or pneumonia. 6. Additional findings as described above. ACT 112: Positive. There are findings on this exam that require communication between the performing entity and the patient following Patient Test Result Information Act ([place] Act 112) guidelines. Electronically signed by: Elmo Redmond M.D. 09/11/2023 4:38 PM
[2023-09-11 17:06] LABS: RSV by PCR Positive (Neg)
--- NOTE | 2023-09-11 17:30 | History & Physical Report ---
Date of Service September 11, 2023 Assessment & Plan (1) Altered mental status: Plan: Acute AMS, increased lethargy, and decreased LOC on 09/11 Recent [facility] admission for RSV for 09/08-09/09 Still RSV+; droplet isolation precautions in place CXR revealed cardiomegaly with pulmonary vascular congestion and hypoinflation Chest CTA revealed no evidence of pulmonary embolism, but noted partial mucoid opacification of the trachea and mainstem bronchi, as well as mild right hilar lymphadenopathy No leukocytosis; afebrile Electrolytes okay TSH WNL UA negative; however, Shaye noted urinary retention; connolly placed in ED Glucose 106 -> 61 on arrival; dextrose 50% given Per conversation with patient's daughter, patient has not been eating or drinking much since discharge; ?Hypoglycemia d/t glipizide In the setting of acute AMS and progression of respiratory symptoms with RSV infection, empiric abx ordered to cover for superimposed bacterial lung infection Cefepime 2000 mg IV q8h (note: listed Keflex allergy; spoke to pharmacy; patient was also on ceftriaxone during a prior admission in August 2022) Azithromycin 500mg IV q24h Acetaminophen as needed for pain/fever PT/OT consult A.m. CBC, BMP (2) Respiratory syncytial virus (RSV): Plan: RSV+ since 09/08 MRSA swab ordered, pending Sputum culture ordered, pending Empiric pulmonary abx (as above) Guaifenesin 1200 mg p.o. q12h as needed for cough DuoNeb 3 mL QIDR Hypertonic saline 7% neb BIDR Chest percussion therapy with vest BID Promote good pulmonary hygiene with incentive spirometry and flutter valve QID (3) Hypoxia: Plan: Patient normally does not require supplemental oxygen therapy Reportedly 88% SpO2 on arrival Supplemental oxygen therapy as needed to maintain SpO2 >94% (4) Type 2 diabetes mellitus: Plan: Last A1c at 7.7% on 09/04/2023 Glucose 61 at time of admission Hold glipizide (potential culprit of lethargy and AMS) Patient's glucose continued to drop in the ED after dextrose 50% given D5w and 1/2 NSS IV at 80ml/hr x 1; BSG q2h while altered Lantus 4u BID while inpatient; starting 09/12 SSI; with target BSG range 110-140mg/dL, CF 45, carb ratio 15 T2DM diet BSG q4h while decreased food intake, then BSG ACHS Adjust regimen as needed Monitor for hypoglycemia Pharmacy glycemic consult (5) Hypothyroidism: Plan: Continue levothyroxine (6) HTN (hypertension): Plan: Continue losartan (7) Elevated troponin: Plan: Elevated troponin at 49.4, repeat pending EKG revealed sinus rhythm with PACs at 78 bpm; QTc 465 Continue telemetry monitoring (8) Dementia: Plan: Alzheimer's at baseline Chronic; noted Continue Zyprexa Plan Disposition: Admit to MedSurg telemetry Full code T2DM diet; aspiration cautions VTE PPx: Lovenox 40mg SQ q24h History of Present Illness Chief Complaint: Altered mental status Primary Care Provider: Shaye Menchaca Mervat Paiz is an 88-year-old male with PMH of Alzheimer's, T2DM, hypothyroidism, HTN, HLD, depression, BPH, OA, CKD stage IIIa, and migraines. He returned to [facility] on 09/11 due to AMS, decreased LOC, and no urine output. He was previously at [facility] from 09/08 - 09/09 for RSV. At time of admission, patient is lethargic, unresponsive to questioning, mumbling responses, and taking deep gasps between breaths. He struggles to open his eyes. Unable to obtain history at this time. While patient was a poor historian during admission on 09/08 due to underlying dementia, his current LOC is sharply decreased on 09/11; patient was able to provide some history and answer question on 09/08. His vitals are stable at time of admission; 96% SpO2 on 2L NC; during last admission, patient denied supplemental oxygen use. 96% on 2L NC 119/61 Elevated trop ED course: Lactated Ringer at 1000 mL IV Dextrose 25 mL IV Unable to obtain ROS due to patient's current mental status; however, patient replies with one-word response to some questioning- denies chest pain, fever, SOB. Spoke on the phone with patient's daughter (Elina) and provided update regarding admission. Patient's daughter reconfirms that he is a full code. She also reports that he was not eating or drinking well at [facility] this past week. Allergies Allergy/AdvReac Type Severity Reaction Status Date / Time adhesive tape Allergy Unknown ON [facility] Verified 09/08/23 15:05 MED LIST cephalexin [From Keflex] Allergy Unknown ON [facility] Verified 09/08/23 15:05 MED LIST rofecoxib AdvReac Intermediate SWOLLEN Verified 09/08/23 15:05 FEET Home Medications Medication Instructions Recorded Confirmed Type sertraline 100 mg tablet 100 mg PO QPM 05/08/18 09/11/23 History simvastatin 40 mg tablet 40 mg PO QPM 05/08/18 09/11/23 History buspirone 5 mg tablet 2.5 mg PO BID17 03/31/19 09/11/23 History peg 400-propylene glycol (PF) 0.4 1 drp OPB BID 07/01/19 09/11/23 History %-0.3 % eye drops in a dropperette (Systane (PF)) olanzapine 5 mg tablet 5 mg PO QPM 06/22/20 09/11/23 History oxybutynin chloride 5 mg tablet 10 mg PO QAM 07/31/20 09/11/23 History cyanocobalamin (vitamin B-12) 1,000 mcg PO QAM 08/18/20 09/11/23 History 1,000 mcg tablet losartan 25 mg tablet 25 mg PO QAM 08/18/20 09/11/23 History acetaminophen 500 mg tablet 1,000 mg PO Q8H PRN Pain 04/15/22 09/11/23 History docusate sodium 100 mg capsule 100 mg PO BID 04/15/22 09/11/23 History levothyroxine 75 mcg tablet 75 mcg PO DAILYBB #30 tabs 04/20/22 09/11/23 Rx (Synthroid) glipizide 5 mg tablet 7.5 mg PO BID17 09/20/22 09/11/23 History aspirin 81 mg tablet,delayed 81 mg PO QAM 09/08/23 09/11/23 History release diclofenac sodium 1 % topical gel 4 g topical Q12H PRN LEFT HIP PAIN 09/08/23 09/11/23 History diclofenac sodium 1 % topical gel 4 g EXT TID 09/08/23 09/11/23 History (Voltaren Arthritis Pain) lidocaine 4 % topical patch 1 patch topical DAILY 09/08/23 09/11/23 History nystatin 100,000 unit/gram topical 1 applic topical BID PRN GROIN 09/08/23 09/11/23 History powder AREA/SKIN IRRITATION tramadol 50 mg tablet 50 mg PO BID PRN Pain 09/08/23 09/11/23 History Past Med/Surg History Medical History (Updated 09/11/23 @ 17:50 by Elmo De Leon PA-C) Mood disorder Hypothyroidism Type 2 diabetes mellitus HTN (hypertension) Stenosis of right internal carotid artery Bipolar disorder Nocturnal hypoxia Chronic kidney disease, stage 3a Alzheimer disease B12 deficiency Acute kidney injury Chronic kidney disease, stage 3a Pneumonia of both lower lobes Acute respiratory failure with hypoxia Fall Fracture, ribs Hypothyroidism Skin problem Alzheimer disease Migraines Depression Hyperlipidemia Surgical History Previous back surgery S/P appendectomy Family History Other Cancer Diabetes Gallbladder disease Hypertension Kidney disease Social History Smoking Status: Never smoker Second Hand Exposure: No; Do You Dip or Chew Tobacco: No; Hx Alcohol Use: No Hx Substance Use: No Preferred Language: Palauan Communication Ability: Impaired Communication Ability Comment: Pt is very hard of hearing Quality Compliance Manager Required: No Beliefs That Will Affect Care: None marital status: / Current Living Situation: Personal Care Facility Current Living Situation Comment: [facility] 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 How many Children do You have: 2 Other Information That Helps Us Care for You: No Feels Safe at Home: Yes Assistive Devices: Walker and Wheelchair Review of Systems Review of Systems: See HPI above Physical Exam Physical Exam: General: Lethargic; non-toxic appearing; frail; pallor; SpO2 96% on 2 LNC HEENT: normocephalic, atraumatic; no scleral icterus; PERRLA w/ EOMs intact; moist mucus membrane; vision and hearing grossly intact Neck: supple; no JVD; no lymphadenopathy; trachea midline Skin: warm, dry without signs of tenting; no cyanosis; no rashes, bruising, lesions, or erythema noted CV: chest wall NTP; RRR; S1/S2 normal; no murmurs/rubs/gallops; pulses intact and symmetric at radial, DP, and PT Lungs: Mild acute respiratory distress; gasps and gurgling between breaths; symmetrical chest wall expansion; mild wheezing/gurgling across all lung echevarria ABD: Soft, NTP; BS present; no rebound/guarding MSK: no tics or fasciculations; no edema noted in the LEs b/l, nonerythematous Neuro: Patient does not respond to questioning; not oriented to time/location/name/; unable to assess sensation Results & Data Results & Data Vital Signs (Past 12 Hours) Vital Signs Temp Pulse Pulse Resp BP BP Pulse Ox 09/11/23 15:15 72 18 105/64 93 09/11/23 13:56 78 94/50 L 93 09/11/23 13:24 36.7 C 80 14 95/57 L 90 09/11/23 13:15 83 O2 Del Method O2 Flow Rate 09/11/23 15:15 Nasal Cannula 2 09/11/23 13:56 Nasal Cannula 09/11/23 13:24 Nasal Cannula 2 09/11/23 13:15 Laboratory Results Abnormal lab results 09/11/23 09/11/23 09/11/23 Range/Units 13:17 14:27 15:17 RBC 4.32 L (4.70-6.10) M/uL Hgb 13.0 L (14.0-18.0) g/dl Hct 40.7 L (42.0-52.0) % MCHC 31.9 L (32.0-36.0) g/dL RDW Std Deviation 50.0 H (36.4-46.3) fL Lymph # (Auto) 4.30 H (1.20-3.40) K/uL [place] # (Auto) 0.95 H (0.11-0.59) K/uL Chloride 109 H (98-107) mmol/L BUN 25 H (6-23) mg/dl BUN/Creatinine Ratio 21.9 H (10-20) Glucose 58 L (70-99(Fasting)) mg/dl POC Glucose 106 H (70-99) mg/dl AST 41 H (13-39) U/L Troponin I High Sens 49.4 H (0-20) pg/ml Lipase < 3 L (11-82) U/L Urine Ketones (Negative) Ur Leukocyte Esterase (Negative) Urine WBC (Auto) (0-5) /hpf U Epithel Cells (Auto) (0-5) /lpf RSV (RT-PCR) Positive A* (Neg) 09/11/23 Range/Units Unknown RBC (4.70-6.10) M/uL Hgb (14.0-18.0) g/dl Hct (42.0-52.0) % MCHC (32.0-36.0) g/dL RDW Std Deviation (36.4-46.3) fL Lymph # (Auto) (1.20-3.40) K/uL [place] # (Auto) (0.11-0.59) K/uL Chloride (98-107) mmol/L BUN (6-23) mg/dl BUN/Creatinine Ratio (10-20) Glucose (70-99(Fasting)) mg/dl POC Glucose (70-99) mg/dl AST (13-39) U/L Troponin I High Sens (0-20) pg/ml Lipase (11-82) U/L Urine Ketones Trace H (Negative) Ur Leukocyte Esterase 1+ H (Negative) Urine WBC (Auto) 5-10 H (0-5) /hpf U Epithel Cells (Auto) 5-10 H (0-5) /lpf RSV (RT-PCR) (Neg) Diagnostic Findings Chest X-Ray 09/11/23 13:11 XR chest 1V portable HISTORY: 88 years-old Male hypoxia acute hypoxia COMPARISON: Chest radiograph 09/08/2023 TECHNIQUE: AP view of the chest FINDINGS: Cardiac silhouette is enlarged. Pulmonary vascular congestion. Hypoinflation with bronchovascular crowding. Atherosclerosis of the aorta. No pneumothorax, pleural effusion or lobar airspace consolidation. Degenerative changes of the shoulders and spine. IMPRESSION: 1. Cardiomegaly with pulmonary vascular congestion. 2. Hypoinflation. ACT 112: Negative or not required by law. The above report was generated using voice recognition software. It may contain grammatical, syntax or spelling errors. Electronically signed by: Ever Calhoun M.D. 09/11/2023 2:34 PM Chest CTA 09/11/23 14:20 CHEST CTA for PULMONARY ARTERIES CT DOSE: 873.09 mGy.cm HISTORY: Shortness of breath. Cough. TECHNIQUE: Multiaxial CT images of the chest were performed following the intravenous administration of contrast to evaluate the pulmonary arteries. 3D/Maximal intensity projection images were also obtained. Sagittal and coronal reformations were also reviewed. A dose lowering technique was utilized adhering to the principles of ALARA. COMPARISON STUDY: None. FINDINGS: Calcified plaque within the normal caliber thoracic aorta. No evidence for an aortic dissection. The heart is mildly enlarged. There are severe coronary artery calcifications noted. No pleural or pericardial effusions. Normal esophagus. Limited views of the upper abdomen demonstrate a normal liver, spleen, and adrenal glands. A 9 mm hyperdense lesion within the upper pole of the left kidney is technically too small to characterize but favors a hyperdense cyst. Mild bilateral gynecomastia is noted. There is mild right hilar lymphadenopathy. Dominant right hilar lymph node measures 11 mm. No mediastinal or left hilar lymphadenopathy. Motion artifact results in nondiagnostic evaluation of the majority of the segmental/subsegmental pulmonary arteries within the bilateral lower lobes, right middle lobe, and lingula. Otherwise, no filling defects within the remaining pulmonary arteries to suggest a pulmonary embolus. Degenerative changes within the shoulders. There are old, healed bilateral rib fractures. No acute fractures identified within the chest. No pneumothorax. Partial mucoid opacification of the trachea and mainstem bronchi. Respiratory motion artifact results in suboptimal evaluation of the lungs. Mosaic attenuation within the lungs suggestive of air-trapping. Bibasilar linear densities favor subsegmental atelectasis. Moderate bronchial wall thickening within the right upper lobe. Small patchy density within the superior segment of the left lower lobe posteriorly on image 131. This could represent atelectasis or a pneumonia. IMPRESSION: 1. No evidence for a pulmonary embolus with limitations as described above. 2. Partial mucoid opacification of the trachea and mainstem bronchi. 3. Moderate bronchial wall thickening within the right upper lobe. This is nonspecific but could represent a focal bronchitis. 4. There is also mild right hilar lymphadenopathy. [address] follow-up recommended to ensure resolution of the right hilar lymphadenopathy and right upper lobe bronchial wall thickening. 5. Small patchy density within the superior segment of the lower lobes poste riorly. This could represent atelectasis or pneumonia. 6. Additional findings as described above. ACT 112: Positive. There are findings on this exam that require communication between the performing entity and the patient following Patient Test Result Information Act ([place] Act 112) guidelines. Electronically signed by: Elmo Redmond M.D. 09/11/2023 4:38 PM Code Status & VTE Plan Code Status Full code (patient does not exhibit capacity at this time; however, confirmed with patient's daughter/POA as well as [place] transfer paperwork saying "full code") VTE Prophylaxis Plan VTE Prophylaxis will be ordered: Yes Supervising Physician Co-Signing Physician Notes Patient seen and examined, chart reviewed, case discussed with Elmo De Leon PA-C and I agree with the assessment and plan as above except as otherwise noted Labs and images reviewed He 88-year-old male with recent RSV who presents with altered mental status and who has a new opacification on CTA. History of type 2 diabetes mellitus on sulfonylurea. At bedside patient is initially extremely somnolent and difficult to arouse, he is hypoglycemic with some clinical improvement with half an amp of D50 and continued improvement with an additional amp. Patient is able to report that he is in hospital at time of provider assessment. Lung sounds are coarse bilaterally. He does not have a leukocytosis or procalcitonin, focal findings likely from mucous plugging's however patient has had clinical worsening following recovery from a viral illness and on bedside reevaluation does endorse that he has had shortness of breath, weakness, and has had trouble expectorating. Will cover for superimposed/aspiration pneumonia and continue pulmonary toilet, percussive therapy, and DuoNeb/hypertonic saline. Suspect that some component of his somnolence/lethargy is from hypoglycemia induced by glipizide, this has been held and discussed with nursing staff patient will have every 30 minute checks for 1 hour, every hour checks for at least 3, and then every 2 hour checks until BSG stabilizes with dextrose drip added for support as noted above. Agree with assessment and management above PG Care Time/CCT Total # of Minutes Spent Total Time Spent with Patient: Total time spent is greater than 50% in coordination of care (as documented) at patient's floor/unit and/or counseling patient: [place] [address] INT INP/OBS CARE 3/75MIN Patient Type Established Medical Decision Making High Complexity Diagnoses Altered mental status R41.82 Respiratory syncytial virus (RSV) B33.8 Hypoxia R09.02 Type 2 diabetes mellitus E11.9 Hypothyroidism E03.9 HTN (hypertension) I10 Elevated troponin R77.8 Dementia F03.90
[2023-09-11] MEDS: CEFEPIME 2,000 MG in SYRINGE 0 ML IV SCH (19:54)
[2023-09-11] MEDS: AZITHROMYCIN 500 MG in DEXTROSE 5% 250 ML IV SCH (19:57)
[2023-09-11] MEDS ORDERED: GLUCAGON FOR INJ 1 MG VIAL SQ PRN (20:08)
[2023-09-11] MEDS ORDERED: PHARMACY GLYCEMIC MGMT CONSULT PRN (20:08)
[2023-09-11] MEDS ORDERED: GLUCOSE 40% GEL 15 GM TUBE PO PRN (20:08)
[2023-09-11] MEDS ORDERED: DICLOFENAC SOD 1% GEL 100 GM TUBE EXT PRN (20:08)
[2023-09-11] MEDS ORDERED: CARBOHYDRATES FOR HYPOGLYCEMIA PO PRN (20:08)
[2023-09-11] MEDS ORDERED: DEXTROSE 50% 50 ML SYRINGE IV PRN (20:08)
[2023-09-11] MEDS ORDERED: ONDANSETRON INJ 2 MG/ML 2 ML VIAL IV PRN (20:08)
[2023-09-11] MEDS ORDERED: GLUCOSE 10 TAB/TUBE PO PRN (20:08)
[2023-09-11] MEDS ORDERED: D5W AND 1/2NSS 1,000 ML IV SCH (20:15)
[2023-09-11] MEDS: INSULIN ASPART PER UNIT CHARGE SC SCH (20:35)
[2023-09-11] MEDS: SODIUM CHLOR 7% 4 ML NEB NEB SCH (20:46)
[2023-09-11] MEDS: ALBUT/IPRATROP 3MG/0.5MG NEB 3 ML VIAL NEB SCH ×2 (20:46→23:34)
[2023-09-11] MEDS: DICLOFENAC SOD 1% GEL 100 GM TUBE EXT SCH (21:10)
[2023-09-11] MEDS: ARTIFICIAL TEARS OP SCH (21:10)
[2023-09-11] MEDS: SERTRALINE HCL 100 MG TABLET PO SCH (21:15)
[2023-09-11] MEDS: SIMVASTATIN 40 MG TAB PO SCH (21:15)
[2023-09-11] MEDS: OLANZapine 5 MG TABLET PO SCH (21:15)
[2023-09-11] MEDS: guaiFENesin 600 MG TABCR PO SCH (21:15)
[2023-09-11] MEDS: DOCUSATE SODIUM 100 MG CAP PO SCH (21:15)
[2023-09-12] MEDS ORDERED: SERTRALINE HCL 100 MG TABLET PO ONE (01:09)
[2023-09-12] MEDS ORDERED: OLANZapine 5 MG TABLET PO ONE (01:10)
[2023-09-12] MEDS: ENOXAPARIN INJ 40 MG/0.4 ML SYR SQ SCH ×2 (01:32→20:30)
[2023-09-12] MEDS: LEVOTHYROXINE SODIUM 75 MCG TABLET PO SCH (06:03)
[2023-09-12] MEDS: ALBUT/IPRATROP 3MG/0.5MG NEB 3 ML VIAL NEB SCH ×4 (07:04→21:01)
[2023-09-12] MEDS: SODIUM CHLOR 7% 4 ML NEB NEB SCH ×3 (07:04→21:01)
--- NOTE | 2023-09-12 07:42 | Pharmacy Report ---
Pharmacy Glycemic Short Note 2 - Date of Service September 12, 2023 - Glycemic Short BSG Results (Last 24 hours): 09/11/23 09/11/23 09/11/23 13:17 14:27 18:21 Glucose 58 L POC Glucose 106 H 61 L* 09/11/23 09/11/23 09/11/23 18:46 20:04 23:16 Glucose POC Glucose 99 88 106 H 09/12/23 01:37 Glucose POC Glucose 149 H 09/12/23 07:37 POC Glucose 173 H OUTPATIENT ANTIDIABETIC REGIMEN: * Glipizide 7.5mg PO BID with meals * A1c 7.7% 09/04/23 ASSESSMENT: * 88 yo male, admitted w/ AMS, previously at [facility] from 09/08 - 09/09 for RSV. Lives at [facility], decreased PO intake over the past week, and PMH of dementia. * Patient hypoglycemic on arrival, treated with two doses of Dextrose 50%, then started on IV fluids D51/2NS@ 80cc/hr, glipizide likely contributing. * Lantus held last night for hypoglycemia, will begin at low dose this morning. * Higher goal range for elderly patient with AMS and hx hypoglycemia. PLAN FOR INPATIENT GLYCEMIC CONTROL: * Hold outpatient oral diabetes medications * Basal insulin * Lantus 4 units SQ BID (hold for BSG < 100) * Bolus insulin * NovoLog per scale ACHS or Q6hrs while NPO * Goal Range: Low 120 mg/dL - High 150 mg/dL * Correction Factor: 45 mg/dL/unit * Nutritional / Prandial insulin per carb ratio of 1 unit per 15 grams CHO consumed
[2023-09-12 08:02] LABS: Basophils # (auto) 0.05 K/uL (0.00-0.20); Basophils % (auto) 0.7 %; Eosinophils # (auto) 0.13 K/uL (0.00-0.50); Eosinophils % (auto) 1.8 %; Hematocrit (blood only) 39.5 % (42.0-52.0); Hemoglobin 12.3 g/dl (14.0-18.0); Immature Granulocytes # (auto) 0.02 K/uL (0.01-0.20); Immature Granulocytes % (auto) 0.3 %; Lymphocytes # (auto) 1.71 K/uL (1.20-3.40); Lymphocytes % (auto) 24.1 %; Mean Corpuscular Hemoglobin 29.6 pg (25.0-34.0); Mean Corpuscular Hgb Conc 31.1 g/dL (32.0-36.0); Mean Corpuscular Volume 95.2 fL (80.0-100.0); Mean Platelet Volume 10.2 fL (9.4-12.4); Monocytes # (auto) 0.76 K/uL (0.11-0.59); Monocytes % (auto) 10.7 %; Neutrophils # (auto) 4.42 K/uL (1.40-6.50); Neutrophils % (auto) 62.4 %; Platelet Count 180 K/uL (130-400); RDW Coefficient of Variation 14.4 % (11.5-14.5); RDW Standard Deviation 50.3 fL (36.4-46.3); Red Blood Count 4.15 M/uL (4.70-6.10); White Blood Count 7.09 K/ul (4.8-10.8)
[2023-09-12] MEDS: LANTUS PER UNIT CHARGE SQ SCH ×2 (08:15→23:24)
[2023-09-12] MEDS: INSULIN ASPART PER UNIT CHARGE SC SCH ×5 (08:15→23:23)
[2023-09-12] MEDS: CEFEPIME 2,000 MG in SYRINGE 0 ML IV SCH ×2 (08:16→21:33)
[2023-09-12] MEDS: ARTIFICIAL TEARS OP SCH ×2 (08:16→21:35)
[2023-09-12] MEDS: ASPIRIN 81 MG ECTAB PO SCH (08:17)
[2023-09-12] MEDS: busPIRone 5 MG TAB PO SCH ×2 (08:17→17:36)
[2023-09-12] MEDS: DOCUSATE SODIUM 100 MG CAP PO SCH ×2 (08:18→20:32)
[2023-09-12] MEDS: DICLOFENAC SOD 1% GEL 100 GM TUBE EXT SCH ×3 (08:18→21:36)
[2023-09-12] MEDS: CYANOCOBALAMIN (B-12) 500 MCG TABLET PO SCH (08:18)
[2023-09-12 08:19] LABS: Calcium 8.2 mg/dl (8.6-10.3); Creatinine Clr Calc Pharmacy 52.3 ml/min; Est GFR (African American) 72.6 ml/min; Est GFR (Non-African American) 62.6 ml/min; Potassium 4.3 mmol/L (3.5-5.1)
[2023-09-12] MEDS: LIDOCAINE 5% 1 PATCH TD SCH (08:19)
[2023-09-12] MEDS: guaiFENesin 600 MG TABCR PO SCH ×2 (08:19→20:32)
[2023-09-12] MEDS: LOSARTAN POTASSIUM 25 MG TAB PO SCH (08:20)
[2023-09-12] MEDS: oxyBUTYnin chloride 5 MG TAB PO SCH (08:20)
--- NOTE | 2023-09-12 08:26 | Hospitalist Progress Note ---
Date of Service September 12, 2023 Assessment & Plan (1) Altered mental status: Plan: Acute metabolic encephalopathy, increased lethargy, and decreased LOC on 09/11 Recent [facility] admission for RSV for 09/08-09/09 Still RSV+; droplet isolation precautions in place CXR revealed cardiomegaly with pulmonary vascular congestion and hypoinflation Chest CTA revealed no evidence of pulmonary embolism, but noted partial mucoid opacification of the trachea and mainstem bronchi, as well as mild right hilar lymphadenopathy will attempt to use saline nebulizers and flutter valve No leukocytosis; afebrile Electrolytes okay TSH WNL UA negative; however, Harris noted urinary retention; connolly placed in ED Per conversation with patient's daughter, patient has not been eating or drinking much since discharge; ?Hypoglycemia d/t glipizide In the setting of acute AMS and progression of respiratory symptoms with RSV infection, empiric abx ordered to cover for superimposed bacterial lung infection Cefepime 2000 mg IV q8h (note: listed Keflex allergy; spoke to pharmacy; patient was also on ceftriaxone during a prior admission in August 2022) Azithromycin 500mg IV q24h Acetaminophen as needed for pain/fever (2) Respiratory syncytial virus (RSV): Plan: RSV+ since 09/08 MRSA swab ordered, pending Sputum culture ordered, pending Bronchopneumonia in the setting of RSV and mucous plugging Guaifenesin 1200 mg p.o. q12h as needed for cough DuoNeb 3 mL QIDR Hypertonic saline 7% neb BIDR Chest percussion therapy with vest BID Promote good pulmonary hygiene with incentive spirometry and flutter valve QID (3) Hypoxia: Plan: acute respiratory failure with hypoxia (4) Type 2 diabetes mellitus: Plan: Last A1c at 7.7% on 09/04/2023 Hold glipizide (potential culprit of lethargy and AMS) Patient's glucose continued to drop in the ED after dextrose 50% given D5w and 1/2 NSS IV at 80ml/hr x 1; BSG q2h while altered Lantus 4u BID while inpatient; starting 09/12 SSI; with target BSG range 110-140mg/dL, CF 45, carb ratio 15 T2DM diet BSG q4h while decreased food intake, then BSG [facility] Pharmacy glycemic consult (5) Hypothyroidism: Plan: Chronic and stable, Continue levothyroxine (6) HTN (hypertension): Plan: chronic and stable Continue losartan (7) Elevated troponin: Plan: Elevated troponin at 49.4, repeat pending EKG revealed sinus rhythm with PACs at 78 bpm; QTc 465 Continue telemetry monitoring (8) Dementia: Plan: Alzheimer's at baseline Chronic; noted Continue Zyprexa Plan Full code VTE PPx: Lovenox 40mg SQ q24h Admission and Anticipated Discharge Date Admission Date: September 11, 2023 Subjective Pleasantly confused gentleman here with weakness from RSV. Difficulty swallowing but does not have his dentures Some increased respiratory effort and compromise Physical Exam Physical Exam: Expiratory wheezes and tachypnea no accessory muscle use Results & Data Results & Data Vital Signs (Past 12 Hours) Vital Signs Temp Pulse Pulse Resp BP BP BP 09/12/23 08:01 99.0 F 105 H 20 106/67 09/12/23 07:23 92 H 20 09/12/23 03:31 98.2 F 103 H 18 115/73 09/12/23 00:20 09/11/23 23:35 93 H 20 09/11/23 23:05 99.1 F 97 H 26 H 130/62 09/11/23 22:55 92 H 09/11/23 21:31 95 H 25 H 09/11/23 21:31 125/83 09/11/23 21:29 92 H 09/11/23 21:00 87 17 129/88 09/11/23 20:47 89 18 09/11/23 20:30 81 18 115/76 Pulse Ox O2 Del Method O2 Flow Rate 09/12/23 08:01 92 Nasal Cannula 09/12/23 07:23 90 Nasal Cannula 1 09/12/23 03:31 92 Nasal Cannula 2 09/12/23 00:20 Nasal Cannula 2 09/11/23 23:35 92 Nasal Cannula 2 09/11/23 23:05 96 Nasal Cannula 2 09/11/23 22:55 09/11/23 21:31 92 09/11/23 21:31 09/11/23 21:29 09/11/23 21:00 98 Nasal Cannula 2 09/11/23 20:47 95 Nasal Cannula 2 09/11/23 20:30 94 Nasal Cannula 2 Laboratory Results Reviewed CBC reviewed chemistry Reviewed [id number] glucose PG Care Time/CCT Total # of Minutes Spent Total Time Spent with Patient: Total time spent is greater than 50% in coordination of care (as documented) at patient's floor/unit and/or counseling patient: Coding Level of Care Code 70287 SUB INP/OBS CARE 3/50MIN Diagnoses Altered mental status R41.82 Respiratory syncytial virus (RSV) B33.8 Hypoxia R09.02 Type 2 diabetes mellitus E11.9 Hypothyroidism E03.9 HTN (hypertension) I10 Elevated troponin R77.8 Dementia F03.90
[2023-09-12] MEDS ORDERED: LANTUS PER UNIT CHARGE SQ SCH (09:00)
[2023-09-12] MEDS: AZITHROMYCIN 500 MG in DEXTROSE 5% 250 ML IV SCH (20:27)
[2023-09-12] MEDS: ACETAMINOPHEN 325 MG TAB PO PRN (20:29)
[2023-09-12] MEDS: OLANZapine 5 MG TABLET PO SCH (20:30)
[2023-09-12] MEDS: SIMVASTATIN 40 MG TAB PO SCH (20:31)
[2023-09-12] MEDS: SERTRALINE HCL 100 MG TABLET PO SCH (20:32)
[2023-09-13] MEDS: LEVOTHYROXINE SODIUM 75 MCG TABLET PO SCH (06:19)
[2023-09-13 06:53] LABS: Basophils # (auto) 0.06 K/uL (0.00-0.20); Eosinophils # (auto) 0.31 K/uL (0.00-0.50); Eosinophils % (auto) 5.2 %; Hematocrit (blood only) 36.7 % (42.0-52.0); Hemoglobin 11.8 g/dl (14.0-18.0); Immature Granulocytes # (auto) 0.02 K/uL (0.01-0.20); Immature Granulocytes % (auto) 0.3 %; Lymphocytes # (auto) 2.19 K/uL (1.20-3.40); Lymphocytes % (auto) 36.8 %; Mean Corpuscular Hemoglobin 29.9 pg (25.0-34.0); Mean Corpuscular Hgb Conc 32.2 g/dL (32.0-36.0); Mean Corpuscular Volume 93.1 fL (80.0-100.0); Mean Platelet Volume 9.8 fL (9.4-12.4); Monocytes # (auto) 0.94 K/uL (0.11-0.59); Monocytes % (auto) 15.8 %; Neutrophils # (auto) 2.43 K/uL (1.40-6.50); Neutrophils % (auto) 40.9 %; Platelet Count 137 K/uL (130-400); RDW Coefficient of Variation 14.4 % (11.5-14.5); RDW Standard Deviation 49.9 fL (36.4-46.3); Red Blood Count 3.94 M/uL (4.70-6.10); White Blood Count 5.95 K/ul (4.8-10.8)
[2023-09-13 07:22] LABS: BUN Creatinine Ratio 23.9 (10-20); Calcium 8.3 mg/dl (8.6-10.3); Est GFR (African American) 63.7 ml/min; Est GFR (Non-African American) 54.9 ml/min
[2023-09-13] MEDS: ALBUT/IPRATROP 3MG/0.5MG NEB 3 ML VIAL NEB SCH ×4 (07:25→20:03)
[2023-09-13] MEDS: SODIUM CHLOR 7% 4 ML NEB NEB SCH (07:25)
--- NOTE | 2023-09-13 07:56 | Hospitalist Progress Note ---
Date of Service September 13, 2023 Assessment & Plan (1) Altered mental status: Plan: Acute metabolic encephalopathy, improving Recent [facility] admission for RSV for 09/08-09/09 Still RSV+; droplet isolation precautions in place CXR revealed cardiomegaly with pulmonary vascular congestion and hypoinflation Chest CTA revealed no evidence of pulmonary embolism, but noted partial mucoid opacification of the trachea and mainstem bronchi, as well as mild right hilar lymphadenopathy increased expectorated mucus with saline nebs and chest physiotherapy, and guaifenesin TSH WNL UA negative; however, Harris noted urinary retention; connolly placed in ED Per previous provider, conversation with patient's daughter, patient has not been eating or drinking much since discharge; ?Hypoglycemia d/t glipizide In the setting of acute AMS and progression of respiratory symptoms with RSV infection, empiric abx ordered to cover for superimposed bacterial lung infection Cefepime 2000 mg IV q8h (note: listed Keflex allergy; spoke to pharmacy; patient was also on ceftriaxone during a prior admission in August 2022) Azithromycin 500mg IV q24h will transition to po meds at dc to compelte one week Acetaminophen as needed for pain/fever (2) Respiratory syncytial virus (RSV): Plan: RSV+ since 09/08 MRSA swab ordered, pending Sputum culture ordered, pending Bronchopneumonia in the setting of RSV and mucous plugging Guaifenesin 1200 mg p.o. q12h as needed for cough DuoNeb 3 mL QIDR Chest percussion therapy with vest BID as per respiratory therapy protocol Promote good pulmonary hygiene with incentive spirometry and flutter valve QID (3) Hypoxia: Plan: acute respiratory failure with hypoxia (4) Type 2 diabetes mellitus: Plan: Last A1c at 7.7% on 09/04/2023 Hold glipizide (potential culprit of lethargy and AMS) Patient's glucose continued to drop in the ED after dextrose 50% given D5w and 1/2 NSS IV at 80ml/hr x 1; BSG q2h while altered Lantus 4u BID while inpatient; starting 09/12 SSI; with target BSG range 110-140mg/dL, CF 45, carb ratio 15 T2DM diet BSG q4h while decreased food intake, then BSG [facility] Pharmacy glycemic consult (5) Hypothyroidism: Plan: Chronic and stable, Continue levothyroxine (6) HTN (hypertension): Plan: chronic and stable Continue losartan (7) Elevated troponin: Plan: Elevated troponin at 49.4, repeat pending EKG revealed sinus rhythm with PACs at 78 bpm; QTc 465 Continue telemetry monitoring (8) Dementia: Plan: Alzheimer's at baseline Chronic; noted Continue Zyprexa Plan Full code VTE PPx: Lovenox 40mg SQ q24h Admission and Anticipated Discharge Date Admission Date: September 11, 2023 Subjective Pleasantly confused gentleman here with weakness from RSV. did have some mobilization of mucus with saline now less, stopping saline nebs but reinforce flutter and chest physiotherapy Physical Exam Physical Exam: expiratory wheezes are almost resolved pleasantly confused cardiac exam is regular Results & Data Results & Data Vital Signs (Past 12 Hours) Vital Signs Temp Pulse Pulse Resp BP Pulse Ox O2 Del Method 09/13/23 07:25 86 20 96 Nasal Cannula 09/13/23 07:11 97.9 F 78 19 130/81 95 Nasal Cannula 09/13/23 03:52 99.5 F 80 18 112/76 93 Nasal Cannula 09/13/23 00:18 103 H 09/13/23 00:09 Nasal Cannula 09/12/23 23:14 99.0 F 93 H 20 100/59 L 94 Nasal Cannula 09/12/23 21:03 99 H 18 95 Nasal Cannula O2 Flow Rate 09/13/23 07:25 2 09/13/23 07:11 2 09/13/23 03:52 2 09/13/23 00:18 09/13/23 00:09 2 09/12/23 23:14 2 09/12/23 21:03 2 Laboratory Results reviewed cbc reviewed chemistry reviewed all meds and orders to transition to floor status PG Care Time/CCT Total # of Minutes Spent Total Time Spent with Patient: Total time spent is greater than 50% in coordination of care (as documented) at patient's floor/unit and/or counseling patient: Coding Level of Care Code 22987 SUB INP/OBS CARE 3/50MIN Diagnoses Altered mental status R41.82 Respiratory syncytial virus (RSV) B33.8 Hypoxia R09.02 Type 2 diabetes mellitus E11.9 Hypothyroidism E03.9 HTN (hypertension) I10 Elevated troponin R77.8 Dementia F03.90
[2023-09-13] MEDS: ARTIFICIAL TEARS OP SCH ×2 (08:43→21:21)
[2023-09-13] MEDS: busPIRone 5 MG TAB PO SCH ×2 (08:44→17:47)
[2023-09-13] MEDS: CYANOCOBALAMIN (B-12) 500 MCG TABLET PO SCH (08:44)
[2023-09-13] MEDS: oxyBUTYnin chloride 5 MG TAB PO SCH (08:44)
[2023-09-13] MEDS: LOSARTAN POTASSIUM 25 MG TAB PO SCH (08:44)
[2023-09-13] MEDS: ASPIRIN 81 MG ECTAB PO SCH (08:44)
[2023-09-13] MEDS: guaiFENesin 600 MG TABCR PO SCH ×2 (08:45→21:23)
[2023-09-13] MEDS: DICLOFENAC SOD 1% GEL 100 GM TUBE EXT SCH ×3 (08:45→21:21)
[2023-09-13] MEDS: INSULIN ASPART PER UNIT CHARGE SC SCH ×4 (08:48→21:26)
[2023-09-13] MEDS: DOCUSATE SODIUM 100 MG CAP PO SCH ×2 (08:51→21:44)
[2023-09-13] MEDS: LIDOCAINE 5% 1 PATCH TD SCH (08:52)
[2023-09-13] MEDS: CEFEPIME 2,000 MG in SYRINGE 0 ML IV SCH ×2 (08:54→21:36)
[2023-09-13] MEDS: LANTUS PER UNIT CHARGE SQ SCH (08:54)
--- NOTE | 2023-09-13 10:25 | Pharmacy Report ---
Pharmacy Glycemic Short Note 2 - Date of Service September 13, 2023 - Glycemic Short BSG Results (Last 24 hours): 09/12/23 09/12/23 09/12/23 10:50 16:00 19:57 Glucose POC Glucose 137 H 131 H 108 H 09/13/23 09/13/23 06:35 07:15 Glucose 95 POC Glucose 101 H OUTPATIENT ANTIDIABETIC REGIMEN: * Glipizide 7.5mg PO BID with meals * A1c 7.7% 09/04/23 ASSESSMENT: 09/13/22 * Chencho received 10 units of insulin yesterday (8 basal) * Fasting BSG slightly below goal range, will administer basal once daily to aim for a more balanced basal bolus regimen * He continues on azithromycin and cefepime. * Novolog appears to be covering and correcting adequately at this time. 09/12/22 * 88 yo male, admitted w/ AMS, previously at [facility] from 09/08 - 09/09 for RSV. Lives at [facility], decreased PO intake over the past week, and PMH of dementia. * Patient hypoglycemic on arrival, treated with two doses of Dextrose 50%, then started on IV fluids D51/2NS@ 80cc/hr, glipizide likely contributing. * Lantus held last night for hypoglycemia, will begin at low dose this morning. * Higher goal range for elderly patient with AMS and hx hypoglycemia. PLAN FOR INPATIENT GLYCEMIC CONTROL: * Hold outpatient oral diabetes medications * Basal insulin * Lantus 4 units SQ BID (hold for BSG < 100) * Bolus insulin * NovoLog per scale ACHS or Q6hrs while NPO * Goal Range: Low 120 mg/dL - High 150 mg/dL * Correction Factor: 45 mg/dL/unit * Nutritional / Prandial insulin per carb ratio of 1 unit per 15 grams CHO consumed
[2023-09-13] MEDS: ACETAMINOPHEN 325 MG TAB PO PRN (17:23)
--- NOTE | 2023-09-13 19:26 | Electrocardiogram Report ---
Test Reason : Blood Pressure : / mmHG Vent. Rate : 078 BPM Atrial Rate : 078 BPM P-R Int : 158 ms QRS Dur : 078 ms QT Int : 408 ms P-R-T Axes : 032 -14 019 degrees QTc Int : 465 ms Sinus rhythm with Premature atrial complexes Low voltage QRS Borderline ECG When compared with ECG of 08-SEP-2023 21:50, Premature atrial complexes are now Present QT has lengthened Confirmed by Dayo Chong ([id number]) on 09/13/2023 7:26:30 PM Referred By: Confirmed By:Dayo Chong
[2023-09-13] MEDS: ENOXAPARIN INJ 40 MG/0.4 ML SYR SQ SCH (21:21)
[2023-09-13] MEDS: SIMVASTATIN 40 MG TAB PO SCH (21:22)
[2023-09-13] MEDS: SERTRALINE HCL 100 MG TABLET PO SCH (21:22)
[2023-09-13] MEDS: OLANZapine 5 MG TABLET PO SCH (21:23)
[2023-09-13] MEDS: AZITHROMYCIN 500 MG in DEXTROSE 5% 250 ML IV SCH (21:36)
[2023-09-14] MEDS: LEVOTHYROXINE SODIUM 75 MCG TABLET PO SCH (05:08)
[2023-09-14] MEDS: ACETAMINOPHEN 325 MG TAB PO PRN (05:10)
[2023-09-14 07:13] LABS: Basophils # (auto) 0.05 K/uL (0.00-0.20); Basophils % (auto) 0.9 %; Eosinophils # (auto) 0.52 K/uL (0.00-0.50); Eosinophils % (auto) 8.9 %; Hematocrit (blood only) 36.4 % (42.0-52.0); Hemoglobin 11.5 g/dl (14.0-18.0); Immature Granulocytes # (auto) 0.02 K/uL (0.01-0.20); Immature Granulocytes % (auto) 0.3 %; Lymphocytes # (auto) 2.03 K/uL (1.20-3.40); Lymphocytes % (auto) 34.9 %; Mean Corpuscular Hemoglobin 29.9 pg (25.0-34.0); Mean Corpuscular Hgb Conc 31.6 g/dL (32.0-36.0); Mean Corpuscular Volume 94.5 fL (80.0-100.0); Mean Platelet Volume 10.3 fL (9.4-12.4); Monocytes # (auto) 0.66 K/uL (0.11-0.59); Monocytes % (auto) 11.3 %; Neutrophils # (auto) 2.54 K/uL (1.40-6.50); Neutrophils % (auto) 43.7 %; Platelet Count 155 K/uL (130-400); RDW Coefficient of Variation 14.5 % (11.5-14.5); RDW Standard Deviation 50.4 fL (36.4-46.3); Red Blood Count 3.85 M/uL (4.70-6.10); White Blood Count 5.82 K/ul (4.8-10.8)
[2023-09-14] MEDS: ALBUT/IPRATROP 3MG/0.5MG NEB 3 ML VIAL NEB SCH ×4 (07:29→19:23)
[2023-09-14 07:32] LABS: BUN Creatinine Ratio 26.4 (10-20); Calcium 8.7 mg/dl (8.6-10.3); Creatinine Clr Calc Pharmacy 56.1 ml/min; Est GFR (African American) 71.8 ml/min; Est GFR (Non-African American) 61.9 ml/min; Potassium 4.3 mmol/L (3.5-5.1)
[2023-09-14] MEDS: ARTIFICIAL TEARS OP SCH ×2 (08:22→20:11)
[2023-09-14] MEDS: ENOXAPARIN INJ 40 MG/0.4 ML SYR SQ SCH (08:23)
[2023-09-14] MEDS: ASPIRIN 81 MG ECTAB PO SCH (08:26)
[2023-09-14] MEDS: busPIRone 5 MG TAB PO SCH (08:27)
[2023-09-14] MEDS: CYANOCOBALAMIN (B-12) 500 MCG TABLET PO SCH (08:28)
[2023-09-14] MEDS: guaiFENesin 600 MG TABCR PO SCH ×2 (08:29→08:49)
[2023-09-14] MEDS: DICLOFENAC SOD 1% GEL 100 GM TUBE EXT SCH ×3 (08:29→20:11)
[2023-09-14] MEDS: LIDOCAINE 5% 1 PATCH TD SCH (08:31)
[2023-09-14] MEDS: oxyBUTYnin chloride 5 MG TAB PO SCH (08:32)
[2023-09-14] MEDS: LOSARTAN POTASSIUM 25 MG TAB PO SCH (08:32)
--- NOTE | 2023-09-14 08:41 | XRay Report ---
XR chest 1V portable HISTORY: rsv, hypoxia COMPARISON: Chest 09/11/2023 FINDINGS: There are low lung volumes. No pneumothorax. No pleural effusions. The heart remains border line enlarged. There are calcifications within the aortic knob. Mild interstitial thickening, unchang ed. Bibasilar linear densities favor subsegmental atelectasis. IMPRESSION: Low lung volumes with bibasilar linear densities. This favors subsegmental atelectasis. A pneumonia c ould also have a similar appearance. ACT 112: Negative or not required by law. Electronically signed by: Elmo Redmond M.D. 09/14/2023 8:40 AM
[2023-09-14] MEDS: DOCUSATE SODIUM 100 MG CAP PO SCH (08:50)
[2023-09-14] MEDS: INSULIN ASPART PER UNIT CHARGE SC SCH ×4 (08:51→21:56)
[2023-09-14] MEDS: LANTUS PER UNIT CHARGE SQ SCH (08:52)
[2023-09-14] MEDS: CEFEPIME 2,000 MG in SYRINGE 0 ML IV SCH (08:55)
[2023-09-14] MEDS: guaiFENesin SUGAR FREE 200 MG/10 ML UDC PO PRN ×3 (13:48→22:49)
--- NOTE | 2023-09-14 15:38 | Hospitalist Progress Note ---
Date of Service September 14, 2023 Assessment & Plan (1) Altered mental status: Plan: Acute metabolic encephalopathy, much more lethargic on 09/14/2023 Recent [facility] admission for RSV for 09/08-09/09 Still RSV+; droplet isolation precautions in place CXR revealed cardiomegaly with pulmonary vascular congestion and hypoinflation Chest CTA revealed no evidence of pulmonary embolism, but noted partial mucoid opacification of the trachea and mainstem bronchi, as well as mild right hilar lymphadenopathy increased expectorated mucus with saline nebs and chest physiotherapy, and guaifenesin TSH WNL UA negative; however, Harris noted urinary retention; connolly placed in ED Per previous provider, conversation with patient's daughter, patient has not been eating or drinking much since discharge; ?Hypoglycemia d/t glipizide In the setting of acute AMS and progression of respiratory symptoms with RSV infection, empiric abx ordered to cover for superimposed bacterial lung infection However there have been [employer] changes associate with cefepime. Subsequently all antibiotics were discontinued on 09/14/2023. There is no clinical signs of infection but we will recollecting a urine at this time Acetaminophen as needed for pain/fever (2) Respiratory syncytial virus (RSV): Plan: RSV+ since 09/08 MRSA swab ordered, pending Sputum culture ordered, pending Bronchopneumonia in the setting of RSV and mucous plugging Guaifenesin 1200 mg p.o. q12h as needed for cough DuoNeb 3 mL QIDR Chest percussion therapy with vest BID as per respiratory therapy protocol Promote good pulmonary hygiene with incentive spirometry and flutter valve QID (3) Hypoxia: Plan: acute respiratory failure with hypoxiaresolving (4) Type 2 diabetes mellitus: Plan: Last A1c at 7.7% on 09/04/2023 Hold glipizide (potential culprit of lethargy and AMS) Patient's glucose continued to drop in the ED after dextrose 50% given D5w and 1/2 NSS IV at 80ml/hr x 1; BSG q2h while altered Lantus 4u BID while inpatient; starting 09/12 SSI; with target BSG range 110-140mg/dL, CF 45, carb ratio 15 T2DM diet Consider changing glipizide at time of discharge Pharmacy glycemic consult (5) Hypothyroidism: Plan: Chronic and stable, Continue levothyroxine (6) HTN (hypertension): Plan: chronic and stable Continue losartan (7) Elevated troponin: Plan: Elevated troponin at 49.4, considering demand ischemia as respiratory illness causing strain on cardiovascular system EKG revealed sinus rhythm with PACs at 78 bpm; QTc 465 (8) Dementia: Plan: Alzheimer's at baseline Chronic; noted Currently holding Zyprexa due to lethargy Plan Full code VTE PPx: Lovenox 40mg SQ q24h Admission and Anticipated Discharge Date Admission Date: September 11, 2023 Subjective pt is more weak and lethargic on 09/14, no focal concerns to think CVA, will stop typical medicaions that can cause lethargy and antibiotics, check urine culture, vitals otherwise are stable Physical Exam Physical Exam: pulmonary exam is without wheezes now lethargic but arouses to stimuli cardiac exam is regular Results & Data Results & Data Vital Signs (Past 12 Hours) Vital Signs Temp Pulse Pulse Resp BP BP Pulse Ox 09/14/23 15:22 09/14/23 15:05 98.6 F 79 18 98/57 L 95 09/14/23 14:54 75 16 93 09/14/23 10:41 82 20 92 09/14/23 08:57 81 17 92 09/14/23 08:00 09/14/23 07:30 80 20 92 09/14/23 06:57 97.3 F L 78 18 121/73 92 O2 Del Method O2 Flow Rate 09/14/23 15:22 Nasal Cannula 2 09/14/23 15:05 Oxymask, Nebulizer 8 09/14/23 14:54 Nasal Cannula 2 09/14/23 10:41 Nasal Cannula 2 09/14/23 08:57 Nasal Cannula 2 09/14/23 08:00 Nasal Cannula 2 09/14/23 07:30 Nasal Cannula 2 09/14/23 06:57 Nasal Cannula 2 Laboratory Results Reviewed CBC reviewed chemistry Reviewed MAR from prison PG Care Time/CCT Total # of Minutes Spent Total Time Spent with Patient: Total time spent is greater than 50% in coordination of care (as documented) at patient's floor/unit and/or counseling patient: Coding Level of Care Code 99114 SUB INP/OBS CARE 3/50MIN Diagnoses Altered mental status R41.82 Respiratory syncytial virus (RSV) B33.8 Hypoxia R09.02 Type 2 diabetes mellitus E11.9 Hypothyroidism E03.9 HTN (hypertension) I10 Elevated troponin R77.8 Dementia F03.90
[2023-09-14] MEDS: DOCUSATE SODIUM SYRUP 100 MG/10 ML UDC PO SCH (20:23)
[2023-09-14] MEDS: SIMVASTATIN 40 MG TAB PO SCH (20:23)
[2023-09-14] MEDS: SERTRALINE HCL 100 MG TABLET PO SCH (20:26)
[2023-09-15] MEDS: LEVOTHYROXINE SODIUM 75 MCG TABLET PO SCH (04:56)
[2023-09-15] MEDS: guaiFENesin SUGAR FREE 200 MG/10 ML UDC PO PRN ×2 (04:56→16:45)
[2023-09-15] MEDS: ACETAMINOPHEN 325 MG TAB PO PRN (04:59)
[2023-09-15] MEDS: ALBUT/IPRATROP 3MG/0.5MG NEB 3 ML VIAL NEB SCH ×4 (07:12→20:16)
[2023-09-15] MEDS: ARTIFICIAL TEARS OP SCH ×2 (08:13→21:02)
[2023-09-15] MEDS: ASPIRIN 81 MG ECTAB PO SCH (08:14)
[2023-09-15] MEDS: LOSARTAN POTASSIUM 25 MG TAB PO SCH (08:14)
[2023-09-15] MEDS: CYANOCOBALAMIN (B-12) 500 MCG TABLET PO SCH (08:14)
[2023-09-15] MEDS: oxyBUTYnin chloride 5 MG TAB PO SCH (08:14)
[2023-09-15] MEDS: DICLOFENAC SOD 1% GEL 100 GM TUBE EXT SCH ×3 (08:23→21:02)
[2023-09-15] MEDS: DOCUSATE SODIUM SYRUP 100 MG/10 ML UDC PO SCH ×2 (08:24→21:01)
[2023-09-15] MEDS: LANTUS PER UNIT CHARGE SQ SCH (08:30)
[2023-09-15] MEDS: INSULIN ASPART PER UNIT CHARGE SC SCH ×4 (08:31→21:02)
[2023-09-15] MEDS: LIDOCAINE 5% 1 PATCH TD SCH (08:34)
[2023-09-15] MEDS ORDERED: METOPROLOL SUCC 25MG EXT REL TAB PO ONE (11:22)
--- NOTE | 2023-09-15 11:30 | Hospitalist Progress Note ---
Date of Service September 15, 2023 Assessment & Plan (1) Altered mental status: Plan: Acute metabolic encephalopathy, improved with holding meds, maybe a component of toxic encephalopathy since resolved Recent [facility] admission for RSV for 09/08-09/09 Still RSV+; droplet isolation precautions in place CXR revealed cardiomegaly with pulmonary vascular congestion and hypoinflation Chest CTA revealed no evidence of pulmonary embolism, but noted partial mucoid opacification of the trachea and mainstem bronchi, as well as mild right hilar lymphadenopathy increased expectorated mucus with saline nebs and chest physiotherapy, and guaifenesin TSH WNL UA negative; however, Harris noted urinary retention; connolly placed in ED Per previous provider, conversation with patient's daughter, patient has not been eating or drinking much since discharge; ?Hypoglycemia d/t glipizide In the setting of acute AMS and progression of respiratory symptoms with RSV infection, empiric abx ordered to cover for superimposed bacterial lung infection However there have been [employer] changes associate with cefepime. Subsequently all antibiotics were discontinued on 09/14/2023. There is no clinical signs of infection but we will recollecting a urine at this time mental status improvement on 09/15/23 Acetaminophen as needed for pain/fever (2) Respiratory syncytial virus (RSV): Plan: RSV+ since 09/08 MRSA swab ordered, pending Sputum culture ordered, pending Bronchopneumonia in the setting of RSV and mucous plugging Guaifenesin 1200 mg p.o. q12h as needed for cough DuoNeb 3 mL QIDR Chest percussion therapy with vest BID as per respiratory therapy protocol Promote good pulmonary hygiene with incentive spirometry and flutter valve QID (3) Hypoxia: Plan: acute respiratory failure with hypoxiaresolving (4) Type 2 diabetes mellitus: Plan: Last A1c at 7.7% on 09/04/2023 Hold glipizide (potential culprit of lethargy and AMS) Patient's glucose continued to drop in the ED after dextrose 50% given This patient's had very little use of insulin support with regard to the glargine subsequently he may not need significant insulin coverage when he returns to a supportive environment, may consider metformin (5) Hypothyroidism: Plan: Chronic and stable, Continue levothyroxine (6) HTN (hypertension): Plan: chronic and stable Continue losartan (7) Elevated troponin: Plan: Elevated troponin at 49.4, considering demand ischemia as respiratory illness causing strain on cardiovascular system EKG revealed sinus rhythm with PACs at 78 bpm; QTc 465 (8) Dementia: Plan: Alzheimer's at baseline Chronic; noted restart lower dose Zyprexa due to lethargy Plan Full code VTE PPx: Lovenox 40mg SQ q24h Admission and Anticipated Discharge Date Admission Date: September 11, 2023 Subjective pt is much more awake after holding olanzapine and BuSpar however was given report that he did not sleep much last pm, will restart olanzapine and lower dose no focal complaints Physical Exam Physical Exam: awake and pleasantly confused, no distress lungs are diminished at the bases cardiac is regular with murmur Results & Data Results & Data Vital Signs (Past 12 Hours) Vital Signs Temp Pulse Resp BP Pulse Ox O2 Del Method O2 Flow Rate 09/15/23 10:30 80 18 94 Nasal Cannula 2 09/15/23 08:12 115/65 09/15/23 07:51 97.7 F 90 17 104/58 L 93 Nasal Cannula 2 09/15/23 07:12 85 18 95 Nasal Cannula 2 Laboratory Results reviewed poc glucose PG Care Time/CCT Total # of Minutes Spent Total Time Spent with Patient: Total time spent is greater than 50% in coordination of care (as documented) at patient's floor/unit and/or counseling patient: Coding Level of Care Code 32082 SUB INP/OBS CARE 3/50MIN Diagnoses Altered mental status R41.82 Respiratory syncytial virus (RSV) B33.8 Hypoxia R09.02 Type 2 diabetes mellitus E11.9 Hypothyroidism E03.9 HTN (hypertension) I10 Elevated troponin R77.8 Dementia F03.90
[2023-09-15] MEDS: metFORMIN HCL 500 MG TAB PO SCH (16:45)
[2023-09-15] MEDS: ENOXAPARIN INJ 40 MG/0.4 ML SYR SQ SCH (21:01)
[2023-09-15] MEDS: OLANZAPINE 2.5 MG TAB PO SCH (21:01)
[2023-09-15] MEDS: SIMVASTATIN 40 MG TAB PO SCH (21:01)
[2023-09-15] MEDS: SERTRALINE HCL 100 MG TABLET PO SCH (21:01)
[2023-09-16] MEDS: LEVOTHYROXINE SODIUM 75 MCG TABLET PO SCH (05:34)
[2023-09-16] MEDS: ALBUT/IPRATROP 3MG/0.5MG NEB 3 ML VIAL NEB SCH ×4 (07:14→19:37)
[2023-09-16 07:45] LABS: Creatinine Clr Calc Pharmacy 71.6 ml/min; Est GFR (African American) 90.4 ml/min
[2023-09-16] MEDS: LIDOCAINE 5% 1 PATCH TD SCH (08:14)
[2023-09-16] MEDS: guaiFENesin SUGAR FREE 200 MG/10 ML UDC PO PRN ×2 (08:14→17:26)
[2023-09-16] MEDS: DOCUSATE SODIUM SYRUP 100 MG/10 ML UDC PO SCH ×2 (08:14→20:03)
[2023-09-16] MEDS: DICLOFENAC SOD 1% GEL 100 GM TUBE EXT SCH ×3 (08:14→20:03)
[2023-09-16] MEDS: oxyBUTYnin chloride 5 MG TAB PO SCH (08:15)
[2023-09-16] MEDS: ARTIFICIAL TEARS OP SCH ×2 (08:15→20:04)
[2023-09-16] MEDS: ASPIRIN 81 MG ECTAB PO SCH (08:15)
[2023-09-16] MEDS: CYANOCOBALAMIN (B-12) 500 MCG TABLET PO SCH (08:15)
[2023-09-16] MEDS: LOSARTAN POTASSIUM 25 MG TAB PO SCH (08:15)
[2023-09-16] MEDS: ACETAMINOPHEN 325 MG TAB PO PRN (08:22)
[2023-09-16] MEDS: INSULIN ASPART PER UNIT CHARGE SC SCH ×4 (08:25→20:58)
[2023-09-16] MEDS: LANTUS PER UNIT CHARGE SQ SCH (08:29)
--- NOTE | 2023-09-16 14:46 | Hospitalist Progress Note ---
Date of Service September 16, 2023 Assessment & Plan (1) Altered mental status: Plan: Acute metabolic encephalopathy, improved with holding meds, maybe a component of toxic encephalopathy since resolved Recent [facility] admission for RSV for 09/08-09/09 Still RSV+; droplet isolation precautions in place CXR revealed cardiomegaly with pulmonary vascular congestion and hypoinflation Chest CTA revealed no evidence of pulmonary embolism, but noted partial mucoid opacification of the trachea and mainstem bronchi, as well as mild right hilar lymphadenopathy increased expectorated mucus with saline nebs and chest physiotherapy, and guaifenesin TSH WNL UA negative; however, Harris noted urinary retention; connolly placed in ED Per previous provider, conversation with patient's daughter, patient has not been eating or drinking much since discharge; ?Hypoglycemia d/t glipizide In the setting of acute AMS and progression of respiratory symptoms with RSV infection, empiric abx ordered to cover for superimposed bacterial lung infection However there have been [employer] changes associate with cefepime. Subsequently all antibiotics were discontinued on 09/14/2023. There is no clinical signs of infection but we will recollecting a urine at this time mental status improvement on 09/15/23 Acetaminophen as needed for pain/fever (2) Respiratory syncytial virus (RSV): Plan: RSV+ since 09/08 Bronchopneumonia in the setting of RSV and mucous plugging Guaifenesin 1200 mg p.o. q12h as needed for cough DuoNeb 3 mL QIDR Chest percussion therapy with vest BID as per respiratory therapy protocol Promote good pulmonary hygiene with incentive spirometry and flutter valve QID (3) Hypoxia: Plan: acute respiratory failure with hypoxiaresolving cannot do 2 step as pt is not ambulatory (4) Type 2 diabetes mellitus: Plan: Last A1c at 7.7% on 09/04/2023 Hold glipizide (potential culprit of lethargy and AMS) Patient's glucose continued to drop in the ED after dextrose 50% given This patient's had very little use of insulin support with regard to the glargine subsequently he may not need significant insulin coverage when he returns to a supportive environment, will try metformin. (5) Hypothyroidism: Plan: Chronic and stable, Continue levothyroxine (6) HTN (hypertension): Plan: chronic and stable Continue losartan (7) Elevated troponin: Plan: Elevated troponin at 49.4, considering demand ischemia as respiratory illness causing strain on cardiovascular system EKG revealed sinus rhythm with PACs at 78 bpm; QTc 465 (8) Dementia: Plan: Alzheimer's at baseline Chronic; noted restart lower dose Zyprexa due to lethargy Plan Full code VTE PPx: Lovenox 40mg SQ q24h Admission and Anticipated Discharge Date Admission Date: September 11, 2023 Subjective pt is much more awake after holding olanzapine and BuSpar however was given report that he did not sleep without olanzapine, did restart olanzapine at 2.5 mg no focal complaints some cough non productive Physical Exam Physical Exam: awake and pleasantly confused, no distress lungs remain diminished at the bases cardiac is regular with murmur Results & Data Results & Data Vital Signs (Past 12 Hours) Vital Signs Temp Pulse Resp BP Pulse Ox O2 Del Method O2 Flow Rate 09/16/23 14:20 97.9 F 89 16 99/53 L 92 Nebulizer 09/16/23 14:17 90 18 90 Room Air 09/16/23 12:28 18 93 Room Air 09/16/23 12:27 96 Room Air, Nasal Cannula 2 09/16/23 11:09 82 16 96 Room Air 09/16/23 08:51 Nasal Cannula 2 09/16/23 08:37 97.9 F 84 16 122/73 95 Nasal Cannula 2 09/16/23 07:16 74 18 94 Nasal Cannula 2 PG Care Time/CCT Total # of Minutes Spent Total Time Spent with Patient: Total time spent is greater than 50% in coordination of care (as documented) at patient's floor/unit and/or counseling patient: Coding Level of Care Code 76122 SUB INP/OBS CARE 2/35MIN Diagnoses Altered mental status R41.82 Respiratory syncytial virus (RSV) B33.8 Hypoxia R09.02 Type 2 diabetes mellitus E11.9 Hypothyroidism E03.9 HTN (hypertension) I10 Elevated troponin R77.8 Dementia F03.90
[2023-09-16] MEDS: metFORMIN HCL 500 MG TAB PO SCH (16:33)
[2023-09-16] MEDS: ENOXAPARIN INJ 40 MG/0.4 ML SYR SQ SCH (20:03)
[2023-09-16] MEDS: OLANZAPINE 2.5 MG TAB PO SCH (20:04)
[2023-09-16] MEDS: SIMVASTATIN 40 MG TAB PO SCH (20:04)
[2023-09-16] MEDS: SERTRALINE HCL 100 MG TABLET PO SCH (20:04)
[2023-09-17] MEDS: LEVOTHYROXINE SODIUM 75 MCG TABLET PO SCH (05:44)
[2023-09-17] MEDS: ALBUT/IPRATROP 3MG/0.5MG NEB 3 ML VIAL NEB SCH ×3 (07:12→15:10)
[2023-09-17] MEDS: CYANOCOBALAMIN (B-12) 500 MCG TABLET PO SCH (08:02)
[2023-09-17] MEDS: ASPIRIN 81 MG ECTAB PO SCH (08:02)
[2023-09-17] MEDS: LOSARTAN POTASSIUM 25 MG TAB PO SCH (08:02)
[2023-09-17] MEDS: oxyBUTYnin chloride 5 MG TAB PO SCH (08:02)
[2023-09-17] MEDS: DICLOFENAC SOD 1% GEL 100 GM TUBE EXT SCH ×2 (08:03→12:45)
[2023-09-17] MEDS: DOCUSATE SODIUM SYRUP 100 MG/10 ML UDC PO SCH (08:03)
[2023-09-17] MEDS: ARTIFICIAL TEARS OP SCH (08:03)
[2023-09-17] MEDS: LIDOCAINE 5% 1 PATCH TD SCH (08:04)
[2023-09-17 08:14] LABS: Hematocrit (blood only) 36.5 % (42.0-52.0); Hemoglobin 11.8 g/dl (14.0-18.0); Mean Corpuscular Hemoglobin 29.9 pg (25.0-34.0); Mean Corpuscular Hgb Conc 32.3 g/dL (32.0-36.0); Mean Corpuscular Volume 92.4 fL (80.0-100.0); Platelet Count 176 K/uL (130-400); RDW Coefficient of Variation 14.1 % (11.5-14.5); RDW Standard Deviation 48.5 fL (36.4-46.3); Red Blood Count 3.95 M/uL (4.70-6.10); White Blood Count 7.56 K/ul (4.8-10.8)
[2023-09-17 08:40] LABS: Calcium 9.1 mg/dl (8.6-10.3); Potassium 4.4 mmol/L (3.5-5.1)
[2023-09-17 08:46] LABS: Est GFR (African American) 90.9 ml/min; Est GFR (Non-African American) 78.4 ml/min
[2023-09-17] MEDS: INSULIN ASPART PER UNIT CHARGE SC SCH ×2 (09:03→11:58)
[2023-09-17] MEDS: LANTUS PER UNIT CHARGE SQ SCH (09:06)
[2023-09-17] MEDS: guaiFENesin SUGAR FREE 200 MG/10 ML UDC PO PRN (13:03)
--- NOTE | 2023-09-17 13:53 | Discharge Summary ---
Date of Service September 17, 2023 Admission HPI Per Admitting Provider Chencho is an 88-year-old male with PMH of Alzheimer's, T2DM, hypothyroidism, HTN, HLD, depression, BPH, OA, CKD stage IIIa, and migraines. He returned to [facility] on 09/11 due to AMS, decreased LOC, and no urine output. He was previously at [facility] from 09/08 - 09/09 for RSV. At time of admission, patient is lethargic, unresponsive to questioning, mumbling responses, and taking deep gasps between breaths. He struggles to open his eyes. Unable to obtain history at this time. While patient was a poor historian during admission on 09/08 due to underlying dementia, his current LOC is sharply decreased on 09/11; patient was able to provide some history and answer question on 09/08. His vitals are stable at time of admission; 96% SpO2 on 2L NC; during last admission, patient denied supplemental oxygen use. 96% on 2L NC 119/61 Elevated trop ED course: Lactated Ringer at 1000 mL IV Dextrose 25 mL IV Unable to obtain ROS due to patient's current mental status; however, patient replies with one-word response to some questioning- denies chest pain, fever, SOB. Spoke on the phone with patient's daughter (Elina) and provided update regarding admission. Patient's daughter reconfirms that he is a full code. She also reports that he was not eating or drinking well at [facility] this past week. Principal Diagnosis Bronchopneumonia in the setting of RSV and mucous plugging metabolic encephalopathy elevated troponin diabetes Discharge Exam awake and pleasantly confused, no distress lungs remain diminished at the bases cardiac is regular with murmur Discharge Data Allergies Allergy/AdvReac Type Severity Reaction Status Date / Time adhesive tape Allergy Unknown ON [facility] Verified 09/08/23 15:05 MED LIST cephalexin [From Keflex] Allergy Unknown ON [facility] Verified 09/08/23 15:05 MED LIST rofecoxib AdvReac Intermediate SWOLLEN Verified 09/08/23 15:05 FEET Consultations 09/11/23 17:23 ED Decision to Admit Stat Ordered Studies Chest X-Ray 09/11/23 13:11 XR chest 1V portable HISTORY: 88 years-old Male hypoxia acute hypoxia COMPARISON: Chest radiograph 09/08/2023 TECHNIQUE: AP view of the chest FINDINGS: Cardiac silhouette is enlarged. Pulmonary vascular congestion. Hypoinflation with bronchovascular crowding. Atherosclerosis of the aorta. No pneumothorax, pleural effusion or lobar airspace consolidation. Degenerative changes of the shoulders and spine. IMPRESSION: 1. Cardiomegaly with pulmonary vascular congestion. 2. Hypoinflation. ACT 112: Negative or not required by law. The above report was generated using voice recognition software. It may contain grammatical, syntax or spelling errors. Electronically signed by: Ever Calhoun M.D. 09/11/2023 2:34 PM Chest CTA 09/11/23 14:20 CHEST CTA for PULMONARY ARTERIES CT DOSE: 873.09 mGy.cm HISTORY: Shortness of breath. Cough. TECHNIQUE: Multiaxial CT images of the chest were performed following the intravenous administration of contrast to evaluate the pulmonary arteries. 3D/Maximal intensity projection images were also obtained. Sagittal and coronal reformations were also reviewed. A dose lowering technique was utilized adhering to the principles of ALARA. COMPARISON STUDY: None. FINDINGS: Calcified plaque within the normal caliber thoracic aorta. No evidence for an aortic dissection. The heart is mildly enlarged. There are severe coronary artery calcifications noted. No pleural or pericardial effusions. No rmal esophagus. Limited views of the upper abdomen demonstrate a normal liver, spleen, and adrenal glands. A 9 mm hyperdense lesion within the upper pole of the left kidney is technically too small to characterize but favors a hyperdense cyst. Mild bilateral gynecomastia is noted. There is mild right hilar lymphadenopathy. Dominant right hilar lymph node measures 11 mm. No mediastinal or left hilar lymphadenopathy. Motion artifact results in nondiagnostic evaluation of the majority of the segmental/subsegmental pulmonary arteries within the bilateral lower lobes, right middle lobe, and lingula. Otherwise, no filling defects within the remaining pulmonary arteries to suggest a pulmonary embolus. Degenerative changes within the shoulders. There are old, healed bilateral rib fractures. No acute fractures identified within the chest. No pneumothorax. Partial mucoid opacification of the trachea and mainstem bronchi. Respiratory motion artifact results in suboptimal evaluation of the lungs. Mosaic attenuation within the lungs suggestive of air-trapping. Bibasilar linear densities favor subsegmental atelectasis. Moderate bronchial wall thickening within the right upper lobe. Small patchy density within the superior segment of the left lower lobe posteriorly on image 131. This could represent atelectasis or a pneumonia. IMPRESSION: 1. No evidence for a pulmonary embolus with limitations as described above. 2. Partial mucoid opacification of the trachea and mainstem bronchi. 3. Moderate bronchial wall thickening within the right upper lobe. This is nonspecific but could represent a focal bronchitis. 4. There is also mild right hilar lymphadenopathy. [address] follow-up recommended to ensure resolution of the right hilar lymphadenopathy and right upper lobe bronchial wall thickening. 5. Small patchy density within the superior segment of the lower lobes posteriorly. This could represent atelectasis or pneumonia. 6. Additional findings as described above. Electronically signed by: Elmo Redmond M.D. 09/11/2023 4:38 PM Chest X-Ray 09/14/23 08:09 XR chest 1V portable HISTORY: rsv, hypoxia COMPARISON: Chest 09/11/2023 FINDINGS: There are low lung volumes. No pneumothorax. No pleural effusions. The heart remains borderline enlarged. There are calcifications within the aortic knob. Mild interstitial thickening, unchanged. Bibasilar linear densities favor subsegmental atelectasis. IMPRESSION: Low lung volumes with bibasilar linear densities. This favors subsegmental atelectasis. A pneumonia could also have a similar appearance. Electronically signed by: Elmo Redmond M.D. 09/14/2023 8:40 AM Hospital Course (1) Altered mental status: Acute metabolic encephalopathy, improved with holding meds, maybe a component of toxic encephalopathy since resolved Recent [facility] admission for RSV for 09/08-09/09 Still RSV+; droplet isolation precautions in place, precautions as per facility CXR revealed cardiomegaly with pulmonary vascular congestion and hypoinflation Chest CTA revealed no evidence of pulmonary embolism, but noted partial mucoid opacification of the trachea and mainstem bronchi, as well as mild right hilar lymphadenopathy continue guaifenesin TSH WNL UA negative; however, Harris noted urinary retention; connolly placed in ED, removed at dc There is no clinical signs of infection but we will recollecting a urine at this time mental status improvement on 09/15/23 Acetaminophen as needed for pain/fever (2) Respiratory syncytial virus (RSV): RSV+ since 09/08, respiratory failure with hypoxia-resolved Bronchopneumonia in the setting of RSV and mucous plugging Guaifenesin 1200 mg p.o. q12h as needed for cough DuoNeb 3 mL QID Promote good pulmonary hygiene with incentive spirometry upon return (3) Type 2 diabetes mellitus: Last A1c at 7.7% on 09/04/2023 Hold glipizide (potential culprit of lethargy and AMS) Patient's glucose continued to drop in the ED after dextrose 50% given This patient's had very little use of insulin support with regard to the glargine subsequently he may not need significant insulin coverage when he returns to a supportive environment, will try metformin. (4) Hypothyroidism: Chronic and stable, Continue levothyroxine (5) HTN (hypertension): chronic and stable Continue losartan (6) Elevated troponin: Elevated troponin at 49.4, considering demand ischemia as respiratory illness causing strain on cardiovascular system EKG revealed sinus rhythm with PACs at 78 bpm; QTc 465 (7) Dementia: Alzheimer's at baseline Chronic; noted restart lower dose Zyprexa due to lethargy Plan Full code Total Time Total Time Spent Total Time Spent (In Minutes): It required greater than 30 minutes to prepare this patient for discharge. Discharge Plan Discharge Items Patient Disposition: Transfer [facility] Reason For Visit: AMS, LETHARGY, RSV Discharge Diagnosis: Bronchopneumonia in the setting of RSV and mucous plugging metabolic encephalopathy elevated troponin diabetes Activity: Resume your previous activity Non-emergency contact: Primary Care Provider Call non-emergency contact if: your symptoms worsen Follow-up/Referrals: Mervat Garcia [Primary Care Provider] - Diet: Carb Consistent or DM2 Diet Texture: Easy to Chew Addtl Attending Provider Instructions: What is RSV? RSV (respiratory syncytial virus) is a virus that can lead to aninfection in babies, children and adults of all ages. An RSV infection usually causes a mild, cold-like illness that goes away in one to two weeks. But RSV can sometimes cause severe symptoms and lead to complications, especially in children under age 5, adults over age 65 and people with a compromised immune system. Washing your hands often and avoiding large groups during respiratory season can help you and your family stay healthy. If you or your child come down with RSV, at-home care is often enough to manage symptoms until the infection clears. But some people need care at a hospital to fully recover. Symptoms and Causes RSV may affect each age group differently. It can cause cold symptoms or a variety of more severe symptoms. What are common RSV symptoms? RSV symptoms typically resemble those of a common coldand include: * Cough. * Runny nose. * Congestion. * Sneezing. * Sore throat. * Mild headache. * Lack of energy. * Fever. * Decreased appetite. * Lack of interest in playing (in babies and young children). Babies younger than 6 months dont always have typical cold symptoms. Instead, they may only: * Seem fussy or irritable. * Lack interest in playing. * Have a decreased appetite. * Have changes in their breathing patterns. Severe RSV symptoms Severe infections may lead to symptoms like: * Difficulty breathing. * Pauses while breathing or short, shallow and fast breathing. * Flaring (spreading out) of the nostrils while breathing. * Wheezing. * Noisy breathing. * Blue or avilez skin color. What causes RSV? RSV is a virus. It isnt a bacterial infection. The specific virus responsible is a respiratory syncytial virus, or RSV for short. How is RSV spread? You catch RSV from close contact with someone with the infection or by touching a contaminated object and then touching your eyes, nose or mouth. In either case, saliva, mucus and snot are the vehicles that carry the virus from one person to another. RSV can live on hard surfaces like tables for several hours. Meanwhile, if you touch that surface, you can citrus picker the virus on your hands. Washing your hands removes the virus and ends its journey there. But if you touch your face first, the virus can enter your body and make you sick. How contagious is RSV? RSV is very contagious. You can easily spread the virus while you have symptoms, which is usually a period of three to eight days. RSV spreads through respiratory droplets that leave your body when you cough or sneeze. What are the complications of RSV? Complications of RSV include: * Bronchiolitis. * Pneumonia. * Acute bronchitis. * Worsening of existing conditions like asthma,or chronic obstructive pulmonary disease * Hypoxia or low oxygen levels. * Dehydration. * Ear infections. Whos most at risk of severe RSV? Severe RSV infection and complications can affect children and adults of any age, including those who are otherwise healthy. People most at risk include: * Babies born early (premature ). * Children under 2 years of age. * Children with certain underlying conditions like congenital heart disease * Adults over age 65. * Adults with chronic lung conditions, heart disease or a compromised immune system. Management and Treatment What should I know about RSV treatment? There isnt a specific treatment for RSV in children or adults. Antibiotics dont treat RSV. Instead, healthcare providers recommend using treatments youd typically use for a cold. For example, you might: * Use okub-vxf-fxedvls (OTC) medications (like acetaminophen or ibuprofen) to bring down a fever. Always check with your provider or your securities sales associate before using any medications. * Use a cool-mist humidifier to help with breathing. * Use nasal saline spray and suctioning for infants to relieve cough and congestion. * Drink plenty of fluids to avoid dehydration. The goal is to manage symptoms while the infection runs its course. Prevention How can I prevent RSV? Its not always possible to prevent RSV. But you can take some steps to protect your family from RSV and other respiratory viruses: * Wash your hands. Always wash your hands after using the bathroom and before eating or preparing food. Its also a good idea to lather up after touching commonly shared objects. * Limit exposure to germs. Infants are especially vulnerable to viruses like RSV because the immune system is still developing. Avoid taking your baby among large crowds, especially during respiratory season. Also avoid play dates or other close contact with kids who are sick. * Clean commonly touched surfaces. Disinfect toys, tables, doorknobs and other surfaces that people in your house touch often. * Stay current on vaccines. Talk to your healthcare provider and your marilou securities sales associate about recommended vaccines and whens best to receive them. These include annual flu and COVID-19 shots. Is there an RSV vaccine? Yes. Theres a vaccine for RSV that certain adults are eligible to receive. Heres what to know: * Adults age 60 and above are eligible to receive the RSV vaccine. If youre 60 or older, its a good idea to talk to a healthcare provider about the RSV vaccine and whether they recommend you get it. Your provider will consider your overall health, including any chronic conditions you have or other risk factors that make RSV dangerous for you. * people are eligible to receive the RSV vaccine between weeks 32 and 36 of . This protects your during their first six months of life. * Babies up to 8 months old How do the RSV vaccine and immunization differ? The RSV vaccine tells your immune system to create antibodies that destroy RSV in your body before the virus can do much harm. The RSV monoclonal antibody immunization gives your ready-made antibodies so their immune system (which is still developing) doesnt have to produce them. These antibodies protect your baby from serious illness and hospitalization. Pitcher / Prognosis How long does RSV last? Most people develop symptoms four to six days after exposure to RSV. Once they appear, symptoms usually clear up within two weeks, but the cough can linger in a mild form for several weeks after the initial infection. Severe cases of RSV may last longer. How long is RSV contagious? RSV is contagious while you have symptoms, which is typically three to eight days. You may be able to spread RSV a day or two before you develop symptoms. Some babies, as well as people with compromised immune systems, may be contagious even after symptoms go away, for up to four weeks. Is RSV deadly? RSV can be deadly due to its complications. Each year in the [place] RSV causes: * About 100 to 300 deaths in children under age 5. * About 6,000 to 10,000 deaths in adults age 65 and above. Thankfully, immunizations can help lower your risk of serious illness or from RSV. Living With When should I see my healthcare provider? You can often manage RSV symptoms on your own. But you should call a healthcare provider if you have symptoms and at least one of the following applies to you: * Youre over age 65. * You have a compromised immune system. * You have a heart or lung condition. Your provider will let you know if you should come in for a checkup. Theyll also help you identify signs of a severe infection that may need treatment. Call a securities sales associate if your child has RSV symptoms and is under the age of 3 months. You should also call if your child has any of the following: * A temperature above 100.4 degrees Fahrenheit or 38 degrees Celsius (if your baby is under 3 months old). * A fever above 104 degrees F and 40 degrees C (at any age). * Symptoms that dont improve or get worse after a week. * Ear drainage or they tug at their ears. This may be a sign of an ear infection, which some babies with RSV also develop. Its also a good idea to call a securities sales associate if your baby has any symptoms of RSV and is under 12 months old. When should I go to the ER? Visit the emergency room if you or your child has severe RSV symptoms, including changes to your breathing or blue or avilez skin color. Pending Studies at Discharge: No Stand-Alone Forms: My [facility] Skilled Items Patient informed of condition?: Yes DNR: No Discharge Level of Care: Skilled Communicable Disease: Yes Discharge Prognosis: Stable Lines: None Urinary Catheter: No Medications and DC Order Prescriptions: New metformin 500 mg Tablet 500 mg PO DAILYBD Qty: 30 0RF ipratropium-albuterol 0.5 mg-3 mg(2.5 mg base)/3 mL Solution For Nebulization 3 ml NEB QIDR Qty: 60 0RF lidocaine 5 % Adhesive Patch,Medicated 1 patch transdermal DAILY Qty: 10 0RF Continued sertraline 100 mg Tablet 100 mg PO QPM Rx Instructions: TAKES AT 1900 simvastatin 40 mg Tablet 40 mg PO QPM Rx Instructions: TAKES AT 1900 Systane (PF) 0.4-0.3 % Dropperette 1 drp OPB BID Rx Instructions: 0800 & 1900 oxybutynin chloride 5 mg tablet 10 mg PO QAM losartan 25 mg tablet 25 mg PO QAM cyanocobalamin (vitamin B-12) 1,000 mcg tablet 1,000 mcg PO QAM lidocaine 4 % Adhesive Patch,Medicated 1 patch TOPICAL DAILY Rx Instructions: APPLY TO RIGHT SHOULDER, REMOVE AT 2000 tramadol 50 mg Tablet 50 mg PO BID PRN (Reason: Pain) nystatin 100,000 unit/gram Powder 1 applic TOPICAL BID PRN (Reason: GROIN AREA/SKIN IRRITATION) diclofenac sodium 1 % Gel 4 g TOPICAL Q12H PRN (Reason: LEFT HIP PAIN) aspirin 81 mg tablet,delayed release (DR/EC) 81 mg PO QAM diclofenac sodium [Voltaren Arthritis Pain] 1 % gel 4 g EXT TID Rx Instructions: APPLY TO RIGHT SHOULDER--0600, 0800 & 1800 docusate sodium 100 mg Capsule 100 mg PO BID acetaminophen 500 mg Tablet 1,000 mg PO Q8H MDD 3 GRAMS APAP/24 HOURS PRN (Reason: Pain) levothyroxine [Synthroid] 75 mcg Tablet 75 mcg PO DAILYBB Qty: 30 0RF Changed olanzapine 5 mg Tablet 2.5 mg PO QPM Qty: 30 0RF Rx Instructions: TAKES AT 1900 Discontinued buspirone 5 mg tablet 2.5 mg PO BID17 Rx Instructions: TAKE 2.5MG TWICE DAILY WITH MEALS glipizide 5 mg tablet 7.5 mg PO [id number] Discharge Orders: Discharge Order (Routine); Ordered 09/17/23 Ordered By: Sunny Carty Admission Data Admit Date/Time: 09/11/23 18:54 Attending Provider: Sunny Carty Admit Provider: Yo Golden Primary Care Provider: Mervat Garcia Other Providers: Yo Golden Coding Level of Care Code 83554 INP/OBS DISCH >30 MIN Diagnoses Altered mental status R41.82 Respiratory syncytial virus (RSV) B33.8 Type 2 diabetes mellitus E11.9 Hypothyroidism E03.9 HTN (hypertension) I10 Elevated troponin R77.8 Dementia F03.90
== END 2023-09-17 15:46 | disposition home or self-care (01) | DRG 193 ==
LOC: ED 12:59 → SUATTDRO 18:54 → EDINP 18:54 → 2S 20:07 → 3W 09-13 16:38

== ENCOUNTER 2023-09-18 19:46 | Inpatient (IN) ==
[2023-09-18] MEDS ORDERED: ALBUT/IPRATROP 3MG/0.5MG NEB 3 ML VIAL NEB STA (19:53)
[2023-09-18 20:20] LABS: Base Excess VBG -1.1 mEq/L; HCO3 VBG 25 mmol/L; Oxygen Saturation VBG 92.6 %; PCO2 VBG 45 mmHg (38-50); PO2 VBG 65 mmHg; pH VBG 7.35 (7.36-7.41)
[2023-09-18 20:28] LABS: Appearance Urine Clear (Clear); Bacteria Urine Automated Negative (Negative); Bilirubin Urine Negative (Negative); Blood Urine 2+ (Negative); Color Urine Yellow; Glucose Urine UA Negative (Negative); Ketones Urine Negative (Negative); Leukocyte Esterase Urine 1+ (Negative); Nitrite Urine Negative (Negative); Protein Urine Trace (Negative); Specific Gravity Urine 1.016 (1.000-1.030); Urobilinogen Urine Negative (Negative)
[2023-09-18] MEDS ORDERED: methylPREDNISolone 125 MG/2 ML VIAL IV STA (20:28)
[2023-09-18 20:34] LABS: Basophils # (auto) 0.06 K/uL (0.00-0.20); Basophils % (auto) 0.7 %; Eosinophils # (auto) 0.22 K/uL (0.00-0.50); Eosinophils % (auto) 2.4 %; Hematocrit (blood only) 39.3 % (42.0-52.0); Hemoglobin 12.5 g/dl (14.0-18.0); Immature Granulocytes # (auto) 0.05 K/uL (0.01-0.20); Immature Granulocytes % (auto) 0.6 %; Lymphocytes # (auto) 2.53 K/uL (1.20-3.40); Lymphocytes % (auto) 28.1 %; Mean Corpuscular Hgb Conc 31.8 g/dL (32.0-36.0); Mean Corpuscular Volume 94.5 fL (80.0-100.0); Mean Platelet Volume 9.8 fL (9.4-12.4); Monocytes # (auto) 0.81 K/uL (0.11-0.59); Neutrophils # (auto) 5.32 K/uL (1.40-6.50); Neutrophils % (auto) 59.2 %; Platelet Count 220 K/uL (130-400); RDW Coefficient of Variation 13.9 % (11.5-14.5); RDW Standard Deviation 48.4 fL (36.4-46.3); Red Blood Count 4.16 M/uL (4.70-6.10); White Blood Count 8.99 K/ul (4.8-10.8)
[2023-09-18] MEDS ORDERED: SODIUM CHLORIDE 0.9% 1,000 ML IV ONE (20:48)
[2023-09-18 20:59] LABS: Alanine Aminotransferase 19 U/L (7-52); Albumin Level 3.5 gm/dl (3.4-5.0); Alkaline Phosphatase 66 U/L (34-104); Anion Gap 7 (3-11); Bilirubin,Total 0.7 mg/dl (0.2-1.0); Blood Urea Nitrogen 23 mg/dl (6-23); Calcium 9.3 mg/dl (8.6-10.3); Carbon Dioxide 27 mmol/L (21-32); Chloride 106 mmol/L (98-107); Est GFR (African American) 80.9 ml/min; Est GFR (Non-African American) 69.8 ml/min; Glucose 111 mg/dl (70-99(Fasting)); Magnesium 2.1 mg/dl (1.7-2.4); Sodium 140 mmol/L (136-145); Total Protein 7.3 gm/dl (6.0-8.3); Troponin I High Sensitivity 26.4 pg/ml (0-20)
[2023-09-18 21:03] LABS: Partial Thromboplastin Time 27 Seconds (21-31); Prothrombin Time 11.3 Seconds (9.0-12.0)
--- NOTE | 2023-09-18 21:04 | Emergency Department Note ---
History of Present Illness General Chief complaint: Shortness of Breath/Dyspnea Time Seen by Provider: 09/18/23 19:52 Source: EMS History of Present Illness Provider complaint: Difficulty breathing altered mental status 88-year-old male with history of Alzheimer's dementia presents emergency department from EMS. EMS states that the patient presents from a intermediate intermediate which was concerned that the patient was having difficulty breathing. EMS reports that the patient became more confused and decreased responsiveness and route to the hospital. No reported falls or traumas. Home Medications Medication Instructions Recorded Confirmed Type sertraline 100 mg tablet 100 mg PO QPM 05/08/18 09/18/23 History simvastatin 40 mg tablet 40 mg PO QPM 05/08/18 09/18/23 History peg 400-propylene glycol (PF) 0.4 1 drp OPB BID 07/01/19 09/18/23 History %-0.3 % eye drops in a dropperette (Systane (PF)) oxybutynin chloride 5 mg tablet 10 mg PO QAM 07/31/20 09/18/23 History cyanocobalamin (vitamin B-12) 1,000 mcg PO QAM 08/18/20 09/18/23 History 1,000 mcg tablet losartan 25 mg tablet 25 mg PO QAM 08/18/20 09/18/23 History acetaminophen 500 mg tablet 1,000 mg PO Q8H PRN Pain 04/15/22 09/18/23 History docusate sodium 100 mg capsule 100 mg PO BID 04/15/22 09/18/23 History levothyroxine 75 mcg tablet 75 mcg PO DAILYBB #30 tabs 04/20/22 09/18/23 Rx (Synthroid) aspirin 81 mg tablet,delayed 81 mg PO QAM 09/08/23 09/18/23 History release diclofenac sodium 1 % topical gel 4 g topical Q12H PRN LEFT HIP PAIN 09/08/23 09/18/23 History diclofenac sodium 1 % topical gel 4 g EXT TID 09/08/23 09/18/23 History (Voltaren Arthritis Pain) lidocaine 4 % topical patch 1 patch topical DAILY 09/08/23 09/18/23 History nystatin 100,000 unit/gram topical 1 applic topical BID PRN GROIN 09/08/23 09/18/23 History powder AREA/SKIN IRRITATION tramadol 50 mg tablet 50 mg PO BID PRN Pain 09/08/23 09/18/23 History ipratropium 0.5 mg-albuterol 3 mg 3 ml NEB QIDR #60 mL 09/17/23 09/18/23 Rx (2.5 mg base)/3 mL nebulization soln lidocaine 5 % topical patch 1 patch transdermal DAILY #10 ea 09/17/23 09/18/23 Rx metformin 500 mg tablet 500 mg PO DAILYBD #30 tabs 09/17/23 09/18/23 Rx olanzapine 5 mg tablet 2.5 mg (1/2 x 5 mg) PO QPM #30 tabs 09/17/23 09/18/23 Rx Allergies Allergy/AdvReac Type Severity Reaction Status Date / Time adhesive tape Allergy Unknown ON [facility] Verified 09/08/23 15:05 MED LIST cephalexin [From Keflex] Allergy Unknown ON [facility] Verified 09/08/23 15:05 MED LIST rofecoxib AdvReac Intermediate [facility] Verified 09/08/23 15:05 FEET Past Med/Surg History Medical History Mood disorder Hypothyroidism Type 2 diabetes mellitus HTN (hypertension) Stenosis of right internal carotid artery Bipolar disorder Nocturnal hypoxia Chronic kidney disease, stage 3a Alzheimer disease B12 deficiency Acute kidney injury Chronic kidney disease, stage 3a Pneumonia of both lower lobes Acute respiratory failure with hypoxia Fall Fracture, ribs Hypothyroidism Skin problem Alzheimer disease Migraines Depression Hyperlipidemia Surgical History Previous back surgery S/P appendectomy Family History Other Cancer Diabetes Gallbladder disease Hypertension Kidney disease Social History Smoking Status: Unknown if ever smoked Second Hand Exposure: No; Do You Dip or Chew Tobacco: No; Hx Alcohol Use: No Hx Substance Use: No Preferred Language: Italian Communication Ability: Impaired Communication Ability Comment: Pt is very hard of hearing Rehab Liaison Required: No Beliefs That Will Affect Care: None marital status: / Current Living Situation: Personal Care Facility Current Living Situation Comment: [facility] 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 How many Children do You have: 2 Feels Safe at Home: Yes Assistive Devices: Walker Physical Exam Vital Signs Vital Signs - 24 hr 09/18/23 19:58 09/18/23 20:00 09/18/23 20:00 Temperature 36.4 C L Temperature Source Axillary Pulse Rate 96 H Pulse Rate [Finger] Respiratory Rate 20 Respiratory Effort / Characteristics Grunting Short of Breath SOB on Exertion Respiratory Depth Normal Respiratory Pattern Regular Blood Pressure 116/76 Blood Pressure [Right Arm] Blood Pressure Mean 89 Blood Pressure Mean [Right Arm] Pulse Oximetry 92 92 Oxygen Delivery Method Room Air Room Air Oxygen Flow Rate 0 Sepsis Recent Fever Within 48 Hours No Sepsis New/Unexplained Change in Mental Status Yes Sepsis Action Taken by Nursing No Action Required 09/18/23 20:36 09/18/23 20:44 09/18/23 21:46 Temperature Temperature Source Pulse Rate 89 Pulse Rate [Finger] 88 90 Respiratory Rate 18 18 Respiratory Effort / Characteristics Respiratory Depth Respiratory Pattern Blood Pressure Blood Pressure [Right Arm] 84/53 L 111/67 Blood Pressure Mean Blood Pressure Mean [Right Arm] 63 81 Pulse Oximetry 93 94 Oxygen Delivery Method Nasal Cannula Nasal Cannula Oxygen Flow Rate 2 2 Sepsis Recent Fever Within 48 Hours Sepsis New/Unexplained Change in Mental Status Sepsis Action Taken by Nursing Physical Exam GENERAL: Ill-appearing HENT: Exam performed. - Head: Normocephalic and atraumatic. - Right Ear: External ear normal. No mastoid erythema - Left Ear: External ear normal. No mastoid erythema - Mouth/Throat: Dry mucous membranes EYES: Conjunctivae and EOM are normal. Pupils are equal, round, and reactive to light. Right eye exhibits no discharge. Left eye exhibits no discharge. No scleral icterus. NECK: Normal range of motion. Neck supple. No JVD present. CV: Normal rate, regular rhythm, normal heart sounds and intact distal pulses. There is no peripheral edema. Palpable radial pulses bue. PULM/CHEST: Wheezing bilaterally. Rales inspiratory only. Rhonchi bilaterally. ABD: The abdomen is soft NEURO: GCS eye subscore is 2. GCS verbal subscore is 3. GCS motor subscore is 4. Course Course 1951: The patient was evaluated in room A11. A complete history and physical exam was performed Cardiac monitoring: An order was placed for continuous cardiac monitoring. The monitor shows a rate of 90 with sinus rhythm interpreted by me 2039: Status post breathing treatment the patient is coughing up a lot of phlegm. Patient became hypoxic and was placed on supplemental oxygen via nasal cannula. Patient's oxygen saturations improved with supplemental oxygen via nasal cannula. Patient's blood pressure trending downwards IV fluids ordered for the patient. Lactic acid and VBG within normal limits. Chest x-ray shows no changes. Patient will be taken for CT of the head. 2146: Vital signs stable on supplemental oxygen via nasal cannula. Labs within normal limits. With the exception of minimally elevated high-sensitivity troponin of 26.4 which is improved from his last high-sensitivity troponin. Patient is still RSV positive. It is thought that the patient's hypoxia could be due to mucous plugging again. Patient will be admitted to [facility]. Administered Medications Discontinued Medications Albuterol (Albut/Ipratrop 3mg/0.5mg Neb 3 Ml Vial) 3 ml NEB NOW STA; Protocol Stop: 09/18/23 19:54 Last Admin: 09/18/23 20:15 Dose: 3 ml Documented By: LOU Sodium Chloride (Nss) 1,000 mls @ 999 mls/hr IV .Q1H1M ONE Stop: 09/18/23 21:48 Last Infusion: 09/18/23 22:17 Dose: Infused Documented By: Admin: 09/18/23 21:10 Dose: 999 mls/hr Documented By: LOU Methylprednisolone (Methylprednisolone 125 Mg/2 Ml Vial) 125 mg IV NOW STA Stop: 09/18/23 20:29 Last Admin: 09/18/23 20:37 Dose: 125 mg Documented By: LOU Critical Care Time Critical Care Time: Yes Total Critical Care Time: 56 I have personally spent greater than 56 minutes of critical care time in the direct management of this patient. This includes bedside care, interpretation of diagnostic studies, and testing, discussion with consultants, patient, and family members, and other required patient management activities. This 56 minutes is in excess of all separately billable procedures. Medical Decision Making Medical Records Attestation: I reviewed the patient's medical records. External medical records reviewed. Patient is a full code. Patient was admitted from September 11, 2023 until yesterday September 17, 2023 when he was discharged to a intermediate. Patient was RSV positive and admitted for altered mental status. Patient had a CTA of the chest done on September 11 which was negative for PE. Patient did have bronchopneumonia and mucous plugging. Laboratory Data Attestation: I reviewed the patient's lab results. 09/18/23 20:00 09/18/23 20:00 Lab Results 09/18/23 09/18/23 09/18/23 Range/Units 20:00 20:11 21:44 WBC 8.99 (4.8-10.8) K/ul RBC 4.16 L (4.70-6.10) M/uL Hgb 12.5 L (14.0-18.0) g/dl Hct 39.3 L (42.0-52.0) % MCV 94.5 (80.0-100.0) fL MCH 30.0 (25.0-34.0) pg MCHC 31.8 L (32.0-36.0) g/dL RDW Std Deviation 48.4 H (36.4-46.3) fL RDW Coeff of Johnnie 13.9 (11.5-14.5) % Plt Count 220 (130-400) K/uL MPV 9.8 (9.4-12.4) fL Immature Gran % (Auto) 0.6 % Neut % (Auto) 59.2 % Lymph % (Auto) 28.1 % [place] % (Auto) 9.0 % Eos % (Auto) 2.4 % Baso % (Auto) 0.7 % Neut # (Auto) 5.32 (1.40-6.50) K/uL Lymph # (Auto) 2.53 (1.20-3.40) K/uL [place] # (Auto) 0.81 H (0.11-0.59) K/uL Eos # (Auto) 0.22 (0.00-0.50) K/uL Baso # (Auto) 0.06 (0.00-0.20) K/uL Immature Gran # (Auto) 0.05 (0.01-0.20) K/uL PT 11.3 (9.0-12.0) Seconds INR 1.0 (0.9-1.1) APTT 27 (21-31) Seconds PTT Ratio 1.0 VBG pH 7.35 L (7.36-7.41) VBG pCO2 45 (38-50) mmHg VBG pO2 65 mmHg VBG HCO3 25 mmol/L VBG O2 Saturation 92.6 % VBG Base Excess -1.1 mEq/L Sodium 140 (136-145) mmol/L Potassium TNP Chloride 106 (98-107) mmol/L Carbon Dioxide 27 (21-32) mmol/L Anion Gap 7 (3-11) BUN 23 (6-23) mg/dl Creatinine 0.96 (0.6-1.4) mg/dl Est Cr Clr Drug Dosing Not Reportable Est GFR ( Amer) 80.9 ml/min Est GFR (Non-Af Amer) 69.8 ml/min BUN/Creatinine Ratio 24.0 H (10-20) Glucose 111 H (70-99(Fasting)) mg/dl Lactate 1.0 (0.4-2.0) mmol/L Calcium 9.3 (8.6-10.3) mg/dl Magnesium 2.1 (1.7-2.4) mg/dl Total Bilirubin 0.7 (0.2-1.0) mg/dl Direct Bilirubin TNP AST TNP ALT 19 (7-52) U/L Alkaline Phosphatase 66 (34-104) U/L Troponin I High Sens 26.4 H 24.1 H (0-20) pg/ml Total Protein 7.3 (6.0-8.3) gm/dl Albumin 3.5 (3.4-5.0) gm/dl Procalcitonin 0.09 (0-0.5) ng/ml Urine Color Yellow Urine Appearance Clear (Clear) Urine pH 6.0 (4.5-7.5) Ur Specific Dwarf 1.016 (1.000-1.030) Urine Protein Trace H (Negative) Urine Glucose (UA) Negative (Negative) Urine Ketones Negative (Negative) Urine Blood 2+ H (Negative) Urine Nitrite Negative (Negative) Urine Bilirubin Negative (Negative) Urine Urobilinogen Negative (Negative) Ur Leukocyte Esterase 1+ H (Negative) Urine WBC (Auto) 5-10 H (0-5) /hpf Urine RBC (Auto) 5-10 H (0-4) /hpf U Hyaline Cast (Auto) 1-5 (0-5) /lpf U Epithel Cells (Auto) 5-10 H (0-5) /lpf Urine Bacteria (Auto) Negative (Negative) Adenovirus (PCR) Not Detected (NotDetected) B. pertussis DNA (PCR) Not Detected (NotDetected) B.parapertussis DNA PCR Not Detected (NotDetected) C. pneumoniae DNA (PCR) Not Detected (NotDetected) Coronavirus OC43 (PCR) Not Detected (NotDetected) Coronavirus HKU1 (PCR) Not Detected (NotDetected) Coronavirus 229E (PCR) Not Detected (NotDetected) SARS-CoV-2 (PCR) Not Detected (NotDetected) Coronavirus NL63 (PCR) Not Detected (NotDetected) Human Metapneumovir PCR Not Detected (NotDetected) Influenza Type A (PCR) Not Detected (NotDetected) Influenza Type B (PCR) Not Detected (NotDetected) M. pneumoniae (PCR) Not Detected (NotDetected) Parainfluenza 1 (PCR) Not Detected (NotDetected) Parainfluenza 2 (PCR) Not Detected (NotDetected) Parainfluenza 3 (PCR) Not Detected (NotDetected) Parainfluenza 4 (PCR) Not Detected (NotDetected) RSV (PCR) DETECTED A* (NotDetected) Entero/Rhino (PCR) Not Detected (NotDetected) Imaging Data Attestation: I personally reviewed and interpreted this imaging study as follows: My Impression: Chest x-ray: No significant change from the chest x-ray from September 14, 2023 CT head: No [facility] Radiologist's Impression: Head CT 09/18/23 19:54 Exam(s): CT HEAD Without Contrast EXAM: CT Head Without Intravenous Contrast CLINICAL HISTORY: Reason for exam: ams. TECHNIQUE: Axial computed tomography images of the head/brain without intravenous contrast. CTDI is 38.31 mGy and DLP is 624.41 mGy-cm. Automated exposure control was utilized for the study. A dose lowering technique was utilized adhering to the principles of ALARA. COMPARISON: No relevant prior studies available. FINDINGS: No acute intracranial hemorrhage. No midline shift or mass effect. The territorial avilez-white matter differentiation is maintained throughout. Age-related cerebral volume loss. Periventricular and subcortical white matter hypoattenuation, consistent with chronic microangiopathy. The visualized orbits appear grossly unremarkable. The calvarium is intact. Paranasal sinus mucosal thickening. Correlate for sinusitis. IMPRESSION: No acute intracranial hemorrhage, midline shift, or mass effect. Age-related cerebral volume loss. Periventricular and subcortical white matter hypoattenuation, consistent with chronic microangiopathy. Paranasal sinus mucosal thickening. Correlate for sinusitis. Electronically signed by: Salty Jacobs MD 09/18/23 21:43 PM ECG Data Attestation: I personally reviewed and interpreted this ECG as follows: Rate (beats per minute): 94 Rhythm: + sinus with SA ECG Intervals/blocks: + Normal QRS, + Normal UT and + Normal QT-c ECG ST segments: + Normal ST segments [facility] Narrative 1951: The patient was evaluated in room A11. A complete history and physical exam was performed Cardiac monitoring: An order was placed for continuous cardiac monitoring. The monitor shows a rate of 90 with sinus rhythm interpreted by me 2039: Status post breathing treatment the patient is coughing up a lot of phlegm. Patient became hypoxic and was placed on supplemental oxygen via nasal cannula. Patient's oxygen saturations improved with supplemental oxygen via nasal cannula. Patient's blood pressure trending downwards IV fluids ordered for the patient. Lactic acid and VBG within normal limits. Chest x-ray shows no changes. Patient will be taken for CT of the head. 2146: Vital signs stable on supplemental oxygen via nasal cannula. Labs within normal limits. With the exception of minimally elevated high-sensitivity troponin of 26.4 which is improved from his last high-sensitivity troponin. Patient is still RSV positive. It is thought that the patient's hypoxia could be due to mucous plugging again. Patient will be admitted to [facility]. Impression & Plan Hypoxia Discharge Plan Visit Data Chief Complaint: Shortness of Breath/Dyspnea ED Provider: Sang Camejo Discharge Problem: Hypoxia Patient Disposition: Admitted As Inpatient Forms Stand Alone Forms: My [facility] Prescriptions Prescriptions: No Action sertraline 100 mg Tablet 100 mg PO QPM Rx Instructions: TAKES AT 1900 simvastatin 40 mg Tablet 40 mg PO QPM Rx Instructions: TAKES AT 1900 Systane (PF) 0.4-0.3 % Dropperette 1 drp OPB BID Rx Instructions: 0800 & 1900 oxybutynin chloride 5 mg tablet 10 mg PO QAM losartan 25 mg tablet 25 mg PO QAM cyanocobalamin (vitamin B-12) 1,000 mcg tablet 1,000 mcg PO QAM lidocaine 4 % Adhesive Patch,Medicated 1 patch TOPICAL DAILY Rx Instructions: APPLY TO RIGHT SHOULDER, REMOVE AT 2000 tramadol 50 mg Tablet 50 mg PO BID PRN (Reason: Pain) nystatin 100,000 unit/gram Powder 1 applic TOPICAL BID PRN (Reason: GROIN AREA/SKIN IRRITATION) diclofenac sodium 1 % Gel 4 g TOPICAL Q12H PRN (Reason: LEFT HIP PAIN) aspirin 81 mg tablet,delayed release (DR/EC) 81 mg PO QAM diclofenac sodium [Voltaren Arthritis Pain] 1 % gel 4 g EXT TID Rx Instructions: APPLY TO RIGHT SHOULDER--0600, 0800 & 1800 metformin 500 mg Tablet 500 mg PO DAILYBD Qty: 30 0RF ipratropium-albuterol 0.5 mg-3 mg(2.5 mg base)/3 mL Solution For Nebulization 3 ml NEB QIDR Qty: 60 0RF lidocaine 5 % Adhesive Patch,Medicated 1 patch transdermal DAILY Qty: 10 0RF olanzapine 5 mg Tablet 2.5 mg PO QPM Qty: 30 0RF Rx Instructions: TAKES AT 1900 docusate sodium 100 mg Capsule 100 mg PO BID acetaminophen 500 mg Tablet 1,000 mg PO Q8H MDD 3 GRAMS APAP/24 HOURS PRN (Reason: Pain) levothyroxine [Synthroid] 75 mcg Tablet 75 mcg PO DAILYBB Qty: 30 0RF Referrals Referrals: Mervat Garcia [Primary Care Provider] -
[2023-09-18 21:11] LABS: Adenovirus PCR Not Detected (NotDetected); Bordetella parapertussis PCR Not Detected (NotDetected); Bordetella pertussis PCR Not Detected (NotDetected); Chlamydia pneumoniae PCR Not Detected (NotDetected); Coronavirus 229E PCR Not Detected (NotDetected); Coronavirus CoV-2 (COVID19)PCR Not Detected (NotDetected); Coronavirus HKU1 PCR Not Detected (NotDetected); Coronavirus NL63 PCR Not Detected (NotDetected); Coronavirus OC43PCR Not Detected (NotDetected); Human Metapneumovirus PCR Not Detected (NotDetected); Influenza A PCR Not Detected (NotDetected); Influenza B PCR Not Detected (NotDetected); Mycoplasma pneumoniae PCR Not Detected (NotDetected); Parainfluenza Virus 1 PCR Not Detected (NotDetected); Parainfluenza Virus 2 PCR Not Detected (NotDetected); Parainfluenza Virus 3 PCR Not Detected (NotDetected); Parainfluenza Virus 4 PCR Not Detected (NotDetected); Rhinovirus/Enterovirus PCR Not Detected (NotDetected)
[2023-09-18 21:16] LABS: Respiratory Syncytial VirusPCR DETECTED (NotDetected)
--- NOTE | 2023-09-18 21:44 | CT Scan Report ---
Exam(s): CT HEAD Without Contrast EXAM: CT Head Without Intravenous Contrast CLINICAL HISTORY: Reason for exam: ams. TECHNIQUE: Axial computed tomography images of the head/brain without intravenous contrast. CTDI is 38.31 mGy and DLP is 624.41 mGy-cm. Automated exposure control was utilized for the study. A dose lowering technique was utilized adhering to the principles of ALARA. COMPARISON: No relevant prior studies available. FINDINGS: No acute intracranial hemorrhage. No midline shift or mass effect. The territorial avilez-white matter differentiation is maintained throughout. Age-related cerebral volume loss. Periventricular and subcortical white matter hypoattenuation, consistent with chronic microangiopathy. The visualized orbits appear grossly unremarkable. The calvarium is intact. Paranasal sinus mucosal thickening. Correlate for sinusitis. IMPRESSION: No acute intracranial hemorrhage, midline shift, or mass effect. Age-related cerebral volume loss. Periventricular and subcortical white matter hypoattenuation, consistent with chronic microangiopathy. Paranasal sinus mucosal thickening. Correlate for sinusitis. Electronically signed by: Salty Jacobs MD 09/18/23 21:43 PM
[2023-09-18 23:09] LABS: iSTAT Arterial Blood Gas HCO3 22 meg/L (19-24); iSTAT Arterial Blood Gas pCO2 42 mmHg (35-46); iSTAT Arterial Blood Gas pH 7.33 (7.35-7.45); iSTAT Arterial Blood Gas pO2 78 mmHg (80-95); iSTAT Carbon Dioxide 23 mmol/L (24-31); iSTAT Hematocrit 32 % (42-52); iSTAT Hemoglobin 10.9 g/dl (14.0-18.0); iSTAT Potassium 4.4 mmol/L (3.3-5.0); iSTAT Sodium 140 mmol/L (135-144)
[2023-09-19] MEDS ORDERED: ACETAMINOPHEN 1000 MG/100 ML IV IV PRN (00:46)
[2023-09-19] MEDS ORDERED: GLUCOSE 10 TAB/TUBE PO PRN (00:46)
[2023-09-19] MEDS ORDERED: CARBOHYDRATES FOR HYPOGLYCEMIA PO PRN (00:46)
[2023-09-19] MEDS ORDERED: GLUCOSE 40% GEL 15 GM TUBE PO PRN (00:46)
[2023-09-19] MEDS ORDERED: DEXTROSE 50% 50 ML SYRINGE IV PRN (00:46)
[2023-09-19] MEDS ORDERED: LACTATED RINGER'S 1,000 ML IV SCH (00:46)
[2023-09-19] MEDS ORDERED: ONDANSETRON INJ 2 MG/ML 2 ML VIAL IV PRN (00:46)
[2023-09-19] MEDS ORDERED: GLUCAGON FOR INJ 1 MG VIAL SQ PRN (00:46)
[2023-09-19] MEDS ORDERED: ALBUT/IPRATROP 3MG/0.5MG NEB 3 ML VIAL NEB PRN (00:57)
--- NOTE | 2023-09-19 04:35 | History & Physical Report ---
Date of Service September 19, 2023 The patient was seen and examined on September 18, 2023 Assessment & Plan (1) Hypoxia: (2) Altered mental status: (3) RSV bronchitis: (4) Type 2 diabetes mellitus: (5) Elevated troponin: (6) Dehydration: (7) Dementia: Plan Altered mental status- Differential including but not limited to progression of underlying dementia, RSV infection, dehydration, encephalopathy Admit to monitored bed, following serial troponins, with initial troponin 26.4 and follow-up 24.1 RSV infection/bronchitis/occasional apneic episodes/sinusitis- Previously treated from 09/08 through 09/17/2023 Received Solu-Medrol 125 mg IV from the ED and a DuoNeb treatment Solu-Medrol 40 mg IV every 12 hours Duonebs every 4 hours while awake and every 2 hours when necessary. Placed on BiPAP overnight ABG negative for CO2 narcosis Dehydration-Status post 1 L normal saline from the ED LR at 80 mL/h x 1 L Admission and Anticipated Discharge Date Admission Date: September 18, 2023 History of Present Illness Chief Complaint: The patient was sent to the emergency department by [employer], due to their concerns regarding difficulty breathing. He was noted that by EMS to become more confused and have decreased responsiveness en route to the hospital Primary Care Provider: Harris Crowell The patient is an 88-year-old male with a past medical history including recent hospitalization at [facility] for RSV infection noted on 09/08, with admission from 09/08-09/09/2023, and then readmission from 09/11-09/17/2023. Had been discharged back to his residence at [facility], and was referred back to [facility] as noted above, when nursing staff there felt he was having difficulty breathing. The patient upon arrival was confused, had overall decreased responsiveness in part associated with dementia, and was referred for evaluation for admission after being given Solu-Medrol 125 mg IV, a DuoNeb treatment, and normal saline 1 L. Allergies Allergy/AdvReac Type Severity Reaction Status Date / Time adhesive tape Allergy Unknown ON [facility] Verified 09/08/23 15:05 MED LIST cephalexin [From Keflex] Allergy Unknown ON [facility] Verified 09/08/23 15:05 MED LIST rofecoxib AdvReac Intermediate [facility] Verified 09/08/23 15:05 FEET Home Medications Medication Instructions Recorded Confirmed Type sertraline 100 mg tablet 100 mg PO QPM 05/08/18 09/18/23 History simvastatin 40 mg tablet 40 mg PO QPM 05/08/18 09/18/23 History peg 400-propylene glycol (PF) 0.4 1 drp OPB BID 07/01/19 09/18/23 History %-0.3 % eye drops in a dropperette (Systane (PF)) oxybutynin chloride 5 mg tablet 10 mg PO QAM 07/31/20 09/18/23 History cyanocobalamin (vitamin B-12) 1,000 mcg PO QAM 08/18/20 09/18/23 History 1,000 mcg tablet losartan 25 mg tablet 25 mg PO QAM 08/18/20 09/18/23 History acetaminophen 500 mg tablet 1,000 mg PO Q8H PRN Pain 04/15/22 09/18/23 History docusate sodium 100 mg capsule 100 mg PO BID 04/15/22 09/18/23 History levothyroxine 75 mcg tablet 75 mcg PO DAILYBB #30 tabs 04/20/22 09/18/23 Rx (Synthroid) aspirin 81 mg tablet,delayed 81 mg PO QAM 09/08/23 09/18/23 History release diclofenac sodium 1 % topical gel 4 g topical Q12H PRN LEFT HIP PAIN 09/08/23 09/18/23 History diclofenac sodium 1 % topical gel 4 g EXT TID 09/08/23 09/18/23 History (Voltaren Arthritis Pain) lidocaine 4 % topical patch 1 patch topical DAILY 09/08/23 09/18/23 History nystatin 100,000 unit/gram topical 1 applic topical BID PRN GROIN 09/08/23 09/18/23 History powder AREA/SKIN IRRITATION tramadol 50 mg tablet 50 mg PO BID PRN Pain 09/08/23 09/18/23 History ipratropium 0.5 mg-albuterol 3 mg 3 ml NEB QIDR #60 mL 09/17/23 09/18/23 Rx (2.5 mg base)/3 mL nebulization soln lidocaine 5 % topical patch 1 patch transdermal DAILY #10 ea 09/17/23 09/18/23 Rx metformin 500 mg tablet 500 mg PO DAILYBD #30 tabs 09/17/23 09/18/23 Rx olanzapine 5 mg tablet 2.5 mg (1/2 x 5 mg) PO QPM #30 tabs 09/17/23 09/18/23 Rx Past Med/Surg History Medical History Mood disorder Hypothyroidism Type 2 diabetes mellitus HTN (hypertension) Stenosis of right internal carotid artery Bipolar disorder Nocturnal hypoxia Chronic kidney disease, stage 3a Alzheimer disease B12 deficiency Acute kidney injury Chronic kidney disease, stage 3a Pneumonia of both lower lobes Acute respiratory failure with hypoxia Fall Fracture, ribs Hypothyroidism Skin problem Alzheimer disease Migraines Depression Hyperlipidemia Surgical History Previous back surgery S/P appendectomy Family History Other Cancer Diabetes Gallbladder disease Hypertension Kidney disease Social History Smoking Status: Unknown if ever smoked Second Hand Exposure: No; Do You Dip or Chew Tobacco: No; Hx Alcohol Use: No Hx Substance Use: No Preferred Language: Korean Communication Ability: Impaired Communication Ability Comment: Pt is very hard of hearing 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 normocephalic and atraumatic, lying in bed and in no acute distress. HEENT--PERRL, EOMI, mucous membranes and oropharynx dry. Neck--supple. No JVD. No bruits. Thyroid normal, trachea midline, no adenopathy. Heart--normal S1 and S2. No murmurs, rubs or gallops. Lungs--few coarse breath sounds bilaterally. Occasional apneic periods of up to 5 seconds noted. Otherwise no respiratory distress, no accessory muscle use. Abdomen--normal bowel sounds and soft. Nontender. Nondistended Extremities--No edema. Dermatologic--normal skin turgor, normal color, no abnormal lymph nodes, no rash. Neurologic--cranial nerves II through XII grossly intact. Rheumatologic--limited exam Psychiatric--lethargic Results & Data Results & Data Vital Signs (Past 12 Hours) Vital Signs Temp Pulse Pulse Resp BP BP Pulse Ox 09/19/23 03:00 36.5 C 88 24 109/93 97 09/19/23 01:14 09/19/23 00:46 36.4 C L 102 H 20 147/98 H 96 09/19/23 00:15 89 09/19/23 00:00 88 14 109/67 95 09/18/23 23:45 86 14 119/65 94 09/18/23 23:30 84 13 110/67 94 09/18/23 23:15 84 13 110/60 90 09/18/23 23:00 86 14 105/63 92 09/18/23 21:46 90 18 111/67 94 09/18/23 20:44 88 18 84/53 L 93 09/18/23 20:36 89 09/18/23 20:00 36.4 C L 96 H 20 116/76 92 09/18/23 19:58 92 O2 Del Method O2 Flow Rate 09/19/23 03:00 Nasal Cannula 09/19/23 01:14 Oxymask 3 09/19/23 00:46 Oxymask 3 09/19/23 00:15 09/19/23 00:00 Oxymask 3 09/18/23 23:45 Oxymask 3 09/18/23 23:30 Oxymask 3 09/18/23 23:15 Nasal Cannula 4 09/18/23 23:00 Nasal Cannula 3 09/18/23 21:46 Nasal Cannula 2 09/18/23 20:44 Nasal Cannula 2 09/18/23 20:36 09/18/23 20:00 Room Air 09/18/23 19:58 Room Air 0 Laboratory Results Laboratory Results WBC 8.99 K/ul (4.8-10.8) 09/18/23 20:00 RBC 4.16 M/uL (4.70-6.10) L 09/18/23 20:00 Hgb 12.5 g/dl (14.0-18.0) L 09/18/23 20:00 POC Hgb 10.9 g/dl (14.0-18.0) L 09/18/23 22:54 Hct 39.3 % (42.0-52.0) L 09/18/23 20:00 POC Hct 32 % (42-52) L 09/18/23 22:54 MCV 94.5 fL (80.0-100.0) 09/18/23 20:00 MCH 30.0 pg (25.0-34.0) 09/18/23 20:00 MCHC 31.8 g/dL (32.0-36.0) L 09/18/23 20:00 RDW Std Deviation 48.4 fL (36.4-46.3) H 09/18/23 20:00 RDW Coeff of Johnnie 13.9 % (11.5-14.5) 09/18/23 20:00 Plt Count 220 K/uL (130-400) 09/18/23 20:00 MPV 9.8 fL (9.4-12.4) 09/18/23 20:00 Immature Gran % (Auto) 0.6 % 09/18/23 20:00 Neut % (Auto) 59.2 % 09/18/23 20:00 Lymph % (Auto) 28.1 % 09/18/23 20:00 [place] % (Auto) 9.0 % 09/18/23 20:00 Eos % (Auto) 2.4 % 09/18/23 20:00 Baso % (Auto) 0.7 % 09/18/23 20:00 Neut # (Auto) 5.32 K/uL (1.40-6.50) 09/18/23 20:00 Lymph # (Auto) 2.53 K/uL (1.20-3.40) 09/18/23 20:00 [place] # (Auto) 0.81 K/uL (0.11-0.59) H 09/18/23 20:00 Eos # (Auto) 0.22 K/uL (0.00-0.50) 09/18/23 20:00 Baso # (Auto) 0.06 K/uL (0.00-0.20) 09/18/23 20:00 Immature Gran # (Auto) 0.05 K/uL (0.01-0.20) 09/18/23 20:00 PT 11.3 Seconds (9.0-12.0) 09/18/23 20:00 INR 1.0 (0.9-1.1) 09/18/23 20:00 APTT 27 Seconds (21-31) 09/18/23 20:00 PTT Ratio 1.0 09/18/23 20:00 POC pH 7.33 (7.35-7.45) L 09/18/23 22:54 POC pCO2 42 mmHg (35-46) 09/18/23 22:54 POC pO2 78 mmHg (80-95) L 09/18/23 22:54 POC HCO3 22 catrachito/L (19-24) 09/18/23 22:54 POC Total CO2 23 mmol/L (24-31) L 09/18/23 22:54 POC Base Excess -4.0 catrachito/L (-9-1.8) 09/18/23 22:54 POC ABG O2 Sat 94.0 % (90-95) 09/18/23 22:54 VBG pH 7.35 (7.36-7.41) L 09/18/23 20:00 VBG pCO2 45 mmHg (38-50) 09/18/23 20:00 VBG pO2 65 mmHg 09/18/23 20:00 VBG HCO3 25 mmol/L 09/18/23 20:00 VBG O2 Saturation 92.6 % 09/18/23 20:00 VBG Base Excess -1.1 mEq/L 09/18/23 20:00 POC Sodium 140 mmol/L (135-144) 09/18/23 22:54 Sodium 140 mmol/L (136-145) 09/18/23 20:00 POC Potassium 4.4 mmol/L (3.3-5.0) 09/18/23 22:54 Potassium TNP 09/18/23 20:00 Chloride 106 mmol/L (98-107) 09/18/23 20:00 Carbon Dioxide 27 mmol/L (21-32) 09/18/23 20:00 Anion Gap 7 (3-11) 09/18/23 20:00 BUN 23 mg/dl (6-23) 09/18/23 20:00 Creatinine 0.96 mg/dl (0.6-1.4) 09/18/23 20:00 Est Cr Clr Drug Dosing Not Reportable 09/18/23 20:00 Est GFR ( Amer) 80.9 ml/min 09/18/23 20:00 Est GFR (Non-Af Amer) 69.8 ml/min 09/18/23 20:00 BUN/Creatinine Ratio 24.0 (10-20) H 09/18/23 20:00 Glucose 111 mg/dl (70-99(Fasting)) H 09/18/23 20:00 POC Glucose 168 mg/dl (70-99) H 09/19/23 00:36 Lactate 1.0 mmol/L (0.4-2.0) 09/18/23 20:00 Calcium 9.3 mg/dl (8.6-10.3) 09/18/23 20:00 Magnesium 2.1 mg/dl (1.7-2.4) 09/18/23 20:00 Total Bilirubin 0.7 mg/dl (0.2-1.0) 09/18/23 20:00 Direct Bilirubin TNP 09/18/23 20:00 AST TNP 09/18/23 20:00 ALT 19 U/L (7-52) 09/18/23 20:00 Alkaline Phosphatase 66 U/L (34-104) 09/18/23 20:00 Troponin I High Sens 24.1 pg/ml (0-20) H 09/18/23 21:44 Total Protein 7.3 gm/dl (6.0-8.3) 09/18/23 20:00 Albumin 3.5 gm/dl (3.4-5.0) 09/18/23 20:00 Procalcitonin 0.09 ng/ml (0-0.5) 09/18/23 20:00 Urine Color Yellow 09/18/23 20:00 Urine Appearance Clear (Clear) 09/18/23 20:00 Urine pH 6.0 (4.5-7.5) 09/18/23 20:00 Ur Specific [place] 1.016 (1.000-1.030) 09/18/23 20:00 Urine Protein Trace (Negative) H 09/18/23 20:00 Urine Glucose (UA) Negative (Negative) 09/18/23 20:00 Urine Ketones Negative (Negative) 09/18/23 20:00 Urine Blood 2+ (Negative) H 09/18/23 20:00 Urine Nitrite Negative (Negative) 09/18/23 20:00 Urine Bilirubin Negative (Negative) 09/18/23 20:00 Urine Urobilinogen Negative (Negative) 09/18/23 20:00 Ur Leukocyte Esterase 1+ (Negative) H 09/18/23 20:00 Urine WBC (Auto) 5-10 /hpf (0-5) H 09/18/23 20:00 Urine RBC (Auto) 5-10 /hpf (0-4) H 09/18/23 20:00 U Hyaline Cast (Auto) 1-5 /lpf (0-5) 09/18/23 20:00 U Epithel Cells (Auto) 5-10 /lpf (0-5) H 09/18/23 20:00 Urine Bacteria (Auto) Negative (Negative) 09/18/23 20:00 Adenovirus (PCR) Not Detected (NotDetected) 09/18/23 20:11 B. pertussis DNA (PCR) Not Detected (NotDetected) 09/18/23 20:11 B.parapertussis DNA PCR Not Detected (NotDetected) 09/18/23 20:11 C. pneumoniae DNA (PCR) Not Detected (NotDetected) 09/18/23 20:11 Coronavirus OC43 (PCR) Not Detected (NotDetected) 09/18/23 20:11 Coronavirus HKU1 (PCR) Not Detected (NotDetected) 09/18/23 20:11 Coronavirus 229E (PCR) Not Detected (NotDetected) 09/18/23 20:11 SARS-CoV-2 (PCR) Not Detected (NotDetected) 09/18/23 20:11 Coronavirus NL63 (PCR) Not Detected (NotDetected) 09/18/23 20:11 Human Metapneumovir PCR Not Detected (NotDetected) 09/18/23 20:11 Influenza Type A (PCR) Not Detected (NotDetected) 09/18/23 20:11 Influenza Type B (PCR) Not Detected (NotDetected) 09/18/23 20:11 M. pneumoniae (PCR) Not Detected (NotDetected) 09/18/23 20:11 Parainfluenza 1 (PCR) Not Detected (NotDetected) 09/18/23 20:11 Parainfluenza 2 (PCR) Not Detected (NotDetected) 09/18/23 20:11 Parainfluenza 3 (PCR) Not Detected (NotDetected) 09/18/23 20:11 Parainfluenza 4 (PCR) Not Detected (NotDetected) 09/18/23 20:11 RSV (PCR) DETECTED (NotDetected) A* 09/18/23 20:11 Entero/Rhino (PCR) Not Detected (NotDetected) 09/18/23 20:[address] 09/18/23 19:54 Exam(s): CT HEAD Without Contrast EXAM: CT Head Without Intravenous Contrast CLINICAL HISTORY: Reason for exam: ams. TECHNIQUE: Axial computed tomography images of the head/brain without intravenous contrast. CTDI is 38.31 mGy and DLP is 624.41 mGy-cm. Automated exposure control was utilized for the study. A dose lowering technique was utilized adhering to the principles of ALARA. COMPARISON: No relevant prior studies available. FINDINGS: No acute intracranial hemorrhage. No midline shift or mass effect. The territorial avilez-white matter differentiation is maintained throughout. Age-related cerebral volume loss. Periventricular and subcortical white matter hypoattenuation, consistent with chronic microangiopathy. The visualized orbits appear grossly unremarkable. The calvarium is intact. Paranasal sinus mucosal thickening. Correlate for sinusitis. IMPRESSION: No acute intracranial hemorrhage, midline shift, or mass effect. Age-related cerebral volume loss. Periventricular and subcortical white matter hypoattenuation, consistent with chronic microangiopathy. Paranasal sinus mucosal thickening. Correlate for sinusitis. Electronically signed by: Salty Jacobs MD 09/18/23 21:43 PM Code Status & VTE Plan Code Status Full code VTE Prophylaxis Plan VTE Prophylaxis will be ordered: Yes PG Care Time/CCT Total # of Minutes Spent Total Time Spent with Patient: Total time spent is greater than 50% in coordination of care (as documented) at patient's floor/unit and/or counseling patient: Coding Level of Care Code 66179 INT INP/OBS CARE 3/75MIN Diagnoses Hypoxia R09.02 Altered mental status R41.82 RSV bronchitis J20.5 Type 2 diabetes mellitus E11.9 Elevated troponin R77.8 Dehydration E86.0 Dementia F03.90
[2023-09-19] MEDS: ACETAMINOPHEN 1,000 MG/100 ML VIAL IV PRN ×2 (05:29→15:53)
[2023-09-19] MEDS: INSULIN ASPART PER UNIT CHARGE SC SCH ×4 (06:07→23:52)
[2023-09-19 06:29] LABS: Basophils # (auto) 0.02 K/uL (0.00-0.20); Basophils % (auto) 0.3 %; Hematocrit (blood only) 35.2 % (42.0-52.0); Hemoglobin 11.4 g/dl (14.0-18.0); Immature Granulocytes # (auto) 0.06 K/uL (0.01-0.20); Immature Granulocytes % (auto) 0.9 %; Lymphocytes # (auto) 1.01 K/uL (1.20-3.40); Lymphocytes % (auto) 15.1 %; Mean Corpuscular Hemoglobin 29.8 pg (25.0-34.0); Mean Corpuscular Hgb Conc 32.4 g/dL (32.0-36.0); Mean Corpuscular Volume 91.9 fL (80.0-100.0); Monocytes % (auto) 1.5 %; Neutrophils % (auto) 82.2 %; Platelet Count 213 K/uL (130-400); RDW Coefficient of Variation 13.7 % (11.5-14.5); RDW Standard Deviation 46.6 fL (36.4-46.3); Red Blood Count 3.83 M/uL (4.70-6.10); White Blood Count 6.69 K/ul (4.8-10.8)
[2023-09-19 06:42] LABS: Alanine Aminotransferase 15 U/L (7-52); Albumin Globulin Ratio 0.9 (0.9-2); Albumin Level 3.2 gm/dl (3.4-5.0); Alkaline Phosphatase 60 U/L (34-104); Anion Gap 9 (3-11); Aspartate Aminotransferase 24 U/L (13-39); BUN Creatinine Ratio 30.3 (10-20); Bilirubin,Total 0.5 mg/dl (0.2-1.0); Blood Urea Nitrogen 27 mg/dl (6-23); Calcium 8.8 mg/dl (8.6-10.3); Carbon Dioxide 23 mmol/L (21-32); Chloride 106 mmol/L (98-107); Est GFR (African American) 87.9 ml/min; Est GFR (Non-African American) 75.8 ml/min; Globulin 3.4 gm/dl (2.5-4.0); Glucose 213 mg/dl (70-99(Fasting)); Sodium 138 mmol/L (136-145); Total Protein 6.6 gm/dl (6.0-8.3)
--- NOTE | 2023-09-19 06:55 | XRay Report ---
XR chest 1V portable HISTORY: 88 years-old Male Sepsis acute sepsis COMPARISON: 09/14/2023 TECHNIQUE: AP view of the chest FINDINGS: Cardiac silhouette is enlarged. Mild subsegmental bibasilar atelectasis versus scarring redemonstrate d. No pneumothorax, pleural effusion or overt pulmonary edema. Degenerative changes of the shoulders and spine. Atherosclerosis of the aorta. IMPRESSION: 1. Cardiomegaly without acute process. 2. Bibasilar atelectasis versus scarring redemonstrated. ACT 112: Negative or not required by law. The above report was generated using voice recognition software. It may contain grammatical, syntax o r spelling errors. Electronically signed by: Ever Calhoun M.D. 09/19/2023 6:52 AM
[2023-09-19] MEDS: ALBUT/IPRATROP 3MG/0.5MG NEB 3 ML VIAL NEB SCH ×4 (07:30→19:43)
[2023-09-19] MEDS: methylPREDNISolone 40 MG in SYRINGE 0 ML IV SCH ×2 (07:51→19:50)
[2023-09-19] MEDS: LEVOTHYROXINE SODIUM 75 MCG TABLET PO SCH (12:12)
[2023-09-19] MEDS: DOCUSATE SODIUM 100 MG CAP PO SCH ×2 (12:12→19:50)
[2023-09-19] MEDS: LOSARTAN POTASSIUM 25 MG TAB PO SCH (12:12)
[2023-09-19] MEDS ORDERED: PIPER/TAZO 4.5g in D5W MINI-B 100 ML IV ONE (13:00)
--- NOTE | 2023-09-19 13:28 | Communication Note ---
Date of Service: September 19, 2023 Brief Palliative Med Note Consult received for "Family request hospice" Chart reviewed and case d/w Dr Mcbride/Attending We reviewed that when a patient or family elect hospice, this is a disposition planning need handled by care mgt and Hospice can be called to come meet with family in hospital to discuss their services. Dr Mcbride notes that in his discussion with pt daughter, she wanted hospice to come eval patient as she was pursuing this as outpatient. [facility] also has a drug abuse social worker who can coordinate hospice services for pt at their facility. Mr Real is an 88yo adv dementia patient with now three back to back admissions for same declining pattern of illness and no curable/reversible issu es; his dementia is causing continued decline and he is transitioning to an end of life process from terminal dementia; he is not decisional, daughter is SDM and desires hospice which was being pursued on OP basis. Care mgt to assist with hospice dc planning. Palliative medicine is not a dc planning service. There is not a need for acute or urgent inpatient Pall Med consultation and so we will decline this consult. TS 25min Pt not seen, NO charge submitted. Thank you for allowing us to participate in the ongoing care of this patient. Please don't hesitate to call or page with any additional concerns. Dr. Allyn Cobos DNP Director, Palliative Care
--- NOTE | 2023-09-19 14:53 | Hospitalist Progress Note ---
Date of Service September 19, 2023 Assessment & Plan (1) Hypoxia: Plan: Acute hypoxic respiratory failure present on admission. He may have aspirated. He sounds as if he has bronchitis. He is now on Zosyn. Speech therapy evaluation requested. Continue parenteral steroid therapy for now. Serial chest x-ray. (2) Altered mental status: Plan: He has severe dementia according to his daughter. She is pursuing hospice evaluation (3) RSV bronchitis: Plan: RSV positivity by serology but I highly doubt he has active RSV infection at this time (4) Type 2 diabetes mellitus: Plan: Sliding scale coverage for now. Hopefully he can eventually be started on an ADA diet (5) Elevated troponin: Plan: Mild. No acute EKG changes. No apparent acute coronary syndrome (6) Dehydration: Plan: Present on admission. IV fluids. Monitor intake and output (7) Dementia: Plan: Chronic. Severe. Supportive care. CODE STATUS has been switched to DNR per family request Plan Case management has been notified that the family has requested hospice evaluation. Admission and Anticipated Discharge Date Admission Date: September 18, 2023 Subjective The patient is unresponsive and moaning. I spoke to the daughter, Nilsa, who states this is his baseline and she is pursuing hospice evaluation. Case management notified that the daughter would like to speak with hospice. He currently resides at [facility]. Head CT scan on admission revealed age- related changes with nothing acute. He appears to have acute bronchitis causing the mild hypoxemia. I doubt if RSV positivity has anything to do with this. He is also on parenteral steroid therapy. Zosyn has been added in the event he has aspirated. Speech therapy, OT and PT assessments requested. Cardiac echo done in August 2022 reveals normal ejection fraction. He is currently on 2 L of oxygen. Review of Systems 2 Review of Systems: The patient is unable to answer any questions regarding review of systems at this time Physical Exam 2 Physical Exam: General-unresponsive and moaning. HEENT-head atraumatic and normocephalic, the patient keeps his eyes closed and will not open them. Neck-no lymphadenopathy or thyromegaly, trachea midline Chest-scattered bilateral rhonchi. No wheezing Cardiac-irregular rhythm. Controlled rate. Normal S1 and S2 Abdomen-normal bowel sounds, no hepatosplenomegaly Extremities-1+ pitting edema bilateral lower extremities below the knees Neuro-difficult to assess. The patient does withdraw from noxious stimuli. He is able to move all 4 extremities. Psych-cannot assess Results & Data Results & Data Vital Signs (Past 12 Hours) Vital Signs Temp Pulse Pulse Resp BP Pulse Ox O2 Del Method 09/19/23 11:03 36.7 C 84 18 119/71 97 Oxymask 09/19/23 10:44 76 22 95 Nasal Cannula 09/19/23 10:41 Oxymask 09/19/23 08:00 36.7 C 82 16 126/69 95 Oxymask 09/19/23 07:30 77 16 97 Oxymask 09/19/23 03:00 36.5 C 88 24 109/93 97 Nasal Cannula O2 Flow Rate 09/19/23 11:03 2 09/19/23 10:44 2 09/19/23 10:41 3 09/19/23 08:00 2 09/19/23 07:30 3 09/19/23 03:00 Laboratory Results 09/19/23 06:02 09/19/23 06:02 PG Care Time/CCT Total # of Minutes Spent Total Time Spent with Patient: Total time spent is greater than 50% in coordination of care (as documented) at patient's floor/unit and/or counseling patient: Coding Level of Care Code 79748 SUB INP/OBS CARE 3/50MIN Diagnoses Hypoxia R09.02 Altered mental status R41.82 RSV bronchitis J20.5 Type 2 diabetes mellitus E11.9 Elevated troponin R77.8 Dehydration E86.0 Dementia F03.90
[2023-09-19] MEDS: MoRPHine SULFATE 2 MG/ML CARP IV PRN ×2 (16:35→23:15)
[2023-09-19] MEDS: PIPERACILLIN/TAZOBACTAM 4.5 GM in DEXTROSE 5% MINI-B 100 ML IV SCH (18:15)
--- NOTE | 2023-09-19 19:49 | Electrocardiogram Report ---
Test Reason : Blood Pressure : / mmHG Vent. Rate : 094 BPM Atrial Rate : 094 BPM P-R Int : 148 ms QRS Dur : 090 ms QT Int : 374 ms P-R-T Axes : 030 -07 013 degrees QTc Int : 467 ms Sinus rhythm with Premature atrial complexes Low voltage QRS Borderline ECG When compared with ECG of 11-SEP-2023 13:38, No significant change was found Confirmed by Lei Oscar ([id number]) on 09/19/2023 7:49:07 PM Referred By: REFERRED SELF Confirmed By:Aaron Oscar
[2023-09-20] MEDS: PIPERACILLIN/TAZOBACTAM 4.5 GM in DEXTROSE 5% MINI-B 100 ML IV SCH (01:26)
[2023-09-20] MEDS: LEVOTHYROXINE SODIUM 75 MCG TABLET PO SCH (05:36)
[2023-09-20] MEDS: INSULIN ASPART PER UNIT CHARGE SC SCH (06:10)
[2023-09-20 06:34] LABS: Basophils # (auto) 0.01 K/uL (0.00-0.20); Basophils % (auto) 0.1 %; Hematocrit (blood only) 31.6 % (42.0-52.0); Hemoglobin 10.5 g/dl (14.0-18.0); Immature Granulocytes # (auto) 0.05 K/uL (0.01-0.20); Immature Granulocytes % (auto) 0.5 %; Lymphocytes # (auto) 1.25 K/uL (1.20-3.40); Lymphocytes % (auto) 13.5 %; Mean Corpuscular Hemoglobin 30.3 pg (25.0-34.0); Mean Corpuscular Hgb Conc 33.2 g/dL (32.0-36.0); Mean Corpuscular Volume 91.3 fL (80.0-100.0); Mean Platelet Volume 10.2 fL (9.4-12.4); Monocytes # (auto) 0.46 K/uL (0.11-0.59); Neutrophils % (auto) 80.9 %; Platelet Count 223 K/uL (130-400); RDW Coefficient of Variation 13.9 % (11.5-14.5); RDW Standard Deviation 46.9 fL (36.4-46.3); Red Blood Count 3.46 M/uL (4.70-6.10); White Blood Count 9.27 K/ul (4.8-10.8)
[2023-09-20 06:52] LABS: Alanine Aminotransferase 13 U/L (7-52); Albumin Globulin Ratio 1.1 (0.9-2); Albumin Level 3.1 gm/dl (3.4-5.0); Alkaline Phosphatase 51 U/L (34-104); Anion Gap 7 (3-11); Aspartate Aminotransferase 19 U/L (13-39); BUN Creatinine Ratio 33.7 (10-20); Bilirubin,Total 0.5 mg/dl (0.2-1.0); Blood Urea Nitrogen 34 mg/dl (6-23); Calcium 8.8 mg/dl (8.6-10.3); Carbon Dioxide 24 mmol/L (21-32); Chloride 108 mmol/L (98-107); Est GFR (African American) 76.1 ml/min; Est GFR (Non-African American) 65.6 ml/min; Globulin 2.9 gm/dl (2.5-4.0); Glucose 185 mg/dl (70-99(Fasting)); Magnesium 2.2 mg/dl (1.7-2.4); Potassium 4.4 mmol/L (3.5-5.1); Sodium 139 mmol/L (136-145)
[2023-09-20] MEDS: ALBUT/IPRATROP 3MG/0.5MG NEB 3 ML VIAL NEB SCH ×2 (07:14→11:09)
[2023-09-20] MEDS: methylPREDNISolone 40 MG in SYRINGE 0 ML IV SCH (07:43)
[2023-09-20] MEDS: ACETAMINOPHEN 1,000 MG/100 ML VIAL IV PRN (07:49)
--- NOTE | 2023-09-20 08:18 | Hospitalist Progress Note ---
Date of Service September 20, 2023 Assessment & Plan (1) Hypoxia: Plan: Acute on chroni hypoxic respiratory failure present on admission. concern for aspitation pneumonia Zosyn. Speech therapy evaluation requested. Continue parenteral steroid therapy for now. [facility] (2) Altered mental status: Plan: He has severe dementia according to his daughter. She is pursuing hospice evaluation (3) RSV bronchitis: Plan: RSV positivity by serology, no RSV pneumonia seen (4) Type 2 diabetes mellitus: Plan: Sliding scale coverage for now. Hopefully he can eventually be started on an ADA diet (5) Elevated troponin: Plan: Mild. No acute EKG changes. No apparent acute coronary syndrome suspect demand ischemia from illness (6) Dehydration: Plan: Resolved with IV fluids. Monitor intake and output (7) Dementia: Plan: Chronic. Severe. Supportive care. CODE STATUS has been switched to DNR per family request Admission and Anticipated Discharge Date Admission Date: September 18, 2023 Results & Data Results & Data Vital Signs (Past 12 Hours) Vital Signs Temp Pulse Resp BP Pulse Ox O2 Del Method O2 Flow Rate 09/20/23 07:14 89 24 93 Oxymask 1 09/20/23 03:41 99.0 F 79 18 95/55 L 94 Oxymask 2 09/19/23 22:30 98.2 F 82 18 90/53 L 93 Oxymask 2 PG Care Time/CCT Total # of Minutes Spent Total Time Spent with Patient: Total time spent is greater than 50% in coordination of care (as documented) at patient's floor/unit and/or counseling patient: Coding Diagnoses Hypoxia R09.02 Altered mental status R41.82 RSV bronchitis J20.5 Type 2 diabetes mellitus E11.9 Elevated troponin R77.8 Dehydration E86.0 Dementia F03.90
[2023-09-20] MEDS: MoRPHine SULFATE 2 MG/ML CARP IV PRN (10:16)
[2023-09-20] MEDS ORDERED: MoRPHine SULFATE 2 MG/ML CARP IV PRN (10:17)
[2023-09-20] MEDS: DOCUSATE SODIUM 100 MG CAP PO SCH (10:22)
[2023-09-20] MEDS: LOSARTAN POTASSIUM 25 MG TAB PO SCH (10:22)
--- NOTE | 2023-09-20 19:10 | Discharge Summary ---
Date of Service September 20, 2023 Admission HPI Per Admitting Provider The patient is an 88-year-old male with a past medical history including recent hospitalization at [facility] for RSV infection noted on 09/08, with admission from 09/08-09/09/2023, and then readmission from 09/11-09/17/2023. Had been discharged back to his residence at [facility], and was referred back to [facility] as noted above, when nursing staff there felt he was having difficulty breathing. The patient upon arrival was confused, had overall decreased responsiveness in part associated with dementia, and was referred for evaluation for admission after being given Solu-Medrol 125 mg IV, a DuoNeb tr eatment, and normal saline 1 L. Principal Diagnosis acute on chronic respiratory failure discharged on hospice Discharge Exam pleasantly confused, lungs are coarse Discharge Data Allergies Allergy/AdvReac Type Severity Reaction Status Date / Time adhesive tape Allergy Unknown ON [facility] Verified 09/08/23 15:05 MED LIST cephalexin [From Keflex] Allergy Unknown ON [facility] Verified 09/08/23 15:05 MED LIST rofecoxib AdvReac Intermediate SWOLLEN Verified 09/08/23 15:05 FEET Consultations 09/18/23 21:46 ED Decision to Admit Stat 09/19/23 13:04 Consult Palliative Care Routine Ordered Studies 09/18/23 19:54 CT head/brain wo con Stat Hospital Course (1) Hypoxia: Acute on chroni hypoxic respiratory failure present on admission. concern for aspiration pneumonia, rsv positive also an influence Speech therapy evaluation requested. Continue parenteral steroid therapy for now. Family transitioning to hospice (2) Altered mental status: He has severe dementia according to his daughter. encephalopathy (3) RSV bronchitis: RSV positivity by serology, (4) Type 2 diabetes mellitus: pleasure eating (5) Elevated troponin: Mild. No acute EKG changes. No apparent acute coronary syndrome suspect demand ischemia from illness (6) Dehydration: Resolved with IV fluids. (7) Dementia: Chronic. Severe. Supportive care. CODE STATUS has been switched to DNR per family request Plan returns on hospice, chronic illness not treated and pts care will be symptom relief Total Time Total Time Spent Total Time Spent (In Minutes): It required greater than 30 minutes to prepare this patient for discharge. Discharge Plan Discharge Items Patient Disposition: Hospice - Home Reason For Visit: ACUTE ON CHRONIC RESP FAIL W/ HYPOXIA Discharge Diagnosis: ACUTE ON CHRONIC RESP FAIL W/ HYPOXIA Activity: Per Instructions section Non-emergency contact: Specialist Call non-emergency contact if: your pain is not controlled Follow-up/Referrals: Mervat Garcia [Primary Care Provider] - Diet: Regular Addtl Attending Provider Instructions: enroll in hospice care Pending Studies at Discharge: No Stand-Alone Forms: My [facility] Medications and DC Order Prescriptions: Continued Systane (PF) 0.4-0.3 % Dropperette 1 drp OPB BID Rx Instructions: 0800 & 1900 lidocaine 4 % Adhesive Patch,Medicated 1 patch TOPICAL DAILY Rx Instructions: APPLY TO RIGHT SHOULDER, REMOVE AT 2000 nystatin 100,000 unit/gram Powder 1 applic TOPICAL BID PRN (Reason: GROIN AREA/SKIN IRRITATION) diclofenac sodium 1 % Gel 4 g TOPICAL Q12H PRN (Reason: LEFT HIP PAIN) diclofenac sodium [Voltaren Arthritis Pain] 1 % gel 4 g EXT TID Rx Instructions: APPLY TO RIGHT SHOULDER--0600, 0800 & 1800 ipratropium-albuterol 0.5 mg-3 mg(2.5 mg base)/3 mL Solution For Nebulization 3 ml NEB QIDR Qty: 60 0RF lidocaine 5 % Adhesive Patch,Medicated 1 patch transdermal DAILY Qty: 10 0RF olanzapine 5 mg Tablet 2.5 mg PO QPM Qty: 30 0RF Rx Instructions: TAKES AT 1900 docusate sodium 100 mg Capsule 100 mg PO BID acetaminophen 500 mg Tablet 1,000 mg PO Q8H MDD 3 GRAMS APAP/24 HOURS PRN (Reason: Pain) levothyroxine [Synthroid] 75 mcg Tablet 75 mcg PO DAILYBB Qty: 30 0RF Discontinued sertraline 100 mg Tablet 100 mg PO QPM Rx Instructions: TAKES AT 1900 simvastatin 40 mg Tablet 40 mg PO QPM Rx Instructions: TAKES AT 1900 oxybutynin chloride 5 mg tablet 10 mg PO QAM losartan 25 mg tablet 25 mg PO QAM cyanocobalamin (vitamin B-12) 1,000 mcg tablet 1,000 mcg PO QAM tramadol 50 mg Tablet 50 mg PO BID PRN (Reason: Pain) aspirin 81 mg tablet,delayed release (DR/EC) 81 mg PO QAM metformin 500 mg Tablet 500 mg PO DAILYBD Qty: 30 0RF Discharge Orders: Discharge Order (Routine); Ordered 09/20/23 Ordered By: Sunny Carty Admission Data Admit Date/Time: 09/18/23 23:29 Attending Provider: Sunny Carty Admit Provider: Nate Josue Primary Care Provider: Mervat Garcia Other Providers: Nate Josue; Allyn Cobos Other Interventions: Discharge Summary Assessment (RN) Last Done: 09/20/23 10:31 Coding Level of Care Code 60345 INP/OBS DISCH >30 MIN Diagnoses Hypoxia R09.02 Altered mental status R41.82 RSV bronchitis J20.5 Type 2 diabetes mellitus E11.9 Elevated troponin R77.8 Dehydration E86.0 Dementia F03.90
== END 2023-09-20 11:25 | disposition hospice, home (50) | DRG 202 ==
LOC: ED 19:46 → SUATTDRO 23:29 → 2E 23:29